=== PATIENT | male | born 1955 | race Caucasian/White ===

== ENCOUNTER 2020-12-27 10:05 | Outpatient (REF) | payer BC, SELFPAY ==
[2020-12-27 10:16] LABS: MANUAL DIFF FLAG NO
[2020-12-27 10:49] LABS: Basophils Absolute Auto 0.1 X10*3/uL (0.0-0.2); Basophils Percent Auto 0.9 % (0-2); Eosinophils Absolute Auto 0.3 X10*3/uL (0.0-0.4); Eosinophils Percent Auto 3.8 % (0-4); Hematocrit 35.1 % (42-52); Hemoglobin 11.9 g/dl (14.0-18.0); Imm Gran Abs Auto 0.01 X10*3/uL (0.00-0.03); Imm Gran Pct Auto 0.1 % (0.0-0.4); Lymphocytes Percent Auto 26.4 % (20-40); Mean Corpuscular HGB Conc 33.9 g/dl (31.0-36.0); Mean Corpuscular Hemoglobin 29.5 pg (27.0-33.0); Mean Corpuscular Volume 86.9 fL (80-98); Mean Platelet Volume 9.9 fL (9.4-12.4); Monocytes Absolute Auto 1.1 X10*3/uL (0.1-1.2); Monocytes Percent Auto 14.4 % (2-11); Neutrophils Absolute Auto 4.1 X10*3/uL (2.0-8.3); Neutrophils Percent Auto 54.4 % (45-73); Platelet Count 411 X10*3/uL (160-400); Red Blood Count 4.04 X10*6/uL (4.60-5.80); Red Cell Distribution Width 17.2 % (11.0-16.0); White Blood Count 7.6 X10*3/uL (4.8-10.8)
[2020-12-27 10:59] LABS: Glucose Urine UA NEG (NEG); Leukocyte Esterase Urine NEG (NEG); Nitrite Urine NEG (NEG); Urine Blood NEG (NEG); Urine Ketones NEG (NEG); Urine Protein NEG (NEG-TRACE)
[2020-12-27 11:10] LABS: Appearance Urine CLEAR; Color Urine YELLOW
[2020-12-27 11:28] LABS: Alanine Aminotransferase 32 U/L (0-40); Albumin Level 4.3 g/dL (3.5-5.0); Alkaline Phosphatase 62 U/L (39-117); Anion Gap 13 (12-20); Aspartate Amino Transferase 71 U/L (5-37); Bilirubin Total 0.5 mg/dL (0.0-1.0); Blood Urea Nitrogen 4 mg/dL (9-16); Calcium 9.8 mg/dL (8.4-10.2); Carbon Dioxide 28 mmol/L (22-29); Chloride 102 mmol/L (96-108); Cholesterol 210 mg/dL; Estimated Glomerular Filt Rate > 60; Glucose Fasting 93 mg/dL (60-99); HDL Cholesterol 94 mg/dL; LDL Cholesterol Calculated 102 mg/dl; Potassium 4.3 mmol/L (3.3-5.1); Sodium 139 mmol/L (135-145); Total Protein 7.3 g/dL (6.5-8.0); Triglycerides 73 mg/dL
[2020-12-27 11:48] LABS: PSA,Total (Free>4and<10) 1.64 ng/mL (0.00-4.00)
== END 2020-12-27 10:06 | disposition home or self-care (01) ==
LOC: HO.LNP 10:05
PROVIDERS: Visit Provider Internal Medicine
DX: Z00.00 Encounter for general adult medical examination without abnormal findings (principal); Z12.5 Encounter for screening for malignant neoplasm of prostate; R97.20 Elevated prostate specific antigen [PSA]
CPT/HCPCS: 80053; 80061; 81003; 84153; 85025

== ENCOUNTER 2020-12-31 15:29 | Outpatient (REF) | payer BC, SELFPAY ==
[2020-12-31 15:36] LABS: MANUAL DIFF FLAG NO
[2020-12-31 15:59] LABS: Basophils Absolute Auto 0.1 X10*3/uL (0.0-0.2); Basophils Percent Auto 0.9 % (0-2); Eosinophils Absolute Auto 0.2 X10*3/uL (0.0-0.4); Eosinophils Percent Auto 3.3 % (0-4); Hematocrit 33.9 % (42-52); Hemoglobin 11.3 g/dl (14.0-18.0); Imm Gran Abs Auto 0.02 X10*3/uL (0.00-0.03); Imm Gran Pct Auto 0.3 % (0.0-0.4); Iron 30 mcg/dL (45-160); Lymphocytes Absolute Auto 1.4 X10*3/uL (1.2-4.9); Lymphocytes Percent Auto 20.4 % (20-40); Mean Corpuscular HGB Conc 33.3 g/dl (31.0-36.0); Mean Corpuscular Hemoglobin 29.1 pg (27.0-33.0); Mean Corpuscular Volume 87.4 fL (80-98); Mean Platelet Volume 9.8 fL (9.4-12.4); Monocytes Percent Auto 14.9 % (2-11); Neutrophils Absolute Auto 4.2 X10*3/uL (2.0-8.3); Neutrophils Percent Auto 60.2 % (45-73); Percent Iron Saturation 7 % (15-50); Platelet Count 377 X10*3/uL (160-400); Red Blood Count 3.88 X10*6/uL (4.60-5.80); Red Cell Distribution Width 17.3 % (11.0-16.0); Total Iron Binding Capacity 402 mcg/dL (228-428); Unsaturated Iron Binding 372 ug/dL; White Blood Count 6.9 X10*3/uL (4.8-10.8)
[2020-12-31 16:35] LABS: Folate 7.7 ng/mL (> or = 4.0); Vitamin B12 279 pg/mL (200-900)
== END 2020-12-31 15:30 | disposition home or self-care (01) ==
LOC: HO.LNP 15:29
PROVIDERS: Visit Provider Internal Medicine
DX: D64.9 Anemia, unspecified (principal)
CPT/HCPCS: 82607; 82746; 83540; 85025

== ENCOUNTER 2021-02-04 10:55 | Outpatient (REF) | payer BC, SELFPAY ==
[2021-02-04 11:14] LABS: MANUAL DIFF FLAG NO
[2021-02-04 12:06] LABS: Basophils Absolute Auto 0.1 X10*3/uL (0.0-0.2); Basophils Percent Auto 1.1 % (0-2); Eosinophils Absolute Auto 0.4 X10*3/uL (0.0-0.4); Eosinophils Percent Auto 6.6 % (0-4); Hematocrit 35.4 % (42-52); Hemoglobin 11.8 g/dl (14.0-18.0); Imm Gran Abs Auto 0.01 X10*3/uL (0.00-0.03); Imm Gran Pct Auto 0.2 % (0.0-0.4); Lymphocytes Absolute Auto 1.9 X10*3/uL (1.2-4.9); Mean Corpuscular HGB Conc 33.3 g/dl (31.0-36.0); Mean Corpuscular Hemoglobin 29.6 pg (27.0-33.0); Mean Corpuscular Volume 88.7 fL (80-98); Mean Platelet Volume 10.1 fL (9.4-12.4); Monocytes Absolute Auto 1.1 X10*3/uL (0.1-1.2); Monocytes Percent Auto 18.5 % (2-11); Neutrophils Absolute Auto 2.7 X10*3/uL (2.0-8.3); Neutrophils Percent Auto 43.6 % (45-73); Platelet Count 353 X10*3/uL (160-400); Red Blood Count 3.99 X10*6/uL (4.60-5.80); Red Cell Distribution Width 21.2 % (11.0-16.0); White Blood Count 6.2 X10*3/uL (4.8-10.8)
== END 2021-02-04 10:56 | disposition home or self-care (01) ==
LOC: HO.LNP 10:55
PROVIDERS: Visit Provider Internal Medicine
DX: D64.9 Anemia, unspecified (principal)
CPT/HCPCS: 85025

== ENCOUNTER 2021-03-05 10:41 | Outpatient (REF) | payer BC, SELFPAY ==
[2021-03-05 10:44] LABS: MANUAL DIFF FLAG NO
[2021-03-05 11:15] LABS: Basophils Absolute Auto 0.1 X10*3/uL (0.0-0.2); Basophils Percent Auto 1.4 % (0-2); Eosinophils Absolute Auto 0.4 X10*3/uL (0.0-0.4); Eosinophils Percent Auto 6.3 % (0-4); Hematocrit 37.5 % (42-52); Hemoglobin 12.9 g/dl (14.0-18.0); Imm Gran Abs Auto 0.01 X10*3/uL (0.00-0.03); Imm Gran Pct Auto 0.2 % (0.0-0.4); Lymphocytes Absolute Auto 1.7 X10*3/uL (1.2-4.9); Lymphocytes Percent Auto 29.3 % (20-40); Mean Corpuscular HGB Conc 34.4 g/dl (31.0-36.0); Mean Corpuscular Hemoglobin 30.9 pg (27.0-33.0); Mean Corpuscular Volume 89.7 fL (80-98); Mean Platelet Volume 9.9 fL (9.4-12.4); Monocytes Absolute Auto 1.1 X10*3/uL (0.1-1.2); Monocytes Percent Auto 18.5 % (2-11); Neutrophils Absolute Auto 2.6 X10*3/uL (2.0-8.3); Neutrophils Percent Auto 44.3 % (45-73); Platelet Count 431 X10*3/uL (160-400); Red Blood Count 4.18 X10*6/uL (4.60-5.80); Red Cell Distribution Width 21.8 % (11.0-16.0); White Blood Count 5.7 X10*3/uL (4.8-10.8)
== END 2021-03-05 10:42 | disposition home or self-care (01) ==
LOC: HO.LNP 10:41
PROVIDERS: Visit Provider Internal Medicine
DX: D72.821 Monocytosis (symptomatic) (principal)
CPT/HCPCS: 85025

== ENCOUNTER 2021-12-30 10:29 | Outpatient (REF) | payer BC, SELFPAY ==
[2021-12-30 10:32] LABS: MANUAL DIFF FLAG NO
[2021-12-30 10:57] LABS: Basophils Absolute Auto 0.1 X10*3/uL (0.0-0.2); Basophils Percent Auto 0.8 % (0-2); Eosinophils Absolute Auto 0.3 X10*3/uL (0.0-0.4); Eosinophils Percent Auto 4.5 % (0-4); Hemoglobin 12.7 g/dl (14.0-18.0); Imm Gran Abs Auto 0.02 X10*3/uL (0.00-0.03); Imm Gran Pct Auto 0.3 % (0.0-0.4); Lymphocytes Absolute Auto 1.9 X10*3/uL (1.2-4.9); Lymphocytes Percent Auto 30.7 % (20-40); Mean Corpuscular HGB Conc 34.3 g/dl (31.0-36.0); Mean Corpuscular Hemoglobin 30.9 pg (27.0-33.0); Mean Platelet Volume 10.1 fL (9.4-12.4); Monocytes Absolute Auto 0.9 X10*3/uL (0.1-1.2); Neutrophils Percent Auto 48.7 % (45-73); Platelet Count 382 X10*3/uL (160-400); Red Blood Count 4.11 X10*6/uL (4.60-5.80); Red Cell Distribution Width 19.7 % (11.0-16.0); White Blood Count 6.2 X10*3/uL (4.8-10.8)
[2021-12-30 10:59] LABS: Appearance Urine CLEAR; Color Urine YELLOW; Glucose Urine UA NEG (NEG); Leukocyte Esterase Urine NEG (NEG); Nitrite Urine NEG (NEG); PH 5.5 (5.0-8.0); Specific Gravity - Urine <= 1.005 (1.005-1.025); Urine Blood NEG (NEG); Urine Ketones NEG (NEG); Urine Protein NEG (NEG-TRACE)
[2021-12-30 11:24] LABS: Alanine Aminotransferase 16 U/L (0-40); Albumin Level 4.1 g/dL (3.5-5.0); Alkaline Phosphatase 58 U/L (39-117); Anion Gap 12 (12-20); Aspartate Amino Transferase 37 U/L (5-37); Bilirubin Total 0.7 mg/dL (0.0-1.0); Blood Urea Nitrogen 5 mg/dL (9-16); Carbon Dioxide 29 mmol/L (22-29); Chloride 102 mmol/L (96-108); Cholesterol 198 mg/dL; Estimated Glomerular Filt Rate > 60; Glucose Fasting 96 mg/dL (60-99); HDL Cholesterol 89 mg/dL; Iron 200 mcg/dL (45-160); LDL Cholesterol Calculated 96 mg/dl; Percent Iron Saturation 55 % (15-50); Potassium 4.5 mmol/L (3.3-5.1); Sodium 138 mmol/L (135-145); Total Iron Binding Capacity 365 mcg/dL (228-428); Total Protein 7.1 g/dL (6.5-8.0); Triglycerides 66 mg/dL; Unsaturated Iron Binding 165 ug/dL
[2021-12-30 11:51] LABS: PSA,Total (Free>4and<10) 1.39 ng/mL (0.00-4.00)
== END 2021-12-30 10:30 | disposition home or self-care (01) ==
LOC: HO.LNP 10:29
PROVIDERS: Visit Provider Internal Medicine
DX: Z00.00 Encounter for general adult medical examination without abnormal findings (principal); Z12.5 Encounter for screening for malignant neoplasm of prostate; D50.9 Iron deficiency anemia, unspecified; D72.821 Monocytosis (symptomatic)
CPT/HCPCS: 80053; 80061; 81003; 83540; 84153; 85025

== ENCOUNTER 2023-02-20 11:18 | Outpatient (REF) | payer MEDICARE, BC, SELFPAY ==
[2023-02-20 11:21] LABS: MANUAL DIFF FLAG NO
[2023-02-20 11:46] LABS: Basophils Absolute Auto 0.1 X10*3/uL (0.0-0.2); Basophils Percent Auto 0.7 % (0-2); Eosinophils Absolute Auto 0.3 X10*3/uL (0.0-0.4); Eosinophils Percent Auto 4.9 % (0-4); Hematocrit 32.2 % (42.0-52.0); Hemoglobin 10.8 g/dl (14.0-18.0); Imm Gran Abs Auto 0.01 X10*3/uL (0.00-0.03); Imm Gran Pct Auto 0.1 % (0.0-0.4); Lymphocytes Absolute Auto 1.9 X10*3/uL (1.2-4.9); Mean Corpuscular HGB Conc 33.5 g/dl (31.0-36.0); Mean Corpuscular Hemoglobin 27.9 pg (27.0-33.0); Mean Corpuscular Volume 83.2 fL (80.0-98.0); Mean Platelet Volume 9.8 fL (9.4-12.4); Monocytes Percent Auto 14.8 % (2-11); Neutrophils Absolute Auto 3.4 x10*3/uL (2.0-8.3); Neutrophils Percent Auto 51.5 % (45-73); Platelet Count 385 X10*3/uL (160-400); Red Blood Count 3.87 X10*6/uL (4.60-5.80); Red Cell Distribution Width 19.1 % (11.0-16.0); White Blood Count 6.7 X10*3/uL (4.8-10.8)
[2023-02-20 11:49] LABS: Appearance Urine Clear; Color Urine Yellow; Glucose Urine UA Negative (Negative); Leukocyte Esterase Urine Negative (Negative); Nitrite Urine Negative (Negative); PH 5.5 (5.0-9.0); Specific Gravity - Urine <= 1.005 (1.005-1.025); Urine Blood Negative (Negative); Urine Ketones Negative (Negative); Urine Protein Negative (Neg-Trace)
[2023-02-20 11:54] LABS: Bacteria Urine None Seen (None Seen); Hyaline Casts Urine 0-2 /LPF (0-2); RBC Urine 0-2 /HPF (0-2); Squamous Epithelial Cell Urine 0-2 /HPF (0-2); WBC Urine 0-5 /HPF (0-5)
[2023-02-20 12:12] LABS: Alanine Aminotransferase 30 U/L (0-40); Alkaline Phosphatase 60 U/L (39-117); Anion Gap 12 (12-20); Aspartate Amino Transferase 75 U/L (5-37); Bilirubin Total 0.7 mg/dL (0.0-1.0); Blood Urea Nitrogen 4 mg/dL (9-16); Calcium 9.6 mg/dL (8.4-10.2); Carbon Dioxide 29 mmol/L (22-29); Chloride 105 mmol/L (96-108); Cholesterol 192 mg/dL; Estimated Glomerular Filt Rate > 60; Glucose Fasting 99 mg/dL (60-99); HDL Cholesterol 84 mg/dL; Iron 62 mcg/dL (45-160); LDL Cholesterol Calculated 97 mg/dl; Percent Iron Saturation 18 % (15-50); Potassium 4.6 mmol/L (3.3-5.1); Sodium 141 mmol/L (135-145); Total Iron Binding Capacity 350 mcg/dL (228-428); Triglycerides 55 mg/dL; Unsaturated Iron Binding 288 ug/dL
[2023-02-20 12:27] LABS: PSA,Total (Free>4and<10) 1.89 ng/mL (0.00-4.00)
== END 2023-02-20 11:19 | disposition home or self-care (01) ==
LOC: HO.LNP 11:18
PROVIDERS: Visit Provider Internal Medicine
DX: Z00.00 Encounter for general adult medical examination without abnormal findings (principal); Z12.5 Encounter for screening for malignant neoplasm of prostate; D50.9 Iron deficiency anemia, unspecified; D72.821 Monocytosis (symptomatic)
CPT/HCPCS: 80053; 80061; 81001; 83540; 84153; 85025

== ENCOUNTER 2023-05-29 11:30 | Outpatient (REF) | payer MEDICARE, BC, SELFPAY ==
[2023-05-29 11:32] LABS: MANUAL DIFF FLAG NO
[2023-05-29 11:46] LABS: Basophils Percent Auto 0.6 % (0-2); Eosinophils Absolute Auto 0.4 X10*3/uL (0.0-0.4); Eosinophils Percent Auto 5.1 % (0-4); Hematocrit 31.8 % (42.0-52.0); Hemoglobin 10.4 g/dl (14.0-18.0); Imm Gran Abs Auto 0.02 X10*3/uL (0.00-0.03); Imm Gran Pct Auto 0.3 % (0.0-0.4); Lymphocytes Percent Auto 27.8 % (20-40); Mean Corpuscular HGB Conc 32.7 g/dl (31.0-36.0); Mean Corpuscular Hemoglobin 25.3 pg (27.0-33.0); Mean Corpuscular Volume 77.4 fL (80.0-98.0); Mean Platelet Volume 9.6 fL (9.4-12.4); Monocytes Absolute Auto 0.9 X10*3/uL (0.1-1.2); Monocytes Percent Auto 12.8 % (2-11); Neutrophils Absolute Auto 3.8 x10*3/uL (2.0-8.3); Neutrophils Percent Auto 53.4 % (45-73); Platelet Count 418 X10*3/uL (160-400); Red Blood Count 4.11 X10*6/uL (4.60-5.80); Red Cell Distribution Width 19.4 % (11.0-16.0)
[2023-05-29 12:02] LABS: Iron 25 mcg/dL (45-160); Percent Iron Saturation 7 % (15-50); Total Iron Binding Capacity 349 mcg/dL (228-428); Unsaturated Iron Binding 324 ug/dL
== END 2023-05-29 11:31 | disposition home or self-care (01) ==
LOC: HO.LNP 11:30
PROVIDERS: Visit Provider Internal Medicine
DX: D64.9 Anemia, unspecified (principal)
CPT/HCPCS: 83540; 85025

== ENCOUNTER 2023-07-16 11:00 | Outpatient (REF) | payer MEDICARE, BC, SELFPAY ==
[2023-07-16 11:06] LABS: MANUAL DIFF FLAG NO
[2023-07-16 11:16] LABS: Basophils Absolute Auto 0.1 X10*3/uL (0.0-0.2); Basophils Percent Auto 0.7 % (0-2); Eosinophils Absolute Auto 0.4 X10*3/uL (0.0-0.4); Eosinophils Percent Auto 5.5 % (0-4); Hematocrit 29.9 % (42.0-52.0); Hemoglobin 9.8 g/dl (14.0-18.0); Imm Gran Abs Auto 0.02 X10*3/uL (0.00-0.03); Imm Gran Pct Auto 0.3 % (0.0-0.4); Lymphocytes Absolute Auto 1.7 X10*3/uL (1.2-4.9); Lymphocytes Percent Auto 24.6 % (20-40); Mean Corpuscular HGB Conc 32.8 g/dl (31.0-36.0); Mean Corpuscular Hemoglobin 25.7 pg (27.0-33.0); Mean Corpuscular Volume 78.3 fL (80.0-98.0); Mean Platelet Volume 9.8 fL (9.4-12.4); Monocytes Absolute Auto 1.1 X10*3/uL (0.1-1.2); Monocytes Percent Auto 16.1 % (2-11); Neutrophils Absolute Auto 3.6 x10*3/uL (2.0-8.3); Neutrophils Percent Auto 52.8 % (45-73); Platelet Count 458 X10*3/uL (160-400); Red Blood Count 3.82 X10*6/uL (4.60-5.80); Red Cell Distribution Width 21.6 % (11.0-16.0); White Blood Count 6.8 X10*3/uL (4.8-10.8)
[2023-07-16 11:42] LABS: Iron 19 mcg/dL (45-160); Percent Iron Saturation 6 % (15-50); Total Iron Binding Capacity 344 mcg/dL (228-428); Unsaturated Iron Binding 325 ug/dL
== END 2023-07-16 11:01 | disposition home or self-care (01) ==
LOC: HO.LNP 11:00
PROVIDERS: Visit Provider Internal Medicine
DX: D50.9 Iron deficiency anemia, unspecified (principal)
CPT/HCPCS: 83540; 85025

== ENCOUNTER 2023-08-24 12:12 | Day surgery (SDC) | payer MEDICARE, BC, SELFPAY ==
--- NOTE | 2023-08-21 10:14 | P.CONAN_ITS ---
Documented by User: Paris Triplett NP 08/21/23 10:15 HPI - Anesthesia Eval Consult details Narrative: 68yo M for Upper Endoscopy and Colonoscopy [facility] Active Problems Active Problems: All Active Problems (Updated 08/18/23 @ 12:32 by Mee Rey PA-C) Screening for AAA (aortic abdominal aneurysm) (Acute) Anemia (Acute) Nicotine dependence, cigarettes, uncomplicated (Acute) Past Medical History Medical History Anemia Nicotine dependence, cigarettes, uncomplicated History of colon polyps Family History Family History Father Pancreatic cancer Surgical History Surgical History Hx of tonsillectomy History of colonoscopy Social History Social History Patient Tobacco Use Status: Current everyday Tobacco user Cigarette Packs Per Day: 1 Cigarettes Per Day: 20.0 Years Smoked: 50 Use of substances other than those prescribed or required for medical reasons: No Are you DNR?: No Advance Directives: No Advance Directives Information Provided: Yes Meds Allergies Allergy/AdvReac Type Severity Reaction Status Date / Time No Known Allergies Allergy Verified 08/21/23 09:10 Home Medications Medication Instructions Recorded Confirmed Last Taken Type ibuprofen 200 mg tablet 200 mg PO Q6H PRN Pain 08/21/23 08/21/23 Unknown History multivitamin 1 tab PO DAILY 08/21/23 08/21/23 Unknown History Exam Exam Date and Time: August 21, 2023 1014 Assessment and Plan Assessment Anesthesia Assessment: Chart Reviewed Documented by User: Cory Moody MD 08/24/23 13:37 [facility] Past Medical History Medical History Anemia Nicotine dependence, cigarettes, uncomplicated History of colon polyps Family History Family History Father Pancreatic cancer Family history of problems with anesthesia: No Surgical History Surgical History Hx of tonsillectomy History of colonoscopy History of Problems with Anesthesia: No Social History Social History Patient Tobacco Use Status: Current everyday Tobacco user Cigarette Packs Per Day: 1 Cigarettes Per Day: 20.0 Years Smoked: 50 Use of substances other than those prescribed or required for medical reasons: No Are you DNR?: No Advance Directives: No Advance Directives Information Provided: Yes Meds Allergies Allergy/AdvReac Type Severity Reaction Status Date / Time No Known Allergies Allergy Verified 08/21/23 09:10 Home Medications Medication Instructions Recorded Confirmed Last Taken Type ibuprofen 200 mg tablet 200 mg PO Q6H PRN Pain 08/21/23 08/21/23 Unknown History multivitamin 1 tab PO DAILY 08/21/23 08/21/23 Unknown History Exam Airway Mallampati Class: II TM Dist: >3cm Loose/Missing/Broken Teeth: No Heart: rrr Lungs: clear Assessment and Plan Final Anesthetic Review Family History of Problems with Anesthesia: No History of Problems with Anesthesia: No NPO: Yes ASA Class: II Final Preanesthetic Review: No Changes in Pt Med Stat, Meds/Allgs Chart Reviewed, Consent Obtained/Reviewed and Anes Risks/Benef Reviewed Patient Risk: Intermediate Procedure Risk: Low Anesthetic Plan Anesthetic Plan: MAC: Disposition: Standard PACU
[2023-08-24 12:43] VITALS: BMI 21.4
[2023-08-24] MEDS: Lactated Ringers 1,000 ML 100 ML IVCONT (13:01)
[2023-08-24 13:08] VITALS: BP 152/84; PULSE 95; RESP 18; TEMP 37.1; O2SAT 96
[2023-08-24 14:54] VITALS: BP 118/44; PULSE 82; RESP 14; TEMP 36.1; O2SAT 98
--- NOTE | 2023-08-24 15:06 | PM.OP ---
Brief Operative Note Date of Service: 08/24/23 Pre-op diagnosis: GERD, Anemia Post-op diagnosis: other (GERD, R/O Villarreal's, Hiatal hernia, Gastritis, R/O celiac disease, Colon polyp) Procedure: EGD with biopsies, Colonoscopy to the cecum and TI with hot snare polypectomy of cecal polyp x 1 with placement of 3 Resolution clips Surgeon: Jhonathan Schwartz MD Anesthesia: MAC Was an Gardening Instructor used for this Procedure?: No Estimated blood loss (mL): 2.0 Pathology: other (A. Descending duodenum B. Gastric antrum C. EG Junction at 39cm D. Cecal polyp) Condition: stable Disposition: PACU
[2023-08-24 15:09] VITALS: BP 124/69; PULSE 78; RESP 16; O2SAT 99
[2023-08-24 15:24] VITALS: BP 137/73; PULSE 76; RESP 16; TEMP 36.2; O2SAT 99
--- NOTE | 2023-08-25 01:20 | OP_ITS ---
DATE OF SERVICE: 08/24/2023 SURGEON: Jhnoathan Schwartz MD INDICATIONS: The patient presents for evaluation of iron-deficiency anemia and gastroesophageal reflux. Full consent has been obtained from him for this, including risks of bleeding and perforation. PREOPERATIVE DIAGNOSIS: Iron deficiency anemia and gastroesophageal reflux. POSTOPERATIVE DIAGNOSIS: Iron deficiency anemia and gastroesophageal reflux, hiatal hernia, rule out Villarreal's esophagus, gastritis, rule out celiac disease, colon polyp, diverticulosis, internal and external hemorrhoids. PROCEDURE PERFORMED: Esophagogastroduodenoscopy with biopsies, and colonoscopy to the cecum and terminal ileum with hot snare polypectomy of cecal polyp with placement of 3 Resolution clips. ESTIMATED BLOOD LOSS: COMPLICATIONS: ANESTHESIA: Medication Used: Monitored anesthesia care. ASSISTANTS: SPECIMENS: DESCRIPTION OF PROCEDURE: The patient was placed in the left lateral decubitus position. The Olympus video gastroscope was passed in the posterior oropharynx and upper esophagus under direct vision. The scope was passed slowly to the distal esophagus. The gastroesophageal junction appeared at 39 cm. This area appeared somewhat irregular with small, less than 1 cm, areas of probable Villarreal's mucosa. There was no esophagitis nor any lesions. There was a small hiatal hernia. The scope was advanced to the pylorus and the duodenum was cannulated to the descending portion. The duodenum including the bulb appeared normal without mass or ulceration. Biopsies were obtained from the second and third portions of duodenum. The scope was withdrawn back to the stomach. The gastric antrum had areas of some erosive gastritis with surrounding edema, but no ulceration nor mass. There was good peristalsis. Biopsies were obtained from the antrum. The scope was retroflexed, visualizing the proximal stomach carefully, which appeared normal, without any sign of mass or ulceration. The scope was straightened out and withdrawn back to the esophagus. Multiple biopsies were obtained at the EG junction at 39 cm. Proximal to this, the esophageal mucosa appeared normal. The scope was withdrawn from the patient. He was turned around for the colonoscopy. The digital rectal exam revealed some small external hemorrhoids. The Olympus video pediatric colonoscope was entered into the rectum and advanced easily to the cecum. Once in the cecum, I did identify normal-appearing cecal pouch other than an area approximately 12 mm in diameter, which appeared edematous and polypoid in nature. It was somewhat friable. The tissue was removed with hot snare polypectomy with the edges cauterized by the tip of the snare. Post polypectomy, there did not appear to be any residual polyp nor bleeding. The main piece that was removed was recovered by suction. Three Resolution clips were applied to the polypectomy site with good deployment and good hemostasis. The remainder of the cecum including the appendiceal orifice appeared normal. The ileocecal valve appeared normal. The scope was then slowly withdrawn, assessing all mucosal surfaces carefully. Preparation was excellent. I did not visualize any sign of other polyps, colitis, nor angiodysplasia. There was a mild amount of sigmoid diverticulosis. In the rectum, scope was retroflexed, visualizing internal hemorrhoids, but no other pathology. The rectal mucosa appeared normal. The scope was straightened and withdrawn from the patient. He tolerated the procedures well and was returned to the recovery area in stable condition. IMPRESSION: 1. Hiatal hernia, gastroesophageal reflux, rule out Villarreal's esophagus. 2. Erosive gastritis. 3. Rule out celiac disease. 4. Colon polyp. 5. Diverticulosis. 6. Internal and external hemorrhoids. PLAN: The results of the pathology will be checked. If the colon polyp is a tubular adenoma or serrated polyp, I would recommend a repeat colonoscopy within 5 years. If there is Villarreal's esophagus without dysplasia, I would recommend a repeat upper endoscopy in 3 years. He was advised not to use any aspirin or NSAIDs for at least 1 week. Given the upper endoscopy findings, I shall send a prescription for omeprazole 40 mg daily. He does have some risk factors for the upper GI inflammation including smoking, some alcohol use, and ibuprofen use. He was advised to try to avoid alcohol completely as well as the ibuprofen. He was advised to start an iron supplement daily. His most recent labs on July 16 showed an iron of 19 with an iron saturation of only 6%. His CBC, at that time, showed a hemoglobin of 9.8, MCV 78, platelets 458,000. He may need further evaluation with a small bowel video capsule study depending upon his clinical course. I do suspect the blood loss seems to be related to the upper GI findings. MD NEWTON [place]/SGAE / [id number] VERONICA
== END 2023-08-24 15:46 | disposition home or self-care (01) ==
PROVIDERS: PCP Internal Medicine; Visit Provider Internal Medicine
PROC: (CPT 45385; principal; 2023-08-24 14:40)
DX: D50.9 Iron deficiency anemia, unspecified (principal); D12.0 Benign neoplasm of cecum; K57.30 Diverticulosis of large intestine without perforation or abscess without bleeding; K64.8 Other hemorrhoids; K64.4 Residual hemorrhoidal skin tags; K21.9 Gastro-esophageal reflux disease without esophagitis; K29.50 Unspecified chronic gastritis without bleeding; K44.9 Diaphragmatic hernia without obstruction or gangrene
CPT/HCPCS: 45385; 43239; 88305; 88342

== ENCOUNTER 2023-09-07 11:05 | Outpatient (REF) | payer MEDICARE, BC, SELFPAY ==
[2023-09-07 11:09] LABS: MANUAL DIFF FLAG NO
[2023-09-07 12:17] LABS: Basophils Absolute Auto 0.1 X10*3/uL (0.0-0.2); Eosinophils Absolute Auto 0.3 X10*3/uL (0.0-0.4); Eosinophils Percent Auto 5.5 % (0-4); Hemoglobin 10.6 g/dl (14.0-18.0); Imm Gran Abs Auto 0.01 X10*3/uL (0.00-0.03); Imm Gran Pct Auto 0.2 % (0.0-0.4); Lymphocytes Absolute Auto 1.5 X10*3/uL (1.2-4.9); Lymphocytes Percent Auto 25.1 % (20-40); Mean Corpuscular HGB Conc 33.1 g/dl (31.0-36.0); Mean Corpuscular Hemoglobin 25.4 pg (27.0-33.0); Mean Corpuscular Volume 76.6 fL (80.0-98.0); Mean Platelet Volume 10.1 fL (9.4-12.4); Monocytes Absolute Auto 1.1 X10*3/uL (0.1-1.2); Monocytes Percent Auto 18.4 % (2-11); Neutrophils Absolute Auto 2.9 x10*3/uL (2.0-8.3); Neutrophils Percent Auto 49.8 % (45-73); Platelet Count 393 X10*3/uL (160-400); Red Blood Count 4.18 X10*6/uL (4.60-5.80); Red Cell Distribution Width 20.2 % (11.0-16.0); White Blood Count 5.8 X10*3/uL (4.8-10.8)
[2023-09-07 12:53] LABS: Iron 81 mcg/dL (45-160); Percent Iron Saturation 23 % (15-50); Total Iron Binding Capacity 348 mcg/dL (228-428); Unsaturated Iron Binding 267 ug/dL
== END 2023-09-07 11:06 | disposition home or self-care (01) ==
LOC: HO.LNP 11:05
PROVIDERS: Visit Provider Internal Medicine
DX: D50.9 Iron deficiency anemia, unspecified (principal)
CPT/HCPCS: 83540; 85025

== ENCOUNTER 2023-10-30 10:28 | Outpatient (AMB) | payer MEDICARE, BC, SELFPAY ==
--- NOTE | 2023-10-29 20:17 | A.OFFVIS_ITS ---
Intake Intake Visit Reasons: LDCT SD Allergies No Known Allergies Allergy (Verified 08/21/23 09:10) HPI HPI Comments History of Present Illness Details Suhail is a pleasant 68 year old male, current smoker with a 51 PYH. Patient has been smoking since age 17 for 51 years at 1 ppd. Denies marijuana use. 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 Admits second hand smoke exposure. Denies known family history of lung cancer. Denies personal history of cancers. Denies chest CT in last year. Admits recent travel outside the to [place], [place], [place] and [place] Admits to testing positive for COVID. Admits receiving COVID Vaccine x 2 Denies fever, chills, chest pain, new cough, hemoptysis or unintentional weight loss. Lung Cancer Screening Questionnaire reviewed with patient by provider. Shared Decision Making Completed. Discussed in detail with patient, the risk versus benefit of LDCT screening. Patient in agreement of proceeding with scan. REPLACED BY [facility] Medical History (Updated 10/29/23 @ 20:18 by Marilin Li NP) Anemia Nicotine dependence, cigarettes, uncomplicated History of colon polyps Surgical History (Updated 09/17/23 @ 13:33 by Mee Rey PA-C) History of tonsillectomy History of colonoscopy Family History Father Pancreatic cancer Social History (Updated 10/30/23 @ 10:47 by Marilin Li NP) Patient Tobacco Use Status: Current everyday Tobacco user Cigarette Packs Per Day: 1 Cigarettes Per Day: 20.0 Years Smoked: 51 Assessment & Plan Assessment & Plan (1) Nicotine dependence, cigarettes, uncomplicated: Code(s): F17.210 - Nicotine dependence, cigarettes, uncomplicated Plan Shared decision-making visit completed today in office. This patient meets criteria for LDCT for lung cancer screening purposes and is asymptomatic. Offered smoking cessation. Patient has been scheduled for a low dose chest CT for screening purposes at [facility]. We discussed how the results w ill be obtained depending on CT findings. RADS 1 and RADS 2 will receive a letter with results and will follow up for annual LDCT. Patient informed they will be contacted at later date to schedule upcoming LDCT scan. RADS 3 and RADS 4 will receive a telephone call, or an office visit after reviewing case at our Lung Cancer Conference to determine when the next LDCT will be scheduled or further interventions that may be needed. Discussed importance of screening program and compliance with yearly LDCT scan as scheduled. Risks, benefits, and alternatives were discussed in detail and patient agrees to proceed. Risks discussed include but are not limited to: radiation exposure and possibility of additional intervention for benign disease. Benefits include detection of lung cancer at an early stage. A copy of today's visit and LDCT results will be sent to patient's PCP. Incidental findings on LDCT are PCP's responsibility. If there are incidental findings, our office will ensure that PCP office is aware of these findings. All questions were answered and patient is in agreement of plan. Coding Level of Care Code Lung Cancer Screening G0296 Diagnoses Nicotine dependence, cigarettes, uncomplicated F17.210
== END 2023-10-30 10:41 | disposition home or self-care (01) ==
PROVIDERS: PCP Internal Medicine; Visit Provider Nurse Practitioner Family
DX: F17.210 Nicotine dependence, cigarettes, uncomplicated (principal)
CPT/HCPCS: G0296

== ENCOUNTER 2023-10-30 10:42 | Outpatient (REF) | payer MEDICARE, BC, SELFPAY ==
--- NOTE | ~2023-10-30 | CT_ITS ---
EXAMINATION: CT CHEST LOW-DOSE SCREENING WITHOUT CONTRAST HISTORY: Asymptomatic patient meeting criteria for lung screening. PATIENT PACK-YEAR HISTORY: 52 Current Smoker: Yes If former smoker, years since quitting: N/A COMPARISON: None available. TECHNIQUE: Multidetector volumetric noncontrast CT imaging of the chest was obtained on a Siemens Ascend 64-slice scanner using low-dose screening CT technique. Axial thin section 0.625 mm reformations in soft tissue and lung windows were obtained. Sagittal and coronal reformations were obtained. Axial MIP images were also created and reviewed. RECONSTRUCTED WIDTH: 1.25 mm x 1.[address] examination was performed using dose optimization techniques as appropriate, variously including the following: *Automated exposure control *Adjustment of mA and/or kV according to patient size (this includes techniques or standardized protocols for targeted exams where dose is matched to indication/reason for exam; i.e. extremities or head) *Use of iterative reconstruction technique TOTAL EXAM DLP: 46 mGy-cm CTDIvol: 0.95 mGy FINDINGS: LUNGS: Lungs bilaterally symmetrically expanded. Mild emphysematous changes are present. No worrisome focal lung nodule or mass. There is a 2 mm nodule present in the right upper lobe (5:140) along with a 3 mm nodule present in the right upper lobe (5:254). No effusion or pneumothorax. Central airways patent. LYMPHATIC STRUCTURES: No mediastinal, hilar or axillary adenopathy or free fluid collection. THYROID GLAND: Unremarkable to the extent seen. CARDIOVASCULAR STRUCTURES: The ascending aorta is dilated at 4.3 cm when measurements are made perpendicular to a center line. Heart size normal. Mild coronary artery calcifications. No pericardial effusion. UPPER ABDOMEN: Included portions of the solid organs in the upper abdomen unremarkable on noncontrast imaging. OSSEOUS STRUCTURES: No suspicious focal findings. SPINAL COMPRESSION: Absent. CT/CT lung screening IMPRESSION: No findings suspicious for malignancy. Small pulmonary micronodules as described above. LUNG-RADS CATEGORY ASSESSMENT: Benign. INCIDENTAL FINDINGS (S CATEGORY): Finding: Thoracic aortic aneurysm. The ascending aorta measures 4.3 cm. For a patient of 68 years of age, maximal dimension should be 4.2 cm*. Significance category: Clinically significant. RECOMMENDATION: Low-dose lung CT overall in 1 year. Visual estimate of coronary calcified plaque burden: None. However, this exam cannot replace a dedicated cardiac CT calcium score for accurate assessment. *Normal aortic diameters (in millimeters) Ascending aorta: 31+0.16 x age. Descending aorta: 21+0.16 x age. Reference: [employer] Cardiovascular J 2006 [place]; 40 (3): 175-178
== END 2023-10-30 10:43 | disposition home or self-care (01) ==
LOC: HO.CT 10:42
PROVIDERS: PCP Internal Medicine; Visit Provider Physician Assistant Medical
DX: Z12.2 Encounter for screening for malignant neoplasm of respiratory organs (principal); F17.210 Nicotine dependence, cigarettes, uncomplicated
CPT/HCPCS: 71271; G0296

== ENCOUNTER 2024-02-22 12:24 | Outpatient (REF) | payer MEDICARE, BC, SELFPAY ==
[2024-02-22 12:28] LABS: MANUAL DIFF FLAG NO
[2024-02-22 12:32] LABS: Basophils Absolute Auto 0.1 X10*3/uL (0.0-0.2); Basophils Percent Auto 1.1 % (0-2); Eosinophils Absolute Auto 0.4 X10*3/uL (0.0-0.4); Eosinophils Percent Auto 5.6 % (0-4); Hematocrit 31.7 % (42.0-52.0); Hemoglobin 10.5 g/dl (14.0-18.0); Imm Gran Abs Auto 0.02 X10*3/uL (0.00-0.03); Imm Gran Pct Auto 0.3 % (0.0-0.4); Lymphocytes Absolute Auto 1.7 X10*3/uL (1.2-4.9); Lymphocytes Percent Auto 26.5 % (20-40); Mean Corpuscular HGB Conc 33.1 g/dl (31.0-36.0); Mean Corpuscular Hemoglobin 26.5 pg (27.0-33.0); Mean Corpuscular Volume 80.1 fL (80.0-98.0); Mean Platelet Volume 9.5 fL (9.4-12.4); Monocytes Percent Auto 15.4 % (2-11); Neutrophils Absolute Auto 3.2 x10*3/uL (2.0-8.3); Neutrophils Percent Auto 51.1 % (45-73); Platelet Count 389 X10*3/uL (160-400); Red Blood Count 3.96 X10*6/uL (4.60-5.80); Red Cell Distribution Width 21.4 % (11.0-16.0); White Blood Count 6.2 X10*3/uL (4.8-10.8)
[2024-02-22 12:41] LABS: Alanine Aminotransferase 32 U/L (0-40); Albumin Level 3.5 g/dL (3.5-5.0); Alkaline Phosphatase 66 U/L (39-117); Anion Gap 10 (12-20); Aspartate Amino Transferase 86 U/L (5-37); Bilirubin Total 0.3 mg/dL (0.0-1.0); Blood Urea Nitrogen 4 mg/dL (9-16); Carbon Dioxide 28 mmol/L (22-29); Chloride 105 mmol/L (96-108); Cholesterol 142 mg/dL (<200); Estimated Glomerular Filt Rate > 60; Glucose Fasting 82 mg/dL (60-99); HDL Cholesterol 46 mg/dL (>40); Iron 25 mcg/dL (45-160); LDL Cholesterol Calculated 80 mg/dL (<100); Percent Iron Saturation 8 % (15-50); Sodium 139 mmol/L (135-145); Total Iron Binding Capacity 318 mcg/dL (228-428); Total Protein 6.7 g/dL (6.5-8.0); Triglycerides 81 mg/dL (<150); Unsaturated Iron Binding 293 ug/dL
[2024-02-22 12:42] LABS: Appearance Urine Clear; Color Urine Yellow; Glucose Urine UA Negative (Negative); Leukocyte Esterase Urine Negative (Negative); Nitrite Urine Negative (Negative); PH 5.5 (5.0-9.0); Specific Gravity - Urine <= 1.005 (1.005-1.025); Urine Blood Negative (Negative); Urine Ketones Negative (Negative); Urine Protein Negative (Neg-Trace)
[2024-02-22 12:48] LABS: Bacteria Urine None Seen (None Seen); Hyaline Casts Urine 0-2 /LPF (0-2); RBC Urine 0-2 /HPF (0-2); Squamous Epithelial Cell Urine 0-2 /HPF (0-2); WBC Urine 0-5 /HPF (0-5)
[2024-02-22 13:02] LABS: PSA,Total (Free>4and<10) 1.05 ng/mL (0.00-4.00)
== END 2024-02-22 12:25 | disposition home or self-care (01) ==
LOC: HO.LNP 12:24
PROVIDERS: Visit Provider Internal Medicine
DX: D50.9 Iron deficiency anemia, unspecified (principal); D72.821 Monocytosis (symptomatic); I25.84 Coronary atherosclerosis due to calcified coronary lesion; Z12.5 Encounter for screening for malignant neoplasm of prostate
CPT/HCPCS: 80053; 80061; 81001; 83540; 84153; 85025

== ENCOUNTER 2024-04-11 14:57 | Outpatient (AMB) | payer MEDICARE, SELFPAY ==
[2024-04-11 15:05] VITALS: BP 150/78; PULSE 88; BMI 21.5
--- NOTE | 2024-04-11 15:05 | A.OFFVIS_ITS ---
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 It seems that he had a chest CT scan because of history of smoking and that showed severe emphysema. There was also concern for coronary artery as well as vascular calcifications. That led to a calcium scoring CT scan which was obviously positive. Hence he has been referred here. Patient is a long-term smoker. Otherwise, no history of anginal-type symptoms or in fact any other concerns from cardiac. [facility] Medical History (Updated 04/11/24 @ 15:35 by Saran Rodriguez MD) Emphysema lung Atherosclerotic cardiovascular disease Anemia Nicotine dependence, cigarettes, uncomplicated History of colon polyps Surgical History History of tonsillectomy History of colonoscopy Family History Father Pancreatic cancer Social History Alcohol intake: current Alcohol intake frequency: 0-2 drinks per day Patient Tobacco Use Status: Current everyday Tobacco user Cigarette Packs Per Day: 1 Cigarettes Per Day: 20.0 Years Smoked: 51 Review of Systems Const Denies weakness ENT Denies dizziness Card Denies chest pain, Denies chest pain with activity, Denies syncope, Denies rapid heart rate, Denies pedal edema, Denies edema, Denies leg edema, Denies lightheadedness, Denies palpitations, Denies dyspnea, Denies dyspnea on exertion and Denies orthopnea Resp Denies cough, Denies dyspnea and Denies dyspnea on exertion GI Denies hematochezia and Denies change in stool character Musc Denies abnormal gait, Denies muscle cramps, Denies muscle weakness, Denies numbness, Denies radiating pain into limb and Denies tingling Neuro Denies abnormal gait, Denies dizziness, Denies syncope, Denies numbness, Denies tingling and Denies weakness Endo Denies palpitations Physical Exam Vital Signs: Last Vital Signs Pulse 88 04/11/24 15:05 BP 150/78 H 04/11/24 15:05 BMI result Body Mass Index 21.5 Const General: comfortable and no acute distress Orientation/consciousness: patient oriented x3 HEENT Other: Unremarkable Head: Yes normal to inspection Neck Neck: Yes normal visual inspection Chest Chest palpation & inspection: normal inspection of the chest Resp Auscultation: clear to auscultation bilaterally Cardio Palpation: normal PMI Heart sounds: S1 normal heart sound present, S2 normal heart sound present, no gallops, no murmurs and no rubs GI Palpation (GI): Soft to palpation Back/Spine/Pelvis Other: unremarkable Skin General skin exam: no rashes or lesions noted Neuro General: patient oriented x3 Extrem General: Yes normal to inspection Psych Mental Status: mental status grossly normal Office Procedures EKG Details: EKG with sinus rhythm at 88/Min; no significant ST-T changes and otherwise [place]remarkable[place] [address]-[id number], Complete Assessment & Plan Assessment & Plan (1) Atherosclerotic cardiovascular disease: Code(s): I25.10 - Atherosclerotic heart disease of [place] coronary artery without angina pectoris Category: Medical Plan: Noncontrast chest CT shows coronary as well as vascular calcifications. In the calcium scoring CT, LAD score was 221. Circumflex 42. Left main and right coronary artery 0. Total score 263. In the echocardiogram, LVEF is 55-60% with no wall motion abnormalities. No sig nificant valvular findings. LDL cholesterol 80 mg/dL. Triglycerides 81 mg/dL. HDL 46 mg/dL. Discussed with patient. Start statins. He is willing to try. (2) Ascending aortic aneurysm: Code(s): I71.21 - Aneurysm of the ascending aorta, without rupture Category: Medical Plan: In the calcium scoring CT scan, ascending aortic size 4.3 cm. In the echocardiogram, reported normal, probably underestimate. We can recheck in about 6 months or so. (3) Elevated blood pressure reading without diagnosis of hypertension: Code(s): R03.0 - Elevated blood-pressure reading, without diagnosis of hypertension Category: Medical Plan: Blood pressure is 150/78 mm Hg. Denies any prior history of hypertension. Advised him to do some home readings. Discussed importance in the setting of aortic dilatation. If consistently high, may need medications. Orders: Orders CA echo transthoracic complete 6 Months I25.10 - Atherosclerotic heart disease of [place] coronary artery without angina pectoris, I71.21 - Aneurysm of the ascending aorta, without rupture Medications: New atorvastatin 20 mg PO QPM 90 tabs 3RF Coding Level of Care Code New Pt Level 4 (94589) Diagnoses Atherosclerotic cardiovascular disease I25.10 Ascending aortic aneurysm I71.21 Elevated blood pressure reading without diagnosis of hypertension R03.0 CPT Codes EKG - CPT: 48421-[id number], Complete ([id number])
== END 2024-04-11 15:30 | disposition home or self-care (01) ==
PROVIDERS: PCP Internal Medicine; Visit Provider Internal Medicine
DX: I25.10 Atherosclerotic heart disease of native coronary artery without angina pectoris (principal); I71.21 Aneurysm of the ascending aorta, without rupture; R03.0 Elevated blood-pressure reading, without diagnosis of hypertension
CPT/HCPCS: 93010; 99204

== ENCOUNTER → 2024-04-11 14:57 | Outpatient (BNVA) | payer MEDICARE, SELFPAY | PROVIDERS: PCP Internal Medicine; Visit Provider Internal Medicine | DX: I25.10 Atherosclerotic heart disease of native coronary artery without angina pectoris (principal); I10 Essential (primary) hypertension; I71.21 Aneurysm of the ascending aorta, without rupture; F17.210 Nicotine dependence, cigarettes, uncomplicated | CPT/HCPCS: 93005; 99202 ==

== ENCOUNTER 2024-08-30 11:12 | Outpatient (REF) | payer MEDICARE, OTHER, SELFPAY ==
[2024-08-30 11:17] LABS: MANUAL DIFF FLAG NO
[2024-08-30 11:22] LABS: Basophils Absolute Auto 0.1 X10*3/uL (0.0-0.2); Basophils Percent Auto 0.8 % (0-2); Eosinophils Absolute Auto 0.4 X10*3/uL (0.0-0.4); Eosinophils Percent Auto 4.7 % (0-4); Hematocrit 33.2 % (42.0-52.0); Hemoglobin 11.1 g/dl (14.0-18.0); Imm Gran Abs Auto 0.03 X10*3/uL (0.00-0.03); Imm Gran Pct Auto 0.4 % (0.0-0.4); Lymphocytes Absolute Auto 1.8 X10*3/uL (1.2-4.9); Mean Corpuscular HGB Conc 33.4 g/dl (31.0-36.0); Mean Corpuscular Hemoglobin 27.9 pg (27.0-33.0); Mean Corpuscular Volume 83.4 fL (80.0-98.0); Mean Platelet Volume 10.1 fL (9.4-12.4); Monocytes Absolute Auto 1.1 X10*3/uL (0.1-1.2); Monocytes Percent Auto 14.8 % (2-11); Neutrophils Absolute Auto 4.1 x10*3/uL (2.0-8.3); Neutrophils Percent Auto 55.3 % (45-73); Platelet Count 387 X10*3/uL (160-400); Red Blood Count 3.98 X10*6/uL (4.60-5.80); Red Cell Distribution Width 22.2 % (11.0-16.0); White Blood Count 7.4 X10*3/uL (4.8-10.8)
[2024-08-30 11:54] LABS: Iron 380 mcg/dL (45-160); Percent Iron Saturation 94 % (15-50); Total Iron Binding Capacity 405 mcg/dL (228-428); Unsaturated Iron Binding < 25 ug/dL
== END 2024-08-30 11:13 | disposition home or self-care (01) ==
LOC: HO.LNP 11:12
PROVIDERS: Visit Provider Internal Medicine
DX: D50.9 Iron deficiency anemia, unspecified (principal)
CPT/HCPCS: 83540; 85025

== ENCOUNTER → 2024-10-11 14:01 | Outpatient (REF) | payer MEDICARE, OTHER, SELFPAY ==
--- NOTE | 2024-10-11 14:05 | CA_ITS ---
Transthoracic Echocardiogram Patient (Last, First, Middle): Suhail Hassan J Gender: Male Date of : 1955 Age: 69 Procedure Date: 10/11/2024 Procedure Type: Transthoracic Echocardiogram Location: OP Height: 175.26 cm Weight: 67.13 kg BSA: 1.82 m2 Heart Rate: bpm BP: 154 / 84 mmHg Furnace Mechanic Helper: GABINO Referring MD: Saran Rodriguez MD Machine Egg Washer: Kennedy Green MD Symptoms: I25.10 - Atherosclerotic heart disease of [place] coronary artery without... Study Quality: Fair ECG Rhythm: Sinus Conclusions: - 1. Normal LV ejection fraction with LVEF of 55-60% with grade diastolic dysfunction. 2. Normal cardiac valvular dopplers 3. Mildly dilated ascending aorta 4. No pericardial effusion Findings Left Ventricle Normal left ventricular size, thickness, and systolic function. The visually estimated ejection fraction is between 55-60%. Spectral Doppler is indicative of an impaired relaxation filling pattern. E/E prime ratio is <8, consistent with normal filling pressures. Evidence suggests grade I (mild) diastolic dysfunction. Right Ventricle Normal right ventricular cavity size and systolic function. Atria Both atria are normal in size. There is no evidence of interatrial shunt. Aortic Valve Normal aortic valve structure and function. There is no aortic valve stenosis. There is no aortic valve regurgitation. Mitral Valve Normal mitral valve structure and function. There is no mitral valve regurgitation. There is no mitral valve stenosis. Pulmonic Valve The pulmonic valve is likely normal. There is trace pulmonic valve regurgitation. Tricuspid Valve Likely normal tricuspid valve structure and function. Tricuspid regurgitation envelope is inadequate for calculation of right ventricular systolic pressure. Normal right atrial pressure. There is no evidence of pulmonary hypertension. Great Vessels The pulmonary artery was not well visualized. There is mild dilatation of the ascending aorta measuring 4.10 cm. Small plaque is seen in the sino tubular ridge. Venous The inferior vena cava is normal in size and collapses greater than 50% with inspiration. Pericardium/Pleural There is no evidence of pericardial effusion. Prior Study Comparison No studies in last 5 years. Measurements 2D Linear Measurements IVSd: 1.02 0.6-0.9/0.6-1.0 cm LVIDd: 4.34 3.9-5.3/4.2-5.9 cm LVIDd Index: 2.38 2.4-3.2/2.2-3.1 cm/m2 LVIDs: 2.70 2.0-3.6 cm LVPWd: 1.02 0.7-1.1 cm LA Diam: 2.50 2.7-3.8/3.0-4.0 cm LAIDs Index: 1.37 1.5-2.3 cm/m2 LV Mass: 185.07 67-162/88-224 g LV Mass Index: 101.68 43-95/49-115 g/m2 LVOT Diam: 2.00 3.0+(-)1.3 cm 2D Systolic Function EF 4C: 63.70 >55% EF 2C: 53.30 >55% EF BiP: 59.80 >55% Mitral Valve MV Pk E: 0.58 MV PK A: 0.59 MV Decel Time: 251.00 E/A: 1.00 E'Lateral: 7.94 E'Medial: 7.40 E/E' Med: 7.90 E/E' Lat: 7.30 PHT: 73.00 MVA PHT: 3.01 Decel [place]: 2.32 Aortic Valve AoV Pk Chinmay: 1.20 AoV Mn Chinmay: 0.85 AoV VTI: 0.25 AoV Pk Grad: 6.00 Aov Mn Grad: 3.00 JOSE Cont.VTI: 1.71 LVOT LVOT Pk Chinmay: 0.73 LVOT Mn Chinmay: 0.54 LVOT VTI: 0.14 LVOT Pk Grad: 2.00 LVOT Mn Grad: 1.00 LVOT Diam: 2.00 LVOT Area: 3.14 Diastolic Function MV Pk E: 0.58 MV Pk A: 0.59 E/A: 1.00 E'Medial: 7.40 E/E' Med: 7.90 E' Laterial: 7.94 E/E' Lat: 7.30 Right Ventricle TAPSE (mm): 22.80 TVS' Chinmay: 12.80 Tricuspid Valve RA Press: 3.00 Great Vessels Aorta Sinus of Valsalva: 3.74 2.0-3.[address] [place]: 2.74 1.7-3.4 cm Ao Asc: 4.10 2.1-3.4 cm Updated in Other Vendor System with Status of Final Kennedy Green MD electronically signed on 10/12/2024 4:44:28 PM with status of Final
--- OUTSIDE RECORDS SUMMARY | 2024-10-12 21:55 | XMS_ITS | Patient Health Record ---
Author Organization [facility] Address [address] [place] [address] Care Team Providers Care Jewel Blocker And Sawyer Name Role Phone Major Nazario MD Primary Care Provider Jhonathan Heredia Unavailable [phone] ALLERGIES No Known Allergies REASON FOR REFERRAL No Information MEDICATIONS Medication SIG (Take, Route, Frequency, Duration) Notes Start Date End Date Status Omeprazole 20 MG 1 capsule Orally once every morning for 90 days Active Omeprazole 40 MG 1 Orally Every morning for 30 day(s) 08/24/2023 Not-Taking Multivitamin Adult - Orally Active Ibuprofen 200 MG 1 tablet with food or milk as needed Orally PRN 3-4 times per week Active IMMUNIZATIONS Vaccine Route Administration Date Status Comme nts Influenza Unknown 07/21/2023 Administered SOCIAL HISTORY Tobacco Use: Social History Observation Description Date Details (start date - stop date) Current Smoker NA - NA Sex Assigned At : Social History Observation Description Sex Assigned At Unknown Tobacco Use/Smoking Question Answer Notes Patient is a current smoker How often do you smoke cigarettes? every day How many cigarettes a day do you smoke? 11-20 Alcohol Screen Question Answer Notes Did you have a drink contain ing alcohol in the past year? Yes How often did you have a dri nk containing alcohol in the past year? 2 to 3 times a week (3 points) How many drinks did you have on a typical day when you were drinking in the past year? 1 or 2 drinks (0 point) How often did you have 6 or more drinks on one occasion in the past year? Never (0 point) Points 3 Interpretation Negative PROBLEMS Problem Type ICD Code Onset Dates Problem Status W/U Status Risk SNOMED Code Notes Problem Heme + stool (R19.5) Active confirmed 74486361 Problem Iron deficiency anemia, unspecified iron deficiency anemia type (D50.9) Active confirmed 80473275 Problem Gastroesophageal reflux disease, unspecified whether esophagitis present (K21.9) Active confirmed 940391710 Problem Diverticulosis of large intestine without perforation or abscess without bleeding (K57.30) Active confirmed Diverticul ar disease of colon (403603089) Problem Iron deficiency anemia (D50.9) Active confirmed Iron deficien cy anemia (66191008) Problem Erosive gastritis (K29.60) Active confirmed Erosive gastrit is (5490126491679652) Problem Gastroesophageal reflux disease (K21.9) Active confirmed Gastroesophagea l reflux disease (670767666) Problem History of colon polyps (Z86.010) Active confirmed History of polyp of colon (176352131) VITAL SIGNS Temperature 97.3 degrees Fahrenheit 07/27/2024 Blood pressure diastolic 00 mm Hg 07/27/2024 Height 67.5 in 07/27/2024 Blood pressure systolic 000 mm Hg 07/27/2024 Weight 141 lb 6 oz lbs 07/27/2024 BMI 21.81 kg/m2 07/27/2024 Encounters Encounter Location Date Provider Diagnosis [facility] [address] [place] [address] 12/30/2023 Jhonathan Schwartz Erosive gastritis K2 9.60 ; Iron deficiency anemia D50.9 and History of colon polyps Z86.010 [facility] [address] [place] [address] 07/27/2024 Jhonathan Schwartz Iron deficiency anem ia, unspecified iron deficiency anemia type D50.9 ; Gastroesophageal reflux disease, unspecified whether esophagitis present K21.9 ; Erosive gastritis K29.60 and History of colon polyps Z86.010 ASSESSMENTS Encounter Date Diagnosis Assessment Notes Treatment Notes Treatment Clinical Notes 12/30/2023 Iron deficiency anem ia (ICD-10 - D50.9) We will switch to 20mg omeprazole Continue the Iron every other day Try to avoid Ibuprofen and minimize alcohol 12/30/2023 Erosive gastritis (ICD-10 - K29.60) 07/27/2024 Iron deficiency anemia, unspecified iron deficiency anemia type (ICD-10 - D50.9) Use 1 Iron pill and 1 20mg omeprazole every day. Have Dr. Nazario send me a copy of the lab results 07/27/2024 Gastroesophageal reflux disease, unspecified whether esophagitis present (ICD-10 - K21.9) 12/30/2023 History of colon polyps (ICD-10 - Z86.010) Repeat colonoscopy in 08/202807/27/2024 Erosive gastritis (ICD-10 - K29.60) 07/27/2024 History of colon polyps (ICD-10 - Z86.010) PLAN OF TREATMENT Pending Test Test Name Order Date IRON + IBC (FE) 08/24/2023 IRON + IBC (FE) 07/27/2024 IRON + IBC (FE) 12/30/2023 CBC w DIFF 08/24/2023 CBC w DIFF 07/27/2024 CBC w DIFF 12/30/2023 CELIAC PANEL #10 07/09/2023 Ferritin 12/30/2023 Ferritin 08/24/2023 Ferritin 07/27/2024 Vitamin B12 and Folate 07/09/2023 Future Test Test Name Order Date COLONOSCOPY 04/06/2018 UPPER GI ENDOSCOPY 07/09/2023 COLONOSCOPY 07/09/2023 Next Appt Details Provider Name:Jhonathan Schwartz , 02/01/2025 03:40:00 PM, [address] [place] [address], [address], [place], [address], Insurance Providers Payer Name Payer Address Payer Phone Subscriber Number Group Number Insured Name Patient Relationship to Insured Coverage Start Date Coverage End Date MEDICARE OF [place] [address] [place] [id number] [phone] [id number] BENJAMIN MORGAN Self - patient is the insured [facility] [address] [address] [place] [address] [phone] [id number] BENJAMIN MORGAN Self - patient is the insured MEDICAL (GENERAL) HISTORY Medical History History ICD Code Denies NC,DM,CVA,Lung disease,renal dise ase Neg. screeening colonoscopy in 07/2010 except for a hyperplastic polyp, mild diverticulosis, small internal hemorrhoids Colonoscopy in April of 2018 was negative other than a hyperplastic polyp Upper endoscopy in August revealed a small hiatal hernia and changes of reflux, but without Villarreal's esophagus or esophagitis; there was erosive gastritis with biopsies negative for H. pylori; duodenal biopsies were normal and without evidence of celiac disease Colonoscopy in August 2023 revealed a serrated polyp in the cecum which was removed. Iron deficiency anemia in e fall with GI workup as above. He had been using ibuprofen, several beers daily, and smoking and I felt that was the cause of his anemia Surgical History Surgery Date(Month/Year) tonsillectomy
--- OUTSIDE RECORDS SUMMARY | 2024-10-12 21:55 | XMS_ITS ---
Author Organization [facility] Address [address] [place] [address] Care Team Providers Care Ediphone Operator Name Role Phone Major Nazario MD Primary Care Provider Jhonathan Heredia [phone] MEDICATIONS Medication SIG (Take, Route, Fr equency, Duration) Notes Start Date End Date Status Omeprazole 40 MG 1 Orally Every morni ng for 30 day(s) 08/24/2023 Active Encounters Encounter Location Date Provider Diagnosis [facility] [address] [place] [address] 08/24/2023 Jhonathan Schwartz Iron deficiency anemia, unspecified iron deficiency anemia type D50.9 ASSESSMENTS Encounter Date Diagnosis Assessment Notes Treatment Notes Treatment Clinical Notes 08/24/2023 Iron deficiency anemia, unspecified iron deficiency anemia type (ICD-10 - D50.9) PLAN OF TREATMENT Medication Medication Name Sig Start Date Stop Date Notes Omeprazole 40 MG 1 Orally Every morning for 30 day(s) 08/03 Pending Test Test Name Order Date IRON + IBC (FE) 08/24/2023 CBC w DIFF 08/24/2023 Ferritin 08/24/2023 Next Appt Details Provider Name:Jhonathan Schwartz , 02/01/2025 03:40:00 PM, [address], [address], [place], [address],
--- OUTSIDE RECORDS SUMMARY | 2024-10-12 21:55 | XMS_ITS ---
Author Organization [facility] Address [address] [place] [address] Care Team Providers Care Fireworks Maker Name Role Phone Major Nazario MD Primary Care Provider Jhonathan Heredia Unavailable [phone] ALLERGIES No Known Allergies REASON FOR VISIT Patient presents today for anemia MEDICATIONS Medication SIG (Take, Route, Frequency, Duration) Notes Start Date End Date Status Omeprazole 40 MG 1 Orally Every morning for 30 day(s) 08/24/2023 Active Multivitamin Adult - Orally Active Ibuprofen 200 MG 1 tablet with food o r milk as needed Orally PRN 3-4 times per week Active Omeprazole 20 MG 1 capsule Orally onc e every morning for 30 day(s) 12/30/2023 Active SOCIAL HISTORY Tobacco Use: Social History Observation [...] W/U Status Risk SNOMED Code Notes Problem History of colon polyps (Z86.010) Active confirmed History of polyp of colon (303337360) VITAL SIGNS BMI 22.28 kg/m2 12/30/2023 Blood pressure systolic 000 mm Hg 12/30/19 24 Blood pressure diastolic 00 mm Hg 024 Height 67.5 in 12/30/2023 Temperature 97.8 degrees Fahrenheit 12/30/19 24 Weight 144 lb 6 oz lbs 12/30/2023 Encounters Encounter Location Date Provider Diagnosis [facility] [address] [place] [address] 12/30/2023 Jhonathan Schwartz Erosive gastritis K29.60 ; Iron deficiency anemia D50.9 and History of colon polyps Z86.010 ASSESSMENTS Encounter Date Diagnosis Assessment Notes Treatment Notes Treatment Clinical Notes 12/30/2023 Erosive gastritis (ICD-10 - K29.60) 12/30/2023 Iron deficiency anemia (ICD-10 - D50.9) We will switch to 20mg omeprazole Continue the Iron every other day Try to avoid Ibuprofen and minimize alcohol 12/30/2023 History of colon polyps (ICD-10 - Z86.010) Repeat colonoscopy in 08/2028 PLAN OF TREATMENT Medication Medication Name Sig Start Date Stop Date Notes Omeprazole 20 MG 1 capsule Orally onc e every morning for 30 day(s) 12/30/2023 Treatment Notes Assessment Notes Iron deficiency anemia We will switch to 20mg omeprazole Continue the Iron every other day Try to avoid Ibuprofen and minimize alcohol History of colon polyps Repeat colonosco py in 08/2028 Pending Test Test Name Order Date IRON + IBC (FE) 12/30/2023 CBC w DIFF 12/30/2023 Ferritin 12/30/2023 Next Appt Details Follow Up: 2023, Reaso n: Provider Name:Jhonathan Schwartz , 02/01/2025 03:40:00 PM, [address], [address], [place], [address], Progress Notes * Examination Category Sub-Category Detail Notes General Examination GENERAL APPEARANCE: pleasant , well nourished, well developed, in no acute distress HEAD: EYES: sclera non-icteric EARS: NOSE: THROAT: NECK/THYROID: no cervical lymphade nopathy, neck supple HEART: S1, S2 normal CHEST: LUNGS: clear to auscultatio n bilaterally ABDOMEN: normal bowel sounds, no guarding or rigidity, no guarding or rigidity, no masses palpable, soft, nontender, nondistended NEUROLOGIC: alert and oriented SKIN: nonjaundiced, no spi kristopher angiomata EXTREMITIES: no edema PERIPHERAL PULSES: BACK: BREASTS: MUSCULOSKELETAL: MALE GENITOURINARY: LYMPH NODES: RECTAL EXAM: FEMALE GENITOURINARY: ORAL CAVITY: mucosa moist
--- OUTSIDE RECORDS SUMMARY | 2024-10-12 21:55 | XMS_ITS ---
Author Organization [facility] Address [address] [place] [address] Care Team Providers Care Knocker Out Name Role Phone Major Nazario MD Primary Care Provider Jhonathan Heredia Unavailable [phone] ALLERGIES No Known Allergies REASON FOR VISIT [...] Orally PRN 3-4 times per week Active SOCIAL HISTORY Tobacco Use: Social History Observation Description Date Details (start date - stop date) Current Smoker NA - NA Sex Assigned At : Social History Observation Description Sex Assigned At Unknown Tobacco Use/Smoking Question Answer Notes Patient is a current smoker How often do you smoke cigarettes? every day How many cigarettes a day do you smoke? 09-21 Alcohol Screen Question Answer Notes Did you [...] Never (0 point) Points 3 Interpretation Negative VITAL SIGNS BMI 21.81 kg/m2 07/27/2024 Blood pressure systolic 000 mm Hg 09/25/20 24 Blood pressure diastolic 00 mm Hg 024 Height 67.5 in 07/27/2024 Temperature 97.3 degrees Fahrenheit 07/27/20 Weight 141 lb 6 oz lbs 07/27/2024 Encounters Encounter Location Date Provider Diagnosis [facility] [address] [place] [address] 07/27/2024 Jhonathan Schwartz Iron deficiency anem ia, unspecified iron deficiency anemia type D50.9 ; Gastroesophageal reflux disease, unspecified whether esophagitis present K21.9 ; Erosive gastritis K29.60 and History of colon polyps Z86.010 ASSESSMENTS Encounter Date Diagnosis Assessment Notes Treatment Notes Treatment Clinical Notes 07/27/2024 Iron deficiency anem ia, unspecified iron deficiency anemia type (ICD-10 - D50.9) Use 1 Iron pill and 1 20mg omeprazole every day. Have Dr. Nazario send me a copy of the lab results 07/27/2024 Gastroesophageal ref lux disease, unspecified whether esophagitis present (ICD-10 - K21.9) 07/27/2024 Erosive gastritis (ICD-10 - K29.60) 07/27/2024 History of colon andi yps (ICD-10 - Z86.010) PLAN OF TREATMENT Treatment Notes Assessment Notes Iron deficiency anemia, unsp ecified iron deficiency anemia type Use 1 Iron pill and 1 20mg omeprazole every day. Have Dr. Nazario send me a copy of the lab results Pending Test Test Name Order Date IRON + IBC (FE) 07/27/2024 CBC w DIFF 07/27/2024 Ferritin 07/27/2024 Next Appt Details Follow Up: Spring 2024, Reas on: Provider Name:Jhonathan Schwartz , 02/01/2025 03:40:00 PM, [address], [address], [place], [address], Progress Notes * Examination Category Sub-Category Detail [...]
--- OUTSIDE RECORDS SUMMARY | 2024-10-12 21:56 | XMS_ITS | Patient Health Record ---
Author Organization Major Nazario MD Address [address] [place] [phone] Care Team Providers Care [employer] Supervisor Name Role Phone Major Nazario Primary Care Provider [phone] ALLERGIES No Known Allergies RESULTS Component Value Reference Range Notes CT lung screening Reviewed date:12/14/2023 01:52:24 PM Interpretation:see back 12-14-2023 Performing Lab: Notes/Report: [address] [address] [address] Scan Report Signed Patient: Suhail Hassan MR#: [id number] : 1955 Acct:[id number] Age/Sex: 68 / M ADM Date: 10/30/23 Loc: HO.CT Attending Dr: Mee Rey PA-C Ordering Physician: Mee Rey PA-C Date of Service: 10/30/23 Procedure(s): CT lung screening Accession Number(s): [id number] cc: Major Nazario MD; Mee Rey PA-C EXAMINATION: CT CHEST LOW-DOSE SCREENING WITHOUT CONTRAST HISTORY: Asymptomatic patient meeting criteria for lung screening. PATIENT PACK-YEAR HISTORY: 52 Current Smoker: Yes If former smoker, years since quitting: N/A COMPARISON: None available. TECHNIQUE: Multidetector volumetric noncontrast CT imaging of the chest was obtained on a Siemens Ascend 64-slice scanner using low-dose screening CT technique. Axial thin section 0.625 mm reformations in soft tissue and lung windows were obtained. Sagittal and coronal reformations were obtained. Axial MIP images were also created and reviewed. RECONSTRUCTED WIDTH: 1.25 mm x 1.[address] examination was performed using dose optimization techniques as appropriate, variously including the following: *Automated exposure control *Adjustment of mA and/or kV according to patient size (this includes techniques or standardized protocols for targeted exams where dose is matched to indication/reason for exam; i.e. extremities or head) *Use of iterative reconstruction technique TOTAL EXAM DLP: 46 mGy-cm CTDIvol: 0.95 mGy FINDINGS: LUNGS: Lungs bilaterally symmetrically expanded. Mild emphysematous changes are present. No worrisome focal lung nodule or mass. There is a 2 mm nodule present in the right upper lobe (5:140) along with a 3 mm nodule present in the right upper lobe (5:254). No effusion or pneumothorax. Central airways patent. LYMPHATIC STRUCTURES: No mediastinal, hilar or axillary adenopathy or free fluid collection. THYROID GLAND: Unremarkable to the extent seen. CARDIOVASCULAR STRUCTURES: The ascending aorta is dilated at 4.3 cm when measurements are made perpendicular to a center line. Heart size normal. Mild coronary artery calcifications. No pericardial effusion. UPPER ABDOMEN: Included portions of the solid organs in the upper abdomen unremarkable on noncontrast imaging. OSSEOUS STRUCTURES: No suspicious focal findings. SPINAL COMPRESSION: Absent. CT/CT lung screening IMPRESSION: No findings suspicious for malignancy. Small pulmonary micronodules as described above. LUNG-RADS CATEGORY ASSESSMENT: Benign. INCIDENTAL FINDINGS (S CATEGORY): Finding: Thoracic aortic aneurysm. The ascending aorta measures 4.3 cm. For a patient of 68 years of age, maximal dimension should be 4.2 cm*. Significance category: Clinically significant. RECOMMENDATION: Low-dose lung CT overall in 1 year. Visual estimate of coronary calcified plaque burden: None. However, this exam cannot replace a dedicated cardiac CT calcium score for accurate assessment. *Normal aortic diameters (in millimeters) Ascending aorta: 31+0.16 x age. Descending aorta: 21+0.16 x age. Reference: [employer] J 2005; 40 (3): 175-178 Dictated By: Steve Gomez MD Signed By: <Electronically signed by Steve Gomez MD in OV> 11/12/23 1131 DD/ 1116 TD/TT: Atmospheric Scientist: SS Complete Blood Count Auto Di ff Reviewed date:02/22/2024 01:24:14 PM Interpretation: Performing Lab:[facility], [address] [place] [phone] Notes/Report: White Blood Count 6.2 4.8-10.8 X10*3/uL Red Blood Count 3.96 4.60-5.80 X10*6/uL Hemoglobin 10.5 14.0-18.0 g/dl Hematocrit 31.7 42.0-52.0 % Mean Corpuscular Volume 80.1 80.0-98.0 fL Mean Corpuscular Hemoglobin 26.5 27.0-33.0 pg Mean Corpuscular HGB Conc 33.1 31.0-36.0 g/dl Red Cell Distribution Width 21.4 11.0-16.0 % Platelet Count 389 160-400 X10*3/uL Mean Platelet Volume 9.5 9.4-12.4 fL Neutrophils Percent Auto 51.1 45-73 % Imm Gran Pct Auto 0.3 0.0-0.4 % Lymphocytes Percent Auto 26.5 20-40 % Monocytes Percent Auto 15.4 2-11 % Eosinophils Percent Auto 5.6 0-4 % Basophils Percent Auto 1.1 0-2 % NRBC Pct Auto 0.0 0.0-0.2 /100WBC Neutrophils Absolute Auto 3.2 2.0-8.3 x10*3/u L Imm Gran Abs Auto 0.02 0.00-0.03 X10*3/uL Lymphocytes Absolute Auto 1.7 1.2-4.9 X10*3/u L Monocytes Absolute Auto 1.0 0.1-1.2 X10*3/uL Eosinophils Absolute Auto 0.4 0.0-0.4 X10*3/u L Basophils Absolute Auto 0.1 0.0-0.2 X10*3/uL NRBC Abs Auto 0.000 0.0-0.012 X10*3/uL Comprehensive [place]. Panel Fa Reviewed date:02/22/2024 12:52:29 PM Interpretation: Performing Lab:[facility], [address] [place] [phone] Notes/Report: Sodium 139 135-145 mmol/L Potassium 4.0 3.3-5.1 mmol/L Chloride 105 96-108 mmol/L Carbon Dioxide 28 22-29 mmol/L Anion Gap 10 12-20 Blood Urea Nitrogen 4 9-16 mg/dL Creatinine 0.62 0.5-1.4 mg/dL Estimated Glomerular Filt Rate > 60 NOTE: For -[place]wegian individuals, multiply the result by 1.210. Chronic Kidney Disease: Estimated GFR < 60 mL/min/1.73m2 Severe Kidney Disease: Estimated GFR < 15 mL/min/1.73m2 Glucose Fasting 82 60-99 mg/dL Calcium 9.0 8.4-10.2 mg/dL Bilirubin Total 0.3 0.0-1.0 mg/dL Aspartate Amino Transferase 86 5-37 U/L Alanine Aminotransferase 32 0-40 U/L Total Protein 6.7 6.5-8.0 g/dL Albumin Level 3.5 3.5-5.0 g/dL Alkaline Phosphatase 66 39-117 U/L IRON PROFILE Reviewed date:02/22/2024 12:46:17 PM Interpretation: Performing Lab:[facility], [address] [place] [phone] Notes/Report: Iron 25 45-160 mcg/dL Total Iron Binding Capacity 318 228-428 mcg/d L Percent Iron Saturation 8 15-50 % Unsaturated Iron Binding 293 Lipid Panel Reviewed date:02/22/2024 12:44:14 PM Interpretation: Performing Lab:[facility], [address] [place] [phone] Notes/Report: Triglycerides 81 <150 mg/dL Desirable Triglyceride: less than 150 mg/dL Borderline High Triglyceride 150-199 mg/dL High Triglyceride: 200-499 mg/dL Very High Triglyceride: greater than or equal to 5OO mg/dL Cholesterol 142 <200 mg/dL Desirable Cholesterol: less than 200 mg/dL Borderline High Cholesterol: 200-239 mg/dL High Cholesterol: greater than 239 mg/dL LDL Cholesterol Calculated 80 <100 mg/dL Desirable LDL: less than 100 mg/dL Near Optimal/Above Optimal LDL: 110-129 mg/dL Borderline High LDL: 130-159 mg/dL High LDL: 160-189 mg/dL Very High LDL: greater than or equal to 190 mg/dL HDL Cholesterol 46 >40 mg/dL Desirable HDL: greater than 40 mg/dL Note: This HDL assay may give artificially low results in patients with liver disease. PSA,Total (Free>4and<10) Reviewed date:02/22/2024 01:23:46 PM Interpretation: Performing Lab:[facility], [address] [place] [phone] Notes/Report: PSA,Total (Free>4and<10) 1.05 0.00-4.00 ng/mL A Free PSA was not performed: The percentage of Free PSA can be used to enhance the differentiation of prostate cancer from benign prostatic disease in subjects whose PSA levels are between 4.0 and 10.0 ng/mL. For subjects whose PSA levels are below 4.0 or above 10.0 ng/mL, the risk of prostate cancer is determined on the basis of the PSA alone. Therefore the % Free PSA is recommended only for those subjects whose PSA levels are between 4.0 and 10.0 ng/mL. PSA methodology: Bennett Alinity i Chemiluminescent Microparticle Immunoassay (CMIA) UA ClnCatch+Micro w/rflx Cul t Reviewed date:02/22/2024 12:51:46 PM Interpretation: Performing Lab:[facility], [address] [place] [phone] Notes/Report: Urine, Clean Catch Color Urine Yellow Appearance Urine Clear PH 5.5 5.0-9.0 Glucose Urine UA Negative Negative mg/dL Urine Blood Negative Negative Specific [place] - Urine <= 1.005 1.005-1.025 Urine Protein Negative Neg-Trace mg/dL Urine Ketones Negative Negative mg/dL Nitrite Urine Negative Negative Leukocyte Esterase Urine Negative Negative RBC Urine 0-2 0-2 /HPF WBC Urine 0-5 0-5 /HPF Squamous Epithelial Cell Urine 0-2 0-2 /HPF Bacteria Urine None Seen None Seen Hyaline Casts Urine 0-2 0-2 /LPF Complete Blood Count Auto Di ff Reviewed date:08/30/2024 12:40:36 PM Interpretation: Performing Lab:[facility], [address] [place] [phone] Notes/Report: White Blood Count 7.4 4.8-10.8 X10*3/uL Red Blood Count 3.98 4.60-5.80 X10*6/uL Hemoglobin 11.1 14.0-18.0 g/dl Hematocrit 33.2 42.0-52.0 % Mean Corpuscular Volume 83.4 80.0-98.0 fL Mean Corpuscular Hemoglobin 27.9 27.0-33.0 pg Mean Corpuscular HGB Conc 33.4 31.0-36.0 g/dl Red Cell Distribution Width 22.2 11.0-16.0 % Platelet Count 387 160-400 X10*3/uL Mean Platelet Volume 10.1 9.4-12.4 fL Neutrophils Percent Auto 55.3 45-73 % Imm Gran Pct Auto 0.4 0.0-0.4 % Lymphocytes Percent Auto 24.0 20-40 % Monocytes Percent Auto 14.8 2-11 % Eosinophils Percent Auto 4.7 0-4 % Basophils Percent Auto 0.8 0-2 % NRBC Pct Auto 0.0 0.0-0.2 /100WBC Neutrophils Absolute Auto 4.1 2.0-8.3 x10*3/u L Imm Gran Abs Auto 0.03 0.00-0.03 X10*3/uL Lymphocytes Absolute Auto 1.8 1.2-4.9 X10*3/u L Monocytes Absolute Auto 1.1 0.1-1.2 X10*3/uL Eosinophils Absolute Auto 0.4 0.0-0.4 X10*3/u L Basophils Absolute Auto 0.1 0.0-0.2 X10*3/uL NRBC Abs Auto 0.000 0.0-0.012 X10*3/uL IRON PROFILE Reviewed date:08/30/2024 01:50:03 PM Interpretation: Performing Lab:[facility], [address] [place] [phone] Notes/Report: Iron 380 45-160 mcg/dL Total Iron Binding Capacity 405 228-428 mcg/d L Percent Iron Saturation 94 15-50 % Unsaturated Iron Binding < 25 REASON FOR REFERRAL Reason cotonary atheroscler osis Diagnosis 1 Coronary atheroscler osis due to calcified coronary lesion (I25.84) Referral Organization Major Nazario MD Referring Provider First Name Major Referring Provider Last Name Mansi Referring Provider Speciality Internal M edicine Referred Provider DYLAN LIZ Referred Provider Specialty Cardiology General Notes Saranya Rolle 02:36:02 PM EST > info faxed with report , Saranya Rolle 01/11/2024 02:45:46 PM EDT > spoke with office appt being worked on, Saranya Rolle 02/02/2024 08:11:15 AM EDT > info mailed to patient Referral Priority Routine Referral Appointment Date 04/11/2024 Reason pain right shoulder Diagnosis 1 Pain in right should er (M25.511) Referral Organization Major Nazario MD Referring Provider First Name Major Referring Provider Last Name Mansi Referring Provider Speciality Internal edicine Referred Provider Ady De Jesus Referred Provider Specialty Orthopedic S urgery General Notes Saranya Rolle 01:44:19 PM EST > info faxed , Saranya Rolle 09/19/2024 02:29:07 PM EST > was told to refaxed Aquilino Annette 09/20/2024 01:18:45 PM EST > was told by office patient is aware of appt Referral Priority Routine Referral Appointment Date 11/01/2024 MEDICATIONS Medication SIG (Take, Route, Frequency, Duration) Notes Start Date End Date Status Atorvastatin Calcium 20 MG 1 tablet Orally Once a day for 30 day(s) Active Cialis 20 MG 1 tablet Orally Once a day for 30 days 09/23/2016 Not-Taking Omeprazole 20 MG 1 capsule 30 minutes before morning meal Orally Once a day Active Tadalafil 20 MG 1 tablet Orally Once a day for 30 day(s) 12/31/2020 Not-Taking Ibuprofen 800 MG 1 tablet Orally Thre e times a day for 90 days Not-Taki ng IMMUNIZATIONS Vaccine Route Administration Date Status Comme nts DECLINED, FLU Unknown 08/12/2013 Administered Flu Vaccine IM Intramuscular 08/28/2014 Administered zFluzone Quadrivalent IM Intramuscular 10/23/2015 Administ ered Fluarix Quadrivalent IM Intramuscular 11/25/2016 Administe red PPSV23 (Pnemovax) IM Intramuscular 12/04/2017 Administered Fluarix Quadrivalent IM Intramuscular 08/16/2018 Administlauren red Prevnar 13 IM Intramuscular 12/12/2019 Administered Fluarix Quadrivalent IM Intramuscular 12/26/2019 Administe red Fluarix Quadrivalent IM Intramuscular 12/27/2020 Administe red Fluarix Quadrivalent IM Intramuscular 12/30/2021 Administe red SARS-COV-2 Pfizer Unknown 02/12/2021 Administered SARS-COV-2 Pfizer Unknown 03/05/2021 Administered SARS-COV-2 Pfizer Unknown 10/29/2021 Administered Fluarix Quadrivalent IM Intramuscular 07/27/2023 Administe red Fluarix Quadrivalent - 150 IM Intramuscular 08/30/2024 Adm inistered SOCIAL HISTORY Tobacco Use: Social History Observation Description Date Details (start date - stop date) Current Smoker NA - NA Sex Assigned At : Social History Observation Description Sex Assigned At Unknown Tobacco Use/Smoking Question Answer Notes Patient is a current smoker How often do you smoke cigarettes? every day How many cigarettes a day do you smoke? 11-20 How soon after you wake up d o you smoke your first cigarette? within 5 minutes Are you interested in quitting? Thinking about q uitting Additional Findings: Tobacco User Curren t cigarette smoker, not currently using another form of tobacco Alcohol Screen Question Answer Notes Did you have a drink contain ing alcohol in the past year? Yes How often did you have a dri nk containing alcohol in the past year? 4 or more times a week (4 points) How many drinks did you have on a typical day when you were drinking in the past year? 3 or 4 drinks (1 point) How often did you have 6 or more drinks on one occasion in the past year? Never (0 point) Points 5 Interpretation Positive PROBLEMS Problem Type ICD Code Onset Dates Problem Status W/U Status Risk SNOMED Code Notes Problem Atherosclerotic heart disease of [place] coronary artery without angina pectoris (I25.10) Active confirmed 328269724 Problem Erectile dysfunction (N52.9) Active confirmed 404732345 Problem Coronary atherosclerosis due to calcified coronary lesion (I25.84) Active confirmed 10353498 Problem 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) Active confirmed 0951430 Problem Lumbar disc disease (M51.9) Active confirmed 289533236 Problem Smoker (F17.200) Active confirmed 03940 002 Problem Environmental allergies (Z91.09) Active confirmed 640094650 Problem Iron deficiency anemia (D50.9) Active confirmed Iron deficiency anemia (89540670) Problem Current smoker (F17.200) Active confirmed 41696171 Problem Monocytosis (D72.821) Active confirmed Monocytosis (86557660) Problem Iron deficiency anemia, unspecified iron deficiency anemia type (D50.9) Active confirmed 63555283 Problem Intertrigo (L30.4) Active confirmed 587 82903 Problem Hyperplastic colonic polyp, unspecified part of colon (K63.5) Active confirmed 487610134 Problem Condyloma acuminata (A63.0) Active confirmed Anogenital warts (297830049) VITAL SIGNS Blood pressure diastolic 70 mm Hg 09/06/2024 marti ght is down 3 pounds since 02-29-24 Height 69.50 in 09/06/2024 weight is down 3 pounds since 02-29-24 Blood pressure systolic 132 mm Hg 09/06/2024 weig ht is down 3 pounds since 02-29-24 Weight 143 lbs 09/06/2024 weight is down 3 pounds since 02-29-24 BMI 20.81 kg/m2 09/06/2024 weight is down 3 pounds since 02-29-24 Encounters Encounter Location Date Provider Diagnosis Major Nazario MD [address] [place] [id number] 12/14/2023 Major Nazario Aneurysm of ascendin g aorta without rupture I71.21 ; Atherosclerotic heart disease of [place] coronary artery without angina pectoris I25.10 and Coronary atherosclerosis due to calcified coronary lesion I25.84 Major Nazario MD [address] [place] [id number] 02/29/2024 Major Nazario Current smoker F17.2 00 ; Aneurysm of ascending aorta without rupture I71.21 ; Iron deficiency anemia, unspecified iron deficiency anemia type D50.9 ; Eye lesion H57.9 ; Colon cancer screening Z12.11 and Depression screening Z13.31 Major Nazario MD [address] [place] [address] Drive [address] [place] [id number] 02/22/2024 Major Nazario Iron deficiency anem ia, unspecified iron deficiency anemia type D50.9 ; Monocytosis D72.821 and Coronary atherosclerosis due to calcified coronary lesion I25.84 Major Nazario MD [address] [place] [id number] 08/30/2024 Major Nazario Iron deficiency anem ia D50.9 ; Monocytosis D72.821 ; Iron deficiency anemia, unspecified iron deficiency anemia type D50.9 and Encounter for immunization Z23 Major Nazario MD [address] [place] [id number] 09/06/2024 Major Nazario Iron deficiency anem ia, unspecified iron deficiency anemia type D50.9 ; Toe pain, left M79.675 and Pain in right shoulder M25.511 Major Nazario MD [address] [place] [id number] 04/07/2024 Major Nazario ASSESSMENTS Encounter Date Diagnosis Assessment Notes Treatment Notes Treatment Clinical Notes 12/14/2023 Atherosclerotic hear t disease of [place] coronary artery without angina pectoris (ICD-10 - I25.10) will get a coronary ct and calcium score and decide what to do based on that/ appt booked at [facility] 12-24-23 at 9:15am 12/14/2023 Aneurysm of ascendin g aorta without rupture (ICD-10 - I71.21) order printed and put in furture folder 02/29/2024 Current smoker (ICD- 10 - F17.200) going to see cardiology in 02/29/2024 Aneurysm of ascendin g aorta without rupture (ICD-10 - I71.21) going to see cardiology in 02/22/2024 Monocytosis (ICD-10 - D72.821) 02/22/2024 Iron deficiency anemia, unspecified iron deficiency anemia type (ICD-10 - D50.9) 08/30/2024 Iron deficiency anem ia (ICD-10 - D50.9) 08/30/2024 Monocytosis (ICD-10 - D72.821) 09/06/2024 Iron deficiency anemia, unspecified iron deficiency anemia type (ICD-10 - D50.9) took the iron for only 3 or 4 days and it got too high. will change to once a week. stop taking it for a month.will cntinue to monitor 09/06/2024 Toe pain, left (ICD- 10 - M79.675) is going to wait and see if it goes away 12/14/2023 Coronary atherosclerosis due to calcified coronary lesion (ICD-10 - I25.84) 02/29/2024 Iron deficiency anemia, unspecified iron deficiency anemia type (ICD-10 - D50.9) to take iron every other day 02/22/2024 Coronary atherosclerosis due to calcified coronary lesion (ICD-10 - I25.84) 08/30/2024 Iron deficiency anemia, unspecified iron deficiency anemia type (ICD-10 - D50.9) 09/06/2024 Pain in right should er (ICD-10 - M25.511) referral to [facility] 02/29/2024 Eye lesion (ICD-10 - H57.9) has been there 40 years but thinks it has gotten larger. is going to see ey doctor in couple weeks 08/30/2024 Encounter for immunization (ICD-10 - Z23) 02/29/2024 Colon cancer screeni ng (ICD-10 - Z12.11) guaiac negative 02/29/2024 Depression screening (ICD-10 - Z13.31) negative screen PLAN OF TREATMENT Pending Test Test Name Order Date Electrocardiogram (EKG) 05/31/2013 Electrocardiogram (EKG) 12/04/2017 Electrocardiogram (EKG) 12/06/2018 Electrocardiogram (EKG) 12/16/2018 Future Test Test Name Order Date CT chest wo con 12/14/2024 Next Appt Details Provider Name:Major frazier, 11/28/2024 08:00:00 AM, [address] [place] [address], [address], [phone], Provider Name:Major frazier, 02/24/2025 07:45:00 AM, [address] [place] [address], [address], [phone], Provider Name:Major frazier, 03/02/2025 02:30:00 PM, [address] [place] [address], [address], [phone], Insurance Providers Payer Name Payer Address Payer Phone Subscriber Number Group Number Insured Name Patient Relationship to Insured Coverage Start Date Coverage End Date [employer] [address] [place] [address] [id number] Suhail Hassan Self - patient is the insured [facility] [address] [address] [place] [address] [id number] Suhail Hassan Self - patient is the insured MEDICAL (GENERAL) HISTORY Medical History History ICD Code Abscess colonoscopy 2009 neg. repeat 10; Colonoscopy 04/23/[address] Schwartz hyperplastic polyp flu vac refused 08/12/13 colonoscopy 2022 repeat in 5 years
--- OUTSIDE RECORDS SUMMARY | 2024-10-12 21:56 | XMS_ITS ---
Author Organization Major Nazario MD Address [address] [place] [phone] Care Team Providers Care Clinical Reimbursement Specialist Name Role Phone Major Nazario Primary Care Provider [phone] ALLERGIES No Known Allergies REASON FOR REFERRAL Reason pain right shoulder Diagnosis 1 Pain in right should er (M25.511) Referral Organization Major Nazario MD Referring Provider First Name Major Referring Provider Last Name Mansi Referring Provider Speciality Internal M edicine Referred Provider Ady De Jesus Referred Provider Specialty Orthopedic S urgery General Notes Saranya Rolle 01:44:19 PM EST > info faxed Aquilino Annette 09/19/2024 02:29:07 PM EST > was told to refaxed Aquilino Annette 09/20/2024 01:18:45 PM EST > was told by office patient is aware of appt Referral Priority Routine Referral Appointment Date 11/01/2024 REASON FOR VISIT 6 month, c/o right shoulder pain x 3-4months no injury MEDICATIONS Medication SIG (Take, Route, Frequency, Duration) [...] a day for 90 days Not-Taki ng VITAL SIGNS BMI 20.81 kg/m2 09/06/2024 Blood pressure systolic 132 mm Hg 09/06/20 24 Blood pressure diastolic 70 mm Hg 024 Height 69.50 in 09/06/2024 Weight 143 lbs 09/06/2024 weight is down 3 pounds [facility] e 02-29-24 Encounters Encounter Location Date Provider Diagnosis Major Nazario MD [address] [facility] [address] [place], [place] [id number] 09/06/2024 Major Nazario Iron deficiency anemia, unspecified iron deficiency anemia type D50.9 ; Toe pain, left M79.675 and Pain in right shoulder M25.511 ASSESSMENTS Encounter Date Diagnosis Assessment Notes Treatment Notes Treatment Clinical Notes 09/06/2024 Iron deficiency anemia, unspecified iron deficiency anemia type (ICD-10 - D50.9) took the iron for only 3 or 4 days and it got too high. will change to once a week. stop taking it for a month.will cntinue to monitor 09/06/2024 Toe pain, left (ICD-10 - M79.675) is going to wait and see if it goes away 09/06/2024 Pain in right shoulder (ICD-10 - M25.511) referral to [facility] ortho PLAN OF TREATMENT Treatment Notes Assessment Notes Iron deficiency anemia, unsp ecified iron deficiency anemia type took the iron for only 3 or 4 days and i t got too high. will change to once a week. stop taking it for a month.will cntinue to monitor Toe pain, left is going to wait and see if it goes away Pain in right shoulder referral to [facility] o rtho Referrals Referral Date Details 11/01/2024 11/01/2024, pain rig ht shoulder , Ady De Jesus Next Appt Details Follow Up: 6 Months, Reason: complete Provider Name:Major frazier, 11/28/2024 08:00:00 AM, [address] [place] [address], [address], [place], [place], [phone], Provider Name:Major frazier, 02/24/2025 07:45:00 AM, [address] [place] [address], [address], [place], [place], [phone], Provider Name:Major frazier, 03/02/2025 02:30:00 PM, [address] [place] [address], [address], [place], [phone], Progress Notes * Examination Category Sub-Category Detail Notes General Examination GENERAL APPEARANCE: alert, w ell hydrated, in no distress , male HEAD: normocephalic HEART: no murmurs, rubs, ga llops , regular rate and rhythm LUNGS: no wheezes, rales, r honchi , good air movement , clear to auscultation bilaterally SKIN: good turgor EXTREMITIES: abnormal with a smal l tender spot on lateral small toe Consultation Request Notes Referral Date Referring Provider Referred Provider Not daniella 09/06/2024 Major Nazario Noah pain right shoulder
--- OUTSIDE RECORDS SUMMARY | 2024-10-12 21:56 | XMS_ITS ---
Author Organization Major Nazario MD Address [address] [place] [phone] Care Team Providers Care Hoop Expander Name Role Phone Major Nazario Primary Care Provider REASON FOR VISIT FYI Encounters Encounter Location Date Provider Diagnosis Major Nazario MD 10 [facility] [address] [place] [phone] 04/07/2024 Major Nazario PLAN OF TREATMENT Next Appt Details Provider Name:Major frazier, 11/28/2024 08:00:00 AM, [address] [place] [address], [address], [phone], Provider Name:Major Oh iemario alberto, 02/24/2025 07:45:00 AM, [address] [place] [address], [address], [phone], Provider Name:Major frazier, 03/02/2025 02:30:00 PM, [address] [place] [address], [phone],
--- OUTSIDE RECORDS SUMMARY | 2024-10-12 21:56 | XMS_ITS ---
Author Organization Major Nazario MD Address [address] [place] [phone] Care Team Providers Care Aids Counselor Name Role Phone Major Nazario Primary Care Provider RESULTS Component Value Reference Range Notes Complete Blood Count Auto Di ff Reviewed date:08/30/2024 12:40:36 PM Interpretation: Performing Lab:[facility], [address] [place] [phone] Notes/Report: White Blood Count 7.4 4.8-10.8 X10*3/uL [...] PROFILE Reviewed date:08/30/2024 01:50:03 PM Interpretation: Performing Lab:[facility], [address] [place] [phone] Notes/Report: Iron 380 45-160 mcg/dL Total Iron Binding Capacity 405 228-428 mcg/d L Percent Iron Saturation 94 15-50 % Unsaturated Iron Binding < 25 REASON FOR VISIT CBC Iron IMMUNIZATIONS Vaccine Route Administration Date Status Comme nts Fluarix Quadrivalent - 150 IM Intramuscular 08/30/2024 Adm inistered Encounters Encounter Location Date Provider Diagnosis Major Nazario MD [address] [place] [address] [address] [place], [place] [phone] 08/30/2024 Major Nazario Iron deficiency anemia D50.9 ; Monocytosis D72.821 ; Iron deficiency anemia, unspecified iron deficiency anemia type D50.9 and Encounter for immunization Z23 ASSESSMENTS Encounter Date Diagnosis Assessment Notes Treatment Notes Treatment Clinical Notes 08/30/2024 Iron deficiency anemia (ICD-10 - D50.9) 08/30/2024 Monocytosis (ICD-10 - D72.821) 08/30/2024 Iron deficiency anemia, unspecified iron deficiency anemia type (ICD-10 - D50.9) 08/30/2024 Encounter for immunization (ICD-10 - Z23) PLAN OF TREATMENT Next Appt Details Provider Name:Major frazier, 11/28/2024 08:00:00 AM, [address] [place] [address], [address], [place], [phone], Provider Name:Major frazier, 02/24/2025 07:45:00 AM, [address] [place] [address], [address], [place], [phone], Provider Name:Major frazier, 03/02/2025 02:30:00 PM, [address] [place] [address], [address], [place], [phone],
== END ==
LOC: HO.CARD 14:01
PROVIDERS: PCP Internal Medicine; Visit Provider Internal Medicine
DX: I25.10 Atherosclerotic heart disease of native coronary artery without angina pectoris (principal); I71.21 Aneurysm of the ascending aorta, without rupture
CPT/HCPCS: 93306

== ENCOUNTER → 2024-10-11 14:05 | Outpatient (BNV) | payer MEDICARE, OTHER, SELFPAY | PROVIDERS: PCP Internal Medicine; Visit Provider Internal Medicine Cardiovascular Disease | DX: I25.10 Atherosclerotic heart disease of native coronary artery without angina pectoris (principal); R93.1 Abnormal findings on diagnostic imaging of heart and coronary circulation | CPT/HCPCS: 93306 ==

== ENCOUNTER 2024-11-01 12:55 | Outpatient (REF) | payer MEDICARE, OTHER, SELFPAY ==
--- NOTE | ~2024-11-01 | XR_ITS ---
EXAMINATION: XR RIGHT SHOULDER CLINICAL INFORMATION: Pain in right shoulder M25.511. COMPARISON: None available. TECHNIQUE: AP external rotation, Grashey, scapular Y, and axillary views of the right shoulder. FINDINGS: Submitted for interpretation on November 09, 2024. No acute cortical disruption or malalignment. There is a 3 mm linear calcification at the supraspinatus tendon insertion. No lytic or blastic lesions. Subtle subcutaneous emphysema. XR/XR shoulder RT min 2V IMPRESSION: No acute fracture or dislocation. Consider tendinosis versus tendinopathy, supraspinatus. Electronically signed by: Yadiel Birmingham MD 11/09/2024 07:52 AM EST
--- OUTSIDE RECORDS SUMMARY | 2024-11-03 13:57 | XMS_ITS ---
Author Organization [facility] Address [address] [place] [address] Care Team Providers Care Counter Help Name Role Phone Major Nazario MD Primary Care Provider Jhonathan Heredia Unavailable [phone] ALLERGIES No Known Allergies REASON FOR VISIT [...] Active confirmed History of polyp of colon (908145567) VITAL SIGNS BMI 22.28 kg/m2 12/30/2023 Blood pressure systolic 000 mm Hg 12/30/19 24 Blood pressure diastolic 00 mm Hg 024 Height 67.5 in 12/30/2023 Temperature 97.8 degrees Fahrenheit 12/30/19 24 Weight 144 lb 6 oz lbs 12/30/2023 Encounters Encounter Location Date Provider Diagnosis [facility] [address] [place] [address] 12/30/2023 Jhonathan Schwartz Erosive gastritis K29.60 ; [...] 03:40:00 PM, [address], [address], [place], [address], Progress Notes * Examination Category Sub-Category Detail [...]
--- OUTSIDE RECORDS SUMMARY | 2024-11-03 13:57 | XMS_ITS ---
Author Organization Major Nazario MD Address [address] [place] [phone] Care Team Providers Care Client Solutions Manager Name Role Phone Major Nazario Primary Care Provider RESULTS Component Value Reference Range Notes Complete Blood Count Auto Di ff Reviewed date:08/30/2024 12:40:36 PM Interpretation: Performing Lab:[facility], [address] [place] [phone] Notes/Report: White Blood Count 7.4 4.8-10.8 X10*3/uL [...] PROFILE Reviewed date:08/30/2024 01:50:03 PM Interpretation: Performing Lab:[facility], [address] [place] [phone] Notes/Report: Iron 380 45-160 mcg/dL Total Iron Binding Capacity 405 228-428 mcg/d L Percent Iron Saturation 94 15-50 % Unsaturated Iron Binding < 25 REASON FOR VISIT CBC Iron IMMUNIZATIONS Vaccine Route Administration Date Status Comme nts Fluarix Quadrivalent - 150 IM Intramuscular 08/30/2024 Adm inistered Encounters Encounter Location Date Provider Diagnosis Major Nazario MD [address] [place] [address] [address] [place], [place] [phone] 08/30/2024 Major Nazario Iron deficiency anemia D50.9 [...] Details Provider Name:Major frazier, 11/28/2024 08:00:00 AM, [address] [place] [address], [address], [place], [phone], Provider Name:Major frazier, 02/24/2025 07:45:00 AM, [address] [place] [address], [address], [place], [phone], Provider Name:Major frazier, 03/02/2025 02:30:00 PM, [address] [place] [address], [address], [place], [phone],
--- OUTSIDE RECORDS SUMMARY | 2024-11-03 13:57 | XMS_ITS ---
Author Organization Major Nazario MD Address [address] [place] [phone] Care Team Providers Care Knowledge Analyst Name Role Phone Major Nazario Primary Care Provider [phone] ALLERGIES No Known Allergies REASON FOR REFERRAL [...] lbs 09/06/2024 weight is down 3 pounds [facility] e 02-29-24 Encounters Encounter Location Date Provider Diagnosis Major Nazario MD 10 [facility] [address] [place], [place] [phone] 09/06/2024 Major Nazario Iron deficiency anemia, unspecified [...] right shoulder (ICD-10 - M25.511) referral to [facility]o PLAN OF TREATMENT Treatment Notes Assessment [...] away Pain in right shoulder referral to [facility] rtho Referrals Referral Date Details 11/01/2024 11/01/2024, pain rig ht shoulder , Ady De Jesus Next Appt Details Follow Up: 6 Months, Reason: complete Provider Name:Major frazier, 11/28/2024 08:00:00 AM, [address] [place] [address], [address], [place], [place], [phone], Provider Name:Major frazier, 02/24/2025 07:45:00 AM, [address] [place] [address], [address], [place], [place], [phone], Provider Name:Major frazier, 03/02/2025 02:30:00 PM, [address] [place] [address], [address], [place], [phone], Progress Notes * Examination Category Sub-Category Detail [...]
--- OUTSIDE RECORDS SUMMARY | 2024-11-03 13:57 | XMS_ITS ---
Author Organization [facility] Address [address] [place] [address] Care Team Providers Care Women'S Swim Coach Name Role Phone Major Nazario MD Primary Care Provider Jhonathan Heredia Unavailable [phone] ALLERGIES No Known Allergies REASON FOR VISIT [...] many cigarettes a day do you smoke? - Alcohol Screen Question Answer Notes Did you [...] [facility] [address] [place] [address] 07/27/2024 Jhonathan Schwartz Iron deficiency anem ia, [...] 03:40:00 PM, [address], [address], [place], [address], Progress Notes * Examination Category Sub-Category Detail [...]
--- OUTSIDE RECORDS SUMMARY | 2024-11-03 13:57 | XMS_ITS ---
Author Organization [facility] Address [address] [place] [address] Care Team Providers Care Dining Room Busser Name Role Phone Major Nazario MD Primary Care Provider Jhonathan Heredia [phone] MEDICATIONS Medication SIG (Take, Route, Fr equency, Duration) Notes Start Date End Date Status Omeprazole 40 MG 1 Orally Every morni ng for 30 day(s) 08/24/2023 Active Encounters Encounter Location Date Provider Diagnosis [facility] [address] [facility] [address] [place] [address] 08/24/2023 Jhonathan Schwartz Iron deficiency anemia, unspecified [...] Name:Jhonathan Schwartz , 02/01/2025 03:40:00 PM, [address] [facility], [address], [place], [address],
--- OUTSIDE RECORDS SUMMARY | 2024-11-03 13:57 | XMS_ITS | Patient Health Record ---
Author Organization [facility] Address [address] [place] [address] Care Team Providers Care Registered Associate Name Role Phone Major Nazario MD Primary Care Provider Jhonathan Heredia Unavailable [phone] ALLERGIES No Known Allergies REASON FOR REFERRAL [...] Problem Heme + stool (R19.5) Active confirmed 61225175 Problem Iron deficiency anemia, unspecified iron deficiency anemia type (D50.9) Active confirmed 61386398 Problem Gastroesophageal reflux disease, unspecified whether esophagitis present (K21.9) Active confirmed 292737115 Problem Diverticulosis of large intestine without perforation or abscess without bleeding (K57.30) Active confirmed Diverticul ar disease of colon (993472267) Problem Iron deficiency anemia (D50.9) Active confirmed Iron deficien cy anemia (09024416) Problem Erosive gastritis (K29.60) Active confirmed Erosive gastrit is (7604977348011168) Problem Gastroesophageal reflux disease (K21.9) Active confirmed Gastroesophagea l reflux disease (080565944) Problem History of colon polyps (Z86.010) Active confirmed History of polyp of colon (788576236) VITAL SIGNS Temperature 97.3 degrees Fahrenheit 07/27/2024 Blood pressure diastolic 00 mm Hg 07/27/2024 Height 67.5 in 07/27/2024 Blood pressure systolic 000 mm Hg 07/27/2024 Weight 141 lb 6 oz lbs 07/27/2024 BMI 21.81 kg/m2 07/27/2024 Encounters Encounter Location Date Provider Diagnosis [facility] [address] [place] [address] 12/30/2023 Jhonathan Schwartz Erosive gastritis K2 9.60 ; Iron deficiency anemia D50.9 and History of colon polyps Z86.010 [facility] [address] [place] [phone] 07/27/2024 Jhonathan Schwartz Iron deficiency anem ia, [...] Provider Name:Jhonathan Schwartz , 02/01/2025 03:40:00 PM, [address] [place] [address], [address], [place], [address], Insurance Providers Payer Name Payer Address Payer Phone Subscriber Number Group Number Insured Name Patient Relationship to Insured Coverage Start Date Coverage End Date MEDICARE OF [place] [address] [place] [id number] BENJAMIN MORGAN Self - patient is the insured [facility] [address] [address] [place] [address] [phone] [id number] BENJAMIN MORGAN Self - patient is the insured MEDICAL (GENERAL) HISTORY Medical History History ICD Code Denies [place],DM,CVA,Lung disease,renal dise ase Neg. screeening colonoscopy in [...]
--- OUTSIDE RECORDS SUMMARY | 2024-11-03 13:57 | XMS_ITS ---
Author Organization Major Nazario MD Address [address] [place] [phone] Care Team Providers Care Dolly Operator Name Role Phone Major Nazario Primary Care Provider REASON FOR VISIT FYI Encounters Encounter Location Date Provider Diagnosis Major Nazario MD 10 [facility] [address] [place] [phone] 04/07/2024 Major Nazario PLAN OF TREATMENT Next Appt Details Provider Name:Major frazier, 11/28/2024 08:00:00 AM, [address] [place] [address], [address], [phone], Provider Name:Major Oh iemario alberto, 02/24/2025 07:45:00 AM, [address] [place] [address], [address], [phone], Provider Name:Major frazier, 03/02/2025 02:30:00 PM, [address] [place] [address], [phone],
--- OUTSIDE RECORDS SUMMARY | 2024-11-03 13:58 | XMS_ITS | Patient Health Record ---
Author Organization Major Nazario MD Address [address] [place] [phone] Care Team Providers Care College Advisor Name Role Phone Major Nazario Primary Care Provider ALLERGIES No Known Allergies RESULTS Component Value Reference Range Notes Complete Blood Count Auto Di ff Reviewed date:02/22/2024 01:24:14 PM Interpretation: Performing Lab:[facility], [address] [place] [phone] Notes/Report: White Blood Count 6.2 4.8-10.8 X10*3/uL [...] NRBC Abs Auto 0.000 0.0-0.012 X10*3/uL Comprehensive [place]. Panel Fa st Reviewed date:02/22/2024 12:52:29 PM Interpretation: Performing Lab:[facility], [address] [place] [phone] Notes/Report: Sodium 139 135-145 mmol/L Potassium 4.0 3.3-5.1 mmol/L Chloride 105 96-108 mmol/L Carbon Dioxide 28 22-29 mmol/L Anion Gap 10 12-20 Blood Urea Nitrogen 4 9-16 mg/dL Creatinine 0.62 0.5-1.4 mg/dL Estimated Glomerular Filt Rate > 60 NOTE: For -Ethiopian individuals, multiply the result by 1.210. Chronic [...] PROFILE Reviewed date:02/22/2024 12:46:17 PM Interpretation: Performing Lab:[facility], [address] [place] [phone] Notes/Report: Iron 25 45-160 mcg/dL Total Iron Binding Capacity 318 228-428 mcg/d L Percent Iron Saturation 8 15-50 % Unsaturated Iron Binding 293 Lipid Panel Reviewed date:02/22/2024 12:44:14 PM Interpretation: Performing Lab:[facility], [address] [place] [phone] Notes/Report: Triglycerides 81 <150 mg/dL Desirable Triglyceride: [...] (Free>4and<10) Reviewed date:02/22/2024 01:23:46 PM Interpretation: Performing Lab:[facility], [address] [place] [phone] Notes/Report: PSA,Total (Free>4and<10) 1.05 0.00-4.00 ng/mL A [...] t Reviewed date:02/22/2024 12:51:46 PM Interpretation: Performing Lab:[facility], [address] [place] [phone] Notes/Report: Urine, Clean Catch Color Urine Yellow Appearance Urine Clear PH 5.5 5.0-9.0 Glucose Urine UA Negative Negative mg/dL Urine Blood Negative Negative Specific Edwards - Urine <= 1.005 1.005-1.025 Urine Protein [...] ff Reviewed date:08/30/2024 12:40:36 PM Interpretation: Performing Lab:[facility], [address] [place] [phone] Notes/Report: White Blood Count 7.4 4.8-10.8 X10*3/uL [...] PROFILE Reviewed date:08/30/2024 01:50:03 PM Interpretation: Performing Lab:[facility], [address] [place] [phone] Notes/Report: Iron 380 45-160 mcg/dL Total Iron [...] PM EST > was told to refaxed , Saranya Rolle 09/20/2024 01:18:45 PM EST > was told [...] 12/04/2017 Administered Fluarix Quadrivalent IM Intramuscular 08/16/2018 Administe red Prevnar 13 IM Intramuscular 12/12/2019 Administered [...] Code Notes Problem Atherosclerotic heart disease of [place] coronary artery without angina pectoris (I25.10) Active confirmed 382507986 Problem Erectile dysfunction (N52.9) Active confirmed 443212032 Problem Coronary atherosclerosis due to calcified coronary lesion (I25.84) Active confirmed 40951578 Problem 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) Active confirmed 7378909 Problem Lumbar disc disease (M51.9) Active confirmed 901732053 Problem Smoker (F17.200) Active confirmed 38204 002 Problem Environmental allergies (Z91.09) Active confirmed 527946500 Problem Iron deficiency anemia (D50.9) Active confirmed Iron deficiency anemia (15756683) Problem Current smoker (F17.200) Active confirmed 01414166 Problem Monocytosis (D72.821) Active confirmed Monocytosis (61739313) Problem Iron deficiency anemia, unspecified iron deficiency anemia type (D50.9) Active confirmed 44480394 Problem Intertrigo (L30.4) Active confirmed 587 [address] Problem Hyperplastic colonic polyp, unspecified part of colon (K63.5) Active confirmed 117453136 Problem Condyloma acuminata (A63.0) Active confirmed Anogenital warts (180994155) VITAL SIGNS Blood pressure diastolic 70 mm [...] Encounters Encounter Location Date Provider Diagnosis Major P Bombardier MD [address] [place] [phone] 12/14/2023 Major Nazario Aneurysm of ascendin g aorta without rupture I71.21 ; Atherosclerotic heart disease of [place] coronary artery without angina pectoris I25.10 and Coronary atherosclerosis due to calcified coronary lesion I25.84 Major Nazario MD [address] [facility] [address] [phone] 02/29/2024 Major Nazario Current smoker F17.2 00 ; Aneurysm of ascending aorta without rupture I71.21 ; Iron deficiency anemia, unspecified iron deficiency anemia type D50.9 ; Eye lesion H57.9 ; Colon cancer screening Z12.11 and Depression screening Z13.31 Major Nazario MD [address] [facility] [address] [place] [phone] 02/22/2024 Major Nazario Iron deficiency anem ia, unspecified iron deficiency anemia type D50.9 ; Monocytosis D72.821 and Coronary atherosclerosis due to calcified coronary lesion I25.84 Major Nazario MD [address] [facility] [address] [place] [phone] 08/30/2024 Major Nazario Iron deficiency anem ia D50.9 ; Monocytosis D72.821 ; Iron deficiency anemia, unspecified iron deficiency anemia type D50.9 and Encounter for immunization Z23 Major Nazario MD [address] [facility] [address] [place] [id number] 09/06/2024 Major Nazario Iron deficiency anem ia, unspecified iron deficiency anemia type D50.9 ; Toe pain, left M79.675 and Pain in right shoulder M25.511 Major Nazario MD [address] [facility] [address] [place] [phone] 04/07/2024 Major Nazario ASSESSMENTS Encounter Date Diagnosis Assessment Notes Treatment Notes Treatment Clinical Notes 12/14/2023 Atherosclerotic hear t disease of [place] coronary artery without angina pectoris (ICD-10 - I25.10) will get a coronary ct and calcium score and decide what to do based on that/ appt booked at [facility] 12-24-23 at 9:15am 12/14/2023 Aneurysm of ascendin [...] should er (ICD-10 - M25.511) referral to [facility] ortho 02/29/2024 Eye lesion (ICD-10 - H57.9) [...] con 12/14/2024 Next Appt Details Provider Name:Major Oh ier, 11/28/2024 08:00:00 AM, [address] [place] [address], [address], [place], [place], [phone], Provider Name:Major Oh ier, 02/24/2025 07:45:00 AM, [address] [place] [address], [address], [place], [place], [phone], Provider Name:Major Muñoztyshawn ier, 03/02/2025 02:30:00 PM, [address] [place] [address], Suite [facility], [place], [place], [phone], Insurance Providers Payer Name Payer Address Payer Phone Subscriber Number Group Number Insured Name Patient Relationship to Insured Coverage Start Date Coverage End Date [employer] [address] [place] [address] [id number] Suhail Hassan Self - patient is the insured [facility] [address] [address] [place] [address] [phone] [id number] Suhail Hassan Self - patient is the insured MEDICAL (GENERAL) HISTORY Medical History History ICD Code Abscess colonoscopy 2009 neg. repeat 10; Colonoscopy 04/23/[address] Schwartz hyperplastic polyp flu vac refused 08/12/13 colonoscopy 2022 repeat in 5 years
== END 2024-11-01 12:56 | disposition home or self-care (01) ==
LOC: HO.HOSX 12:55
PROVIDERS: Visit Provider Orthopaedic Surgery
DX: M25.511 Pain in right shoulder (principal); M25.311 Other instability, right shoulder
CPT/HCPCS: 73030; 99202

== ENCOUNTER 2024-11-01 13:45 | Outpatient (AMB) | payer MEDICARE, OTHER, SELFPAY ==
--- NOTE | 2024-11-01 13:56 | MHC.OFFVIS ---
Intake Visit Reasons: Right shoulder pain and weakness Intake Note: Suhail is a 69 year old male who presents with complaints of progressively worsening right shoulder pain and weakness. He describes his pain as sharp in nature. His pain has gotten worse over the last 6 months in spite of continued non operative treatments. He has failed the last 6 weeks of conservative treatment which has included physical therapy exercises, Tylenol and ibuprofen. He denies any numbness or tingling in either upper extremity. He reports difficulty lifting his right hand above shoulder height. Allergies No Known Allergies Allergy (Verified 08/21/23 09:10) Medication List - Last Reconciled 11/01/24 by Branodn Waite MD atorvastatin 20 mg PO QPM ibuprofen 800 mg PO Q6H PRN multivitamin 1 tab PO DAILY PFSH Medical History (Updated 11/01/24 @ 14:17 by Brandon Waite MD) Ascending aortic aneurysm Emphysema lung Atherosclerotic cardiovascular disease Anemia Nicotine dependence, cigarettes, uncomplicated History of colon polyps Surgical History History of tonsillectomy History of colonoscopy Family History Father Pancreatic cancer Social History Alcohol intake: current Alcohol intake frequency: 0-2 drinks per day Patient Tobacco Use Status: Current everyday Tobacco user Cigarette Packs Per Day: 1 Cigarettes Per Day: 20.0 Years Smoked: 51 Physical Exam Const Other: Well-nourished well-developed very friendly male awake alert and oriented x3 in no acute distress Extrem Other: Bilateral upper extremity examination shows good capillary refill, no skin lesions noted, normal sensation light touch Right shoulder examination shows decreased range motion when compared to his left shoulder, 4+ out of 5 strength with supraspinatus testing, positive impingement signs, tenderness over his acromioclavicular joint, no instability Results Reviewed Results Reviewed: X-rays of the patient's right shoulder show severe acromioclavicular joint narrowing, a type 2 acromion, no acute bony abnormalities Assessment & Plan Assessment & Plan (1) Rotator cuff insufficiency of right shoulder: Code(s): M25.311 - Other instability, right shoulder Category: Medical Plan Ms. Hassan presents with progressively worsening right shoulder pain and weakness due to impingement syndrome and possible full-thickness rotator cuff tearing. Thus, I will send the patient for an MRI of his right shoulder for further evaluation. I will see him back once the MRI is completed to discuss the findings and treatment options. Feel free to call me at any time should questions regarding his orthopedic management arise. Thank you very much for asking me to see this very friendly gentleman. I spent 21 minutes in reviewing the patient's records and imaging studies, seeing the patient and documenting in the medical record. Orders: Orders XR shoulder RT min 2V Today M25.511 - Pain in right shoulder MR shoulder RT wo con Today M25.311 - Other instability, right shoulder Coding Level of Care Code New Pt Level 3 (83257) Complex EM visit Add On G2211 Diagnoses Rotator cuff insufficiency of right shoulder M25.311
== END 2024-11-01 14:11 | disposition home or self-care (01) ==
PROVIDERS: PCP Internal Medicine; Visit Provider Orthopaedic Surgery
DX: M25.311 Other instability, right shoulder (principal)
CPT/HCPCS: 99203; G2211

== ENCOUNTER 2024-11-08 16:18 | Outpatient (REF) | payer MEDICARE, OTHER, SELFPAY ==
--- NOTE | ~2024-11-08 | CT_ITS ---
CLINICAL HISTORY: F17.210 - Nicotine dependence, cigarettes, uncomplicated CT lung cancer screening (LDCT) Comparison: None Technique: Axial CT images of the chest using low-dose technique. Referring provider counseled the patient on shared decision-making for LDCT screening. Additional counseling was provided on smoking cessation. Effective radiation dose total: DLP 37.2 mGycm, CTDIvol 1 mGy. Findings: Lung: Mild emphysema. 4.8 x 5.5 mm nodule of the right upper lobe series 4, image 9 is stable. Stable 2 mm nodule of the right upper lobe series 6, image 122. Coronary artery calcifications: Mild Limited upper abdomen: Unremarkable Other: 4.3 cm ectasia of the ascending aorta. Impression: LungRADS 2 - Benign Appearance: Continue annual screening with low dose Chest CT in 12 months. ##L2# Category 1: Normal; continue annual screening Category 2: Benign appearance or behavior, continue annual screening Category 3: Probably benign, [address] recommended Category 4A: Suspicious, [address] recommended; may consider PET/CT Category 4B: Suspicious, Additional diagnostics and/or tissue sampling recommended Category 4X: Suspicious, Additional diagnostics and/or tissue sampling recommended Category 0: Recalls (incomplete screen due to Incomplete coverage, Noise, Respiratory motion, Expiration, Obscured by acute abnormality) This document has been electronically signed by: Westno Bangura MD on 11/10/2024 07:53:50
--- OUTSIDE RECORDS SUMMARY | 2024-11-08 19:34 | XMS_ITS ---
Author Organization [facility] Address [address] [place] [address] Care Team Providers Care Personal Security Specialist Name Role Phone Major Nazario MD Primary Care Provider Jhonathan Heredia [phone] MEDICATIONS Medication SIG (Take, Route, Fr equency, Duration) Notes Start Date End Date Status Omeprazole 40 MG 1 Orally Every morni ng for 30 day(s) 08/24/2023 Active Encounters Encounter Location Date Provider Diagnosis [facility] [address] [place] [address] 08/24/2023 Jhonathan Schwartz Iron deficiency anemia, unspecified [...] Name:Jhonathan Schwartz , 02/01/2025 03:40:00 PM, [address], [address], [place], [address],
--- OUTSIDE RECORDS SUMMARY | 2024-11-08 19:34 | XMS_ITS ---
Author Organization [facility] Address [address] [place] [address] Care Team Providers Care Battery Repairer Name Role Phone Major Nazario MD Primary Care Provider Jhonathan Heredia Unavailable [phone] ALLERGIES No Known Allergies REASON FOR VISIT [...] Active confirmed History of polyp of colon (460273382) VITAL SIGNS BMI 22.28 kg/m2 12/30/2023 Blood pressure systolic 000 mm Hg 12/30/19 24 Blood pressure diastolic 00 mm Hg 024 Height 67.5 in 12/30/2023 Temperature 97.8 degrees Fahrenheit 12/30/19 24 Weight 144 lb 6 oz lbs 12/30/2023 Encounters Encounter Location Date Provider Diagnosis [facility] [address] [place] [address] 12/30/2023 Jhonathan Schwartz Erosive gastritis K29.60 ; [...] 03:40:00 PM, [address], [address], [place], [address], Progress Notes * Examination Category Sub-Category Detail [...]
--- OUTSIDE RECORDS SUMMARY | 2024-11-08 19:34 | XMS_ITS | Patient Health Record ---
Author Organization [facility] Address [address] [place] [address] Care Team Providers Care Ballistic Technician Name Role Phone Major Nazario MD Primary Care Provider Jhonathan Heredia Unavailable [phone] ALLERGIES No Known Allergies REASON FOR REFERRAL [...] Problem Heme + stool (R19.5) Active confirmed 71306210 Problem Iron deficiency anemia, unspecified iron deficiency anemia type (D50.9) Active confirmed 78068367 Problem Gastroesophageal reflux disease, unspecified whether esophagitis present (K21.9) Active confirmed 636456899 Problem Diverticulosis of large intestine without perforation or abscess without bleeding (K57.30) Active confirmed Diverticul ar disease of colon (266105036) Problem Iron deficiency anemia (D50.9) Active confirmed Iron deficien cy anemia (71426538) Problem Erosive gastritis (K29.60) Active confirmed Erosive gastrit is (0681345204106046) Problem Gastroesophageal reflux disease (K21.9) Active confirmed Gastroesophagea l reflux disease (931700897) Problem History of colon polyps (Z86.010) Active confirmed History of polyp of colon (217144227) VITAL SIGNS Temperature 97.3 degrees Fahrenheit 07/27/2024 Blood pressure diastolic 00 mm Hg 07/27/2024 Height 67.5 in 07/27/2024 Blood pressure systolic 000 mm Hg 07/27/2024 Weight 141 lb 6 oz lbs 07/27/2024 BMI 21.81 kg/m2 07/27/2024 Encounters Encounter Location Date Provider Diagnosis [facility] [address] [place] [address] 12/30/2023 Jhonathan Schwartz Erosive gastritis K2 9.60 ; Iron deficiency anemia D50.9 and History of colon polyps Z86.010 [facility] [address] [place] [address] 07/27/2024 Jhonathan Schwartz Iron deficiency anem ia, [...] Provider Name:Jhonathan Schwartz , 02/01/2025 03:40:00 PM, [address] [place] [address], [address], [place], [address], Insurance Providers Payer Name Payer Address Payer Phone Subscriber Number Group Number Insured Name Patient Relationship to Insured Coverage Start Date Coverage End Date MEDICARE OF [place] [address] [place] [id number] BENJAMIN MORGAN Self - patient is the insured [facility] [address] [address] [place] [address] [id number] BENJAMIN MORGAN Self - patient is the insured MEDICAL (GENERAL) HISTORY Medical History History ICD Code Denies [place],DM,CVA,Lung disease,renal dise ase Neg. screeening colonoscopy in [...]
--- OUTSIDE RECORDS SUMMARY | 2024-11-08 19:34 | XMS_ITS ---
Author Organization Major Nazario MD Address [address] [place] [phone] Care Team Providers Care Paper Pattern Folder Name Role Phone Major Nazario Primary Care Provider ALLERGIES No Known Allergies REASON FOR REFERRAL Reason pain right shoulder Diagnosis 1 Pain in right should er (M25.511) Referral Organization Major Nazario MD Referring Provider First Name Major Referring Provider Last Name Masni Referring Provider Speciality Internal M edicine Referred [...] lbs 09/06/2024 weight is down 3 pounds [facility] e 02-29-24 Encounters Encounter Location Date Provider Diagnosis Major Nazario MD [address] [facility] [address] [place], [place] [phone] 09/06/2024 Major Nazario Iron deficiency anemia, unspecified [...] right shoulder (ICD-10 - M25.511) referral to [facility] ortho PLAN OF TREATMENT Treatment Notes Assessment [...] away Pain in right shoulder referral to [facility] o rtho Referrals Referral Date Details 11/01/2024 11/01/2024, pain rig ht shoulder , Ady De Jesus Next Appt Details Follow Up: 6 Months, Reason: complete Provider Name:Major frazier, 11/28/2024 08:00:00 AM, [address] [place] [address], [address], [place], [place], [phone], Provider Name:Major frazier, 02/24/2025 07:45:00 AM, [address] [place] [address], [address], [place], [place], [phone], Provider Name:Major frazier, 03/02/2025 02:30:00 PM, [address] [place] [address], [address], [place], [phone], Progress Notes * Examination Category Sub-Category Detail [...]
--- OUTSIDE RECORDS SUMMARY | 2024-11-08 19:34 | XMS_ITS ---
Author Organization [facility] Address [address] [place] [address] Care Team Providers Care Tube Station Attendant Name Role Phone Major Nazario MD Primary Care Provider Jhonathan Heredia Unavailable [phone] ALLERGIES No Known Allergies REASON FOR VISIT [...] [facility] [address] [place] [address] 07/27/2024 Jhonathan Schwartz Iron deficiency anem ia, [...] 03:40:00 PM, [address], [address], [place], [address], Progress Notes * Examination Category Sub-Category Detail [...]
--- OUTSIDE RECORDS SUMMARY | 2024-11-08 19:34 | XMS_ITS ---
Author Organization Major Nazario MD Address [address] [place] [phone] Care Team Providers Care Assistant Product Manager Name Role Phone Major Nazario Primary Care Provider RESULTS Component Value Reference Range Notes Complete Blood Count Auto Di ff Reviewed date:08/30/2024 12:40:36 PM Interpretation: Performing Lab:[facility], [address] [place] [phone] Notes/Report: White Blood Count 7.4 4.8-10.8 X10*3/uL [...] PROFILE Reviewed date:08/30/2024 01:50:03 PM Interpretation: Performing Lab:[facility], [address] [place] [phone] Notes/Report: Iron 380 45-160 mcg/dL Total Iron Binding Capacity 405 228-428 mcg/d L Percent Iron Saturation 94 15-50 % Unsaturated Iron Binding < 25 REASON FOR VISIT CBC Iron IMMUNIZATIONS Vaccine Route Administration Date Status Comme nts Fluarix Quadrivalent - 150 IM Intramuscular 08/30/2024 Adm inistered Encounters Encounter Location Date Provider Diagnosis Major Nazario MD [address] [place] [address] [address] [place], [place] [phone] 08/30/2024 Major Nazario Iron deficiency anemia D50.9 [...] Details Provider Name:Major frazier, 11/28/2024 08:00:00 AM, [address] [place] [address], [address], [place], [phone], Provider Name:Major frazier, 02/24/2025 07:45:00 AM, [address] [place] [address], [address], [place], [phone], Provider Name:Major frazier, 03/02/2025 02:30:00 PM, [address] [place] [address], [address], [place], [phone],
--- OUTSIDE RECORDS SUMMARY | 2024-11-08 19:34 | XMS_ITS ---
Author Organization Major Nazario MD Address [address] [place] [phone] Care Team Providers Care Mobile Equipment Servicer Name Role Phone Major Nazario Primary Care Provider REASON FOR VISIT FYI Encounters Encounter Location Date Provider Diagnosis Major Nazario MD [address] [facility] [address] [place] [phone] 04/07/2024 Major Nazario PLAN OF TREATMENT Next Appt Details Provider Name:Major frazier, 11/28/2024 08:00:00 AM, [address] [place] [address], [address], [phone], Provider Name:Major Oh iemario alberto, 02/24/2025 07:45:00 AM, [address] [place] [address], [address], [phone], Provider Name:Major frazier, 03/02/2025 02:30:00 PM, [address] [place] [address], [phone],
--- OUTSIDE RECORDS SUMMARY | 2024-11-08 19:35 | XMS_ITS | Patient Health Record ---
Author Organization Major Nazario MD Address [address] [place] [phone] Care Team Providers Care Commercial Real Estate Broker Name Role Phone Major Nazario Primary Care Provider [phone] ALLERGIES No Known Allergies RESULTS Component Value Reference Range Notes Complete Blood Count Auto Di ff Reviewed date:02/22/2024 01:24:14 PM Interpretation: Performing Lab:[facility], [address] [place] [phone] Notes/Report: White Blood Count 6.2 4.8-10.8 X10*3/uL [...] NRBC Abs Auto 0.000 0.0-0.012 X10*3/uL Comprehensive [place]. Panel Fa st Reviewed date:02/22/2024 12:52:29 PM Interpretation: Performing Lab:[facility], [address] [place] [phone] Notes/Report: Sodium 139 135-145 mmol/L Potassium 4.0 3.3-5.1 mmol/L Chloride 105 96-108 mmol/L Carbon Dioxide 28 22-29 mmol/L Anion Gap 10 12-20 Blood Urea Nitrogen 4 9-16 mg/dL Creatinine 0.62 0.5-1.4 mg/dL Estimated Glomerular Filt Rate > 60 NOTE: For -[place]agu[place] individuals, multiply the result by 1.210. Chronic [...] PROFILE Reviewed date:02/22/2024 12:46:17 PM Interpretation: Performing Lab:[facility], [address] [place] [phone] Notes/Report: Iron 25 45-160 mcg/dL Total Iron Binding Capacity 318 228-428 mcg/d L Percent Iron Saturation 8 15-50 % Unsaturated Iron Binding 293 Lipid Panel Reviewed date:02/22/2024 12:44:14 PM Interpretation: Performing Lab:[facility], [address] [place] [phone] Notes/Report: Triglycerides 81 <150 mg/dL Desirable Triglyceride: [...] (Free>4and<10) Reviewed date:02/22/2024 01:23:46 PM Interpretation: Performing Lab:[facility], [address] [place] [phone] Notes/Report: PSA,Total (Free>4and<10) 1.05 0.00-4.00 ng/mL A [...] t Reviewed date:02/22/2024 12:51:46 PM Interpretation: Performing Lab:[facility], [address] [place] [phone] Notes/Report: Urine, Clean Catch Color Urine Yellow Appearance Urine Clear PH 5.5 5.0-9.0 Glucose Urine UA Negative Negative mg/dL Urine Blood Negative Negative Specific [place] - Urine <= 1.005 1.005-1.025 Urine Protein [...] ff Reviewed date:08/30/2024 12:40:36 PM Interpretation: Performing Lab:[facility], [address] [place] [phone] Notes/Report: White Blood Count 7.4 4.8-10.8 X10*3/uL [...] PROFILE Reviewed date:08/30/2024 01:50:03 PM Interpretation: Performing Lab:[facility], [address] [place] [phone] Notes/Report: Iron 380 45-160 mcg/dL Total Iron [...] Code Notes Problem 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) Active confirmed 000684885 Problem Erectile dysfunction (N52.9) Active confirmed 446232830 Problem Coronary atherosclerosis due to calcified coronary lesion (I25.84) Active confirmed 55792207 Problem 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) Active confirmed 5226690 Problem Lumbar disc disease (M51.9) Active confirmed 014529535 Problem Smoker (F17.200) Active confirmed 39309 002 Problem Environmental allergies (Z91.09) Active confirmed 476807174 Problem Iron deficiency anemia (D50.9) Active confirmed Iron deficiency anemia (97911103) Problem Current smoker (F17.200) Active confirmed 95014683 Problem Monocytosis (D72.821) Active confirmed Monocytosis (04295455) Problem Iron deficiency anemia, unspecified iron deficiency anemia type (D50.9) Active confirmed 78259636 Problem Intertrigo (L30.4) Active confirmed 587 [address] Problem Hyperplastic colonic polyp, unspecified part of colon (K63.5) Active confirmed 402205993 Problem Condyloma acuminata (A63.0) Active confirmed Anogenital warts (575242876) VITAL SIGNS Blood pressure diastolic 70 mm [...] P Bombardier MD [address] [place] [phone] 12/14/2023 Major Nazario Aneurysm of ascendin g aorta without rupture I71.21 ; Atherosclerotic heart disease of blackfeet coronary artery without angina pectoris I25.10 and Coronary atherosclerosis due to calcified coronary lesion I25.84 Major Nazario MD [address] [phone] 02/29/2024 Major Nazario Current smoker F17.2 00 ; Aneurysm of ascending aorta without rupture I71.21 ; Iron deficiency anemia, unspecified iron deficiency anemia type D50.9 ; Eye lesion H57.9 ; Colon cancer screening Z12.11 and Depression screening Z13.31 Major Nazario MD [address] [place] [id number] 02/22/2024 Major Nazario Iron deficiency anem ia, unspecified iron deficiency anemia type D50.9 ; Monocytosis D72.821 and Coronary atherosclerosis due to calcified coronary lesion I25.84 Major Nazario MD [address] [place] [phone] 08/30/2024 Major Nazario Iron deficiency anem ia D50.9 ; Monocytosis D72.821 ; Iron deficiency anemia, unspecified iron deficiency anemia type D50.9 and Encounter for immunization Z23 Major Nazario MD [address] [place] [phone] 09/06/2024 Major Nazario Iron deficiency anem ia, unspecified iron deficiency anemia type D50.9 ; Toe pain, left M79.675 and Pain in right shoulder M25.511 Major Nazario MD [address] [place] [id number] 04/07/2024 Major Nazario ASSESSMENTS Encounter Date Diagnosis Assessment Notes Treatment Notes Treatment Clinical Notes 12/14/2023 Atherosclerotic hear t disease of blackfeet coronary artery without angina pectoris (ICD-10 - I25.10) will get a coronary ct and calcium score and decide what to do based on that/ appt booked at [facility] 12-24-23 at 9:15am 12/14/2023 Aneurysm of [...] should er (ICD-10 - M25.511) referral to [facility] [place] 02/29/2024 Eye lesion (ICD-10 - H57.9) has been there 40 years but thinks it has gotten larger. is going to see ey doctor in couple weeks 08/30/2024 Encounter for immunization (ICD-10 - Z23) 02/29/2024 Colon cancer screeni ng (ICD-10 - Z12.11) guaiac negative 02/29/2024 Depression screening (ICD-10 - Z13.31) negative screen PLAN OF TREATMENT Pending Test Test Name Order Date Electrocardiogram (EKG) 12/16/2018 Electrocardiogram (EKG) 05/31/2013 Electrocardiogram (EKG) 12/04/2017 Electrocardiogram (EKG) 12/06/2018 Future Test Test Name Order Date CT chest wo con 12/14/2024 Next Appt Details Provider Name:Major Oh ier, 11/28/2024 08:00:00 AM, [address] [place] [address], [address], [place], [place], [phone], Provider Name:Major Oh ier, 02/24/2025 07:45:00 AM, [address] [place] [address], [address], [place], [place], [phone], Provider Name:Major Oh ier, 03/02/2025 02:30:00 PM, [address] [place] [address], [address], [place], [place], [phone], Insurance Providers Payer Name Payer Address Payer Phone Subscriber Number Group Number Insured Name Patient Relationship to Insured Coverage Start Date Coverage End Date [employer] [address] [place] [address] [id number] Suhail Hassan Self - patient is the insured [facility] [address] [address] [place] [address] [id number] Suhail Hassan Self - patient is the insured MEDICAL (GENERAL) HISTORY Medical History History ICD Code Abscess colonoscopy 2009 neg. repeat 10; Colonoscopy 04/23/[address] Schwartz hyperplastic polyp flu vac refused 08/12/13 colonoscopy 2022 repeat in 5 years
== END 2024-11-08 16:19 | disposition home or self-care (01) ==
LOC: HO.CT 16:18
PROVIDERS: PCP Internal Medicine; Visit Provider Physician Assistant Medical
DX: Z12.2 Encounter for screening for malignant neoplasm of respiratory organs (principal); F17.210 Nicotine dependence, cigarettes, uncomplicated
CPT/HCPCS: 71271

== ENCOUNTER → 2024-11-08 16:20 | Outpatient (BNV) | payer MEDICARE, OTHER, SELFPAY | PROVIDERS: PCP Internal Medicine; Visit Provider Nuclear Medicine | DX: R91.1 Solitary pulmonary nodule (principal); F17.210 Nicotine dependence, cigarettes, uncomplicated | CPT/HCPCS: 71271 ==

== ENCOUNTER → 2024-11-09 11:23 | Outpatient (BNV) | payer MEDICARE, OTHER, SELFPAY | PROVIDERS: PCP Internal Medicine; Visit Provider Radiology Diagnostic Radiology | DX: M25.311 Other instability, right shoulder (principal) | CPT/HCPCS: 73221 ==

== ENCOUNTER 2024-11-09 11:32 | Outpatient (REF) | payer MEDICARE, OTHER, SELFPAY ==
--- NOTE | ~2024-11-09 | MR_ITS ---
CLINICAL HISTORY: M25.311 - Other instability, right shoulder MR of the right shoulder without contrast. No comparison. Findings: There is a small partial-thickness articular surface tear of the distal supraspinatus tendon with mild thinning of the tendon. There is also mild peritendinous edema. The infraspinatus and teres minor tendons are intact. There is a small intrasubstance tear of the distal subscapularis tendon. No muscle atrophy is seen. The biceps tendon is intact. There is mild superior subluxation of the humeral head. There is no significant glenohumeral joint effusion. No significant glenohumeral degenerative change or definite labral tear is identified. Acromioclavicular alignment is normal without significant degenerative change. Impression: Small partial-thickness articular surface tear distal supraspinatus tendon. Small intrasubstance tear of the subscapularis tendon. This document has been electronically signed by: Feliberto Eid MD on 11/10/2024 21:04:05
--- OUTSIDE RECORDS SUMMARY | 2024-11-09 11:48 | XMS_ITS ---
Author Organization [facility] Address [address] [place] [address] Care Team Providers Care Hospital Educator Name Role Phone Major Nazario MD Primary Care Provider Jhonathan Heredia [phone] MEDICATIONS Medication SIG (Take, Route, Fr equency, Duration) Notes Start Date End Date Status Omeprazole 40 MG 1 Orally Every morni ng for 30 day(s) 08/24/2023 Active Encounters Encounter Location Date Provider Diagnosis [facility] [address] [facility] [address] [facility] [address] [place] [address] 08/24/2023 Jhonathan Schwartz Iron deficiency anemia, unspecified [...] [address] [facility] [address], [address], [place], [address],
--- OUTSIDE RECORDS SUMMARY | 2024-11-09 11:48 | XMS_ITS | Patient Health Record ---
Author Organization [facility] Address [address] [place] [address] Care Team Providers Care Fuel Efficient Automobile Designer Name Role Phone Major Nazario MD Primary Care Provider Jhonathan Heredia Unavailable [phone] ALLERGIES No Known Allergies REASON FOR REFERRAL [...] Problem Heme + stool (R19.5) Active confirmed 92090261 Problem Iron deficiency anemia, unspecified iron deficiency anemia type (D50.9) Active confirmed 74541118 Problem Gastroesophageal reflux disease, unspecified whether esophagitis present (K21.9) Active confirmed 519551981 Problem Diverticulosis of large intestine without perforation or abscess without bleeding (K57.30) Active confirmed Diverticul ar disease of colon (719361667) Problem Iron deficiency anemia (D50.9) Active confirmed Iron deficien cy anemia (27525188) Problem Erosive gastritis (K29.60) Active confirmed Erosive gastrit is (1257549271916803) Problem Gastroesophageal reflux disease (K21.9) Active confirmed Gastroesophagea l reflux disease (477097221) Problem History of colon polyps (Z86.010) Active confirmed History of polyp of colon (770135066) VITAL SIGNS Temperature 97.3 degrees Fahrenheit 07/27/2024 Blood pressure diastolic 00 mm Hg 07/27/2024 Height 67.5 in 07/27/2024 Blood pressure systolic 000 mm Hg 07/27/2024 Weight 141 lb 6 oz lbs 07/27/2024 BMI 21.81 kg/m2 07/27/2024 Encounters Encounter Location Date Provider Diagnosis [facility] [address] [place] [address] 12/30/2023 Jhonathan Schwartz Erosive gastritis K2 9.60 ; Iron deficiency anemia D50.9 and History of colon polyps Z86.010 [facility] [address] [place] [address] 07/27/2024 Jhonathan Schwartz Iron deficiency anem ia, [...] Provider Name:Jhonathan Schwartz , 02/01/2025 03:40:00 PM, [address] [place] [address], [address], [place], [address], Insurance Providers Payer Name Payer Address Payer Phone Subscriber Number Group Number Insured Name Patient Relationship to Insured Coverage Start Date Coverage End Date MEDICARE OF [place] [address] [place] [id number] [phone] [id number] BENJAMIN MORGAN Self - patient is the insured [facility] [address] [address] [place] [id number] BENJAMIN MORGAN Self - patient is the insured MEDICAL (GENERAL) HISTORY Medical History History ICD Code Denies [place],DM,CVA,Lung disease,renal dise ase Neg. screeening colonoscopy in [...]
--- OUTSIDE RECORDS SUMMARY | 2024-11-09 11:48 | XMS_ITS ---
Author Organization [facility] Address [address] [place] [address] Care Team Providers Care Patient Care Secretary Name Role Phone Major Nazario MD Primary Care Provider Jhonathan Heredia Unavailable [phone] ALLERGIES No Known Allergies REASON FOR VISIT [...] Active confirmed History of polyp of colon (808346031) VITAL SIGNS BMI 22.28 kg/m2 12/30/2023 Blood pressure systolic 000 mm Hg 12/30/19 24 Blood pressure diastolic 00 mm Hg 024 Height 67.5 in 12/30/2023 Temperature 97.8 degrees Fahrenheit 12/30/19 24 Weight 144 lb 6 oz lbs 12/30/2023 Encounters Encounter Location Date Provider Diagnosis [facility] [address] [place] [address] 12/30/2023 Jhonathan Schwartz Erosive gastritis K29.60 ; [...] 03:40:00 PM, [address], [address], [place], [address], Progress Notes * Examination Category Sub-Category Detail [...]
--- OUTSIDE RECORDS SUMMARY | 2024-11-09 11:48 | XMS_ITS ---
Author Organization [facility] Address [address] [place] [address] Care Team Providers Care Unit Secy Name Role Phone Major Nazario MD Primary Care Provider Jhonathan Heredia Unavailable [phone] ALLERGIES No Known Allergies REASON FOR VISIT [...] Assoc [facility] [address] [place] [address] 07/27/2024 Jhonathan Schwartz Iron deficiency anem ia, [...] 03:40:00 PM, [address], [address], [place], [address], Progress Notes * Examination Category Sub-Category Detail [...]
--- OUTSIDE RECORDS SUMMARY | 2024-11-09 11:49 | XMS_ITS ---
Author Organization Major Nazario MD Address [address] [place] [phone] Care Team Providers Care Director Of Clinical Services Name Role Phone Major Nazario Primary Care [...] lbs 09/06/2024 weight is down 3 pounds [facility] e 02-29-24 Encounters Encounter Location Date Provider Diagnosis Major Nazario MD [address] [facility] [address] [place], [place] [phone] 09/06/2024 Major Nazario Iron deficiency anemia, unspecified [...] right shoulder (ICD-10 - M25.511) referral to [facility] ortho PLAN OF TREATMENT Treatment Notes Assessment [...] away Pain in right shoulder referral to [facility] o rtho Referrals Referral Date Details 11/01/2024 11/01/2024, pain rig ht shoulder , Ady De Jesus Next Appt Details Follow Up: 6 Months, Reason: complete Provider Name:Major frazier, 11/28/2024 08:00:00 AM, [address] [place] [address], [address], [place], [place], [phone], Provider Name:Major frazier, 02/24/2025 07:45:00 AM, [address] [place] [address], [address], [place], [place], [phone], Provider Name:Major frazier, 03/02/2025 02:30:00 PM, [address] [place] [address], [address], [place], [phone], Progress Notes * Examination Category Sub-Category Detail [...]
--- OUTSIDE RECORDS SUMMARY | 2024-11-09 11:49 | XMS_ITS ---
Author Organization Major Nazario MD Address [address] [place] [phone] Care Team Providers Care Fisher Hoop Net Name Role Phone Major Nazario Primary Care Provider RESULTS Component Value Reference Range Notes Complete Blood Count Auto Di ff Reviewed date:08/30/2024 12:40:36 PM Interpretation: Performing Lab:[facility], [address] [place] [phone] Notes/Report: White Blood Count 7.4 4.8-10.8 X10*3/uL [...] PROFILE Reviewed date:08/30/2024 01:50:03 PM Interpretation: Performing Lab:[facility], [address] [place] [phone] Notes/Report: Iron 380 45-160 mcg/dL Total Iron Binding Capacity 405 228-428 mcg/d L Percent Iron Saturation 94 15-50 % Unsaturated Iron Binding < 25 REASON FOR VISIT CBC Iron IMMUNIZATIONS Vaccine Route Administration Date Status Comme nts Fluarix Quadrivalent - 150 IM Intramuscular 08/30/2024 Adm inistered Encounters Encounter Location Date Provider Diagnosis Major Nazario MD [address] [place] [address] [address] [place], [place] [phone] 08/30/2024 Major Nazario Iron deficiency anemia D50.9 [...] Details Provider Name:Major frazier, 11/28/2024 08:00:00 AM, [address] [place] [address], [address], [place], [phone], Provider Name:Major frazier, 02/24/2025 07:45:00 AM, [address] [place] [address], [address], [place], [phone], Provider Name:Major frazier, 03/02/2025 02:30:00 PM, [address] [place] [address], [address], [place], [phone],
--- OUTSIDE RECORDS SUMMARY | 2024-11-09 11:49 | XMS_ITS ---
Author Organization Major Nazario MD Address [address] [place] [phone] Care Team Providers Care Station Manager Name Role Phone Major Nazario Primary Care Provider [phone] REASON FOR VISIT FYI Encounters Encounter Location Date Provider Diagnosis Major Nazario MD [address] [facility] [address] [place] [phone] 04/07/2024 Major Nazario PLAN OF TREATMENT Next Appt Details Provider Name:Major frazier, 11/28/2024 08:00:00 AM, [address] [place] [address], [address], [phone], Provider Name:Major Oh iemario alberto, 02/24/2025 07:45:00 AM, [address] [place] [address], [phone], Provider Name:Major frazier, 03/02/2025 02:30:00 PM, [address] [place] [address], [phone],
--- OUTSIDE RECORDS SUMMARY | 2024-11-09 11:50 | XMS_ITS | Patient Health Record ---
Author Organization Major Nazario MD Address [address] [place] [phone] Care Team Providers Care Mandrel Maker Name Role Phone Major Nazario Primary Care Provider ALLERGIES No Known Allergies RESULTS Component Value Reference Range Notes Complete Blood Count Auto Di ff Reviewed date:02/22/2024 01:24:14 PM Interpretation: Performing Lab:[facility], [address] [place] [phone] Notes/Report: White Blood Count 6.2 4.8-10.8 X10*3/uL [...] NRBC Abs Auto 0.000 0.0-0.012 X10*3/uL Comprehensive [place]. Panel Fa st Reviewed date:02/22/2024 12:52:29 PM Interpretation: Performing Lab:[facility], [address] [place] [phone] Notes/Report: Sodium 139 135-145 mmol/L Potassium 4.0 3.3-5.1 mmol/L Chloride 105 96-108 mmol/L Carbon Dioxide 28 22-29 mmol/L Anion Gap 10 12-20 Blood Urea Nitrogen 4 9-16 mg/dL Creatinine 0.62 0.5-1.4 mg/dL Estimated Glomerular Filt Rate > 60 NOTE: For -Ukrainian individuals, multiply the result by 1.210. Chronic [...] PROFILE Reviewed date:02/22/2024 12:46:17 PM Interpretation: Performing Lab:[facility], [address] [place] [phone] Notes/Report: Iron 25 45-160 mcg/dL Total Iron Binding Capacity 318 228-428 mcg/d L Percent Iron Saturation 8 15-50 % Unsaturated Iron Binding 293 Lipid Panel Reviewed date:02/22/2024 12:44:14 PM Interpretation: Performing Lab:[facility], [address] [place] [phone] Notes/Report: Triglycerides 81 <150 mg/dL Desirable Triglyceride: [...] (Free>4and<10) Reviewed date:02/22/2024 01:23:46 PM Interpretation: Performing Lab:[facility], [address] [place] [phone] Notes/Report: PSA,Total (Free>4and<10) 1.05 0.00-4.00 ng/mL A [...] t Reviewed date:02/22/2024 12:51:46 PM Interpretation: Performing Lab:[facility], [address] [place] [phone] Notes/Report: Urine, Clean Catch Color Urine Yellow Appearance Urine Clear PH 5.5 5.0-9.0 Glucose Urine UA Negative Negative mg/dL Urine Blood Negative Negative Specific [place] - Urine <= 1.005 1.005-1.025 Urine Protein [...] ff Reviewed date:08/30/2024 12:40:36 PM Interpretation: Performing Lab:[facility], [address] [place] [phone] Notes/Report: White Blood Count 7.4 4.8-10.8 X10*3/uL [...] PROFILE Reviewed date:08/30/2024 01:50:03 PM Interpretation: Performing Lab:[facility], [address] [place] [phone] Notes/Report: Iron 380 45-160 mcg/dL Total Iron [...] Code Notes Problem Atherosclerotic heart disease of [place] coronary artery without angina pectoris (I25.10) Active confirmed 483096973 Problem Erectile dysfunction (N52.9) Active confirmed 773773343 Problem Coronary atherosclerosis due to calcified coronary lesion (I25.84) Active confirmed 68485464 Problem 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) Active confirmed 8543599 Problem Lumbar disc disease (M51.9) Active confirmed 175666060 Problem Smoker (F17.200) Active confirmed 03188 002 Problem Environmental allergies (Z91.09) Active confirmed 116434287 Problem Iron deficiency anemia (D50.9) Active confirmed Iron deficiency anemia (33373328) Problem Current smoker (F17.200) Active confirmed 18896509 Problem Monocytosis (D72.821) Active confirmed Monocytosis (32686475) Problem Iron deficiency anemia, unspecified iron deficiency anemia type (D50.9) Active confirmed 80823068 Problem Intertrigo (L30.4) Active confirmed 587 [address] Problem Hyperplastic colonic polyp, unspecified part of colon (K63.5) Active confirmed 937082006 Problem Condyloma acuminata (A63.0) Active confirmed Anogenital warts (888802249) VITAL SIGNS Blood pressure diastolic 70 mm [...] P Bombardier MD [address] [place] [phone] 12/14/2023 Major Nazario Aneurysm of ascendin g aorta without rupture I71.21 ; Atherosclerotic heart disease of [place] coronary artery without angina pectoris I25.10 and Coronary atherosclerosis due to calcified coronary lesion I25.84 Major Nazario MD [address] [facility] [address] [phone] 02/29/2024 Major Nazario Current smoker F17.2 00 ; Aneurysm of ascending aorta without rupture I71.21 ; Iron deficiency anemia, unspecified iron deficiency anemia type D50.9 ; Eye lesion H57.9 ; Colon cancer screening Z12.11 and Depression screening Z13.31 Major Nazario MD [address] [facility] [address] [place] [phone] 02/22/2024 Major Nazario Iron deficiency anem ia, unspecified iron deficiency anemia type D50.9 ; Monocytosis D72.821 and Coronary atherosclerosis due to calcified coronary lesion I25.84 Major Nazario MD [address] [facility] [address] [place] [phone] 08/30/2024 Major Nazario Iron deficiency anem ia D50.9 ; Monocytosis D72.821 ; Iron deficiency anemia, unspecified iron deficiency anemia type D50.9 and Encounter for immunization Z23 Major Nazario MD [address] [facility] [place] [id number] 09/06/2024 Major Nazario Iron deficiency anem ia, unspecified iron deficiency anemia type D50.9 ; Toe pain, left M79.675 and Pain in right shoulder M25.511 Major Nazario MD [address] [facility] [address] [place] [phone] 04/07/2024 Major Nazario ASSESSMENTS Encounter Date Diagnosis Assessment Notes Treatment Notes Treatment Clinical Notes 12/14/2023 Atherosclerotic hear t disease of [place] coronary artery without angina pectoris (ICD-10 - I25.10) will get a coronary ct and calcium score and decide what to do based on that/ appt booked at [facility] 12-24-23 at 9:15am 12/14/2023 Aneurysm of [...] should er (ICD-10 - M25.511) referral to [facility] ortho 02/29/2024 Eye lesion (ICD-10 [...] Provider Name:Major Oh ier, 11/28/2024 08:00:00 AM, [address] [place] [address], [address], [place], [place], [phone], Provider Name:Major Oh ier, 02/24/2025 07:45:00 AM, [address] [place] [address], [address], [place], [place], [phone], Provider Name:Major Muñoztyshawn ier, 03/02/2025 02:30:00 PM, [address] [place] [address], Suite [facility], [place], [place], [phone], Insurance Providers Payer Name Payer Address Payer Phone Subscriber Number Group Number Insured Name Patient Relationship to Insured Coverage Start Date Coverage End Date [employer] [address] [place] [address] [id number] Suhail Hassan Self - patient is the insured [facility] [address] [address] [place] [address] [phone] [id number] Suhail Hassan Self - patient is the insured MEDICAL (GENERAL) HISTORY Medical History History ICD Code Abscess colonoscopy 2009 neg. repeat 10; Colonoscopy 04/23/[address] Schwartz hyperplastic polyp flu vac refused 08/12/13 colonoscopy 2022 repeat in 5 years
== END 2024-11-09 11:33 | disposition home or self-care (01) ==
LOC: HO.MRI 11:32
PROVIDERS: PCP Internal Medicine; Visit Provider Orthopaedic Surgery
DX: M25.311 Other instability, right shoulder (principal)
CPT/HCPCS: 73221

== ENCOUNTER 2024-11-28 08:00 | Outpatient (REF) | payer MEDICARE, OTHER, SELFPAY ==
[2024-11-28 10:57] LABS: Iron 31 mcg/dL (45-160); Percent Iron Saturation 9 % (15-50); Total Iron Binding Capacity 333 mcg/dL (228-428); Unsaturated Iron Binding 302 ug/dL
--- OUTSIDE RECORDS SUMMARY | 2024-11-28 14:55 | XMS_ITS ---
Author Organization [facility] Address [address] [place] [address] Care Team Providers Care Microsoft Net Developer Name Role Phone Major Nazario MD Primary Care Provider Jhonathan Heredia [phone] MEDICATIONS Medication SIG (Take, Route, Fr equency, Duration) Notes Start Date End Date Status Omeprazole 40 MG 1 Orally Every morni ng for 30 day(s) 08/24/2023 Active Encounters Encounter Location Date Provider Diagnosis [facility] [address] [facility] [address] [place] [address] 08/24/2023 Jhonathan Schwartz Iron deficiency anemia, unspecified [...] PM, [address] [facility], [address], [place], [address],
--- OUTSIDE RECORDS SUMMARY | 2024-11-28 14:55 | XMS_ITS ---
Author Organization [facility] Address [address] [place] [address] Care Team Providers Care Biodiesel Plant Manager Name Role Phone Major Nazario MD Primary Care Provider Jhonathan Heredia Unavailable [phone] ALLERGIES No Known Allergies REASON FOR VISIT [...] [facility] [address] [place] [address] 07/27/2024 Jhonathan Schwartz Iron deficiency anem ia, [...] 03:40:00 PM, [address], [address], [place], [address], Progress Notes * Examination Category Sub-Category Detail [...]
--- OUTSIDE RECORDS SUMMARY | 2024-11-28 14:55 | XMS_ITS ---
Author Organization [facility] Address [address] [place] [address] Care Team Providers Care Acting Manager Name Role Phone Major Nazario MD Primary Care Provider Jhonathan Heredia Unavailable [phone] ALLERGIES No Known Allergies REASON FOR VISIT [...] Active confirmed History of polyp of colon (970313805) VITAL SIGNS BMI 22.28 kg/m2 12/30/2023 Blood pressure systolic 000 mm Hg 12/30/19 24 Blood pressure diastolic 00 mm Hg 024 Height 67.5 in 12/30/2023 Temperature 97.8 degrees Fahrenheit 12/30/19 24 Weight 144 lb 6 oz lbs 12/30/2023 Encounters Encounter Location Date Provider Diagnosis [facility] [address] [place] [address] 12/30/2023 Jhonathan Schwartz Erosive gastritis K29.60 ; [...] 03:40:00 PM, [address], [address], [place], [address], Progress Notes * Examination Category Sub-Category Detail [...]
--- OUTSIDE RECORDS SUMMARY | 2024-11-28 14:55 | XMS_ITS | Patient Health Record ---
Author Organization [facility] Address [address] [place] [address] Care Team Providers Care Account Services Representative Name Role Phone Major Nazario MD Primary Care Provider Jhonathan Heredia Unavailable [phone] ALLERGIES No Known Allergies REASON FOR REFERRAL [...] Problem Heme + stool (R19.5) Active confirmed 18027964 Problem Iron deficiency anemia, unspecified iron deficiency anemia type (D50.9) Active confirmed 28670594 Problem Gastroesophageal reflux disease, unspecified whether esophagitis present (K21.9) Active confirmed 770377874 Problem Diverticulosis of large intestine without perforation or abscess without bleeding (K57.30) Active confirmed Diverticul ar disease of colon (429843101) Problem Iron deficiency anemia (D50.9) Active confirmed Iron deficien cy anemia (82327144) Problem Erosive gastritis (K29.60) Active confirmed Erosive gastrit is (7437558816155268) Problem Gastroesophageal reflux disease (K21.9) Active confirmed Gastroesophagea l reflux disease (212862510) Problem History of colon polyps (Z86.010) Active confirmed History of polyp of colon (317009723) VITAL SIGNS Temperature 97.3 degrees Fahrenheit 07/27/2024 Blood pressure diastolic 00 mm Hg 07/27/2024 Height 67.5 in 07/27/2024 Blood pressure systolic 000 mm Hg 07/27/2024 Weight 141 lb 6 oz lbs 07/27/2024 BMI 21.81 kg/m2 07/27/2024 Encounters Encounter Location Date Provider Diagnosis [facility] [address] [place] [phone] 12/30/2023 Jhonathan Schwartz Erosive gastritis K2 9.60 ; Iron deficiency anemia D50.9 and History of colon polyps Z86.010 [facility] [address] [place] [address] 07/27/2024 Jhonatahn Schwartz Iron deficiency anem ia, unspecified iron [...] Provider Name:Jhonathan Schwartz , 02/01/2025 03:40:00 PM, [address] [place] [address], [address], [place], [address], Insurance Providers Payer Name Payer Address Payer Phone Subscriber Number Group Number Insured Name Patient Relationship to Insured Coverage Start Date Coverage End Date MEDICARE OF [place] [address] [place] [address] [id number] BENJAMIN MORGAN Self - patient is the insured [facility] [address] [address] [place] [id number] BENJAMIN MORGAN Self - patient is the insured MEDICAL (GENERAL) HISTORY Medical History History ICD Code Denies MD,DM,CVA,Lung disease,renal dise ase Neg. screeening colonoscopy in [...]
--- OUTSIDE RECORDS SUMMARY | 2024-11-28 14:55 | XMS_ITS ---
Author Organization Major Nazario MD Address [address] [place] [phone] Care Team Providers Care Southeast Regional Sales Manager Name Role Phone Major Nazario Primary Care Provider Results Component Value Reference Range Notes Complete Blood Count Auto Di ff Reviewed date:08/30/2024 12:40:36 PM Interpretation: Performing Lab:[facility], [address] [place] [phone] Notes/Report: White Blood Count 7.4 4.8-10.8 X10*3/uL [...] PROFILE Reviewed date:08/30/2024 01:50:03 PM Interpretation: Performing Lab:[facility], [address] [place] [phone] Notes/Report: Iron 380 45-160 mcg/dL Total Iron Binding Capacity 405 228-428 mcg/d L Percent Iron Saturation 94 15-50 % Unsaturated Iron Binding < 25 REASON FOR VISIT CBC Iron Immunizations Vaccine Route Administration Date Status Comme nts Fluarix Quadrivalent - 150 IM Intramuscular 08/30/2024 Adm inistered Encounters Encounter Location Date Provider Diagnosis Major Nazario MD [address] [place] [address] [address] [place], [place] [phone] 08/30/2024 Major Nazario Iron deficiency anemia D50.9 ; Monocytosis D72.821 ; Iron deficiency anemia, unspecified iron deficiency anemia type D50.9 and Encounter for immunization Z23 Assessments Encounter Date Diagnosis (ICD Code) Assessment Notes Treatment Notes Treatment Clinical Notes Section Notes 08/30/2024 Iron deficiency anemia (ICD-10 - D50.9) 08/30/2024 Monocytosis (ICD-10 - D72.821) 08/30/2024 Iron deficiency anemia, unspecified iron deficiency anemia type (ICD-10 - D50.9) 08/30/2024 Encounter for immunization (ICD-10 - Z23) Plan Of Treatment Next Appt Details Provider Name:Major Oh ier, 02/24/2025 07:45:00 AM, [address] [place] [address], [place] [address], [place], [place], [phone], Provider Name:Major Oh ier, 03/02/2025 02:30:00 PM, [address] [place] [address], [place] [address], [place], [place], [phone], Progress Notes * Suhail HASSAN JDOB:03/1955 (69 yo M)Acc No.[id number]:08/30/2024 Progress Note Patient:?CATHY Suhail Camilla Provider:?Major Nazario MD :1955???Age:69 Y???Sex:Male Julián e:08/30/2024 Address:[address] [place], [place] [phone] Subjective: * Chief Complaints: * ???1. CBC Iron. * Medical History:? Objective: * Vitals:? Assessment: * Assessment: 1.?Iron deficiency anemia - D50.9 (Primary)???2.?Monocytosis - D72.821???3.?Iron deficiency anemia, unspecified iron deficiency anemia type - D50.9???4.?Encounter for immunization - Z23??? Plan: * Treatment: * Immunizations:? Fluarix Quadrivalent - 150 : 0.5 mL (Dose No:1) (Route: Intramuscular) given by Marcelina Edwards , Office Staff on Left Deltoid * Procedure Codes:?12873 VENIP UNCT, ROUTINE*, 83607 FLU VACCINE NO PRESERV 3 & >, G0008 ADMN FLU VAC NO FEE SCHED SAME DAY * * The named appointment provid er may or may not be the originator of this progress note, and it is not deemed complete until electronically signed by the appointment provider. Sign off status: Pending * Provider:?Major Nazario MD Date:?1 Generated for Nadine cleaning/Mely/eTransmitting on:?11/28/2024 02:55 PM EST
--- OUTSIDE RECORDS SUMMARY | 2024-11-28 14:56 | XMS_ITS ---
Author Organization Major Nazario MD Address [address] [place] [phone] Care Team Providers Care Paper Novelty Maker Name Role Phone Major Nazario Primary Care Provider Results Component Value Reference Range Notes IRON PROFILE (Not yet review ed by provider) Interpretation: Performing Lab:[facility], [address] [place] [phone] Notes/Report: Iron 31 45-160 mcg/dL Total Iron Binding Capacity 333 228-428 mcg/d L Percent Iron Saturation 9 15-50 % Unsaturated Iron Binding 302 REASON FOR VISIT TIBC Encounters Encounter Location Date Provider Diagnosis Major Nazario MD [address] [place] [phone] 11/28/2024 Major Nazario Iron deficiency anemia D50.9 Assessments Encounter Date Diagnosis (ICD Code) Assessment Notes Treatment Notes Treatment Clinical Notes Section Notes 11/28/2024 Iron deficiency anemia (ICD-10 - D50.9) Plan Of Treatment Pending Test Test Name Order Date IRON PROFILE 11/28/2024 Next Appt Details Provider Name:Major frazier, 02/24/2025 07:45:00 AM, [address], [address], [place], [place], [phone], Provider Name:Major nuñezr, 03/02/2025 02:30:00 PM, [address] [facility], [address], [place], [phone], Progress Notes * Suhail HASSAN JDOB:03/1955 (69 yo M)Acc No.[id number]:11/28/2024 Progress Note Patient:?Suhail HASSAN Provider:?Major Nazario MD :1955???Age:69 Y???Sex:Male Julián e:11/28/2024 Address:[address] [place], [place] [phone] Subjective: * Chief Complaints: * ???1. TIBC. * Medical History:? Objective: * Vitals:? Assessment: * Assessment: 1.?Iron deficiency anemia - D50.9??? Plan: * Treatment: * Procedure Codes:?07596 VENIP UNCT, ROUTINE* * * The named appointment provid er may or may not be the originator of this progress note, and it is not deemed complete until electronically signed by the appointment provider. Sign off status: Pending * Provider:?Major Nazario MD Date:?0 11/28/2024 Generated for Nadine cleaning/Mely/eTisaelsmitting on:?11/28/2024 02:55 PM EST
--- OUTSIDE RECORDS SUMMARY | 2024-11-28 14:56 | XMS_ITS ---
Author Organization Major Naazrio MD Address [address] [place] [phone] Care Team Providers Care Forest Fire Warden Name Role Phone Major Nazario Primary Care Provider Allergies No Known Allergies Reason For Referral Reason pain right shoulder Diagnosis 1 Pain [...] right shoulder pain x 3-4months no injury Medications Medication SIG (Take, Route, Frequency, Duration) Notes [...] a day for 90 days Not-Taki ng Vital Signs Blood pressure systolic 132 mm Hg 09/06/20 24 Blood pressure diastolic 70 mm Hg 024 Height 69.50 in 09/06/2024 Weight 143 lbs 09/06/2024 BMI 20.81 kg/m2 09/06/2024 weight is down 3 pounds [facility] e 02-29-24 Encounters Encounter Location Date Provider Diagnosis Major Nazario MD [address] [place] [address] [address] [place], [place] [phone] 09/06/2024 Major Nazario Iron deficiency anemia, unspecified iron deficiency anemia type D50.9 ; Toe pain, left M79.675 and Pain in right shoulder M25.511 Assessments Encounter Date Diagnosis (ICD Code) Assessment Notes Treatment Notes Treatment Clinical Notes Section Notes 09/06/2024 Iron deficiency anemia, unspecified iron [...] right shoulder (ICD-10 - M25.511) referral to [facility] ortho Plan Of Treatment Treatment Notes Assessment Notes Iron deficiency anemia, unsp ecified iron deficiency anemia type took the iron for only 3 or 4 days and i t got too high. will change to once a week. stop taking it for a month.will cntinue to monitor Toe pain, left is going to wait and see if it goes away Pain in right shoulder referral to [facility] o rtho Referrals Referral Date Details 09/06/2024 09/06/2024, pain rig ht shoulder , Ady De Jesus Next Appt Details Follow Up: 6 Months, Reason: complete Provider Name:Major frazier, 02/24/2025 07:45:00 AM, [address] [facility], [address], [place], [place], [phone], Provider Name:Major Arevalo Wandatyshawn freddie, 03/02/2025 02:30:00 PM, [address] [facility], [address], [place], [place], [phone], Progress Notes * CATHYSuhail RIVAS JDOB:03/1955 (69 yo M)Acc No.[id number]:09/06/2024 Progress Notes Patient:?Suhail Hassan Provider:?Major Nazario MD :1955???Age:69 Y???Sex:Male Julián e:09/06/2024 Address:[address] [place], [place] [phone] Subjective: * Chief Complaints: * ???6 monthC/o right shoulder pain x 3-4months no injury * HPI: ???Symptom(s):? patient is a 69 yo male here for 6 month follow up visit. took iron for 5 days. and iron went too high. has pain in shoulder when reaching back . severe. foot is botheriing like a shot in small toe. pulles a toenail out of the side and it got better. * ROS:?General/Constitutional:?Denies?Chills.?Denies?Fatigue.?Denies?Fever.?Denies?Headache.?ENT:?Patient denies?decreased sense of smell , any loss of taste , sore throat.?Denies?Sore throat.?Respiratory:?Denies?Cough.?Denies?Shortness of breath at rest.?Denies?Shortness of breath with exertion.?Cardiovascular:?Denies?Chest pain at rest.?Denies?Chest pain with exertion.?Denies?Dizziness.?Denies?Palpitations.?Denies?Shortness of breath.?Gastrointestinal:?Denies?Diarrhea.?Denies?Nausea.?Musculoskeletal:?Patient denies?muscle aches.?Peripheral Vascular:?Patient denies?red and blue toes.? * Medical History:? * Surgical History:? * Hospitalization/Major Diagno stic Procedure:? * Medications:?TakingAtorvasta tin Calcium 20 MG Tablet 1 tablet Orally Once a dayOmeprazole 20 MG Capsule Delayed Release 1 capsule 30 minutes before morning meal Orally Once a dayTaking Atorvastatin Calcium 20 MG Tablet 1 tablet Orally Once a dayTaking Omeprazole 20 MG Capsule Delayed Release 1 capsule 30 minutes before morning meal Orally Once a dayNot-Taking/PRNTadalafil 20 MG Tablet 1 tablet Orally Once a dayIbuprofen 800 MG Tablet 1 tablet Orally Three times a dayCialis 20 MG Tablet 1 tablet Orally Once a dayMedication List reviewed and reconciled with the patientNot-Taking/PRN Tadalafil 20 MG Tablet 1 tablet Orally Once a dayNot- Taking/PRN Ibuprofen 800 MG Tablet 1 tablet Orally Three times a dayNot-Taking/PRN Cialis 20 MG Tablet 1 tablet Orally Once a dayMedication List reviewed and reconciled with the patient * Allergies:?N.K.D.A.yes[Aller gies Verified] Objective: * Vitals:?Ht: 69.50, Wt:143, B MO:20.81, BP:132/70 weight is down 3 pounds since 02-29-24. * Examination: ???General Examination: ?GENERAL APPEARANCE:?alert, well hydrated, in no distress , male.?HEAD:?normocephalic.?SKIN:?good turgor.?HEART:?no murmurs, rubs, gallops , regular rate and rhythm.?LUNGS:?no wheezes, rales, rhonchi , good air movement , clear to auscultation bilaterally.?EXTREMITIES:?abnormal with a small tender spot on lateral small toe.? Assessment: * Assessment: 1.?Iron deficiency anemia, u nspecified iron deficiency anemia type - D50.9?2.?Toe pain, left - M79.675?3.?Pain in right shoulder - M25.511? Plan: * Treatment: 2.?Toe pain, left? Notes: is going to wait and see if it goes away?? 3.?Pain in right shoulder? Notes: referral to [facility] ortho? Referral To:Ady De Jesus??Orthopedic Surgery ?Reason:pain right shoulder * Procedure Codes:? * Follow Up:?6 Months (Reason: complete) * * Sign off status: Completed true * Provider:?Major Nazario MD Date:?1 11/06/2023 Generated for Nadine cleaning/Mely/eTransmitting on:?11/28/2024 02:55 PM EST History and Physical Notes * HPI (History of Present Illness) Category Sub-Category Detail Notes Category Not es Symptom(s) patient is a 69 yo male here for 6 month follow up visit. took iron for 5 days. and iron went too high. has pain in shoulder when reaching back . severe. foot is botheriing like a shot in small toe. pulles a toenail out of the side and it got better Examination Category Sub-Category Detail Notes Category Not es General Examination GENERAL APPEARANCE: alert, w ell [...] Referral Date Referring Provider Referred Provider Not es 09/06/2024 Major Nazario Noah pain right shoulder
== END 2024-11-28 08:01 | disposition home or self-care (01) ==
LOC: HO.LNP 08:00
PROVIDERS: Visit Provider Internal Medicine
DX: D50.9 Iron deficiency anemia, unspecified (principal)
CPT/HCPCS: 83540

== ENCOUNTER 2024-11-29 14:05 | Outpatient (AMB) | payer MEDICARE, OTHER, SELFPAY ==
--- NOTE | 2024-11-29 14:15 | A.OFFVIS_ITS ---
Vital Signs 11/29/24 14:16 Height 5 ft 8 in Weight 141 lb 1.533 oz BMI 21.5 BP 132/80 Blood Pressure Location Lt brachial Position Sitting Pulse 87 Pulse Source Pulse Oximeter Intake Visit Reasons: 6 mth f/up w/ echo Allergies No Known Allergies Allergy (Verified 08/21/23 09:10) Medication List - Last Reconciled 11/29/24 by Saran Rodriguez MD atorvastatin 20 mg PO QPM ibuprofen 800 mg PO Q6H PRN multivitamin 1 tab PO DAILY omeprazole 20 mg PO QAM HPI Comments Details: Suhail returns for follow-up regarding coronary disease and ascending aortic dilatation. In the past, he had a chest CT scan because of history of smoking and that showed severe emphysema. There was also concern for coronary/vascular calcification. Then he had calcium scoring CT scan which was also obviously positive. Then referred here. Long-term smoker. However, he does not have any cardiac symptoms. No angina. No new concerns. [facility] Medical History (Updated 11/01/24 @ 14:17 by Brandon Waite MD) Ascending aortic aneurysm Emphysema lung Atherosclerotic cardiovascular disease Anemia Nicotine dependence, cigarettes, uncomplicated History of colon polyps Surgical History History of tonsillectomy History of colonoscopy Family History Father Pancreatic cancer Social History Alcohol intake: current Alcohol intake frequency: 0-2 drinks per day Patient Tobacco Use Status: Current everyday Tobacco user Cigarette Packs Per Day: 1 Cigarettes Per Day: 20.0 Years Smoked: 51 Review of Systems Const Denies weakness ENT Denies dizziness Card Denies chest pain, Denies chest pain with activity, Denies syncope, Denies rapid heart rate, Denies pedal edema, Denies edema, Denies leg edema, Denies lightheadedness, Denies palpitations, Denies dyspnea, Denies dyspnea on exertion and Denies orthopnea Resp Denies cough, Denies dyspnea and Denies dyspnea on exertion GI Denies hematochezia and Denies change in stool character Musc Denies abnormal gait, Denies muscle cramps, Denies muscle weakness, Denies numbness, Denies radiating pain into limb and Denies tingling Neuro Denies abnormal gait, Denies dizziness, Denies syncope, Denies numbness, Denies tingling and Denies weakness Endo Denies palpitations Physical Exam Vital Signs: Last Vital Signs Pulse 87 11/29/24 14:16 BP 132/80 11/29/24 14:16 BMI result Body Mass Index 21.5 Const General: comfortable and no acute distress Orientation/consciousness: patient oriented x3 HEENT Other: Unremarkable Head: Yes normal to inspection Neck Neck: Yes normal visual inspection Chest Chest palpation & inspection: normal inspection of the chest Resp Auscultation: clear to auscultation bilaterally Cardio Palpation: normal PMI Heart sounds: S1 normal heart sound present, S2 normal heart sound present, no gallops, no murmurs and no rubs GI Palpation (GI): Soft to palpation Back/Spine/Pelvis Other: unremarkable Skin General skin exam: no rashes or lesions noted Neuro General: patient oriented x3 Extrem General: Yes normal to inspection Psych Mental Status: mental status grossly normal Assessment & Plan Assessment & Plan (1) Atherosclerotic cardiovascular disease: Code(s): I25.10 - Atherosclerotic heart disease of [place] coronary artery without angina pectoris Category: Medical Plan: Noncontrast chest CT shows coronary as well as vascular calcifications. In the calcium scoring CT, LAD score was 221. Circumflex 42. Left main and right coronary artery 0. Total score 263. In the echocardiogram, LVEF is 55-60% with no wall motion abnormalities. No significant valvular findings. LDL cholesterol 80 mg/dL. Triglycerides 81 mg/dL. HDL 46 mg/dL. On statins. Recheck. (2) Ascending aortic aneurysm: Comment: (Thoracic ascending aorta measures 4.[address]) Code(s): I71.21 - Aneurysm of the ascending aorta, without rupture Category: Medical Plan: In the calcium scoring CT scan, ascending aortic size 4.3 cm. In the recent echocardiogram, ascending aortic size 4.1 cm. Recheck in 1 year. (3) Nicotine dependence, cigarettes, uncomplicated: Comment: (current smoker - onset 17, 1ppd x 52yrs - 50pyh) Code(s): F17.210 - Nicotine dependence, cigarettes, uncomplicated Category: Medical Plan: Discussed about smoking cessation but not clear if he will comply or not. Orders: Orders Lipid Panel Today E78.5 - Hyperlipidemia, unspecified Liver Panel Today I25.10 - Atherosclerotic heart disease of [place] coronary artery without angina pectoris CA Echo Limited Today I71.21 - Aneurysm of the ascending aorta, without rupture Coding Level of Care Code Est Pt Level 4 (39314) Diagnoses Atherosclerotic cardiovascular disease I25.10 Ascending aortic aneurysm I71.21 Nicotine dependence, cigarettes, uncomplicated F17.210
[2024-11-29 14:16] VITALS: BP 132/80; PULSE 87; BMI 21.5
--- OUTSIDE RECORDS SUMMARY | 2024-11-29 15:03 | XMS_ITS | Patient Health Record ---
Author Organization [facility] Address [address] [place] [address] Care Team Providers Care Heating And Blending Supervisor Name Role Phone Major Nazario MD Primary Care Provider Jhonathan Heredia Unavailable [phone] ALLERGIES No Known Allergies REASON FOR REFERRAL [...] Problem Heme + stool (R19.5) Active confirmed 08314908 Problem Iron deficiency anemia, unspecified iron deficiency anemia type (D50.9) Active confirmed 56007946 Problem Gastroesophageal reflux disease, unspecified whether esophagitis present (K21.9) Active confirmed 502382390 Problem Diverticulosis of large intestine without perforation or abscess without bleeding (K57.30) Active confirmed Diverticul ar disease of colon (294337362) Problem Iron deficiency anemia (D50.9) Active confirmed Iron deficien cy anemia (13760629) Problem Erosive gastritis (K29.60) Active confirmed Erosive gastrit is (2142700334929880) Problem Gastroesophageal reflux disease (K21.9) Active confirmed Gastroesophagea l reflux disease (908474850) Problem History of colon polyps (Z86.010) Active confirmed History of polyp of colon (118871679) VITAL SIGNS Temperature 97.3 degrees Fahrenheit 07/27/2024 Blood pressure diastolic 00 mm Hg 07/27/2024 Height 67.5 in 07/27/2024 Blood pressure systolic 000 mm Hg 07/27/2024 Weight 141 lb 6 oz lbs 07/27/2024 BMI 21.81 kg/m2 07/27/2024 Encounters Encounter Location Date Provider Diagnosis [facility] [address] [place] [phone] 12/30/2023 Jhonathan Schwartz Erosive gastritis K2 9.60 ; Iron deficiency anemia D50.9 and History of colon polyps Z86.010 [facility] [address] [place] [phone] 07/27/2024 Jhonathan Schwartz Iron deficiency anem ia, [...] Provider Name:Jhonathan Schwartz , 02/01/2025 03:40:00 PM, [address] [place] [address], [address], [place], [address], Insurance Providers Payer Name Payer Address Payer Phone Subscriber Number Group Number Insured Name Patient Relationship to Insured Coverage Start Date Coverage End Date MEDICARE OF [place] [address] [place] [address] [id number] BENJAMIN MORGAN Self - patient is the insured [facility] [address] [address] [place] [id number] BENJAMIN MORGAN Self - patient is the insured MEDICAL (GENERAL) HISTORY Medical History History ICD Code Denies [place],DM,CVA,Lung disease,renal dise ase Neg. screeening colonoscopy in [...]
--- OUTSIDE RECORDS SUMMARY | 2024-11-29 15:04 | XMS_ITS ---
Author Organization [facility] Address [address] [place] [address] Care Team Providers Care Scientific Artist Name Role Phone Major Nazario MD Primary Care Provider Jhonathan Heredia Unavailable [phone] ALLERGIES No Known Allergies REASON FOR VISIT [...] Active confirmed History of polyp of colon (316853714) VITAL SIGNS BMI 22.28 kg/m2 12/30/2023 Blood pressure systolic 000 mm Hg 12/30/19 24 Blood pressure diastolic 00 mm Hg 024 Height 67.5 in 12/30/2023 Temperature 97.8 degrees Fahrenheit 12/30/19 24 Weight 144 lb 6 oz lbs 12/30/2023 Encounters Encounter Location Date Provider Diagnosis [facility] [address] [place] [address] 12/30/2023 Jhonathan Schwartz Erosive gastritis K29.60 ; [...] 03:40:00 PM, [address], [address], [place], [address], Progress Notes * Examination Category Sub-Category Detail [...]
--- OUTSIDE RECORDS SUMMARY | 2024-11-29 15:04 | XMS_ITS ---
Author Organization Major Nazario MD Address [address] [place] [phone] Care Team Providers Care Siderographist Name Role Phone Major Nazario Primary Care Provider [phone] Results Component Value Reference Range Notes Complete Blood Count Auto Di ff Reviewed date:08/30/2024 12:40:36 PM Interpretation: Performing Lab:[facility], [address] [place] [phone] Notes/Report: White Blood Count 7.4 4.8-10.8 X10*3/uL [...] PROFILE Reviewed date:08/30/2024 01:50:03 PM Interpretation: Performing Lab:[facility], [address] [place] [phone] Notes/Report: Iron 380 45-160 mcg/dL Total Iron Binding Capacity 405 228-428 mcg/d L Percent Iron Saturation 94 15-50 % Unsaturated Iron Binding < 25 REASON FOR VISIT CBC Iron Immunizations Vaccine Route Administration Date Status Comme nts Fluarix Quadrivalent - 150 IM Intramuscular 08/30/2024 Adm inistered Encounters Encounter Location Date Provider Diagnosis Major Nazario MD [address] [place] [address] [address] [place], [place] [phone] 08/30/2024 Major Nazario Iron deficiency anemia D50.9 [...] Provider Name:Major Oh ier, 02/24/2025 07:45:00 AM, [address] [place] [address], [place] [address], [place], [place], [phone], Provider Name:Major Oh ier, 03/02/2025 02:30:00 PM, [address] [place] [address], [place] [address], [place], [place], [phone], Progress Notes * Suhail HASSAN JDOB:03/1955 (69 yo M)Acc No.[id number]:08/30/2024 Progress Note Patient:?CATHY Suhail Camilla Provider:?Major Nazario MD :1955???Age:69 Y???Sex:Male Julián e:08/30/2024 Address:[address] [place], [place] [phone] Subjective: * Chief Complaints: * ???1. CBC [...] Office Staff on Left Deltoid * Procedure Codes:?00032 VENIP UNCT, ROUTINE*, 45969 FLU VACCINE NO PRESERV 3 & >, G0008 ADMN FLU VAC NO FEE SCHED SAME DAY * * The named appointment provid er may or may not be the originator of this progress note, and it is not deemed complete until electronically signed by the appointment provider. Sign off status: Pending * Provider:?Major Nazario MD Date:?1 Generated for Nadine cleaning/Mely/eTransmitting on:?11/29/2024 03:03 PM EST
--- OUTSIDE RECORDS SUMMARY | 2024-11-29 15:04 | XMS_ITS ---
Author Organization Major Nazario MD Address [address] [place] [phone] Care Team Providers Care Public Aid Eligibility Assistant Name Role Phone Major Nazario Primary Care Provider Results Component Value Reference Range Notes IRON PROFILE Reviewed date:11/28/2024 05:00:26 PM Interpretation: Performing Lab:[facility], [address] [place] [phone] Notes/Report: Iron 31 45-160 mcg/dL Total Iron Binding Capacity 333 228-428 mcg/d L Percent Iron Saturation 9 15-50 % Unsaturated Iron Binding 302 REASON FOR VISIT TIBC Encounters Encounter Location Date Provider Diagnosis Major Nazario MD [address] [facility] [address] [place] [phone] 11/28/2024 Major Nazario Iron deficiency anemia D50.9 Assessments Encounter Date Diagnosis (ICD Code) Assessment Notes Treatment Notes Treatment Clinical Notes Section Notes 11/28/2024 Iron deficiency anemia (ICD-10 - D50.9) Plan Of Treatment Next Appt Details Provider Name:Major frazier, 02/24/2025 07:45:00 AM, [address] [place] [address], [address], [place], [place], [phone], Provider Name:Major Muñoztyshawn ier, 03/02/2025 02:30:00 PM, [address], [address], [place], [phone], Progress Notes * Suhail HASSAN JDOB:03/1955 (69 yo M)Acc No.[id number]:11/28/2024 Progress Note Patient:?Suhail HASSAN Provider:?Major Nazario MD :1955???Age:69 Y???Sex:Male Julián e:11/28/2024 Address:[address] [place] [address] [facility] Subjective: * Chief Complaints: * ???1. TIBC. * Medical History:? Objective: * Vitals:? Assessment: * Assessment: 1.?Iron deficiency anemia - D50.9 (Primary)??? Plan: * Treatment: * Procedure Codes:?44629 VENIP UNCT, ROUTINE* * * The named appointment provid er may or may not be the originator of this progress note, and it is not deemed complete until electronically signed by the appointment provider. Sign off status: Pending * Provider:?Major Nazario MD Date:?0 11/28/2024 Generated for Nadine cleaning/Mely/eTisaelsmitting on:?11/29/2024 03:04 PM EST
--- OUTSIDE RECORDS SUMMARY | 2024-11-29 15:04 | XMS_ITS ---
Author Organization Major Nazario MD Address [address] [place] [phone] Care Team Providers Care Chain Pegger Name Role Phone Major Nazario Primary Care Provider [phone] Allergies No Known Allergies Reason For Referral [...] kg/m2 09/06/2024 weight is down 3 pounds [facility] e 02-29-24 Encounters Encounter Location Date Provider Diagnosis Major Nazario MD [address] [place] [address] [address] [place], [place] [phone] 09/06/2024 Major Nazario Iron deficiency anemia, unspecified [...] right shoulder (ICD-10 - M25.511) referral to [facility] [place] Plan Of Treatment Treatment Notes Assessment [...] away Pain in right shoulder referral to [facility] [place]tho Referrals Referral Date Details 09/06/2024 09/06/2024, pain rig ht shoulder , Ady De Jesus Next Appt Details Follow Up: 6 Months, Reason: complete Provider Name:Major frazier, 02/24/2025 07:45:00 AM, [address] [facility], [address], [place], [place], [phone], Provider Name:Major Arevalo Wandatyshawn freddie, 03/02/2025 02:30:00 PM, [address] [facility], [address], [place], [place], [phone], Progress Notes * CATHYSuhail RIVAS JDOB:03/1955 (69 yo M)Acc No.[id number]:09/06/2024 Progress Notes Patient:?Suhail Hassan Provider:?Major Nazario MD :1955???Age:69 Y???Sex:Male Julián e:09/06/2024 Address:[address] [place], [place] [phone] Subjective: * Chief Complaints: * ???6 monthC/o [...] Verified] Objective: * Vitals:?Ht: 69.50, Wt:143, B NM:20.81, BP:132/70 weight is down 3 pounds since [...] 3.?Pain in right shoulder? Notes: referral to [facility] [place]? Referral To:Ady De Jesus??Orthopedic Surgery ?Reason:pain right shoulder * Procedure Codes:? * Follow Up:?6 Months (Reason: complete) * * Sign off status: Completed true * Provider:?Major Nazario MD Date:?1 11/06/2023 Generated for Nadine cleaning/Mely/eTransmitting on:?11/29/2024 03:04 PM EST History and Physical Notes * [...]
--- OUTSIDE RECORDS SUMMARY | 2024-11-29 15:04 | XMS_ITS ---
Author Organization [facility] Address [address] [place] [address] Care Team Providers Care Booking Supervisor Name Role Phone Major Nazario MD Primary Care Provider Jhonathan Heredia [phone] MEDICATIONS Medication SIG (Take, Route, Fr equency, Duration) Notes Start Date End Date Status Omeprazole 40 MG 1 Orally Every morni ng for 30 day(s) 08/24/2023 Active Encounters Encounter Location Date Provider Diagnosis [facility] [address] [facility] [address] [place] [address] 08/24/2023 Jhonathan Schwartz Iron deficiency anemia, unspecified [...] Name:Jhonathan Schwartz , 02/01/2025 03:40:00 PM, [address] [facility], [address], [place], [address],
--- OUTSIDE RECORDS SUMMARY | 2024-11-29 15:04 | XMS_ITS ---
Author Organization [facility] Address [address] [place] [address] Care Team Providers Care Professor Of Poultry Science Name Role Phone Major Nazario MD Primary Care Provider Jhonathan Heredia Unavailable [phone] ALLERGIES No Known Allergies REASON FOR VISIT [...] [facility] [address] [place] [address] 07/27/2024 Jhonathan Schwartz Iron deficiency anem ia, [...] 03:40:00 PM, [address], [address], [place], [address], Progress Notes * Examination Category Sub-Category Detail [...]
== END 2024-11-29 14:30 | disposition home or self-care (01) ==
PROVIDERS: PCP Internal Medicine; Visit Provider Internal Medicine
DX: I25.10 Atherosclerotic heart disease of native coronary artery without angina pectoris (principal); I71.21 Aneurysm of the ascending aorta, without rupture; F17.210 Nicotine dependence, cigarettes, uncomplicated
CPT/HCPCS: 99214

== ENCOUNTER → 2024-11-29 14:05 | Outpatient (BNVA) | payer MEDICARE, OTHER, SELFPAY | PROVIDERS: PCP Internal Medicine; Visit Provider Internal Medicine | DX: I25.10 Atherosclerotic heart disease of native coronary artery without angina pectoris (principal); I71.21 Aneurysm of the ascending aorta, without rupture; F17.210 Nicotine dependence, cigarettes, uncomplicated | CPT/HCPCS: 99212 ==

== ENCOUNTER 2024-12-07 13:01 | Outpatient (AMB) | payer MEDICARE, OTHER, SELFPAY ==
--- NOTE | 2024-12-07 13:02 | A.OFFVIS_ITS ---
Intake Visit Reasons: OV- RT Shoulder MRI review Intake Note: Suhail is a 69 year old male who presents with intermittent right shoulder pain. He describes his pain as achy in nature. He was taking ibuprofen which seemed to upset his stomach. He has also tried Tylenol which gives him minimal relief. The patient has done physical therapy exercises which aggravated his pain. He wishes to hold off on surgery if at all possible. Allergies No Known Allergies Allergy (Verified 12/07/24 13:04) Medication List - Last Reconciled 12/07/24 by Brandon Waite MD atorvastatin 20 mg PO QPM ibuprofen 800 mg PO Q6H PRN multivitamin 1 tab PO DAILY omeprazole 20 mg PO QAM PFSH Medical History (Updated 12/07/24 @ 15:20 by Brandon Waite MD) Ascending aortic aneurysm Emphysema lung Atherosclerotic cardiovascular disease Anemia Nicotine dependence, cigarettes, uncomplicated History of colon polyps Surgical History History of tonsillectomy History of colonoscopy Family History Father Pancreatic cancer Social History Alcohol intake: current Alcohol intake frequency: 0-2 drinks per day Patient Tobacco Use Status: Current everyday Tobacco user Cigarette Packs Per Day: 1 Cigarettes Per Day: 20.0 Years Smoked: 51 Physical Exam Const Other: Well-nourished well-developed very friendly male awake alert and oriented x3 in no acute distress Extrem Other: Bilateral upper extremity examination shows good capillary refill, no skin lesio ns noted, normal sensation light touch Right shoulder examination shows slightly decreased range of motion when compared to his left shoulder, 4+ out of 5 strength with supraspinatus testing, positive impingement signs, tenderness over his acromioclavicular joint, no instability Results Reviewed Results Reviewed: MRI of the patient's right shoulder show severe acromioclavicular joint narrowing, a type 2 acromion, signal change within the supraspinatus tendon most likely due to rotator cuff tendinosis versus partial-thickness tearing, no full- thickness tear noted Assessment & Plan Assessment & Plan (1) Impingement of right shoulder: Code(s): M25.811 - Other specified joint disorders, right shoulder Category: Medical Plan Mr. Hassan presents with right shoulder pain due to impingement syndrome, acromioclavicular joint arthritis and rotator cuff tendinosis versus partial- thickness tearing. I had a lengthy discussion with the patient regarding the treatment options. We will hold off on a cortisone injection for now. I did give him a prescription for Celebrex. The do's and don'ts of lifting were discussed at length with the patient. He will follow up with me on an as-needed basis should his symptoms worsen in any way. Feel free to call me at any time should questions regarding his orthopedic management arise. I spent 21 minutes in reviewing the patient's records and imaging studies, seeing the patient and documenting in the medical record. Medications: New celecoxib (Celebrex) 200 mg PO DAILY PRN 30 caps 3RF pain Coding Level of Care Code Est Pt Level 3 (89892) Complex EM visit Add On G2211 Diagnoses Impingement of right shoulder M25.811
== END 2024-12-07 13:20 | disposition home or self-care (01) ==
PROVIDERS: PCP Internal Medicine; Visit Provider Orthopaedic Surgery
DX: M25.811 Other specified joint disorders, right shoulder (principal)
CPT/HCPCS: 99213

== ENCOUNTER → 2024-12-07 13:01 | Outpatient (BNVA) | payer MEDICARE, OTHER, SELFPAY | PROVIDERS: PCP Internal Medicine; Visit Provider Orthopaedic Surgery | DX: M25.811 Other specified joint disorders, right shoulder (principal) | CPT/HCPCS: 99212 ==

== ENCOUNTER 2025-02-24 09:48 | Outpatient (REF) | payer MEDICARE, OTHER, SELFPAY ==
[2025-02-24 09:53] LABS: MANUAL DIFF FLAG NO
[2025-02-24 10:08] LABS: Appearance Urine Clear; Color Urine Yellow; Glucose Urine UA Negative (Negative); Leukocyte Esterase Urine Negative (Negative); Nitrite Urine Negative (Negative); PH 5.5 (5.0-9.0); Specific Gravity - Urine <= 1.005 (1.005-1.025); Urine Blood Negative (Negative); Urine Ketones Negative (Negative); Urine Protein Negative (Neg-Trace)
--- OUTSIDE RECORDS SUMMARY | 2025-02-24 10:08 | XMS_ITS | Patient Health Record ---
Author Organization [facility] rosa maria Stigler Address [address] [address] Care Team Providers Care Registered Nurse Step Down Name Role Phone Mansi COPE, Major Primary Care Provider Priyanka Colon Unavailable [phone] Allergies No Known Allergies Reason For Referral No Information Medications Medication SIG (Take, Route, Fr equency, Duration) Notes Start Date End Date Status Omeprazole 20 MG 1 capsule 1/2 to 1 h our before morning meal Orally Once a day A ctive Social History Tobacco Use: Social History Observation Description Date Details (start date - stop date) Current Smoker NA - NA Tobacco use other than smoking: Question Answer Notes Are you an other tobacco user? No Tobacco Control (Standard) Question Answer Notes Tobacco use: Current smoker How often do you smoke cigarettes? Every day How many cigarettes a day do you smoke? 11-20 How soon after you wake up do you smoke your fir st cigarette? Within 5 minutes AUDIT-C (Standard) Question Answer Notes Did you have a drink contain ing alcohol in the past year? Yes How often did you have six o r more drinks on one occasion in the past year? 4 or more times a week (4 points) How many drinks did you have on a typical day when you were drinking in the past year? 3 or 4 drinks (1 point) How often did you have a dri nk containing alcohol in the past year? Daily or almost daily (4 points) Points 9 Interpretation Positive Problems Problem Type SNOMED Code ICD Code Onset Dates Problem Status W/U Status Risk Notes Problem Acquired hammer toe of left foot (2269821343051 103) Other hammer toe(s) (acquired), left foot (M20.42) Active confirmed Vital Signs Blood pressure diastolic 80 mm Hg 01/24/2025 Height 5ft9in in 01/24/2025 Blood pressure systolic 120 mm Hg 01/24/2025 Weight 148 lbs 01/24/2025 BMI 21.85 kg/m2 01/24/2025 Encounters Encounter Location Date Provider Diagnosis [facility] [address] 01/24/2025 Priyanka Smallwood Pain in left toe(s) M79.675 ; Other hammer toe(s) (acquired), left foot M20.42 and [place] L84 [facility] [address] 01/24/2025 Priyanka Smallwood Assessments Encounter Date Diagnosis (ICD Code) Assessment Notes Treatment Notes Treatment Clinical Notes Section Notes 01/24/2025 Pain in left toe(s) (ICD-10 - M79.675) 01/24/2025 Other hammer toe(s) (acquired), left foot (ICD-10 - M20.42) 01/24/2025 [place] (ICD-10 - L84) Plan Of Treatment Pending Test Test Name Order Date X ray : Foot, left 3V 01/24/2025 Insurance Providers Payer Name Payer Address Payer Phone Subscriber Number Group Number Insured Name Patient Relationship to Insured Coverage Start Date Coverage End Date Medicare National [employer] [address] [facility] [place] [address] [id number] Suhail Hassan Self - patient is the insured 2 [facility] [address] [address] [place] [address] [id number] Suhail Hassan Self - patient is the insured 2 Medical (General) History Medical History History ICD Code Back,Hip,and Knee pain
--- OUTSIDE RECORDS SUMMARY | 2025-02-24 10:08 | XMS_ITS ---
Author Organization [facility] Address [address] [place] [address] Care Team Providers Care Display Fabricator Name Role Phone Major Nazario MD Primary Care Provider Priyanka Colon [phone] REASON FOR VISIT BUY 2 Gel Tubes Wide Encounters Encounter Location Date Provider Diagnosis [facility] [address] [place] [address] 01/24/2025 Priyanka Smallwood Plan Of Treatment No Information Progress Notes * Suhail HASSANDOB:03/1955 (69 yo M)Acc No.[id number]:01/24/2025 Patient:?Suhail HASSAN :1955???Age:69 Y???Sex:Male Address:[address] [place] [address], [address] * true * Date:? Generated for Printi ng/Fatimg/eTransmitting on:?02/24/2025 10:07 AM EDT
--- OUTSIDE RECORDS SUMMARY | 2025-02-24 10:08 | XMS_ITS ---
Author Organization [facility] [place] rosa maria Helm Address [address] [address] Care Team Providers Care Store Product Demonstrator Name Role Phone Major Nazario MD Primary Care Provider Priyanka Colon Unavailable [phone] Allergies No Known Allergies REASON FOR VISIT Painful Toe(s) Medications Medication SIG (Take, Route, Fr equency, [...] Problem Acquired hammer toe of left foot (4988911025081 103) Other hammer toe(s) (acquired), left foot (M20.42) Active confirmed Vital Signs Height 5ft9in in 01/24/2025 Weight 148 lbs 01/24/2025 BMI 21.85 kg/m2 01/24/2025 Blood pressure systolic 120 mm Hg 01/25/20 Blood pressure diastolic 80 mm Hg 025 Encounters Encounter Location Date Provider Diagnosis [facility] [place] [address] [place] [address] 01/24/2025 Priyanka Smallwood Pain in left toe(s) M79.675 ; Other hammer toe(s) (acquired), left foot M20.42 and [place] L84 Assessments Encounter Date Diagnosis (ICD Code) Assessment Notes Treatment Notes Treatment Clinical Notes Section Notes 01/24/2025 Pain in left toe(s) (ICD-10 - M79.675) 01/24/2025 Other hammer toe(s) (acquired), left foot (ICD-10 - M20.42) 01/24/2025 [place] (ICD-10 - L84) Plan Of Treatment Pending Test Test Name Order Date X ray : Foot, left 3V 01/24/2025 Next Appt Details Follow Up: prn, Reason: Progress Notes * Suhail HASSANDOB:03/1955 (69 yo M)Acc No.[id number]:01/24/2025 Progress Notes Patient:?Suhail HASSAN Provider:?Priyanka Smallwood DPM :1955???Age:69 Y???Sex:Male Julián e:01/24/2025 Address:[address] [place], [place] [id number] Pcp:Major Nazario MD Subjective: * Chief Complaints: * ???Painful Toe(s) * HPI: ???Toe pain:?Nature:?tenderness.?Location:?Left foot, 5th toe.?Duration:?a year or more.?Onset/Cause:?gradual, denies trauma.?Course:?worse.?Aggravated by:?any pressure, shoes, standing/walking.?Treatments:?rest/alter normal daily activity, change in shoes.? * ROS:?General/Constitutional:?Nausea?denies.?Vomiting?denies.?Hunger Thirst?denies.?Loss appetite?denies.?Chills?denies.?Fatigue?denies.?Fever?denies.?Night Sweats?denies.?Unexplained weight loss?denies.?Unexplained weight gain?denies.?HEENTM:?Dentures?denies.?Dizziness?denies.?Glasses/contacts?admits.?Retinopathy?de nies.?Blurred/double vision?denies.?TMJ?denies.?Discharge/drainage?denies.?Implants?denies.?Sore throat?denies.?Dental implants?denies.?Hard of hearing ?denies.?Difficulty chewing/swallowing/speaking?denies.?Nose bleeds?denies.?Sore mouth?denies.?Respiratory:?On Oxygen?denies.?Pneumonia/pleurisy?denies.?Bronchitis?denies.?Emphysema?denies.?C oughing?denies.?Cough blood?denies.?Shortness of breath?denies.?Wheezing?denies.?Cardiovascular:?Pacemaker?denies.?MVP?denies.?WPW?denies.?CHF?denies.?Heart attack?denies.?Septal defect?denies.?Rapid beat?denies.?Chest pain ?denies.?Atrial Fib.?denies.?Murmur/Palpitations?denies.?Gastrointestinal:?Hemorrhoids?denies.?Stomach/Abdominal pain?denies.?Dark blood stool?denies.?Irritable bowel ?denies.?Constipation?denies.?Diarrhea?denies.?Hematology:?Swelling?denies.?Clots?denies.?Varicose Veins?denies.?Bruising?denies.?Bleeding problem?denies.?Genitourinary:?Blood urine?denies.?Frequent/Painfu/urination/bladder control?denies.?Kidney stones?denies.?Infection (UTI)?denies.?Nephropathy?denies.?sex trans dis (STD)?denies.?Prostate?denies.?Musculoskeletal:?Hammertoes?denies.?Bunions?denies.?Back Pain?admits.?Muscle Cramps/ Resting?denies.?Muscle cramps / walking?admits.?Generalized aches and pains?denies.?Weakness?denies.?Integ.:?Tanner?denies.?Scars?denies.?Corns/calluses?denies.?Ingrown nails?denies.?Painful nails?denies.?Open Sores?denies.?Rashes?denies.?Neurologic:?Difficulty sleeping?denies.?Brain disorder?denies.?Numbness?denies.?Balance trouble?denies.?Confusion?denies.?Fainting/blackouts?denies.?Tingling?denies.?Tr emors?denies.? * Medical History:? * Surgical History:?Denies Pas t Surgical History * Hospitalization/Major Diagno stic Procedure:?Denies Past Hospitalization * Family History:?Mother: james aguilar.?Father: , diagnosed with Other malignant neoplasm of unspecified site.? * Social History:?Tobacco Use:?Tobacco use other than smoking?Are you an other tobacco user??No ?Tobacco Control (Standard)?Tobacco use:?Current smoker ?How often do you smoke cigarettes??Every day ?How many cigarettes a day do you smoke??11-20 ?How soon after you wake up do you smoke your first cigarette??Within 5 minutes ???Drugs/Alcohol:?Drugs?Have you used drugs other than those for medical reasons in the past 12 months??No ???Miscellaneous:?Caffeine: yes, frequency:, 2-3 cups per day. ?Children: no. ?Exercise: no. ?Marital status: , . ?Occupation: Works Part-time,. ???Drug/Alcohol:?AUDIT-C (Standard)?Did you have a drink containing alcohol in the past year??Yes ?How often did you have six or more drinks on one occasion in the past year??4 or more times a week (4 points) ?How many drinks did you have on a typical day when you were drinking in the past year??3 or 4 drinks (1 point) ?How often did you have a drink containing alcohol in the past year??Daily or almost daily (4 points) ?Points?9 ?Interpretation?Positive * Medications:?TakingOmeprazol e 20 MG Capsule Delayed Release 1 capsule 1/2 to 1 hour before morning meal Orally Once a day Medication List reviewed and reconciled with the patientTaking Omeprazole 20 MG Capsule Delayed Release 1 capsule 1/2 to 1 hour before morning meal Orally Once a day Medication List reviewed and reconciled with the patient * Allergies:?N.K.D.A.yes[Aller gies Verified] Objective: * Vitals:?Ht: 5ft9in, Wt:148, BMI:21.85, Shoe size: 10-10.5, BP:120/80mm Hg, Ht- cm: 175.26 cm, Wt-k.13 kg. * Examination: ???General Examination: ?GENERAL APPEARANCE:?Reveals a pleasant, alert, well-nourished, well- developed, well hydrated individual, who demonstrates proper attention to hygiene/body habitus, and is in no acute distress, Pt serves as own?historian for office visit today.?ORIENTED:?person, place, and time.?Neurological: ?SENSORY:?Neurological exam reveals intact sensorium, pain sensation normal, vibration sensation intact, pinprick sensation is normal in the lower extremities, Pt denies, anesthesia, burning, paresthesia, tingling, B/L.?DEEP TENDON REFLEXES:?Achilles, 2/4, B/L.?Vascular: ?DP PULSES (B):?3/4, B/L.?PT PULSES (B):?3/4, B/L.?CAPILLARY FILL TIME:?immediate, all digits, B/L.?TROPHIC CONDITION-TEXTURE/ELASTICITY/TURGOR/HAIR GROWTH (B):?normal, B/L.?TEMPERTURE GRADIENT (C):?warm to cool, proximal to distal, B/L.?PIGMENTATION:?normal, B/L.?EDEMA (C):?absent, B/L.?Dermatologic: ?SKIN FINDINGS:?Skin exam reveals Keratotic lesion(s) located at, Lateral, DIPJ, T4.?Orthopedic: ?MUSCLE STRENGTH:?5/5 all groups in a symmetrical fashion , B/L.?DIGITAL DEFORMITIES:?Digital contracture, PIPJ, 2-5 B/L, reducible with WB, or to push-up test, no over, nor underlapping, Adducto-varus deformity noted, Adducted fifth toe(s), T4.?FOOTWEAR:? shoe gear properties exacerbate patients foot/toe deformity.?X-Rays - IMAGING REPORT: ?Clinical Indication(s):? Evaluate Biomechanical Deformity.?Views:?3 views of Foot, AP, LO, LO, LEFT??Taken by trained?Podiatric Manager Business (?SF ).?Findings:? normal bone and soft tissue density consistent for patients age and sex.?Digits:? show asymmetrical joint space narrowing at the PIPJ consistent with clinical finding of hammertoe deformity,show exostosis of bone at distal phalanx in area of pain,5th digit.?Fracture:? Negative fractures identified.? Assessment: * Assessment: 1.?Pain in left toe(s) - M79 .675???2.?Other hammer toe(s) (acquired), left foot - M20.42 (Primary)???Specify :Chronic problem, Worse (4)???3.?[place] - L84??? Plan: * Treatment: * Procedure Codes:?11207 X-RAY EXAM OF LEFT FOOT 3V, Modifiers: 26 , LT * Preventive Medicine:? ??Counseling:?Discussion:?-04: Office or other outpatient visit for the evaluation and management of a new patient, which required a medically appropriate history and/or examination and MODERATE level of DECISION MAKING for: 1 OR MORE CHRONIC PROBLEM(S) THATS WORSENING, 2 STABLE CHRONIC PROBLEMS, A NEWLY DIAGNOSED PROBLEM WITH UNCERTAIN PROGNOSIS, AN ACUTE COMPLICATED INJURY WITH MULTIPLE TREATMENT OPTIONS, OR AN ACUTE PROBLEM WITH ACCOMPANYING SYSTEMIC SYMPTOMS, THAT POSE(S) A MODERATE RISK OF MORBIDITY. THIS CONDITION MAY ALSO INCLUDE RX DRUG MANAGEMENT, OR A DECISON FOR MINOR SURGERY. The visit on the day of the encounter encompassed interpreting the data and educating the patient as to the nature of their condition, treatment options available according to their individual PMH, meds, allergies, and overall health/living conditions, as well as any potential risks or complications that may occur from a failure to adhere to, and participate in, the recommended course of therapy. The discussion included a complete verbal, and/or written explanation of the examination results, any x-rays taken, the proposed diagnosis, and outline of the treatment plan. A schedule for future care needs was also explained. The patient verbalized an understanding of the instructions at this time and agreed to be an active participant in their treatment. If the patient should think of any questions or concerns after the visit, I have encouraged the patient to call the office.?Digital Surgery:?Digital surgery was discussed with the patient, including the risks of surgery(below), vs not having surgery (persistent pain, deformity, risk for skin ulceration/infection, loss of toe), the potential surg complications, the anesthesia, and the usual post-op course. No guarentees were given. We discussed the potential procedure complications including, but not limited to: pain, swelling, bleeding, scarring, numbness, infection, delayed/non healing, floppy/unstable/shorthened toe, recurrence, failure of the procedure, overcorrection leading to plantarflexed/downward positioned toe, recurrence, need for further surgery, as well as the possibility for loss of the toe itself. We discussed the use of local anesthesia, and the usual post-op course for healing. No guarentees were given. The patient verbally indicated a full understanding of the above conversation, and any other of their questions were answered to their satisfaction. Alternatives to the procedure were also discussed, including conservative care. I also discussed the usual post-operative course and gave no guarantees regarding outcome, I discussed surgery for a hammertoe by digital arthroplasty, I discussed surgery for an exostosis by excision, We elected to try conservative treatment at the present time.?Digital Treatment:?HT- I explained to the patient the possible etiologies of Hammertoes, including genetics/foot type/shoegear/activity level/exercise routine and the risks/benefits of all the different treatment options for their pain including: No treatment at all, Rest, Ice, New/supportive/wider/deeper Shoe gear, Digital Padding/Strapping/Taping/Bracing/Gel protective sleeves, Foot/Ankle AFO Bracing, Stretching exercises, Deep Tissue Massage, Arch support/shoe inserts with splay metatarsal padding, and Custom orthoses. I insisted that any digital devices be removed daily and not worn overnight for safety. The patient is to carefully examine the toes daily for any skin irritation while using any splinting or padding device. The advantages and disadvantages of each option were discussed and the patients questions re: shoe gear, padding, custom vs prefabricated inserts, activity level, and consistency in home treatment regimens for optimal success were answered to their verbally confirmed satisfaction.?Shoe Gear Counseling:?The patient and I reviewed the types of shoes they should be wearing. My recommendation included obtaining a well-fitted shoe with a good supportive, non-foldable nor twistable sole, plenty of toe/room for the forefoot, and proper arch support. Based on todays examination, I recommended the patient look for new shoes, by having their feet professionally measured. We discussed that generally the best time of the day for a shoe fitting is the afternoon. Different shoes types and brands to best match the patients occupation and vocation were discussed. Specific brand selection will be up to the patient, their individual foot condition/deformities, and fit. The patient and I reviewed the standard new shoe break in period by wearing them for a few hours a day while checking for redness or sores as wear time is increased. The patient verbally confirmed to understanding the information discussed.?X-rays:?Discussed and reviewed the X-rays with the patient. We discussed how the findings relate to the patients symptoms/complaints. Answered any and all questions..? ??Screening/Special Tests:?Fall Risk?Screening:?No falls in the past year ?FALLS: Screening for Future Fall Risk?Have you had any falls with injury in the past year??No * Follow Up:?prn * Images: * Sign off status: Completed true * Provider:?Priyanka Smallwood DPM Date:? Generated for Nadine cleaning/Mely/Tigre on:?02/24/2025 10:07 AM EDT History and Physical Notes * HPI (History of Present Illness) Category Sub-Category Detail Notes Category Not es Toe pain Nature: tenderness Location: Left foot, 5th toe Duration: a year or more Onset/Cause: gradual, denies trau ma Course: worse Aggravated by: any pressure, shoes, standing/walking Treatments: rest/alter normal da jorge activity, change in shoes Examination Category Sub-Category Detail Notes Category Not es Neurological SENSORY: Neurological exa m reveals intact sensorium, pain sensation normal, vibration sensation intact, pinprick sensation is normal in the lower extremities, Pt denies, anesthesia, burning, paresthesia, tingling, B/L DEEP TENDON REFLEXES: Achilles, 2/4, B/L Dermatologic SKIN FINDINGS: Skin exam reveal s Keratotic lesion(s) located at, Lateral, DIPJ, T4 Orthopedic FOOTWEAR EVALUATION: shoe gear p roperties exacerbate patients foot/toe deformity DIGITAL DEFORMITIES: Digital contracture , PIPJ, 2-5 B/L, reducible with WB, or to push-up test, no over, nor underlapping, Adducto-varus deformity noted, Adducted fifth toe(s), T4 MUSCLE STRENGTH: 5/5 all groups in a symmetrical fashion , B/L General Examination GENERAL APPEARANCE: Reveals a pleasant, alert, well- nourished, well-developed, well hydrated individual, who demonstrates proper attention to hygiene/body habitus, and is in no acute distress, Pt serves as own historian for office visit today ORIENTED: person, place, and t venessa Vascular DP PULSES (B): 3/4, B/L PT PULSES (B): 3/4, B/L CAPILLARY FILL TIME: immediate, all digi ts, B/L TEMPERTURE GRADIENT (C): warm to cool, p roximal to distal, B/L TROPHIC CONDITION-TEXTURE/ELASTICITY/TURGOR/HAIR GROWTH (B): normal, B/L EDEMA (C): absent, B/L PIGMENTATION: normal, B/L X-Rays - IMAGING REPORT Findings: normal b one and soft tissue density consistent for patients age and sex Fracture: Negative fractures i dentified Digits: show asymmetrical dwight int space narrowing at the PIPJ consistent with clinical finding of hammertoe deformity,show exostosis of bone at distal phalanx in area of pain,5th digit Views: 3 views of Foot, AP, LO, LO, LEFT Taken by trained Podiatric Manager Business ( SF ) Clinical Indication(s): Evaluate Biomech anical Deformity
[2025-02-24 10:10] LABS: Bacteria Urine None Seen (None Seen); Hyaline Casts Urine 0-2 /LPF (0-2); RBC Urine 0-2 /HPF (0-2); Squamous Epithelial Cell Urine 0-2 /HPF (0-2); WBC Urine 0-5 /HPF (0-5)
[2025-02-24 10:14] LABS: Basophils Absolute Auto 0.1 X10*3/uL (0.0-0.2); Basophils Percent Auto 1.2 % (0-2); Eosinophils Absolute Auto 0.4 X10*3/uL (0.0-0.4); Eosinophils Percent Auto 7.2 % (0-4); Hematocrit 29.7 % (42.0-52.0); Imm Gran Abs Auto 0.01 X10*3/uL (0.00-0.03); Imm Gran Pct Auto 0.2 % (0.0-0.4); Lymphocytes Absolute Auto 1.6 X10*3/uL (1.2-4.9); Lymphocytes Percent Auto 30.7 % (20-40); Mean Corpuscular HGB Conc 33.7 g/dl (31.0-36.0); Mean Corpuscular Hemoglobin 26.9 pg (27.0-33.0); Mean Corpuscular Volume 79.8 fL (80.0-98.0); Mean Platelet Volume 9.5 fL (9.4-12.4); Monocytes Absolute Auto 0.7 X10*3/uL (0.1-1.2); Monocytes Percent Auto 13.5 % (2-11); Neutrophils Absolute Auto 2.4 x10*3/uL (2.0-8.3); Neutrophils Percent Auto 47.2 % (45-73); Platelet Count 371 X10*3/uL (160-400); Red Blood Count 3.72 X10*6/uL (4.60-5.80); Red Cell Distribution Width 17.6 % (11.0-16.0); White Blood Count 5.1 X10*3/uL (4.8-10.8)
[2025-02-24 10:24] LABS: Chloride 105 mmol/L (96-108); Potassium 4.2 mmol/L (3.3-5.1); Sodium 137 mmol/L (135-145)
[2025-02-24 10:25] LABS: Alanine Aminotransferase 18 U/L (0-40); Albumin Level 3.7 g/dL (3.5-5.0); Alkaline Phosphatase 48 U/L (39-117); Anion Gap 12 (12-20); Aspartate Amino Transferase 45 U/L (5-37); Bilirubin Total 0.5 mg/dL (0.0-1.0); Blood Urea Nitrogen 5 mg/dL (9-16); Calcium 9.2 mg/dL (8.4-10.2); Carbon Dioxide 24 mmol/L (22-29); Estimated Glomerular Filt Rate > 60; Glucose Fasting 78 mg/dL (60-99); Iron 33 mcg/dL (45-160); Percent Iron Saturation 10 % (15-50); Total Iron Binding Capacity 328 mcg/dL (228-428); Total Protein 6.9 g/dL (6.5-8.0); Unsaturated Iron Binding 295 ug/dL
[2025-02-24 10:44] LABS: PSA,Total (Free>4and<10) 1.83 ng/mL (0.00-4.00)
== END 2025-02-24 09:49 | disposition home or self-care (01) ==
LOC: HO.LNP 09:48
PROVIDERS: Visit Provider Internal Medicine
DX: Z12.5 Encounter for screening for malignant neoplasm of prostate (principal); D50.9 Iron deficiency anemia, unspecified; I25.10 Atherosclerotic heart disease of native coronary artery without angina pectoris
CPT/HCPCS: 80053; 81001; 83540; 84153; 85025

== ENCOUNTER 2025-03-09 16:43 | Outpatient (REF) | payer MEDICARE, OTHER, SELFPAY ==
--- NOTE | ~2025-03-09 | MR_ITS ---
EXAMINATION: MR LUMBAR SPINE WITHOUT CONTRAST CLINICAL INFORMATION: Sciatica COMPARISON: None available. TECHNIQUE: MRI of the lumbar spine was obtained using routine sequences without contrast. FINDINGS: Last rib-bearing vertebra labeled T12. Bone marrow inhomogeneity throughout the axial skeleton and bony pelvis with permanently fatty signal. Multilevel marginal osteophyte formation and disc desiccation with decreased intervertebral disc height more pronounced at L4-5. Grade 1 retrolisthesis at L1-2, L3-4 and L5-S1 on a degenerative basis. Conus medullaris ends at the superior endplate of L1 with normal signal. T12-L1: No disc herniation. No neuroforamina stenosis. L1-2: Broad-based bulging. Bilateral neuroforamina narrowing. Facet joint hypertrophy. No central spinal canal stenosis. L2-3: Left subarticular foraminal and extraforaminal broad-based disc herniation. Facet joint and ligamentum flavum hypertrophy. Reduced AP diameter of the thecal sac and neuroforamina with the left neuroforamina and stenosis compressing the left L2 and abutting the left L3 exiting nerve roots. L3-4: Broad-based disc bulging, facet joint and ligamentum flavum hypertrophy. Reduced AP diameter of the thecal sac and neuroforamina encroaching likely compressing the exiting nerve roots. L4-5: Broad-based disc bulging. Facet joint and ligamentum flavum hypertrophy. Reduced AP diameter of the thecal sac and bilateral neuroforamina stenosis compressing the exiting nerve roots. L5-S1: Broad-based disc bulging. Facet joint hypertrophy. Reduced AP diameter of the thecal sac and bilateral neuroforamina stenosis encroaching likely compressing the exiting nerve roots. No prevertebral compartment hematoma, mass or fluid collection. Slight asymmetric volume loss right psoas muscle. MR/MR lumbar spine wo con IMPRESSION: Bone marrow inhomogeneity. Consider calcium metabolic disorders versus lymphoproliferative disorder and other malignancy. Multilevel spondylosis from L2-3 to L5-S1 resulting in bilateral neuroforamina stenosis. Central spinal canal stenosis at L3-4 and L4-5 levels encroaching posterior compressing the exiting nerve roots. Electronically signed by: Yadiel Birmingham MD 03/10/2025 07:08 AM EDT
--- OUTSIDE RECORDS SUMMARY | 2025-03-09 16:50 | XMS_ITS ---
Author Organization [facility] Louie rosa maria [place] Address [address] [place] [address] Care Team Providers Care Area Captain Name Role Phone Major Nazario MD Primary Care Provider Priyanka Colon Unavailable [phone] Allergies No Known Allergies REASON FOR VISIT [...] Problem Status W/U Status Risk Notes Problem Other hammer toe(s) (acquired), left foot (M20.42) Active confirmed Vital Signs Height 5ft9in in 01/24/2025 Weight 148 lbs 01/24/2025 BMI 21.85 kg/m2 01/24/2025 Blood pressure systolic 120 mm Hg 01/25/20 Blood pressure diastolic 80 mm Hg 025 Encounters Encounter Location Date Provider Diagnosis [facility] [address] [place] [address] 01/24/2025 Priyanka Selin Pain in left toe(s) M79.675 ; Other hammer toe(s) (acquired), left foot M20.42 and Dazey L84 Assessments Encounter Date Diagnosis (ICD Code) Assessment Notes Treatment Notes Treatment Clinical Notes Section Notes 01/24/2025 Pain in left toe(s) (ICD-10 - M79.675) 01/24/2025 Other hammer toe(s) (acquired), left foot (ICD-10 - M20.42) 01/24/2025 Dazey (ICD-10 - L84) Plan Of Treatment Pending Test Test Name Order Date X ray : Foot, left 3V 01/24/2025 Next Appt Details Follow Up: prn, Reason: Progress Notes * Suhail HASSANDOB:03/1955 (69 yo M)Acc No.[id number]:01/24/2025 Progress Notes Patient:?Suhail HASSAN Provider:?Priyanka Smallwood DPM :1955???Age:69 Y???Sex:Male Julián e:01/24/2025 Address:[address] [place], [place] [phone] Pcp:Major Nazario MD Subjective: * Chief Complaints: [...] Foot, AP, LO, LO, LEFT??Taken by trained?Podiatric Pipe Buffer (?[facility] ).?Findings:? normal bone and soft tissue [...] foot - M20.42 (Primary)???Specify :Chronic problem, Worse (4)???3.?Dazey - L84??? Plan: * Treatment: * Procedure Codes:?08071 X-RAY EXAM OF LEFT FOOT 3V, Modifiers: [...] Provider:?Priyanka Smallwood DPM Date:? Generated for Nadine cleaning/Mely/Reedsmitting on:?03/09/2025 04:49 PM EDT History and Physical Notes * HPI [...] LO, LO, LEFT Taken by trained Podiatric Pipe Buffer ( [facility] ) Clinical Indication(s): Evaluate Biomech anical Deformity
--- OUTSIDE RECORDS SUMMARY | 2025-03-09 16:50 | XMS_ITS | Patient Health Record ---
Author Organization [facility] Address [address] [place] [address] Care Team Providers Care [employer] Manager Name Role Phone Major Nazario MD Primary Care Provider Jhonathan Heredia Unavailable [phone] Allergies No Known Allergies Reason For Referral No Information Medications Medication SIG (Take, Route, Frequency, Duration) Notes Start Date End Date Status Atorvastatin Calcium 20 MG TAKE 1 TABLET BY MOUTH EVERYDAY AT BEDTIME Oral for 90 Days Active Multivitamin Adult - Orally occasionally Active Omeprazole 40 MG 1 Orally Every morning for 30 day(s) 08/24/2023 Not-Taking Omeprazole 20 MG 1 capsule Orally once every morning for 90 days Active Immunizations Vaccine Route Administration Date Status Comme nts Influenza Unknown 07/21/2023 Administered Influenza Unknown 08/17/2024 Administered Social History Tobacco Use: Social History Observation [...] to 1 ppd; 4-6 beers per day Smoker 1/2 pdd; occasional a lcohol Smoker approx 1/2 to 1 ppd; 4-6 beers per day Smoker approx 1/2 to 1 ppd; 4-6 beers per day Smoker approx 1/2 to 1 ppd; 4-6 beers per day Problems Problem Type SNOMED Code ICD Code Onset Dates Problem Status W/U Status Risk Notes Problem Diverticular disease of colon (749671503) Diverticulosis of large intestine without perforation or abscess without bleeding (K57.30) Active confirmed Problem Gastroesophageal reflux disease (522212168) Gastroesophageal reflux disease (K21.9) Active confirmed Problem Iron deficiency anemia (98567354) Iron deficiency anemia (D50.9) Active confirmed Problem History of polyp of colon (109859205) History of colon polyps (Z86.010) Active confirmed Problem 15446235 Heme + stool (R19.5) Active confirmed Problem 26086875 Iron deficiency anemia, unspecified iron deficiency anemia type (D50.9) Active confirmed Problem Erosive gastritis (1078807999808686) Erosive gastritis (K29.60) Active confirmed Problem 620605849 Gastroesophageal reflux disease, unspecified whether esophagitis present (K21.9) Active confirmed Vital Signs Temperature 97.3 degrees Fahrenheit 02/01/2025 Blood pressure diastolic 01 mm Hg 02/01/2025 Height 67.5 in 02/01/2025 Blood pressure systolic 001 mm Hg 02/01/2025 Weight 144 lbs 02/01/2025 BMI 22.22 kg/m2 02/01/2025 Encounters Encounter Location Date Provider Diagnosis [facility] [address] [place] [phone] 02/01/2025 Jhonathan Schwartz Iron deficiency anem ia, unspecified iron deficiency anemia type D50.9 and Erosive gastritis K29.60 [facility] [address] [place] [phone] 07/27/2024 Jhonathan Schwartz Iron deficiency anem ia, unspecified iron deficiency anemia type D50.9 ; Gastroesophageal reflux disease, unspecified whether esophagitis present K21.9 ; Erosive gastritis K29.60 and History of colon polyps Z86.010 Assessments Encounter Date Diagnosis (ICD Code) Assessment Notes Treatment Notes Treatment Clinical Notes Section Notes 02/01/2025 Iron deficiency anemia, unspecified iron deficiency anemia type (ICD-10 - D50.9) 07/27/2024 Iron deficiency anemia, unspecified iron deficiency anemia type (ICD-10 - D50.9) Use 1 Iron pill and 1 20mg omeprazole every day. Have Dr. Nazario send me a copy of the lab results Overall, Piero appears well and is not having any particular nor worrisome GI complaints. We did review his history of the anemia which I feel was in relation to the previous erosive gastritis in relation to his smoking and alcohol use. At this point I have advised him that he should use the iron supplement at least once a day on a regular basis and also remain on his daily omeprazole. I would recommend a followup blood count and iron studies and he advised me that he has an appointment in your office toward the end of August for labs. I have given him a lab slip to bring with him to your office such that I can hopefully get a copy of those results as well. I had given him an appointment see me again in the spring. Depending upon his clinical course we may want to set up a small bowel capsule study but hopefully being on the iron and omeprazole on a daily basis regularly will help to improve his anemia. I think the yield on a small bowel capsule study would be relatively low. I did advise him to contact me prior to the office visit if he has Any problems or questions I can be of assistance with. Piero was comfortable with this plan. Thank you again for allowing me to participate in Piero's care. I shall continue to keep you advised of his progress. 07/27/2024 Gastroesophageal reflux disease, unspecified whether esophagitis present (ICD-10 - K21.9) Overall, Piero appears well and is not having any particular nor worrisome GI complaints. We did review his history of the anemia which I feel was in relation to the previous erosive gastritis in relation to his smoking and alcohol use. At this point I have advised him that he should use the iron supplement at least once a day on a regular basis and also remain on his daily omeprazole. I would recommend a followup blood count and iron studies and he advised me that he has an appointment in your office toward the end of August for labs. I have given him a lab slip to bring with him to your office such that I can hopefully get a copy of those results as well. I had given him an appointment see me again in the spring. Depending upon his clinical course we may want to set up a small bowel capsule study but hopefully being on the iron and omeprazole on a daily basis regularly will help to improve his anemia. I think the yield on a small bowel capsule study would be relatively low. I did advise him to contact me prior to the office visit if he has Any problems or questions I can be of assistance with. Piero was comfortable with this plan. Thank you again for allowing me to participate in Piero's care. I shall continue to keep you advised of his progress. 02/01/2025 Erosive gastritis (ICD-10 - K29.60) Continue to stay off the Ibuprofen 07/27/2024 Erosive gastritis (ICD-10 - K29.60) Overall, Piero appears well and is not having any particular nor worrisome GI complaints. We did review his history of the anemia which I feel was in relation to the previous erosive gastritis in relation to his smoking and alcohol use. At this point I have advised him that he should use the iron supplement at least once a day on a regular basis and also remain on his daily omeprazole. I would recommend a followup blood count and iron studies and he advised me that he has an appointment in your office toward the end of August for labs. I have given him a lab slip to bring with him to your office such that I can hopefully get a copy of those results as well. I had given him an appointment see me again in the spring. Depending upon his clinical course we may want to set up a small bowel capsule study but hopefully being on the iron and omeprazole on a daily basis regularly will help to improve his anemia. I think the yield on a small bowel capsule study would be relatively low. I did advise him to contact me prior to the office visit if he has Any problems or questions I can be of assistance with. Piero was comfortable with this plan. Thank you again for allowing me to participate in Piero's care. I shall continue to keep you advised of his progress. 07/27/2024 History of colon polyps (ICD-10 - Z86.010) Overall, Piero appears well and is not having any particular nor worrisome GI complaints. We did review his history of the anemia which I feel was in relation to the previous erosive gastritis in relation to his smoking and alcohol use. At this point I have advised him that he should use the iron supplement at least once a day on a regular basis and also remain on his daily omeprazole. I would recommend a followup blood count and iron studies and he advised me that he has an appointment in your office toward the end of August for labs. I have given him a lab slip to bring with him to your office such that I can hopefully get a copy of those results as well. I had given him an appointment see me again in the spring. Depending upon his clinical course we may want to set up a small bowel capsule study but hopefully being on the iron and omeprazole on a daily basis regularly will help to improve his anemia. I think the yield on a small bowel capsule study would be relatively low. I did advise him to contact me prior to the office visit if he has Any problems or questions I can be of assistance with. Piero was comfortable with this plan. Thank you again for allowing me to participate in Piero's care. I shall continue to keep you advised of his progress. Plan Of Treatment Pending Test Test Name Order Date IRON + IBC (FE) 02/01/2025 IRON + IBC (FE) 12/30/2023 IRON + IBC (FE) 08/24/2023 IRON + IBC (FE) 07/27/2024 CBC w DIFF 07/27/2024 CBC w DIFF 02/01/2025 CBC w DIFF 12/30/2023 CBC w DIFF 08/24/2023 CELIAC PANEL #10 07/09/2023 Ferritin 08/24/2023 Ferritin 07/27/2024 Ferritin 02/01/2025 Ferritin 12/30/2023 Vitamin B12 and Folate 07/09/2023 Future Test Test Name Order Date COLONOSCOPY 04/06/2018 UPPER GI ENDOSCOPY 07/09/2023 COLONOSCOPY 07/09/2023 Next Appt Details Provider Name:Jhonathan Schwartz , 08/02/2025 03:00:00 PM, [address] [place] [address], [address], [place], [address], Insurance Providers Payer Name Payer Address Payer Phone Subscriber Number Group Number Insured Name Patient Relationship to Insured Coverage Start Date Coverage End Date [place] [address] [place] [address] [id number] BENJAMIN MORGAN Self - patient is the insured [facility] [address] [address] [place] [address] [phone] [id number] BENJAMIN MORGAN Self - patient is the insured Medical (General) History Medical History History ICD Code Denies AL,DM,CVA,Lung disease,renal dise ase Neg. screeening colonoscopy in [...] which was removed. Iron deficiency anemia in fall with GI workup as above. He had been using ibuprofen, several beers daily, and smoking and I felt that was the cause of his anemia Surgical History Surgery Date(Month/Year) tonsillectomy
--- OUTSIDE RECORDS SUMMARY | 2025-03-09 16:50 | XMS_ITS | Patient Health Record ---
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 Assembler Name Role Phone Major Nazario Primary Care Provider [phone] Allergies No Known Allergies Results Component Value Reference Range Notes Complete Blood Count Auto Di ff Reviewed date:08/30/2024 12:40:36 PM Interpretation: Performing Lab:[facility], [address] [place] [phone] Notes/Report: White Blood Count 7.4 4.8-10.8 X10*3/uL [...] 0.0-0.2 /100WBC Neutrophils Absolute Auto 4.1 2.0-8.3 x10*3/uL Imm Gran Abs Auto 0.03 0.00-0.03 X10*3/uL Lymphocytes Absolute Auto 1.8 1.2-4.9 X10*3/uL Monocytes Absolute Auto 1.1 0.1-1.2 X10*3/uL Eosinophils Absolute Auto 0.4 0.0-0.4 X10*3/uL Basophils Absolute Auto 0.1 0.0-0.2 X10*3/uL NRBC Abs Auto 0.000 0.0-0.012 X10*3/uL IRON PROFILE Reviewed date:08/30/2024 01:50:03 PM Interpretation: Performing Lab:[facility], [address] [place] [phone] Notes/Report: Iron 380 45-160 mcg/dL Total Iron Binding Capacity 405 228-428 mcg/dL Percent Iron Saturation 94 15-50 % Unsaturated Iron Binding < 25 IRON PROFILE Reviewed date:11/28/2024 05:00:26 PM Interpretation: Performing Lab:[facility], [address] [place] [phone] Notes/Report: Iron 31 45-160 mcg/dL Total Iron Binding Capacity 333 228-428 mcg/dL Percent Iron Saturation 9 15-50 % Unsaturated Iron Binding 302 Complete Blood Count Auto Di ff Reviewed date:03/03/2025 08:02:02 AM Interpretation:03-02-2025 Performing Lab:[facility], [address] [place] [phone] Notes/Report: White Blood Count 5.1 4.8-10.8 X10*3/uL [...] 0.0-0.2 /100WBC Neutrophils Absolute Auto 2.4 2.0-8.3 x10*3/uL Imm Gran Abs Auto 0.01 0.00-0.03 X10*3/uL Lymphocytes Absolute Auto 1.6 1.2-4.9 X10*3/uL Monocytes Absolute Auto 0.7 0.1-1.2 X10*3/uL Eosinophils Absolute Auto 0.4 0.0-0.4 X10*3/uL Basophils Absolute Auto 0.1 0.0-0.2 X10*3/uL NRBC Abs Auto 0.000 0.0-0.012 X10*3/uL Comprehensive [place]. Panel Fa st Reviewed date:02/24/2025 03:40:54 PM Interpretation: Performing Lab:[facility], [address] [place] [phone] Notes/Report: Sodium 137 135-145 mmol/L Potassium 4.2 [...] PROFILE Reviewed date:02/24/2025 10:28:19 AM Interpretation: Performing Lab:[address] [address] Notes/Report: Iron 33 45-160 mcg/dL Total Iron Binding Capacity 328 228-428 mcg/dL Percent Iron Saturation 10 15-50 % Unsaturated Iron Binding 295 PSA,Total (Free>4and<10) Reviewed date:02/24/2025 03:36:44 PM Interpretation: Performing Lab:[address] [phone] Notes/Report: PSA,Total (Free>4and<10) 1.83 0.00-4.00 ng/mL A [...] t Reviewed date:02/24/2025 03:43:56 PM Interpretation: Performing Lab:[address] [phone] Notes/Report: Urine, Clean Catch Color Urine Yellow Appearance Urine Clear PH 5.5 5.0-9.0 Glucose Urine UA Negative Negative mg/dL Urine Blood Negative Negative Specific [place] - Urine <= 1.005 1.005-1.025 Urine Protein Negative Neg-Trace mg/dL Urine Ketones Negative Negative mg/dL Nitrite Urine Negative Negative Leukocyte Esterase Urine Negative Negative RBC Urine 0-2 0-2 /HPF WBC Urine 0-5 0-5 /HPF Squamous Epithelial Cell Urine 0-2 0-2 /HPF Bacteria Urine None Seen None Seen Hyaline Casts Urine 0-2 0-2 /LPF CT lung screening Reviewed date:11/10/2024 12:22:35 PM Interpretation: Performing Lab: Notes/Report: [address] [address] [address] Scan Report Signed Patient: Suhail Hassan MR#: [id number] : 1955 Acct:[id number] Age/Sex: 69 / M ADM Date: 11/08/24 Loc: HO.CT Attending Dr: Mee Rey PA-C Ordering Physician: Mee Rey PA-C Date of Service: 11/08/24 Procedure(s): CT lung screening Accession Number(s): [id number] cc: Major Nazario MD; Mee Rey PA-C Report Number: [id number]: Total DLP = 49.00 mGy-cm CLINICAL HISTORY: F17.210 - Nicotine dependence, cigarettes, uncomplicated CT lung cancer screening (LDCT) Comparison: None Technique: Axial CT images of the chest using low-dose technique. Referring provider counseled the patient on shared decision-making for LDCT screening. Additional counseling was provided on smoking cessation. Effective radiation dose total: DLP 37.2 mGycm, CTDIvol 1 mGy. Findings: Lung: Mild emphysema. 4.8 x 5.5 mm nodule of the right upper lobe series 4, image 9 is stable. Stable 2 mm nodule of the right upper lobe series 6, image 122. Coronary artery calcifications: Mild Limited upper abdomen: Unremarkable Other: 4.3 cm ectasia of the ascending aorta. Impression: LungRADS 2 - Benign Appearance: Continue annual screening with low dose Chest CT in 12 months. ##L2# Category 1: Normal; continue annual screening Category 2: Benign appearance or behavior, continue annual screening Category 3: Probably benign, [address] recommended Category 4A: Suspicious, [address] recommended; may consider PET/CT Category 4B: Suspicious, Additional diagnostics and/or tissue sampling recommended Category 4X: Suspicious, Additional diagnostics and/or tissue sampling recommended Category 0: Recalls (incomplete screen due to Incomplete coverage, Noise, Respiratory motion, Expiration, Obscured by acute abnormality) This document has been electronically signed by: Weston Bangura MD on 11/10/2024 07:53:50 Dictated By: Weston Bangura MD Signed By: <Electronically signed by Weston Bangura MD in OV> 11/10/24 0755 DD/ 2 TD/TT: 11/10/24752 Personal Property Assessor: [place] [address] CT Scan Report Signed Patient: Suhail Hassan MR#: [id number] : 1955 Acct:[id number] Age/Sex: 69 / M ADM Date: 11/08/24 Loc: HO.CT Attending Dr: Mee Rey PA-C Ordering Physician: Mee Rey PA-C Date of Service: 11/08/24 Procedure(s): CT jorge l g screening Accession Number(s): [id number] cc: Major Nazario MD; Mee Rey PA-C Report Number: [id number]: Total DLP = 49.00 mGy-cm CLINICAL HISTORY: F1 7.210 - Nicotine dependence, cigarettes, uncomplicated CT lung cancer scree [place] (LDCT) Comparison: None Technique: Axial CT images of t he chest using low-dose technique. Referring provider counseled the patien t on shared decision-making for LDCT screening. Additional counselin g was provided on smoking cessation. Effective radiation dose total: DLP 37.2 mGycm, CTDIvol 1 mGy. Findings: Lung: Mild emphysema . 4.8 x 5.5 mm nodule of the right upper lobe series 4, image 9 is stable . Stable 2 mm nodule of the right upper lobe series 6, image 122. Coronary artery calcifications: Mild Limited upper abdome n: Unremarkable Other: 4.3 cm ectasi a of the ascending aorta. Impression: LungRADS 2 - Benign Appearance: Continue annual screening with low dose Chest CT in 12 months. ##L2# Category 1: Normal; continue annual screening Category 2: Benign appearance or behavior, continue annual screening Category 3: Probably benign, [address] recommended Category 4A: Suspici ous, [address] recommended; may consider PET/CT Category 4B: Suspici ous, Additional diagnostics and/or tissue sampling recommended Category 4X: Suspici ous, Additional diagnostics and/or tissue sampling recommended Category 0: Recalls (incomplete screen due to Incomplete coverage, Noise, Respiratory motion, Expiration, Obscured by acute abnormality) This document has be en electronically signed by: Weston Bangura MD on 11/10/2024 07:53:50 Dictated By: Carmine Bangura MD Signed By: <Electronically signed by Weston Bangura MD in OV> 11/10/24 0755 DD/ 075 TD/TT: 11/10/24 075 Personal Property Assessor: MR shoulder RT wo con Reviewed date:11/11/2024 05:24:22 PM Interpretation: Performing Lab: Notes/Report: [place] [address] Magnetic Resonance Report Signed Patient: Suhail Hassan MR#: [id number] : 1955 Acct:[id number] Age/Sex: 69 / M ADM Date: 11/09/24 Loc: HO.MRI Attending Dr: Brandon Waite MD Ordering Physician: Brandon Waite MD Date of Service: 11/09/24 Procedure(s): MR shoulder RT wo con Accession Number(s): [id number] cc: Major Nazario MD; Brandon Waite MD CLINICAL HISTORY: M25.311 - Other instability, right shoulder MR of the right shoulder without contrast. No comparison. Findings: There is a small partial-thickness articular surface tear of the distal supraspinatus tendon with mild thinning of the tendon. There is also mild peritendinous edema. The infraspinatus and teres minor tendons are intact. There is a small intrasubstance tear of the distal subscapularis tendon. No muscle atrophy is seen. The biceps tendon is intact. There is mild superior subluxation of the humeral head. There is no significant glenohumeral joint effusion. No significant glenohumeral degenerative change or definite labral tear is identified. Acromioclavicular alignment is normal without significant degenerative change. Impression: Small partial-thickness articular surface tear distal supraspinatus tendon. Small intrasubstance tear of the subscapularis tendon. This document has been electronically signed by: Feliberto Eid MD on 11/10/2024 21:04:05 Dictated By: Navdeep Garcia MD Signed By: <Electronically signed by Navdeep Garcia MD in OV> 11/10/242103 DD/ 03 TD/TT: 11/10/242103 Personal Property Assessor: [place] [address] Magnetic Resonance Report Signed Patient: Suhail Hassan MR#: [id number] : 1955 Acct:[id number] Age/Sex: 69 / M ADM Date: 11/09/24 Loc: HO.MRI Attending Dr: Brandon Waite MD Ordering Physician: Brandon Waite MD Date of Service: 11/09/24 Procedure(s): MR guadalupe christine RT wo con Accession Number(s): [id number] cc: Major Nazario MD; Brandon Waite MD CLINICAL HISTORY: M2 5.311 - Other instability, right shoulder MR of the right [facility] without contrast. No comparison. Findings: There is a small partial-thickness articular surface tear of the distal supraspinatus tendon with mild thinning of the tendon. There is also mild peritendinous edema. The infraspinatus an d teres minor tendons are intact. There is a small intrasubstance tear of the distal subscapularis tendon. No muscle atrophy is seen. The biceps tendon is intact. There is mild superi or subluxation of the humeral head. There is no significant glenohum eral joint effusion. No significant glenohumeral degenerative change or definite labral tear is identified. Acromioclavicular alignment is normal without significant degenerative change. Impression: Small partial-thickn ess articular surface tear distal supraspinatus tendon. Small intrasubstance tear of the subscapularis tendon. This document has be en electronically signed by: Feliberto Eid MD on 11/10/2024 21:04:05 Dictated By: Navdeep Garcia MD Signed By: <Electronically signed by Navdeep Garcia MD in OV> 11/10/242103 DD/ 03 TD/TT: 11/10/242103 Personal Property Assessor: Reason For Referral Reason pain right shoulder Diagnosis 1 Pain in right should er (M25.511) Referral Organization Major Nazario MD Referring Provider First Name Major Referring Provider Last Name Mansi Referring Provider Speciality Internal M edicine Referred Provider Ady De Jesus Referred Provider Specialty Orthopedic S urgery General Notes Saranya Rolle 01:44:19 PM EST > info faxAquilino jones Annette 09/19/2024 02:29:07 PM EST > was told to refAquilino madsen Annette 09/20/2024 01:18:45 PM EST > was told by office patient is aware of appt Referral Priority Routine Referral Appointment Date 11/01/2024 Medications Medication SIG (Take, Route, Frequency, Duration) [...] 1 tablet Orally Once a day Active Immunizations Vaccine Route Administration Date Status [...] - 150 IM Intramuscular 08/30/2024 Adm inistered Social History Tobacco Use: Social History Observation [...] q uitting Additional Findings: Tobacco User Neva t cigarette smoker, not currently using another [...] Problem Status W/U Status Risk Notes Problem 558516156 Atherosclerotic heart disease of [place] coronary artery without angina pectoris (I25.10) Active confirmed Problem Sciatica (63291237) Sciatica (M54.30) Active confirmed Problem 328646541 Erectile dysfunction (N52.9) Active confirmed Problem 92475331 Coronary atherosclerosis due to calcified coronary lesion (I25.84) Active confirmed Problem 5214286 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) Active confirmed Problem 187332044 Lumbar disc dise ase (M51.9) Active confirmed Problem 78641210 Smoker (F17.200) Active confirmed Problem 126938967 Environmental allergies (Z91.09) Active confirmed Problem Iron deficiency anemia (02614718) Iron deficiency anemia (D50.9) Active confirmed Problem 34632010 Current smoker (F17.200) Active confirmed Problem Monocytosis (64750853) Monocytosis (D72.821) Active confirmed Problem 41969644 Iron deficiency anemia, unspecified iron deficiency anemia type (D50.9) Active confirmed Problem 56241397 Intertrigo (L30.4) Active confirmed Problem 669722213 Hyperplastic colonic polyp, unspecified part of colon (K63.5) Active confirmed Problem Anogenital warts (632115645) Condyloma acuminata (A63.0) Active confirmed Vital Signs Blood pressure diastolic 60 mm Hg 03/02/2025 Height 69.50 in 03/02/2025 Blood pressure systolic 132 mm Hg 03/02/2025 Weight 142 lbs 03/02/2025 BMI 20.67 kg/m2 03/02/2025 Encounters Encounter Location Date Provider Diagnosis Major Nazario MD [address] [place] [id number] 08/30/2024 Major Nazario Iron deficiency anem ia D50.9 ; Monocytosis D72.821 ; Iron deficiency anemia, unspecified iron deficiency anemia type D50.9 and Encounter for immunization Z23 Major Nazario MD [address] [place] [id number] 11/28/2024 Major Nazario Iron deficiency anem ia D50.9 Major Nazario MD [address] [place] [id number] 02/24/2025 Major Nazario Iron deficiency anem ia, unspecified iron deficiency anemia type D50.9 and Atherosclerotic heart disease of [place] coronary artery without angina pectoris I25.10 Major Nazario MD [address] [place] [id number] 09/06/2024 Major Nazario Iron deficiency anem ia, unspecified iron deficiency anemia type D50.9 ; Toe pain, left M79.675 and Pain in right shoulder M25.511 Major Nazario MD [address] [place] [id number] 03/02/2025 Major Nazario Sciatica M54.30 ; Coronary atherosclerosis due to calcified coronary lesion I25.84 and Iron deficiency anemia, unspecified iron deficiency anemia type D50.9 Major Nazario MD [address] [place] [id number] 04/07/2024 Major Nazario MD [address] [place] [id number] 12/01/2024 Major Nazario MD [address] [place] [id number] 12/15/2024 Major Nazario Assessments Encounter Date Diagnosis (ICD Code) Assessment Notes Treatment Notes Treatment Clinical Notes Section Notes 08/30/2024 Iron deficiency anemia (ICD-10 - D50.9) 08/30/2024 Monocytosis (ICD-10 - D72.821) 11/28/2024 Iron deficiency anemia (ICD-10 - D50.9) 02/24/2025 Iron deficiency anemia, unspecified iron deficiency anemia type (ICD-10 - D50.9) 09/06/2024 Iron deficiency anemia, unspecified iron deficiency anemia type (ICD-10 - D50.9) took the iron for only 3 or 4 days and it got too high. will change to once a week. stop taking it for a month.will cntinue to monitor 09/06/2024 Toe pain, left (ICD-10 - M79.675) is going to wait and see if it goes away 03/02/2025 Sciatica (ICD-10 - M54.30) 03/02/2025 Coronary atherosclerosis due to calcified coronary lesion (ICD-10 - I25.84) will continue current regiment, advised on diet and exercise 08/30/2024 Iron deficiency anemia, unspecified iron deficiency anemia type (ICD-10 - D50.9) 02/24/2025 Atherosclerotic heart disease of [place] coronary artery without angina pectoris (ICD-10 - I25.10) 09/06/2024 Pain in right shoulder (ICD-10 - M25.511) referral to [facility] [place] 03/02/2025 Iron deficiency anemia, unspecified iron deficiency anemia type (ICD-10 - D50.9) had upper and lower endoscopy last year restart iron/ send copy of blood work to dr pickens/ lab results faxed to Dr. Pickens office 08/30/2024 Encounter for immunization (ICD-10 - Z23) Plan Of Treatment Pending Test Test Name Order Date Electrocardiogram (EKG) 12/16/2018 Electrocardiogram (EKG) 12/04/2017 MRI LUMBAR SPINE NO CONTRAST 03/02/2025 Lipid Panel 02/24/2025 Future Test Test Name Order Date CT chest wo con 12/14/2024 Next Appt Details Provider Name:Major Oh ier, 06/02/2025 07:15:00 AM, [address] [place] [address], [address], [phone], Provider Name:Major Oh ier, 06/13/2025 02:00:00 PM, [address] [place] [address], [place] [address], [place], [place], [phone], Provider Name:Major Oh ier, 09/04/2025 07:30:00 AM, [address] [place] [address], [address], [phone], Provider Name:Major Oh ier, 09/11/2025 02:00:00 PM, [address] [place] [address], [address], [phone], Provider Name:Major nuñezr, 02/27/2026 07:15:00 AM, [address] [place] [address], [place] [address], [place], [place], [phone], Provider Name:Major nuñezr, 03/05/2026 02:30:00 PM, [address] [place] [address], [place] [address], [place], [place], [phone], Insurance Providers Payer Name Payer Address Payer Phone Subscriber Number Group Number Insured Name Patient Relationship to Insured Coverage Start Date Coverage End Date MEDICARE [place] [address] [place] [address] [id number] Suhail Hassan Self - patient is the insured [facility] [address] [address] [place] [address] [id number] Suhail Hassan Self - patient is the insured Medical (General) History Medical History History ICD Code Abscess colonoscopy 2009 neg. repeat 10; Colonoscopy 04/23/[address] Pickens hyperplastic polyp flu vac refused 08/12/13 colonoscopy 2022 repeat in 5 years
--- OUTSIDE RECORDS SUMMARY | 2025-03-09 16:50 | XMS_ITS ---
Author Organization [facility] Address [address] [place] [address] Care Team Providers Care Vice President Residential Solar Sales Name Role Phone Major Nazario MD Primary Care Provider Jhonathan Heredia Unavailable [phone] Allergies No Known Allergies REASON FOR VISIT [...] Orally PRN 3-4 times per week Active Social History Tobacco Use: Social History [...] day Vital Signs Temperature 97.3 degrees Fahrenheit 09/25/20 24 Blood pressure systolic 000 mm Hg 07/27/20 24 Blood pressure diastolic 00 mm Hg 024 Height 67.5 in 07/27/2024 Weight 141 lb 6 oz lbs 07/27/2024 BMI 21.81 kg/m2 07/27/2024 Encounters Encounter Location Date Provider Diagnosis [facility] [address] [place] [address] 07/27/2024 Jhonathan Schwartz Iron deficiency anem ia, unspecified iron deficiency anemia type D50.9 ; Gastroesophageal reflux disease, unspecified whether esophagitis present K21.9 ; Erosive gastritis K29.60 and History of colon polyps Z86.010 Assessments Encounter Date Diagnosis (ICD Code) Assessment Notes Treatment Notes Treatment Clinical Notes Section Notes 07/27/2024 Iron deficiency anemia, unspecified iron deficiency [...] appointment in your office toward the end august for labs. I have given him a [...] keep you advised of his progress. 07/27/2024 Erosive gastritis (ICD-10 - K29.60) Overall, [...] appointment in your office toward the end august for labs. I have given him a [...] advised of his progress. Plan Of Treatment Treatment Notes Assessment Notes [...] Up: Spring 2024, Reas on: Provider Name:Jhonathan Mile Schwartz , 08/02/2025 03:00:00 PM, [address] [place] [address], [address], [place], [address], Progress Notes * BENJAMIN MORGAN JrDOB: 1955 (69 yo M)Acc No.[id number]:07/27/2024 Progress Notes Patient:?BENJAMIN MORGAN Provider:?Jhonathan Schwartz MD :1955???Age:69 Y???Sex:Male Julián e:07/27/2024 Address:[address] [place] [address] Pcp:Major Nazario MD Subjective: * Chief Complaints: * ???Patient presents today fo r anemia * HPI: ???incontinence:? I saw Piero in followup today in regard to his iron deficiency anemia and history of erosive gastritis. ?I last saw Piero in December. Since that time he reports that he has been feeling well from a GI standpoint. He has been using omeprazole 20 mg almost daily. He was started on omeprazole due to the finding of erosive gastritis and the anemia. He never was really having significant GI symptoms. However, he has remained on the 20 mg of omeprazole almost daily as he does continue to smoke and have several beers daily. I thought it would be a good idea for him to stay on the acid suppression to heal the gastritis and prevent any worsening of the anemia. He denies any anorexia, significant heartburn, dysphagia, early satiety, nausea, nor vomiting. He denies any abdominal pain, jaundice, nor unintentional weight loss. He reports that his bowel movements have been regular and without any melena nor hematochezia. He has not been using iron supplements very regularly. Overall it sounds like he uses them 2 or 3 times per week. ?His most recent labs from January revealed a hemoglobin of 10.5 with MCV of 80, which is essentially unchanged from September 2023. His iron in February 2024 was 25 with an iron saturation of 8%. * ROS:?General/Constitutional:?Change in appetite?denies.?Chills?denies.?Fatigue?denies.?Ophthalmologic:?Comments?all negative.?ENT:?Comments?all negative.?Respiratory:?hemoptysis?denies.?Cough?denies.?Cardiovascular:?Chest pain?denies.?Orthopnea?denies.?Gastrointestinal:?Comments?See HPI for details.?Genitourinary:?Hematuria?denies.?Dysuria?denies.?Musculoskeletal:?Painful joints?lower back.?Weakness?denies.?Skin:?Itching?denies.?Rash?denies.?Neurologic:?Headache?denies.?Seizures?denies.?Psychiatric:?Comments?all negative.? * Medical History:? * Surgical History:?tonsillect maura * Hospitalization/Major Diagno stic Procedure:?No Hospitalization History. * Family History:?Father: dece ased, Pancreatic cancer at age 57.?Mother: alive.?Maternal Grand Mother: 99 yrs, pancreatic cancer.? No known hx of colon cancer. No family history of liver cancer. * Social History:?Tobacco Use:?Tobacco Use/Smoking?Patient is a?current smoker,?How often do you smoke cigarettes??every day,?How many cigarettes a day do you smoke??11-20.?Drugs/Alcohol:?Alcohol Screen?Did you have a drink containing alcohol in the past year??Yes,?How often did you have a drink containing alcohol in the past year??2 to 3 times a week (3 points),?How many drinks did you have on a typical day when you were drinking in the past year??1 or 2 drinks (0 point),?How often did you have 6 or more drinks on one occasion in the past year??Never (0 point),?Points?3,?Interpretation?Negative.?Miscellaneous:?Marital status: . 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 ???Smoker approx 1/2 to 1 ppd; 4-6 beers per day. * Medications:?TakingIbuprofen 200 MG Tablet 1 tablet with food or milk as needed Orally PRN, Notes: 3-4 times per weekMultivitamin Adult - Tablet Orally Omeprazole 20 MG Capsule Delayed Release 1 capsule Orally once every morningTaking Ibuprofen 200 MG Tablet 1 tablet with food or milk as needed Orally PRN, Notes: 3-4 times per weekTaking Multivitamin Adult - Tablet Orally Taking Omeprazole 20 MG Capsule Delayed Release 1 capsule Orally once every morningNot-Taking/PRNOmeprazole 40 MG Capsule Delayed Release 1 Orally Every morningMedication List reviewed and reconciled with the patientNot-Taking/PRN Omeprazole 40 MG Capsule Delayed Release 1 Orally Every morningMedication List reviewed and reconciled with the patient * Allergies:?N.K.D.A.yes[Aller gies Verified] Objective: * Vitals:?Wt: 141 lb 6 oz, Ht: 67.5 in, BMI:21.81 Index, BP: 000/00 mm Hg, Temp: 97.3. * Examination: ???General Examination: ?GENERAL APPEARANCE:?pleasant, well nourished, well developed, in no acute distress.?EYES:?sclera non-icteric.?ORAL CAVITY:?mucosa moist.?NECK/THYROID:?no cervical lymphadenopathy, neck supple.?SKIN:?nonjaundiced, no spider angiomata.?HEART:?S1, S2 normal.?LUNGS:?clear to auscultation bilaterally.?ABDOMEN:?normal bowel sounds, no guarding or rigidity, no guarding or rigidity, no masses palpable, soft, nontender, nondistended.?EXTREMITIES:?no edema.?NEUROLOGIC:?alert and oriented.? Assessment: * Assessment: 1.?Iron deficiency anemia, u nspecified iron deficiency anemia type - D50.9 (Primary)?2.?Gastroesophageal reflux disease, unspecified whether esophagitis present - K21.9?3.?Erosive gastritis - K29.60?4.?History of colon polyps - Z86.010? Overall, Piero appears well and is not [...] to keep you advised of his progress. Plan: * Treatment: * Procedure Codes:?3017F COLOR ECTAL CA SCREEN DOC [id number] Pt scrn tbco and id as [id number] BP SCR NOT PRFRM REC REASON NOS * Preventive Medicine:? ??Counseling:?Smoking?Patient counseled on the dangers of tobacco use and urged to quit.?07/27/2024,?Relapse prevention:?Discussed the possibility of negative mood or depression after quitting..? ??Screenings:?Fall Risk Screening?Fall Risk Assessment:?No falls in the past year.? * Follow Up:?Spring 2024 * * Sign off status: Completed true * Provider:?Jhonathan Schwartz MD Date:? 024 Generated for Nadine cleaning/Mely/Ulisesitting on:?03/09/2025 04:50 PM EDT History and Physical Notes * HPI (History of Present Illness) Category Sub-Category Detail Notes Category Not es incontinence I saw Piero in followup today in regard to his iron deficiency anemia and history of erosive gastritis. I last saw Piero in December. Since that time he reports that he has been feeling well from a GI standpoint. He has been using omeprazole 20 mg almost daily. He was started on omeprazole due to the finding of erosive gastritis and the anemia. He never was really having significant GI symptoms. However, he has remained on the 20 mg of omeprazole almost daily as he does continue to smoke and have several beers daily. I thought it would be a good idea for him to stay on the acid suppression to heal the gastritis and prevent any worsening of the anemia. He denies any anorexia, significant heartburn, dysphagia, early satiety, nausea, nor vomiting. He denies any abdominal pain, jaundice, nor unintentional weight loss. He reports that his bowel movements have been regular and without any melena nor hematochezia. He has not been using iron supplements very regularly. Overall it sounds like he uses them 2 or 3 times per week. His most recent labs from January revealed a hemoglobin of 10.5 with MCV of 80, which is essentially unchanged from September 2023. His iron in February 2024 was 25 with an iron saturation of 8%. Examination Category Sub-Category Detail Notes Category Not es General Examination GENERAL APPEARANCE: pleasant , well [...]
--- OUTSIDE RECORDS SUMMARY | 2025-03-09 16:50 | XMS_ITS ---
Author Organization Major Nazario MD Address [address] [facility] [address] [place] [phone] Care Team Providers Care Sash Assembler Name Role Phone Major Nazario Primary Care Provider [phone] chest orders Encounters Encounter Location Date Provider Diagnosis Major Nazario MD [address] [place] [address] [address] [place] [phone] 12/15/2024 Major Nazario Plan Of Treatment Next Appt Details Provider Name:Major frazier, 06/02/2025 07:15:00 AM, [address] [place] [address], [address], [phone], Provider Name:Major frazier, 06/13/2025 02:00:00 PM, [address] [place] [address], [phone], Provider Name:Major frazier, 09/04/2025 07:30:00 AM, [address] [place] [address], [phone], Provider Name:Major frazier, 09/11/2025 02:00:00 PM, [address] [facility], [address], [place], [place], [phone], Provider Name:Major Oh ier, 02/27/2026 07:15:00 AM, [address] [facility] [address], [address], [place], [phone], Provider Name:Major Oh ier, 03/05/2026 02:30:00 PM, [address] [facility] [address], [address], [place], [phone], Progress Notes * Suhail HASSANDOB:03/1955 (69 yo M)Acc No.[id number]:12/15/2024 Patient:?Suhail HASSAN J :1955???Age:69 Y???Sex:Male Address:[address] [place] [address] * true * Date:? Generated for Nadine cleaning/Mely/eTransmitting on:?03/09/2025 04:50 PM EDT
--- OUTSIDE RECORDS SUMMARY | 2025-03-09 16:50 | XMS_ITS ---
Author Organization Major Nazario MD Address [address] [place] [phone] Care Team Providers Care Field Administrative Assistant Name Role Phone Major Nazario Primary Care Provider Allergies No Known Allergies REASON FOR VISIT [...] Status W/U Status Risk Notes Problem Sciatica (31250215) Sciatica (M54.30) Active confirmed Vital Signs Blood pressure systolic 132 mm Hg 03/02/20 25 Blood pressure diastolic 60 mm Hg 025 Height 69.50 in 03/02/2025 Weight 142 lbs 03/02/2025 BMI 20.67 kg/m2 03/02/2025 Encounters Encounter Location Date Provider Diagnosis Major Nazario MD [address] [place] [address] [place] [phone] 03/02/2025 Major Nazario Sciatica M54.30 ; Coronary [...] Date MRI LUMBAR SPINE NO CONTRAST 03/02/2025 Future Test Test Name Order Date Complete Blood Count Auto Diff IRON PROFILE 06/02/2025 Next Appt Details Follow Up: 3 Months, Reason: Provider Name:Major frazier, 06/02/2025 07:15:00 AM, [address] [place] [address], [address] [facility], [place], [place], [phone], Provider Name:Major frazier, 06/13/2025 02:00:00 PM, [address] [place] [address], [address] [facility], [place], [place], [phone], Provider Name:Major nuñezr, 09/04/2025 07:30:00 AM, [address] [place] [address], [address] [facility], [place], [place], [phone], Provider Name:Major frazier, 09/11/2025 02:00:00 PM, [address] [place] [address], [place] [address], [place], [place], [phone], Provider Name:Major frazier, 02/27/2026 07:15:00 AM, [address] [place] [address], [place] [address], [place], [place], [phone], Provider Name:Major frazier, 03/05/2026 02:30:00 PM, [address] [place] [address], [address] [facility], [place], [place], [phone], Progress Notes * Suhail HASSANDOB:03/1955 (70 yo M)Acc No.[id number]:03/02/2025 Patient:?Suhail HASSAN Provider:?Major Nazario MD :1955???Age:70 Y???Sex:Male Julián e:03/02/2025 Address:[address] [place], [place] [phone] Subjective: * Chief Complaints: * ???Comp visit/ must see labs CBC * HPI: ???Depression Screening:?PHQ-9?Little interest or pleasure in doing things?Not at all,?Feeling down, depressed, or hopeless?Not at all,?Trouble falling or staying asleep, or sleeping too much?Not at all,?Feeling tired or having little energy?Not at all,?Poor appetite or overeating?Not at all,?Feeling bad about yourself or that you are a failure, or have let yourself or your family down?Not at all,?Trouble concentrating on things, such as reading the newspaper or watching television?Not at all,?Moving or speaking so slowly that other people could have noticed; or the opposite, being so fidgety or restless that you have been moving around a lot more than usual?Not at all.?Interpretation and Intervention?Depression Screening Findings?Negative,?Follow-Up for Depression?: review of PHQ-9 found negative result, no follow-up needed.?Communication Needs:?Communication Needs?Does the patient have a hearing impairment?No,?Does the patient have a vision impairment??Yes,?If yes, what is the vision impairment??Glasses,?Does the patient have a cognition impairment??No.?Fall Risk:?History?Have you had any falls with injury in the past year??No,?Have you had two or more falls in the past year??No.?SDOH Questions:?SDOH Questions?In the past year have you been worried about losing housing??No,?In the past year have you or any family members you live with been unable to get any of the following when it was really needed? Check all that apply:?None.?Symptom(s):? patient is a 70 yo male here for visit with review of recent labs and follow up of chronic issues. * ROS:?General/Constitutional:?Change in appetite?denies.?Chills?denies.?Fever?denies.?Ophthalmologic:?Blurred vision?denies.?Discharge?denies.?Pain?denies.?ENT:?Decreased hearing?denies.?Sore throat?denies.?Swollen glands?denies.?Endocrine:?Cold intolerance?denies.?Excessive thirst?denies.?Heat intolerance?denies.?Weight loss?denies.?Respiratory:?Cough?denies.?Shortness of breath at rest?denies.?Shortness of breath with exertion?denies.?Wheezing?denies.?Cardiovascular:?Chest pain at rest?denies.?Chest pain with exertion?denies.?Irregular heartbeat?denies.?Shortness of breath?denies.?Gastrointestinal:?Abdominal pain?denies.?Change in bowel habits?denies.?Diarrhea?denies.?Nausea?denies.?Rectal bleeding?denies.?Vomiting?denies .?Genitourinary:?Blood in urine?denies.?Difficulty urinating?denies.?Frequent urination?denies.?Musculoskeletal:?Painful joints?denies.?Weakness?denies.?Skin:?Dry skin?denies.?Itching?denies.?Denies?Mole(s),? changes in moles, new moles or any lesions of concern.?Denies?Photosensitivity.?Rash?denies.?Neurologic:?Dizziness?denies.?Fainting?denies.?Headache?denies.? * Medical History:? * Surgical History:? * Hospitalization/Major Diagno stic Procedure:? * Family History:?Father: dece ased 57 yrs.?Mother: alive 89 yrs, COPD, healthy.?2 brother(s) , 2 sister(s) - healthy. 1 son(s) - healthy. .? Mother Healthy Father- Pancreatic cancer, Denies mental health/substance abuse family history, No pertinent family medical history, No pertinent family medical history. * Social History:?Tobacco Use:?Tobacco Use/Smoking?Patient is a?current smoker,?How often do you smoke cigarettes??every day,?How many cigarettes a day do you smoke??11-20,?How soon after you wake up do you smoke your first cigarette??within 5 minutes,?Are you interested in quitting??Thinking about quitting,?Additional Findings: Tobacco User?Current cigarette smoker, not currently using another form of tobacco.?Drugs/Alcohol:?Alcohol Screen?Did you have a drink containing alcohol in the past year??Yes,?How often did you have a drink containing alcohol in the past year??4 or more times a week (4 points),?How many drinks did you have on a typical day when you were drinking in the past year??3 or 4 drinks (1 point),?How often did you have 6 or more drinks on one occasion in the past year??Never (0 point),?Points?5,?Interpretation?Positive.?Miscellaneous:?Caffeine: 2-3 cups per day. Children: yes. Community involvements: no. Exercise: yes, hunting. Home smoke detector use: yes. Housing: owning. Living with: alone. Marital status: . Occupation: retired. Pets: none. Travel outside of the [place]: no. * Medications:?TakingAtorvasta tin Calcium 20 MG Tablet [...] Allergies:?N.K.D.A.yes[Aller gies Verified] Objective: * Vitals:?Ht: 69.50, Wt: 142, BMI:20.67, BP:132/60, Wt-k.41. * ???Past Orders: ???Lab:PSA,Total (Free>4and< 10) (Order Date - 02/24/2025) (Collection Date & Time - 02/24/2025 07:45 AM) ? Value Reference Range ?PSA,Total (Free>4and<10) 1.83 0.00-4.00 - ng/mL ???Lab:UA ClnCatch+Micro w/r flx Cult (Order Date - 02/24/2025) (Collection Date & Time - 02/24/2025 07:45 AM) ? Value Reference Range ?Color Urine Yellow - ?Appearance Urine Clear - ?PH 5.5 5.0-9.0 - ?Glucose Urine UA Negative Neg ative - mg/dL ?Urine Blood Negative Negative - ?Specific [place] - Urine <= 1.005 1.005-1.025 - ?Urine Protein Negative Neg-Tr ginger - mg/dL ?Urine Ketones Negative Negati ve - mg/dL ?Nitrite Urine Negative Negati ve - ?Leukocyte Esterase Urine Negative Negative - ?RBC Urine 0-2 0-2 - /HPF ?WBC Urine 0-5 0-5 - /HPF ?Squamous Epithelial Cell Urine 0-2 0-2 - /HPF ?Bacteria Urine None Seen None Seen - ?Hyaline Casts Urine 0-2 0-2 - /LPF ???Lab:Comprehensive [place]. P jane Fast (Order Date - 02/24/2025) (Collection Date & Time - 02/24/2025 07:45 AM) ? Value Reference Range ?Sodium 137 135-145 - mmo l/L ?Bilirubin Total 0.5 0.0- 1.0 - mg/dL ?Aspartate Amino Transferase 45 H 5-37 - U/L ?Alanine Aminotransferase 18 0-40 - U/L ?Total Protein 6.9 6.5-8. 0 - g/dL ?Albumin Level 3.7 3.5-5. 0 - g/dL ?Alkaline Phosphatase 48 39-117 - U/L ?Potassium 4.2 3.3-5.1 - mmol/L ?Chloride 105 96-108 - mm ol/L ?Carbon Dioxide 24 22-29 - mmol/L ?Anion Gap 12 12-20 - ?Blood Urea Nitrogen 5 L 9-16 - mg/dL ?Creatinine 0.64 0.5-1.4 - mg/dL ?Estimated Glomerular Filt Rate > 60 - ?Glucose Fasting 78 60-9 9 - mg/dL ?Calcium 9.2 8.4-10.2 - m g/dL ???Lab:IRON PROFILE (Order D ate - 02/24/2025) (Collection Date & Time - 02/24/2025 07:45 AM) ? Value Reference Range ?Iron 33 L 45-160 - mcg/dL ?Total Iron Binding Capacity 328 228-428 - mcg/dL ?Percent Iron Saturation 10 L 15-50 - % ?Unsaturated Iron Binding 295 - ug/dL * Examination: ???General Examination: ?GENERAL APPEARANCE:?well developed, well nourished, in no acute distress.?HEAD:?normocephalic, atraumatic.?EYES:?pupils equal, round, reactive to light and accommodation, sclera non-icteric.?EARS:?normal.?ORAL CAVITY:?mucosa moist.?THROAT:?clear.?NECK/THYROID:?neck supple, full range of motion, no cervical lymphadenopathy, no bruits.?SKIN:?warm and dry, no suspicious lesions.?HEART:?regular rate and rhythm, S1, S2 normal, no murmurs.?LUNGS:?clear to auscultation bilaterally.?ABDOMEN:?soft, nontender, nondistended, bowel sounds present, normal, no organomegaly , no masses palpable.?RECTAL EXAM:?declined.?MALE GENITOURINARY:?declined.?EXTREMITIES:?no clubbing, cyanosis, or edema.?NEUROLOGIC:?nonfocal, motor strength normal upper and lower extremities, sensory exam intact.? Assessment: * Assessment: 1.?Coronary atherosclerosis due to calcified coronary lesion - I25.84 (Primary)???2.?Sciatica - M54.30???3.?Iron deficiency anemia, unspecified iron deficiency anemia type - D50.9??? Plan: * Treatment: 2.?Sciatica?Imaging: MRI LUMBAR SPINE NO CONTRAST 3.?Iron deficiency anemia, unspecified iron deficiency anemia type?LAB: Complete Blood Count Auto Diff (Ordered for 06/02/2025) ?LAB: IRON PROFILE (Ordered for 06/02/2025) Notes: had upper and lower endoscopy last year restart iron/ send copy of blood work to dr pickens/ lab results faxed to Dr. Pickens office?? * Procedure Codes:?G2211 Compl ex e/m visit add on * Follow Up:?3 Months * * Sign off status: Completed true * Provider:?Major Nazario MD Date:?0 03/02/2025 Generated for Nadine cleaning/Mely/eTransmitting on:?03/09/2025 04:50 PM EDT History and Physical [...] Not at all Interpretation and Intervention Depression Verna davis Findings: Negative Follow-Up for Depression: : review [...] patient have a vision impairmen t?: Yes ?If yes, what is the vision impairment?: Glasses Does the patient have a cognition impair ment?: No Examination Category Sub-Category Detail Notes Category Not es General Examination GENERAL APPEARANCE: well dev eloped, well nourished, in no acute distress HEAD: normocephalic, atrau matic EYES: pupils equal, round, reactive to light and accommodation, sclera non- icteric EARS: normal THROAT: clear NECK/THYROID: neck supple, [...]
--- OUTSIDE RECORDS SUMMARY | 2025-03-09 16:50 | XMS_ITS ---
Author Organization [facility] Address [address] [place] [address] Care Team Providers Care Seconds Handler Name Role Phone Major Nazario MD Primary Care Provider Jhonathan Heredia Unavailable [phone] Allergies No Known Allergies REASON FOR VISIT [...] 02/01/2025 Encounters Encounter Location Date Provider Diagnosis [facility] [address] [place] [address] 02/01/2025 Jhonathan Schwartz Iron deficiency anemia, unspecified [...] 03:00:00 PM, [address], [address], [place], [address], Progress Notes * BENJAMIN MORGAN JrDOB: 1955 (70 yo M)Acc No.[id number]:02/01/2025 Progress Notes Patient:?BENJAMIN MORGAN Provider:?Jhonathan Schwartz MD :1955???Age:69 Y???Sex:Male Julián e:02/01/2025 Address:[address] [place] [address], [id number] Pcp:Major Nazario MD Subjective: * Chief Complaints: * ???1. Patient presents today for anemia. * Medical History:?Denies MO,D M,CVA,Lung disease,renal disease, Neg. screeening colonoscopy in 07/2010 [...] the cause of his anemia. * Surgical History:?tonsillect maura . * Family History:?Father: dece ased, Pancreatic cancer [...] year??Never (0 point),?Points?3,?Interpretation?Negative.?Miscellaneous:?Marital status: . 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 ???Smoker approx 1/2 to 1 ppd; 4-6 beers per day. * Medications:?Taking Multivit jacobs Adult - Tablet Orally , Notes to [...] to Pharmacist: 3-4 times per week * Allergies:?N.K.D.A. Objective: * Vitals:?Wt:144lbs, Ht: 67.5 in, BMI:22.22Index, BP:001/01mm Hg, Temp:97.3, Wt- k.32. Assessment: * Assessment: 1.?Iron deficiency anemia, u nspecified iron deficiency anemia type - D50.9 (Primary)???2.?Erosive gastritis - K29.60??? Plan: * Treatment: ?LAB: Ferritin2.?Erosive gastritis? Notes: Continue to stay off the Ibuprofen ?? * Preventive Medicine:? ??Screenings:?Fall Risk Screening?Fall Risk Assessment:?No falls in the past year,?Screening:?No falls in the past year,?Assessment:?Not performed, no reason specified,?Plan of Care:?Not documented, no reason specified.? * Follow Up:?2024 * * The named appointment provid er may or may not be the originator of this progress note, and it is not deemed complete until electronically signed by the appointment provider. Sign off status: Pending * Provider:?Jhonathan Schwartz MD Date:? 025 Generated for Nadine cleaning/Mely/eTransmitting on:?03/09/2025 04:50 PM EDT
--- OUTSIDE RECORDS SUMMARY | 2025-03-09 16:50 | XMS_ITS ---
Author Organization [facility] Address [address] [place] [address] Care Team Providers Care Inspector Metal Fabricating Name Role Phone Major Nazario MD Primary Care Provider Jhonathan Heredia Unavailable [phone] Allergies No Known Allergies REASON FOR VISIT [...] every morning for 30 day(s) 12/30/2023 Active Social History Tobacco Use: Social History [...] Problem Status W/U Status Risk Notes Problem History of polyp of colon (894229524) History of colon polyps (Z86.010) Active confirmed Vital Signs Temperature 97.8 degrees Fahrenheit 12/30/19 24 Blood pressure systolic 000 mm Hg 12/30/19 24 Blood pressure diastolic 00 mm Hg 024 Height 67.5 in 12/30/2023 Weight 144 lb 6 oz lbs 12/30/2023 BMI 22.28 kg/m2 12/30/2023 Encounters Encounter Location Date Provider Diagnosis [facility] [address] [place] [address] 12/30/2023 Jhonathan Schwartz Erosive gastritis K29.60 ; Iron deficiency anemia D50.9 and History of colon polyps Z86.010 Assessments Encounter Date Diagnosis (ICD Code) Assessment Notes Treatment Notes Treatment Clinical Notes Section Notes 12/30/2023 Erosive gastritis (ICD-10 - K29.60) Overall, Piero ching appears well. We did review the findings on his procedures. I advised him that I do feel the finding of the erosive gastritis in the setting of chronic NSAID use, some alcohol use, and smoking, would account for his iron deficiency anemia. I don't have any labs more recently than from early September but at least at that time his iron studies looked like they were improving even though the hemoglobin had remained stable. I advised him of the need for a followup colonoscopy in 5 years for further screening in regard to the finding of the single sessile serrated colon polyp. I shall check some followup laboratories in regard to his blood count and iron studies to see if things have improved over the past few months with the addition of the iron and omeprazole, as well as by minimizing use of the ibuprofen. I advised him that if the laboratories do show significant improvement in his anemia then I would hold off on any further evaluation. However, if he does remain with iron deficiency I advised him that I would then want to schedule him for a small bowel video capsule study. In the meantime, I did advise him to continue his iron at least every other day and shall switch his omeprazole down to 20 mg rather than 40 mg. I did advise him to continue to try to avoid NSAIDs as much as possible and to minimize his alcohol intake. I have given him an appointment to see me again in the Fall for a followup visit as well. I did advise him to contact me prior to that if he has any problems or questions I can be of assistance with. Piero was comfortable with this plan. Thank you again for allowing me to participate in Piero's care. I shall continue to keep you advised of his progress. 12/30/2023 Iron deficiency anemia (ICD-10 - D50.9) We will switch to 20mg omeprazole Continue the Iron every other day Try to avoid Ibuprofen and minimize alcohol Overall, Piero he appears well. We did review the findings on his procedures. I advised him that I do feel the finding of the erosive gastritis in the setting of chronic NSAID use, some alcohol use, and smoking, would account for his iron deficiency anemia. I don't have any labs more recently than from early September but at least at that time his iron studies looked like they were improving even though the hemoglobin had remained stable. I advised him of the need for a followup colonoscopy in 5 years for further screening in regard to the finding of the single sessile serrated colon polyp. I shall check some followup laboratories in regard to his blood count and iron studies to see if things have improved over the past few months with the addition of the iron and omeprazole, as well as by minimizing use of the ibuprofen. I advised him that if the laboratories do show significant improvement in his anemia then I would hold off on any further evaluation. However, if he does remain with iron deficiency I advised him that I would then want to schedule him for a small bowel video capsule study. In the meantime, I did advise him to continue his iron at least every other day and shall switch his omeprazole down to 20 mg rather than 40 mg. I did advise him to continue to try to avoid NSAIDs as much as possible and to minimize his alcohol intake. I have given him an appointment to see me again in the Fall for a followup visit as well. I did advise him to contact me prior to that if he has any problems or questions I can be of assistance with. Piero was comfortable with this plan. Thank you again for allowing me to participate in Piero's care. I shall continue to keep you advised of his progress. 12/30/2023 History of colon polyps (ICD-10 - Z86.010) Repeat colonoscopy in 08/2028 Overall, Piero he appears well. We did review the findings on his procedures. I advised him that I do feel the finding of the erosive gastritis in the setting of chronic NSAID use, some alcohol use, and smoking, would account for his iron deficiency anemia. I don't have any labs more recently than from early September but at least at that time his iron studies looked like they were improving even though the hemoglobin had remained stable. I advised him of the need for a followup colonoscopy in 5 years for further screening in regard to the finding of the single sessile serrated colon polyp. I shall check some followup laboratories in regard to his blood count and iron studies to see if things have improved over the past few months with the addition of the iron and omeprazole, as well as by minimizing use of the ibuprofen. I advised him that if the laboratories do show significant improvement in his anemia then I would hold off on any further evaluation. However, if he does remain with iron deficiency I advised him that I would then want to schedule him for a small bowel video capsule study. In the meantime, I did advise him to continue his iron at least every other day and shall switch his omeprazole down to 20 mg rather than 40 mg. I did advise him to continue to try to avoid NSAIDs as much as possible and to minimize his alcohol intake. I have given him an appointment to see me again in the Fall for a followup visit as well. I did advise him to contact me prior to that if he has any problems or questions I can be of assistance with. Piero was comfortable with this plan. Thank you again for allowing me to participate in Piero's care. I shall continue to keep you advised of his progress. Plan Of Treatment Medication Medication Name Sig [...] 2023, Reaso n: Provider Name:Jhonathan Schwartz , 08/02/2025 03:00:00 PM, [address] [place] [address], [address], [place], [address], Progress Notes * BENJAMIN MORGAN JrDOB: 1955 (69 yo M)Acc No.[id number]:12/30/2023 Progress Notes Patient:?BENJAMIN MORGAN Provider:?Jhonathan Schwartz MD :1955???Age:68 Y???Sex:Male Julián e:12/30/2023 Address:[address] [place] [address], [id number] Pcp:Major Nazario MD Subjective: * Chief Complaints: * ???Patient presents today fo r anemia * HPI: ???incontinence:? I saw Piero in followup today in regard to his iron deficiency anemia, erosive gastritis, and history of a serrated colon polyp. ?I last saw Piero August of 2023, at which time he underwent an upper endoscopy and colonoscopy for evaluation of his anemia. Colonoscopy revealed a single sessile serrated polyp in the cecum which was removed. His upper endoscopy revealed what appeared to be the source of his anemia with erosive gastritis and a small hiatal hernia. There was no evidence of any gross esophagitis, Villarreal's esophagus, H. pylori, nor celiac disease. At that time he had been taking ibuprofen fairly regularly along with several beers daily, as well as his daily smoking habit. At the time of the endoscopy I advised him to try to avoid NSAIDs, minimize alcohol, and I started him on omeprazole 40 mg daily and iron. ?Since that time he has been using ibuprofen only rarely, but still having several beers per day and still smoking. He has been using the 40 mg omeprazole daily and using iron every other day. He has been feeling well. He enjoys a good appetite, without any significant heartburn or dysphagia. His bowel movements have been regular and without any signs of bleeding. He denies abdominal pain, jaundice, nor weight loss. He denies any fatigue nor lightheadedness. ?His most recent labs from early September of 2023 revealed a hemoglobin of 10.6, MCV of 77, iron of 81, and an iron saturation of 23%. * ROS:?General/Constitutional:?Change in appetite?denies.?Chills?denies.?Fatigue?denies.?Ophthalmologic:?Comments?all negative.?ENT:?Comments?all negative.?Respiratory:?hemoptysis?denies.?Cough?denies.?Cardiovascular:?Chest pain?denies.?Orthopnea?denies.?Gastrointestinal:?Comments?See [...] year??Never (0 point),?Points?3,?Interpretation?Negative.?Miscellaneous:?Marital status: . 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 ???Smoker approx 1/2 to 1 ppd; 4-6 beers per day. * Medications:?TakingIbuprofen 200 MG Tablet 1 tablet with food or milk as needed Orally PRN, Notes: 3-4 times per weekMultivitamin Adult - Tablet Orally Omeprazole 40 MG Capsule Delayed Release 1 Orally Every morningMedication List reviewed and reconciled with the patientTaking Ibuprofen 200 MG Tablet 1 tablet with food or milk as needed Orally PRN, Notes: 3-4 times per weekTaking Multivitamin Adult - Tablet Orally Taking Omeprazole 40 MG Capsule Delayed Release 1 Orally Every morningMedication List reviewed and reconciled with the patient * Allergies:?N.K.D.A.yes[Aller gies Verified] Objective: * Vitals:?Wt: 144 lb 6 oz, Ht: 67.5 in, BMI:22.28 Index, BP: 000/00 mm Hg, Temp: 97.8. * Examination: ???General Examination: ?GENERAL APPEARANCE:?pleasant, well nourished, well developed, in no acute distress.?EYES:?sclera non-icteric.?ORAL CAVITY:?mucosa moist.?NECK/THYROID:?no cervical lymphadenopathy, neck supple.?SKIN:?nonjaundiced, no spider angiomata.?HEART:?S1, S2 normal.?LUNGS:?clear to auscultation bilaterally.?ABDOMEN:?normal bowel sounds, no guarding or rigidity, no guarding or rigidity, no masses palpable, soft, nontender, nondistended.?EXTREMITIES:?no edema.?NEUROLOGIC:?alert and oriented.? Assessment: * Assessment: 1.?Iron deficiency anemia - D50.9 (Primary)?2.?Erosive gastritis - K29.60?3.?History of colon polyps - Z86.010? Overall, Piero he appears we ll. We did review the findings on his procedures. I advised him that I do feel the finding of the erosive gastritis in the setting of chronic NSAID use, some alcohol use, and smoking, would account for his iron deficiency anemia. I don't have any labs more recently than from early September but at least at that time his iron studies looked like they were improving even though the hemoglobin had remained stable. I advised him of the need for a followup colonoscopy in 5 years for further screening in regard to the finding of the single sessile serrated colon polyp. I shall check some followup laboratories in regard to his blood count and iron studies to see if things have improved over the past few months with the addition of the iron and omeprazole, as well as by minimizing use of the ibuprofen. I advised him that if the laboratories do show significant improvement in his anemia then I would hold off on any further evaluation. However, if he does remain with iron deficiency I advised him that I would then want to schedule him for a small bowel video capsule study. In the meantime, I did advise him to continue his iron at least every other day and shall switch his omeprazole down to 20 mg rather than 40 mg. I did advise him to continue to try to avoid NSAIDs as much as possible and to minimize his alcohol intake. I have given him an appointment to see me again in the Fall for a followup visit as well. I did advise him to contact me prior to that if he has any problems or questions I can be of assistance with. Piero was comfortable with this plan. Thank you again for allowing me to participate in Piero's care. I shall continue to keep you advised of his progress. Plan: * Treatment: 2.?Erosive gastritis? Start Omeprazole Capsule Delayed Release, 20 MG, 1 capsule, Orally, once every morning, 30 day(s), 30, Refills 6.?? 3.?History of colon polyps? Notes: Repeat colonoscopy in 08/2028?? * Procedure Codes:?3017F COLOR ECTAL CA SCREEN DOC [id number] Pt scrn tbco and id as [id number] BP SCR NOT PRFRM REC REASON NOS * Follow Up:?2023 * * Sign off status: Completed true * Provider:?Jhonathan Schwartz MD Date:? 024 Generated for Nadine cleaning/Mely/Tigre on:?03/09/2025 04:50 PM EDT History and Physical Notes * HPI (History of Present Illness) Category Sub-Category Detail Notes Category Not es incontinence I saw Piero in followup today in regard to his iron deficiency anemia, erosive gastritis, and history of a serrated colon polyp. I last saw Piero August of 2023, at which time he underwent an upper endoscopy and colonoscopy for evaluation of his anemia. Colonoscopy revealed a single sessile serrated polyp in the cecum which was removed. His upper endoscopy revealed what appeared to be the source of his anemia with erosive gastritis and a small hiatal hernia. There was no evidence of any gross esophagitis, Villarreal's esophagus, H. pylori, nor celiac disease. At that time he had been taking ibuprofen fairly regularly along with several beers daily, as well as his daily smoking habit. At the time of the endoscopy I advised him to try to avoid NSAIDs, minimize alcohol, and I started him on omeprazole 40 mg daily and iron. Since that time he has been using ibuprofen only rarely, but still having several beers per day and still smoking. He has been using the 40 mg omeprazole daily and using iron every other day. He has been feeling well. He enjoys a good appetite, without any significant heartburn or dysphagia. His bowel movements have been regular and without any signs of bleeding. He denies abdominal pain, jaundice, nor weight loss. He denies any fatigue nor lightheadedness. His most recent labs from early September of 2023 revealed a hemoglobin of 10.6, MCV of 77, iron of 81, and an iron saturation of 23%. Examination Category Sub-Category Detail Notes Category Not [...]
--- OUTSIDE RECORDS SUMMARY | 2025-03-09 16:51 | XMS_ITS ---
Author Organization [facility] Address [address] [place] [address] Care Team Providers Care Senior Online Marketing Manager Name Role Phone Major Nazario MD Primary Care Provider Priyanka Colon [phone] REASON FOR VISIT BUY 2 Gel Tubes Wide Encounters Encounter Location Date Provider Diagnosis [facility] [address] [place] [address] 01/24/2025 Priyanka Smallwood Plan Of Treatment No Information Progress Notes * Suhail HASSANDOB:03/1955 (69 yo M)Acc No.[id number]:01/24/2025 Patient:?Suhail HASSAN :1955???Age:69 Y???Sex:Male Address:[address] [place] [address], [address] * true * Date:? Generated for Printi ng/Fatimg/eTransmitting on:?03/09/2025 04:50 PM EDT
--- OUTSIDE RECORDS SUMMARY | 2025-03-09 16:51 | XMS_ITS ---
Author Organization Major Nazario MD Address [address] [place] [phone] Care Team Providers Care Retail Client Solutions Analyst Name Role Phone Major Nazario Primary Care Provider Results Component Value Reference Range Notes Complete Blood Count Auto Di ff Reviewed date:03/03/2025 08:02:02 AM Interpretation:03-02-2025 Performing Lab:[facility], [address] [place] [phone] Notes/Report: White Blood Count 5.1 4.8-10.8 X10*3/uL [...] NRBC Abs Auto 0.000 0.0-0.012 X10*3/uL Comprehensive Marcellus. Panel Fa st Reviewed date:02/24/2025 03:40:54 PM Interpretation: Performing Lab:[facility], [address] [place] [phone] Notes/Report: Sodium 137 135-145 mmol/L Potassium 4.2 [...] PROFILE Reviewed date:02/24/2025 10:28:19 AM Interpretation: Performing Lab:[facility], [address] [place] [phone] Notes/Report: Iron 33 45-160 mcg/dL Total Iron Binding Capacity 328 228-428 mcg/d L Percent Iron Saturation 10 15-50 % Unsaturated Iron Binding 295 PSA,Total (Free>4and<10) Reviewed date:02/24/2025 03:36:44 PM Interpretation: Performing Lab:[facility], [address] [place] [phone] Notes/Report: PSA,Total (Free>4and<10) 1.83 0.00-4.00 ng/mL A [...] t Reviewed date:02/24/2025 03:43:56 PM Interpretation: Performing Lab:[facility], [address] [place] [phone] Notes/Report: Urine, Clean Catch Color Urine Yellow Appearance Urine Clear PH 5.5 5.0-9.0 Glucose Urine UA Negative Negative mg/dL Urine Blood Negative Negative Specific [place] - Urine <= 1.005 1.005-1.025 Urine Protein [...] Date Provider Diagnosis Major Nazario MD [address] [place], [place] [phone] 02/24/2025 Major Nazario Iron deficiency anem ia, unspecified iron deficiency anemia type D50.9 and Atherosclerotic heart disease of [place] coronary artery without angina pectoris I25.10 Assessments Encounter Date Diagnosis (ICD Code) Assessment Notes Treatment Notes Treatment Clinical Notes Section Notes 02/24/2025 Iron deficiency anemia, unspecified iron deficiency anemia type (ICD-10 - D50.9) 02/24/2025 Atherosclerotic heart disease of [place] coronary artery without angina pectoris (ICD-10 - I25.10) Plan Of Treatment Pending Test Test Name Order Date Lipid Panel 02/24/2025 Next Appt Details Provider Name:Major Oh ier, 06/02/2025 07:15:00 AM, [address] [place] [address], [address] [place] [address], [phone], Provider Name:Major Oh ier, 06/13/2025 02:00:00 PM, [address] [place] [address], [address], [phone], Provider Name:Major Oh ier, 09/04/2025 07:30:00 AM, [address] [place] [address], [address] [place] [address], [id number], Provider Name:Major Oh ier, 09/11/2025 02:00:00 PM, [address] [place] [address], [address] [place] [address], [phone], Provider Name:Major Oh ier, 02/27/2026 07:15:00 AM, [address] [place] [address], [address], [phone], Provider Name:Major Oh ier, 03/05/2026 02:30:00 PM, [address] [place] [address], [address], [phone], Progress Notes * Suhail HASSANB:03/1955 (70 yo M)Acc No.[id number]:02/24/2025 Progress Note Patient:?Suhail HASSAN Provider:?Major Nazario MD :1955???Age:70 Y???Sex:Male Julián e:02/24/2025 Address:[facility] [phone] Subjective: * Chief Complaints: * ???1. Yearly fasting labs. * Medical History:? Objective: * Vitals:? 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 Plan: * Treatment: 2.?Atherosclerotic heart dis ease of [place] coronary artery without angina pectoris?LAB: Lipid Panel ?LAB: Complete Blood Count Auto Diff (Collection Date & Time - 02/24/2025 07:45 AM) ?LAB: Comprehensive Marcellus. Panel Fast (Collection Date & Time - 02/24/2025 07:45 AM) ?LAB: IRON PROFILE (Collection Date & Time - 02/24/2025 07:45 AM) ?LAB: PSA,Total (Free>4and<10) (Collection Date & Time - 02/24/2025 07:45 AM) ?LAB: UA ClnCatch+Micro w/rflx Cult (Collection Date & Time - 02/24/2025 07:45 AM) * Procedure Codes:?56012 VENIP UNCT, ROUTINE* * * The named appointment provid er may or may not be the originator of this progress note, and it is not deemed complete until electronically signed by the appointment provider. Sign off status: Pending * Provider:?Major Nazario MD Date:?0 02/24/2025 Generated for Nadine cleaning/Mely/eTransmitting on:?03/09/2025 04:51 PM EDT
--- OUTSIDE RECORDS SUMMARY | 2025-03-09 16:51 | XMS_ITS | Patient Health Record ---
Author Organization [facility] rosa maria [place] Address [address] [facility] [place] [address] Care Team Providers Care Rebar Fabricator Name Role Phone Mansi COPE, Major Primary Care Provider Priyanka Colon Unavailable [phone] Allergies No Known Allergies Reason For Referral [...] 01/24/2025 Encounters Encounter Location Date Provider Diagnosis [facility] [address] 01/24/2025 Priyanka Smallwood Pain in left toe(s) M79.675 ; Other hammer toe(s) (acquired), left foot M20.42 and [place] L[address] [facility] [address] 01/24/2025 Priyanka Smallwood Assessments Encounter Date Diagnosis (ICD Code) Assessment Notes Treatment Notes Treatment Clinical Notes Section Notes 01/24/2025 Pain in left toe(s) (ICD-10 - M79.675) 01/24/2025 Other hammer toe(s) (acquired), left foot (ICD-10 - M20.42) 01/24/2025 [place] (ICD-10 - L84) Plan Of Treatment Pending Test Test Name Order Date X ray : Foot, left 3V 01/24/2025 Insurance Providers Payer Name Payer Address Payer Phone Subscriber Number Group Number Insured Name Patient Relationship to Insured Coverage Start Date Coverage End Date Medicare National [employer] [address] [place] [address] [id number] Suhail Hassan Self - patient is the insured 2 [id number] [address] [address] [place] [address] [id number] Suhail Hassan Self - patient is the insured 2 Medical (General) History Medical History History ICD Code Back,Hip,and Knee pain
== END 2025-03-09 16:44 | disposition home or self-care (01) ==
LOC: HO.MRI 16:43
PROVIDERS: PCP Internal Medicine; Visit Provider Internal Medicine
DX: M54.30 Sciatica, unspecified side (principal)
CPT/HCPCS: 72148

== ENCOUNTER → 2025-03-09 17:12 | Outpatient (BNV) | payer MEDICARE, OTHER, SELFPAY | PROVIDERS: PCP Internal Medicine; Visit Provider Radiology Diagnostic Radiology | DX: M54.30 Sciatica, unspecified side (principal) | CPT/HCPCS: 72148 ==

== ENCOUNTER → 2025-03-30 14:13 | Outpatient (BNV) | payer MEDICARE, OTHER, SELFPAY | PROVIDERS: PCP Internal Medicine; Referring Provider Internal Medicine; Visit Provider Nurse Practitioner Family | DX: D50.9 Iron deficiency anemia, unspecified (principal) | CPT/HCPCS: 99204 ==

== ENCOUNTER 2025-04-13 14:00 | Outpatient (RCR) | payer MEDICARE, OTHER, SELFPAY ==
[2025-04-06 13:48] VITALS: BP 156/85; PULSE 97; RESP 16; TEMP 36.4; O2SAT 97
[2025-04-06] MEDS: Iron Sucrose Complex 200 MG in 0.9 % Sodium Chloride 100 ML 440 MG IV (13:53)
[2025-04-13 14:06] VITALS: BP 158/84; PULSE 96; RESP 18; TEMP 36.6
[2025-04-13] MEDS: Iron Sucrose Complex 200 MG in 0.9 % Sodium Chloride 100 ML 440 MG IV (14:12)
== END 2025-04-13 14:37 | disposition home or self-care (01) ==
LOC: HO.INF 14:00
PROVIDERS: Visit Provider Nurse Practitioner Family
DX: D50.9 Iron deficiency anemia, unspecified (principal)
CPT/HCPCS: 96365; J1756

== ENCOUNTER → 2025-04-20 10:00 | Outpatient (REF) | payer MEDICARE, OTHER, SELFPAY ==
--- NOTE | ~2025-04-20 | NM_ITS ---
EXAMINATION: NM BONE SCAN OF THE WHOLE BODY CLINICAL INFORMATION: Abnormal bone marrow on MRI 03/09/2025 COMPARISON: MRI lumbar spine 03/09/2025 TECHNIQUE: Multiple gamma scintillation camera images of the whole body were performed 3 hours following the intravenous administration of 25 mCi Tc-99m MDP. FINDINGS: In the head, no abnormality seen. In the thoracic cage and upper extremities, no abnormal activity seen in the thoracic cage and upper extremities. In the spine, no abnormal isotope activity seen in cervical thoracic or lumbosacral spine.. In the pelvis, unremarkable In the lower extremities, unremarkable No other definite bony abnormalities are noted. The urinary bladder and faint visualization of both kidneys are noted. NM/NM bone scan whole body IMPRESSION: Unremarkable whole body bone scan. Abnormality seen in the MR lumbar spine is likely regenerative bone marrow secondary to underlying anemia. Correlate with blood test. Electronically signed by: Vadim Shields MD 04/20/2025 03:20 PM EDT
--- OUTSIDE RECORDS SUMMARY | 2025-04-20 11:12 | XMS_ITS | Patient Health Record ---
Author Organization [facility] Address [address] [place] [address] Care Team Providers Care Medical Services Assistant Name Role Phone Major Nazario MD Primary Care Provider Jhonathan Heredia Unavailable [phone] Allergies No Known Allergies Reason For Referral [...] Risk Notes Problem Diverticular disease of colon (394372181) Diverticulosis of large intestine without perforation or abscess without bleeding (K57.30) Active confirmed Problem Gastroesophageal reflux disease (432109852) Gastroesophageal reflux disease (K21.9) Active confirmed Problem Iron deficiency anemia (89259843) Iron deficiency anemia (D50.9) Active confirmed Problem History of polyp of colon (352502471) History of colon polyps (Z86.010) Active confirmed Problem 94746038 Heme + stool (R19.5) Active confirmed Problem 54843546 Iron deficiency anemia, unspecified iron deficiency anemia type (D50.9) Active confirmed Problem Erosive gastritis (5645306470833579) Erosive gastritis (K29.60) Active confirmed Problem 353693794 Gastroesophageal reflux disease, unspecified whether esophagitis present (K21.9) Active confirmed Vital Signs Temperature 97.3 degrees Fahrenheit 02/01/2025 Blood pressure diastolic 01 mm Hg 02/01/2025 Height 67.5 in 02/01/2025 Blood pressure systolic 001 mm Hg 02/01/2025 Weight 144 lbs 02/01/2025 BMI 22.22 kg/m2 02/01/2025 Encounters Encounter Location Date Provider Diagnosis [facility] [address] [place] [phone] 02/01/2025 Jhonathan Schwartz Iron deficiency anem ia, unspecified iron deficiency anemia type D50.9 and Erosive gastritis K29.60 [facility] [address] [place] [phone] 07/27/2024 Jhonathan Schwartz Iron deficiency anem ia, [...] Provider Name:Jhonathan Schwartz , 08/02/2025 03:00:00 PM, [address] [place] [address], [address], [place], [phone], Insurance Providers Payer Name Payer Address Payer Phone Subscriber Number Group Number Insured Name Patient Relationship to Insured Coverage Start Date Coverage End Date [place] [address] [place] [address] [id number] BENJAMIN MORGAN Self - patient is the insured [employer] [address] [address] [place] [address] [phone] [id number] BENJAMIN MORGAN Self - patient is the insured Medical (General) History Medical History History ICD Code Denies [place],DM,CVA,Lung disease,renal dise ase Neg. screeening colonoscopy in [...]
== END ==
LOC: HO.NUCMED 10:00
PROVIDERS: PCP Internal Medicine; Visit Provider Internal Medicine
DX: R93.89 Abnormal findings on diagnostic imaging of other specified body structures (principal)
CPT/HCPCS: 78306; A9503

== ENCOUNTER → 2025-04-20 11:53 | Outpatient (BNV) | payer MEDICARE, OTHER, SELFPAY | PROVIDERS: PCP Internal Medicine; Visit Provider Radiology Diagnostic Radiology | DX: R93.7 Abnormal findings on diagnostic imaging of other parts of musculoskeletal system (principal) | CPT/HCPCS: 78306 ==

== ENCOUNTER 2025-06-02 10:09 | Outpatient (REF) | payer MEDICARE, OTHER, SELFPAY ==
--- OUTSIDE RECORDS SUMMARY | 2025-06-02 10:18 | XMS_ITS | Patient Health Record ---
Author Organization [facility] Address [address] [place] [address] Care Team Providers Care Human Capital Consultant Name Role Phone Major Nazario MD Primary Care Provider Jhonathan Heredia Unavailable [phone] Allergies No Known Allergies Reason For Referral [...] Risk Notes Problem Diverticular disease of colon (582955424) Diverticulosis of large intestine without perforation or abscess without bleeding (K57.30) Active confirmed Problem Gastroesophageal reflux disease (571013721) Gastroesophageal reflux disease (K21.9) Active confirmed Problem Iron deficiency anemia (02612743) Iron deficiency anemia (D50.9) Active confirmed Problem History of polyp of colon (160423684) History of colon polyps (Z86.010) Active confirmed Problem 64973998 Heme + stool (R19.5) Active confirmed Problem 69249200 Iron deficiency anemia, unspecified iron deficiency anemia type (D50.9) Active confirmed Problem Erosive gastritis (3312880898329827) Erosive gastritis (K29.60) Active confirmed Problem 251472255 Gastroesophageal reflux disease, unspecified whether esophagitis present (K21.9) Active confirmed Vital Signs Temperature 97.3 degrees Fahrenheit 02/01/2025 Blood pressure diastolic 01 mm Hg 02/01/2025 Height 67.5 in 02/01/2025 Blood pressure systolic 001 mm Hg 02/01/2025 Weight 144 lbs 02/01/2025 BMI 22.22 kg/m2 02/01/2025 Encounters Encounter Location Date Provider Diagnosis [facility] [address] [place] [phone] 02/01/2025 Jhonathan Schwartz Iron deficiency anem ia, unspecified iron deficiency anemia type D50.9 and Erosive gastritis K29.60 [facility] [address] [place] [phone] 07/27/2024 Jhonathan Schwartz Iron deficiency anem ia, [...] Provider Name:Jhonathan Schwartz , 08/02/2025 03:00:00 PM, [address] [place] [address], [address], [place], [phone], Insurance Providers Payer Name Payer Address Payer Phone Subscriber Number Group Number Insured Name Patient Relationship to Insured Coverage Start Date Coverage End Date [place] [address] [place] [address] [id number] BENJAMIN MORGAN Self - patient is the insured [facility] [address] [address] [place] [address] [phone] [id number] BENJAMIN MORGAN Self - patient is the insured Medical (General) History Medical History History ICD Code Denies [place],DM,CVA,Lung disease,renal dise ase Neg. screeening colonoscopy in [...]
--- OUTSIDE RECORDS SUMMARY | 2025-06-02 10:19 | XMS_ITS | Patient Health Record ---
Author Organization Major Nazario MD Address [address] [place] [id number] Care Team Providers Care Rack Pusher Name Role Phone Major Nazario Primary Care Provider [phone] Allergies No Known Allergies Results Component Value Reference Range Notes Complete Blood Count Auto Di ff Reviewed date:08/30/2024 12:40:36 PM Interpretation: Performing Lab:[facility], [address] [place] [phone] Notes/Report: White Blood Count 7.4 4.8-10.8 X10*3/uL [...] PROFILE Reviewed date:08/30/2024 01:50:03 PM Interpretation: Performing Lab:[facility], [address] [place] [phone] Notes/Report: Iron 380 45-160 mcg/dL Total Iron Binding Capacity 405 228-428 mcg/dL Percent Iron Saturation 94 15-50 % Unsaturated Iron Binding < 25 IRON PROFILE Reviewed date:11/28/2024 05:00:26 PM Interpretation: Performing Lab:[facility], [address] [place] [phone] Notes/Report: Iron 31 45-160 mcg/dL Total Iron Binding Capacity 333 228-428 mcg/dL Percent Iron Saturation 9 15-50 % Unsaturated Iron Binding 302 Complete Blood Count Auto Di ff Reviewed date:03/03/2025 08:02:02 AM Interpretation:03-02-2025 Performing Lab:[facility], [address] [place] [phone] Notes/Report: White Blood Count 5.1 4.8-10.8 X10*3/uL [...] NRBC Abs Auto 0.000 0.0-0.012 X10*3/uL Comprehensive [place]. Panel Fa st Reviewed date:02/24/2025 03:40:54 PM Interpretation: Performing Lab:[facility], [address] [place] [phone] Notes/Report: Sodium 137 135-145 mmol/L Potassium 4.2 [...] PROFILE Reviewed date:02/24/2025 10:28:19 AM Interpretation: Performing Lab:[address] [address] Notes/Report: Iron 33 45-160 mcg/dL Total Iron Binding Capacity 328 228-428 mcg/dL Percent Iron Saturation 10 15-50 % Unsaturated Iron Binding 295 PSA,Total (Free>4and<10) Reviewed date:02/24/2025 03:36:44 PM Interpretation: Performing Lab:[address] [address] Notes/Report: PSA,Total (Free>4and<10) 1.83 0.00-4.00 ng/mL A [...] t Reviewed date:02/24/2025 03:43:56 PM Interpretation: Performing Lab:[address] [address] Notes/Report: Urine, Clean Catch Color Urine Yellow Appearance Urine Clear PH 5.5 5.0-9.0 Glucose Urine UA Negative Negative mg/dL Urine Blood Negative Negative Specific [place] - Urine <= 1.005 1.005-1.025 Urine Protein [...] date:11/10/2024 12:22:35 PM Interpretation: Performing Lab: Notes/Report: [address] [address] [address] Scan Report Signed Patient: Suhail Hassan MR#: [id number] : 1955 Acct:[id number] Age/Sex: 69 / M ADM Date: 11/08/24 Loc: HO.CT Attending Dr: Mee Rey PA-C Ordering Physician: Mee Rey PA-C Date of Service: 11/08/24 Procedure(s): CT lung screening Accession Number(s): [id number] cc: Major Nazario MD; Mee Rey PA-C Report Number: [id number]: Total DLP = 49.00 mGy-cm CLINICAL HISTORY: [...] by Weston Bangura MD in OV> 11/10/24 075 DD/ 2 TD/TT: 11/10/24752 Manager Supplier: [place] [address] [address] Scan Report Signed Patient: Jw Hassan MR#: [id number] : 1955 Acct:[id number] Age/Sex: 69 / M ADM Date: 11/08/24 Loc: HO.CT Attending Dr: Mee Rey PA-C Ordering Physician: Mee Rey PA-C Date of Service: 11/08/24 Procedure(s): CT jorge l g screening Accession Number(s): [id number] cc: Major Nazario MD; Mee Rey PA-C [...] Bangura MD on 11/10/2024 07:53:50 Dictated By: Yong Bangura MD Signed By: <Electron icallyong signed by Weston Bangura MD in OV> 11/10/24 075 DD/ 075 TD/TT: 11/10/24 075 Manager Supplier: MR shoulder RT wo con Reviewed date:11/11/2024 05:24:22 PM Interpretation: Performing Lab: Notes/Report: [place] [address] Magnetic Resonance Report Signed Patient: Suhail Hassan MR#: [id number] : 1955 Acct:[id number] Age/Sex: 69 / M ADM Date: 11/09/24 Loc: HO.MRI Attending Dr: Brandon Waite MD Ordering Physician: Brandon Waite MD Date of Service: 11/09/24 Procedure(s): MR shoulder RT wo con Accession Number(s): [id number] cc: Major Nazario MD; Brandon Waite MD [...] in OV> 11/10/242103 DD/ 03 TD/TT: 11/10/242103 Manager Supplier: [place] [address] Magnetic Resonance Report Signed Patient: Jw Hassan MR#: [id number] : 1955 Acct:[id number] Age/Sex: 69 / M ADM Date: 11/09/24 Loc: HO.MRI Attending Dr: Brandon Waite MD Ordering Physician: Brandon Waite MD Date of Service: 11/09/24 Procedure(s): MR guadalupe christine RT wo con Accession Number(s): [id number] cc: Major Nazario MD; Brandon Waite MD CLINICAL HISTORY: M2 5.311 - Other instability, right shoulder MR of the right [facility] lder without contrast. No comparison. Findings: There is [...] or definite labral tear is identified. Acromioclavicular al ignment is normal without significant degenerative change. Impression: Small partial-thickn ess articular surface tear distal supraspinatus tendon. Small intrasubstance tear of the subscapularis tendon. This document has be en electronically signed by: Feliberto Eid MD on 11/10/2024 21:04:05 Dictated By: Navdeep Garcia MD Signed By: <David cabrera signed by Navdeep Garcia MD in OV> 11/10/242103 DD/ 03 TD/TT: 11/10/242103 Manager Supplier: MR lumbar spine wo con Reviewed date:03/16/2025 08:01:53 AM Interpretation:PUNEET 03/14 Performing Lab: Notes/Report: [place] [address] Magnetic Resonance Report Signed Patient: Suhail Hassan MR#: [id number] : 1955 Acct:[id number] Age/Sex: 70 / M ADM Date: 03/09/25 Loc: HO.MRI Attending Dr: Major Nazario MD Ordering Physician: Major Nazario MD Date of Service: 03/09/25 Procedure(s): MR lumbar spine wo con Accession Number(s): [id number] cc: Major Nazario MD EXAMINATION: MR LUMBAR SPINE WITHOUT CONTRAST CLINICAL INFORMATION: Sciatica COMPARISON: None available. TECHNIQUE: MRI of the lumbar spine was obtained using routine sequences without contrast. FINDINGS: Last rib-bearing vertebra labeled T12. Bone marrow inhomogeneity throughout the axial skeleton and bony pelvis with permanently fatty signal. Multilevel marginal osteophyte formation and disc desiccation with decreased intervertebral disc height more pronounced at L4-5. Grade 1 retrolisthesis at L1-2, L3-4 and L5-S1 on a degenerative basis. Conus medullaris ends at the superior endplate of L1 with normal signal. T12-L1: No disc herniation. No neuroforamina stenosis. L1-2: Broad-based bulging. Bilateral neuroforamina narrowing. Facet joint hypertrophy. No central spinal canal stenosis. L2-3: Left subarticular foraminal and extraforaminal broad-based disc herniation. Facet joint and ligamentum flavum hypertrophy. Reduced AP diameter of the thecal sac and neuroforamina with the left neuroforamina and stenosis compressing the left L2 and abutting the left L3 exiting nerve roots. L3-4: Broad-based disc bulging, facet joint and ligamentum flavum hypertrophy. Reduced AP diameter of the thecal sac and neuroforamina encroaching likely compressing the exiting nerve roots. L4-5: Broad-based disc bulging. Facet joint and ligamentum flavum hypertrophy. Reduced AP diameter of the thecal sac and bilateral neuroforamina stenosis compressing the exiting nerve roots. L5-S1: Broad-based disc bulging. Facet joint hypertrophy. Reduced AP diameter of the thecal sac and bilateral neuroforamina stenosis encroaching likely compressing the exiting nerve roots. No prevertebral compartment hematoma, mass or fluid collection. Slight asymmetric volume loss right psoas muscle. MR/MR lumbar spine wo con IMPRESSION: Bone marrow inhomogeneity. Consider calcium metabolic disorders versus lymphoproliferative disorder and other malignancy. Multilevel spondylosis from L2-3 to L5-S1 resulting in bilateral neuroforamina stenosis. Central spinal canal stenosis at L3-4 and L4-5 levels encroaching posterior compressing the exiting nerve roots. Electronically signed by: Yadiel Birmingham MD 03/10/2025 07:08 AM EDT Dictated By: Yadiel Brooks MD Signed By: <Electronically signed by Yadiel Esquivel MD in OV> 03/10/25 0708 DD/ 1712 TD/TT: 03/09/25 1727 Manager Supplier: [address] [address] Magnetic Resonance Report Signed Patient: Jw Hassan MR#: [id number] : 1955 Acct:[id number] Age/Sex: 70 / M ADM Date: 03/09/25 Loc: HO.MRI Attending Dr: Major Nazario MD Ordering Physician: Major Nazario MD Date of Service: 03/09/25 Procedure(s): MR lum bar spine wo con Accession Number(s): [id number] cc: Major Nazario MD EXAMINATION: MR LUMBAR SPINE WITH OUT CONTRAST CLINICAL INFORMATION: Sciatica COMPARISON: None available. TECHNIQUE: MRI of the lumbar sp ine was obtained using routine sequences without contrast. FINDINGS: Last rib-bearing [place]ch[place] tebra labeled T12. Bone marrow inhomoge neity throughout the axial skeleton and bony pelvis with permanently fat ty signal. Multilevel marginal osteophyte formation and disc desiccation with decreased interverte bral disc height more pronounced at L4-5. Grade 1 retrolisthes is at L1-2, L3-4 and L5-S1 on a degenerative basis. Conus medullaris end s at the superior endplate of L1 with normal signal. T12-L1: No disc herniation. No neuroforamina stenosis. L1-2: Broad-based bulging. Bilateral neuroforamina narrowing. Facet joint hypertrophy. No cent ral spinal canal stenosis. L2-3: Left subarticular fo raminal and extraforaminal broad-based disc herniation. Facet dwight int and ligamentum flavum hypertrophy. Reduced AP diameter of the thec al sac and neuroforamina with the left neuroforamina and st enosis compressing the left L2 and abutting the left L3 exiting nerv e roots. L3-4: Broad-based disc bul ging, facet joint and ligamentum flavum hypertrophy. Reduced AP diameter of the thecal sac and neuroforamina encroaching likely compressing the exiting nerve roots. L4-5: Broad-based disc bul ging. Facet joint and ligamentum flavum hypertrophy. Reduced AP diameter of the thecal sac and bilateral neuroforamina stenos is compressing the exiting nerve roots. L5-S1: Broad-based disc bul ging. Facet joint hypertrophy. Reduced AP diameter of the thecal sac an d bilateral neuroforamina stenosis encroaching likely compressing t he exiting nerve roots. No prevertebral comp artment hematoma, mass or fluid collection. Slight asymmetric vo lume loss right psoas muscle. M R/MR lumbar spine wo con IMPRESSION: Bone marrow inhomoge neity. Consider calcium metabolic disorders versus lymphoproliferative disorder and other malignancy. Multilevel spondylos is from L2-3 to L5-S1 resulting in bilateral neuroforamina stenos is. Central spinal canal stenosis at L3-4 and L4-5 levels encroaching posterior compressing the exiting nerve roots. Electronically geno d by: Yadiel Birmingham MD 03/10/2025 07:08 AM EDT Dictated By: Yadiel Gilmore MD Signed By: <Electron ically signed by Yadiel Esquivel MD in OV> 03/10/25 0708 DD/ 1712 TD/TT: 03/09/25 1727 Manager Supplier: NM bone scan whole body Reviewed date:04/21/2025 04:21:41 PM Interpretation: Performing Lab: Notes/Report: [address] [address] Nuclear Medicine Report Signed Patient: Suhail Hassan MR#: [id number] : 1955 Acct:[id number] Age/Sex: 70 / M ADM Date: 04/20/25 Loc: MICHELL Attending Dr: Major Nazario MD Ordering Physician: Major Nazario MD Date of Service: 04/20/25 Procedure(s): NM bone scan whole body Accession Number(s): [id number] cc: Major Nazario MD EXAMINATION: NM BONE SCAN OF THE WHOLE BODY CLINICAL INFORMATION: Abnormal bone marrow on MRI 03/09/2025 COMPARISON: MRI lumbar spine 03/09/2025 TECHNIQUE: Multiple gamma scintillation camera images of the whole body were performed 3 hours following the intravenous administration of 25 mCi Tc-99m MDP. FINDINGS: In the head, no abnormality seen. In the thoracic cage and upper extremities, no abnormal activity seen in the thoracic cage and upper extremities. In the spine, no abnormal isotope activity seen in cervical thoracic or lumbosacral spine.. In the pelvis, unremarkable In the lower extremities, unremarkable No other definite bony abnormalities are noted. The urinary bladder and faint visualization of both kidneys are noted. NM/NM bone scan whole body IMPRESSION: Unremarkable whole body bone scan. Abnormality seen in the MR lumbar spine is likely regenerative bone marrow secondary to underlying anemia. Correlate with blood test. Electronically signed by: Vadim Shields MD 04/20/2025 03:20 PM EDT RP Dictated By: Vadim Shields MD Signed By: <Electronically signed by Vadim Shields MD in OV> 04/20/25 1520 DD/ 1153 TD/TT: 04/20/25 1400 Manager Supplier: [place] [address] Nuclear Medicine Report Signed Patient: Jw aHssan MR#: [id number] : 1955 Acct:[id number] Age/Sex: 70 / M ADM Date: 04/20/25 Loc: MICHELL Attending Dr: Major Nazario MD Ordering Physician: Major Nazario MD Date of Service: 04/20/25 Procedure(s): NM bon e scan whole body Accession Number(s): [id number] cc: Major Nazario MD EXAMINATION: NM BONE SCAN OF THE WHOLE BODY CLINICAL INFORMATION: Abnormal bone marrow on MRI 03/09/2025 COMPARISON: MRI lumbar spine 03/09/2025 TECHNIQUE: Multiple gamma scintillation camera images of the whole body were performed 3 hours fo llowing the intravenous administration of 25 mCi Tc-99m MDP. FINDINGS: In the head, no abno rmality seen. In the thoracic cage and upper extremities, no abnormal activity seen in the thoracic cage and upper extremities. In the spine, no abn ormal isotope activity seen in cervical thoracic or lumbosacral spine.. In the pelvis, unremarkable In the lower extremi ties, unremarkable No other definite [place] abnormalities are noted. The urinary bladder and faint visualization of both kidneys are noted. N M/NM bone scan whole body IMPRESSION: Unremarkable whole b larry bone scan. Abnormality seen in the MR lumbar spine is likely regenerative bone marrow secondary to underlying anemia. Correlate with blood test. Electronically geno d by: Vadim Shields MD 04/20/2025 03:20 PM EDT RP Dictated By: Mr leslie Shields MD Signed By: <Electron ically signed by Vadim Shields MD in OV> 04/20/25 1520 DD/ 1153 TD/TT: 04/20/25 1400 Manager Supplier: [employer] Reason For Referral Reason pain right shoulder Diagnosis 1 Pain in right should er (M25.511) Referral Organization Major Nazario MD Referring Provider First Name Major Referring Provider Last Name Mansi Referring Provider Speciality Internal edicine Referred Provider Ayd De Jesus Referred Provider Specialty Orthopedic S urgery General Notes Saranya Rolle 01:44:19 PM EST > info faxed Aquilino Annette 09/19/2024 02:29:07 PM EST > was told to refaxed Aquilino Annette 09/20/2024 01:18:45 PM EST > was told by office patient is aware of appt Referral Priority Routine Referral Appointment Date 11/01/2024 Reason please eval and glen t abnormal bone marrow Diagnosis 1 Abnormal MRI (R93.89 ) Referral Organization Major Nazario MD Referring Provider First Name Major Referring Provider Last Name Mansi Referring Provider Speciality Internal edicine Referred Provider ELIESER JANE Referred Provider Specialty Hematology/O ncology General Notes Saranya Rolle 0 03/14/2025 02:16:49 PM >NM bone scan pendingAquilino Annette 03/20/2025 11:59:28 AM >referral faxedAquilino Annette 03/24/2025 03:14:26 PM >patient is aware of appt Referral Priority Routine Referral Appointment Date 03/30/2025 Medications Medication SIG (Take, Route, Frequency, Duration) [...] a day for 30 day(s) 12/31/2020 Not-Taking Immunizations Vaccine Route Administration Date Status Comme [...] Problem Status W/U Status Risk Notes Problem 134068094 Atherosclerotic heart disease of [place] coronary artery without angina pectoris (I25.10) Active confirmed Problem Sciatica (43494705) Sciatica (M54.30) Active confirmed Problem 822247639 Erectile dysfunction (N52.9) Active confirmed Problem 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 Problem 24222514 Coronary atherosclerosis due to calcified coronary lesion (I25.84) Active confirmed Problem 2710215 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) Active confirmed Problem 535073264 Lumbar disc dise ase (M51.9) Active confirmed Problem 60738026 Smoker (F17.200) Active confirmed Problem 931482299 Environmental allergies (Z91.09) Active confirmed Problem Iron deficiency anemia (18760901) Iron deficiency anemia (D50.9) Active confirmed Problem 79117292 Current smoker (F17.200) Active confirmed Problem Monocytosis (74826057) Monocytosis (D72.821) Active confirmed Problem 11769389 Iron deficiency anemia, unspecified iron deficiency anemia type (D50.9) Active confirmed Problem 06990298 Intertrigo (L30.4) Active confirmed Problem 319852418 Hyperplastic colonic polyp, unspecified part of colon (K63.5) Active confirmed Problem Anogenital warts (676953379) Condyloma acuminata (A63.0) Active confirmed Problem MRI Scan Abnormal (936733464) Abnormal MRI (R93.89) Active confirmed Vital Signs Blood pressure diastolic 60 mm Hg 03/14/2025 Height 69.50 in 03/14/2025 Blood pressure systolic 122 mm Hg 03/14/2025 Weight 141 lbs 03/14/2025 BMI 20.52 kg/m2 03/14/2025 Encounters Encounter Location Date Provider Diagnosis Major Nazario MD [address] [place] [id number] 08/30/2024 Major Nazario Iron deficiency anem ia D50.9 ; Monocytosis D72.821 ; Iron deficiency anemia, unspecified iron deficiency anemia type D50.9 and Encounter for immunization Z23 Major Nazario MD [address] [place] [id number] 11/28/2024 Major Nazario Iron deficiency anem ia D50.9 Major Nazario MD [address] [place] [id number] 02/24/2025 Major Nazario Iron deficiency anem ia, unspecified iron deficiency anemia type D50.9 and Atherosclerotic heart disease of [place] coronary artery without angina pectoris I25.10 Major Nazario MD [address] [place] [id number] 06/02/2025 Major Nazario Iron deficiency anem ia, unspecified iron deficiency anemia type D50.9 Major Nazario MD [address] [place] [id number] 09/06/2024 Major Nazario Iron deficiency anem ia, unspecified iron deficiency anemia type D50.9 ; Toe pain, left M79.675 and Pain in right shoulder M25.511 Major Nazario MD [address] [place] [id number] 03/02/2025 Major Nazario Sciatica M54.30 ; Coronary atherosclerosis due to calcified coronary lesion I25.84 and Iron deficiency anemia, unspecified iron deficiency anemia type D50.9 Major Nazario MD [address] [place] [address] [id number] 03/14/2025 Major Nazario Abnormal MRI R93.89 and Abnormal bone marrow examination R89.8 Major Nazario MD [address] [place] [address] [address] [id number] 12/01/2024 Major Nazario MD [address] [id number] 12/15/2024 Major Nazario Assessments Encounter Date Diagnosis (ICD Code) Assessment Notes Treatment Notes Treatment Clinical Notes Section Notes 08/30/2024 Iron deficiency anemia (ICD-10 - D50.9) 08/30/2024 Monocytosis (ICD-10 - D72.821) 11/28/2024 Iron deficiency anemia (ICD-10 - D50.9) 02/24/2025 Iron deficiency anemia, unspecified iron deficiency anemia type (ICD-10 - D50.9) 06/02/2025 Iron deficiency anemia, unspecified iron deficiency [...] current regiment, advised on diet and exercise 03/14/2025 Abnormal MRI (ICD-10 - R93.89) referral to dr jane for abnormal bone marrow/ order faxed to [facility] CS dept Total time spent on the date of the encounter is 35 minutes including both face to face time spent and time spent reviewing documentation, pertinent lab data, studies and counseling the patient. 03/14/2025 Abnormal bone marrow examination (ICD-10 - R89.8) 08/30/2024 Iron deficiency anemia, unspecified iron deficiency anemia type (ICD-10 - D50.9) 02/24/2025 Atherosclerotic heart disease of [place] coronary artery without angina pectoris (ICD-10 - I25.10) 09/06/2024 Pain in right shoulder (ICD-10 - M25.511) referral to [facility] ortho 03/02/2025 Iron deficiency anemia, unspecified iron deficiency anemia type (ICD-10 - D50.9) had upper and lower endoscopy last year restart iron/ send copy of blood work to dr pickens/ lab results faxed to Dr. Pickens office 08/30/2024 Encounter for immunization (ICD-10 - Z23) Plan Of Treatment Pending Test Test Name Order Date Electrocardiogram (EKG) 12/04/2017 Electrocardiogram (EKG) 12/16/2018 MRI LUMBAR SPINE NO CONTRAST 03/02/2025 Lipid Panel 02/24/2025 NM bone scan whole body 03/14/2025 Complete Blood Count Auto Diff IRON PROFILE 06/02/2025 Future Test Test Name Order Date CT chest wo con 12/14/2024 Next Appt Details Provider Name:Major frazier, 06/13/2025 02:00:00 PM, [address] [place] [address], [address], [place], [place], [phone], Provider Name:Major frazier, 09/04/2025 07:30:00 AM, [address] [place] [address], [address], [place], [place], [phone], Provider Name:Major frazier, 09/11/2025 02:00:00 PM, [address], [address], [facility] [place], [phone], Provider Name:Major Oh ier, 02/27/2026 07:15:00 AM, [address] [facility], [address], [place], [phone], Provider Name:Major Oh ier, 03/05/2026 02:30:00 PM, [address] [facility], [address], [place], [place], [phone], Insurance Providers Payer Name Payer Address Payer Phone Subscriber Number Group Number Insured Name Patient Relationship to Insured Coverage Start Date Coverage End Date [employer] [address] [place] [address] [id number] Suhail Hassan Self - patient is the insured [facility] [address] [address] [place] [address] [id number] Suhail Hassan Self - patient is the insured Medical (General) History Medical History History ICD Code Abscess colonoscopy 2009 neg. repeat 10; Colonoscopy 04/23/[address] Pickens hyperplastic polyp flu vac refused 08/12/13 colonoscopy 2022 repeat in 5 years
--- OUTSIDE RECORDS SUMMARY | 2025-06-02 10:19 | XMS_ITS | Patient Health Record ---
Author Organization [facility] rosa maria [place] Address [address] [place] [address] Care Team Providers Care Education Consultant Name Role Phone Mansi COPE, Major Primary Care Provider Priyanka Colon Unavailable [phone] Allergies No Known Allergies Reason For Referral [...] 01/24/2025 Encounters Encounter Location Date Provider Diagnosis [facility] [phone] 01/24/2025 Priyanka [place] Pain in left toe(s) M79.675 ; Other hammer toe(s) (acquired), left foot M20.42 and [place] L[address] [facility] [address] 01/24/2025 Priyanka [place] Assessments Encounter Date Diagnosis (ICD Code) Assessment Notes Treatment Notes Treatment Clinical Notes Section Notes 01/24/2025 Pain in left toe(s) (ICD-10 - M79.675) 01/24/2025 Other hammer toe(s) (acquired), left foot (ICD-10 - M20.42) 01/24/2025 [place] (ICD-10 - L84) Plan Of Treatment Pending Test Test Name Order Date X ray : Foot, left 3V 01/24/2025 Insurance Providers Payer Name Payer Address Payer Phone Subscriber Number Group Number Insured Name Patient Relationship to Insured Coverage Start Date Coverage End Date Medicare [employer] [address] [place] [address] [id number] Suhail Hassan Self - patient is the insured 2 [facility] [address] [address] [place] [address] [id number] Suhail Hassan Self - patient is the insured 2 Medical (General) History Medical History History ICD Code Back,Hip,and Knee pain
[2025-06-02 10:22] LABS: Hematocrit 35.1 % (42.0-52.0); Hemoglobin 12.6 g/dl (14.0-18.0); Imm Gran Abs Auto 0.02 X10*3/uL (0.00-0.03); Imm Gran Pct Auto 0.3 % (0.0-0.4); Lymphocytes Absolute Auto 0.7 X10*3/uL (1.2-4.9); MANUAL DIFF FLAG SCAN; Mean Corpuscular HGB Conc 35.9 g/dl (31.0-36.0); Mean Corpuscular Hemoglobin 32.0 pg (27.0-33.0); Mean Corpuscular Volume 89.1 fL (80.0-98.0); NRBC Abs Auto 0.000 X10*3/uL (0.0-0.012); NRBC Pct Auto 0.0 /100WBC (0.0-0.2); Platelet Count 231 X10*3/uL (160-400); Red Blood Count 3.94 X10*6/uL (4.60-5.80); SCAN SMEAR FLAG 1; White Blood Count 7.2 X10*3/uL (4.8-10.8)
[2025-06-02 10:33] LABS: Iron 98 mcg/dL (45-160); Percent Iron Saturation 38 % (15-50); Total Iron Binding Capacity 257 mcg/dL (228-428); Unsaturated Iron Binding 159 ug/dL
== END 2025-06-02 10:10 | disposition home or self-care (01) ==
LOC: HO.LNP 10:09
PROVIDERS: Visit Provider Internal Medicine
DX: D50.9 Iron deficiency anemia, unspecified (principal)
CPT/HCPCS: 83540; 85025

== ENCOUNTER 2025-07-11 10:36 | Outpatient (REF) | payer MEDICARE, OTHER, SELFPAY ==
--- OUTSIDE RECORDS SUMMARY | 2025-02-01 11:40 | XMS_ITS ---
Author Organization [facility] Address [address] [place] [address] Care Team Providers Care Baby Attendant Name Role Phone Major Nazario MD Primary Care Provider Jhonathan Heredia Unavailable [phone] Allergies No Known Allergies REASON FOR VISIT Patient presents today for anemia Medications Medication SIG (Take, Route, Frequency, Duration) Notes Start Date End Date Status Atorvastatin Calcium 20 MG TAKE 1 TABLET BY MOUTH EVERYDAY AT BEDTIME Oral for 90 Days Active Multivitamin Adult - Orally occasionally Active Omeprazole 40 MG 1 Orally Every morning for 30 day(s) 08/24/2023 Not-Taking Omeprazole 20 MG 1 capsule Orally once every morning for 90 days Active Social History Tobacco Use: Social History Observation Description Date Details (start date - stop date) Current Smoker NA - NA Tobacco Use/Smoking Question Answer Notes Patient is [...] Never (0 point) Points 3 Interpretation Negative Section Notes: Smoker approx 1/2 to 1 ppd; 4-6 beers per day Vital Signs Temperature 97.3 degrees Fahrenheit 02/02/20 25 Blood pressure systolic 001 mm Hg 02/02/20 25 Blood pressure diastolic 01 mm Hg 025 Height 67.5 in 02/01/2025 Weight 144 lbs 02/01/2025 BMI 22.22 kg/m2 02/01/2025 Encounters Encounter Location Date Provider Diagnosis [facility] [address] [place] [address] 02/01/2025 Jhonathan Schwartz Iron deficiency anemia, unspecified [...] 02/01/2025 Next Appt Details Follow Up: 2024, Reaso n: Provider Name:Jhonathan Schwartz , 08/02/2025 03:00:00 PM, [address], [address], [place], [address], Progress Notes * BENJAMIN MORGAN JrDOB: 1955 (70 yo M)Acc No.[id number]:02/01/2025 Progress Notes Patient: Omayra BENJAMIN VELEZ Jr Provider: Ronaldo Schwartz MD :1955 A ge:69 Y S ex:Male Date:02/01/2025 Address:[address] [place] [address], [id number] Pcp:Major Nazario MD Subjective: * Chief Complaints: * 1 . Patient presents today for anemia. * Medical History: D enies [place],DM,CVA,Lung disease,renal disease, Neg. screeening colonoscopy in 07/2010 except for a hyperplastic polyp, mild diverticulosis, small internal hemorrhoids, Colonoscopy in April of 2018 was negative other than a hyperplastic polyp, Upper endoscopy in August of 2023 revealed a small hiatal hernia and changes of reflux, but without Villarreal's esophagus or esophagitis; there was erosive gastritis with biopsies negative for H. pylori; duodenal biopsies were normal and without evidence of celiac disease, Colonoscopy in August 2023 revealed a serrated polyp in the cecum which was removed., Iron deficiency anemia in the fall with GI workup as above. He had been using ibuprofen, several beers daily, and smoking and I felt that was the cause of his anemia. * Surgical History: t onsillectomy . * Family History: F ather: , Pancreatic cancer at age 57. M other: alive. M star Grand Mother: 99 yrs, pancreatic cancer. No known hx of colon cancer. No [...] iscellaneous: M arital status: . 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 S moker approx 1/2 to 1 ppd; 4-6 beers per day. * Medications: T aking Multivitamin Adult - Tablet Orally , Notes to Pharmacist: occasionally, Taking Omeprazole 20 MG Capsule Delayed Release 1 capsule Orally once every morning , Taking Atorvastatin Calcium 20 MG Tablet TAKE 1 TABLET BY MOUTH EVERYDAY AT BEDTIME Oral , Not-Taking/PRN Omeprazole 40 MG Capsule Delayed Release 1 Orally Every morning , Discontinued Ibuprofen 200 MG Tablet 1 tablet with food or milk as needed Orally PRN , Notes to Pharmacist: 3-4 times per week * Allergies: N .K.D.A. Objective: * Vitals: W t:144lbs, Ht: 67.5 in, BMI:22.22Index, BP:001/01mm Hg, Temp:97.3, Wt-k.32. Assessment: * Assessment: 1. I libia deficiency [...] specified. * Follow Up: F all, 2024 * * The named appointment provid er may or may not be the originator of this progress note, and it is not deemed complete until electronically signed by the appointment provider. Sign off status: Pending * Provider: Ronaldo Schwartz MD Date: 0 02/01/2025 Generated for Nadine cleaning/Mely/Ulisesitting on: 0 07/11/2025 12:30 PM EDT
--- OUTSIDE RECORDS SUMMARY | 2025-03-14 09:45 | XMS_ITS ---
Author Organization Major Nazario MD Address [address] [place] [phone] Care Team Providers Care Filer Repairer Name Role Phone Major Nazario Primary Care Provider [phone] Allergies No Known Allergies Reason For Referral [...] 03/14/2025 02:16:49 PM >NM bone scan pending, aSranya Rolle 03/20/2025 11:59:28 AM >referral faxed, Saranya Rolle 03/24/2025 03:14:26 PM >patient is aware of christinet, Xiomara Salcido 06/30/2025 02:45:44 PM >OFFICE NOTE RECD FROM [facility] Referral Priority Routine Referral Appointment Date 03/30/2025 [...] Status Risk Notes Problem MRI Scan Abnormal (442921107) Abnormal MRI (R93.89) Active confirmed Vital Signs Blood pressure systolic 122 mm Hg 03/14/20 25 Blood pressure diastolic 60 mm Hg 025 Height 69.50 in 03/14/2025 Weight 141 lbs 03/14/2025 BMI 20.52 kg/m2 03/14/2025 Encounters Encounter Location Date Provider Diagnosis Major Nazario MD [address] [place] [address] [place] [phone] 03/14/2025 Major Nazario Abnormal MRI R93.89 and Abnormal bone marrow examination R89.8 Assessments Encounter Date Diagnosis (ICD Code) Assessment Notes Treatment Notes Treatment Clinical Notes Section Notes 03/14/2025 Abnormal MRI (ICD-10 - R93.89) referral to dr woodward for abnormal bone marrow/ order faxed to [facility] CS dept Total time spent on the date of the encounter is 35 minutes including both face to face time spent and time spent reviewing documentation, pertinent lab data, studies and counseling the patient. 03/14/2025 Abnormal bone marrow examination (ICD-10 - R89.8) Plan Of Treatment Treatment Notes Assessment Notes Abnormal MRI referral to dr rigo lyons for abnormal bone marrow/ order faxed to [facility] CS dept Total time spent on the [...] WOODWARD Next Appt Details Provider Name:Major frazier, 07/25/2025 02:00:00 PM, [address], [address], [place], [place], [phone], Provider Name:Major Oh ier, 09/04/2025 07:30:00 AM, [address] [facility], [address], [place], [phone], Provider Name:Major Oh ier, 09/11/2025 02:00:00 PM, [address] [facility], Suite [facility], [place], [place], [phone], Provider Name:Major Oh ier, 02/27/2026 07:15:00 AM, [address] [facility], Suite [facility], [place], [phone], Provider Name:Major Oh ier, 03/05/2026 02:30:00 PM, [address] [place] [address], Suite [facility], [place], [place], [phone], Progress Notes * Suhail HASSANDOB:03/1955 (70 yo M)Acc No.[id number]:03/14/2025 Patient: Omayra VELEZSuhail Provider: Debra Nazario MD :1955 A ge:70 Y S ex:Male Date:03/14/2025 Address:[address] [place], [place] [phone] Subjective: * Chief Complaints: * C BACK [...] MD Date: 0 03/14/2025 Generated for Nadine cleaning/Mely/Tigre on: 0 07/11/2025 12:31 PM EDT History and Physical Notes * [...]
--- OUTSIDE RECORDS SUMMARY | 2025-06-02 03:15 | XMS_ITS ---
Author Organization Major Nazario MD Address [address] [place] [phone] Care Team Providers Care Mortgage Operations Manager Name Role Phone Major Nazario Primary Care Provider Results Component Value Reference Range Notes Complete Blood Count Auto Di ff Reviewed date:06/15/2025 08:24:29 AM Interpretation:CBACK 06/13 Performing Lab:[facility], [address] [place] [phone] Notes/Report: White Blood Count 7.2 4.8-10.8 X10*3/uL [...] PROFILE Reviewed date:06/02/2025 10:43:12 AM Interpretation: Performing Lab:[facility], [address] [place] [phone] Notes/Report: Iron 98 45-160 mcg/dL Total Iron Binding Capacity 257 228-428 mcg/d L Percent Iron Saturation 38 15-50 % Unsaturated Iron Binding 159 REASON FOR VISIT CBC IRON Encounters Encounter Location Date Provider Diagnosis Major Nazario MD [address] [place] [address] [place] [phone] 06/02/2025 Major Nazario Iron deficiency anemia, unspecified iron deficiency anemia type D50.9 Assessments Encounter Date Diagnosis (ICD Code) Assessment Notes Treatment Notes Treatment Clinical Notes Section Notes 06/02/2025 Iron deficiency anemia, unspecified iron deficiency anemia type (ICD-10 - D50.9) Plan Of Treatment Next Appt Details Provider Name:Major frazier, 07/25/2025 02:00:00 PM, [address] [place] [address], [address], [phone], Provider Name:Major frazier, 09/04/2025 07:30:00 AM, [address] [place] [address], [address], [phone], Provider Name:Major frazier, 09/11/2025 02:00:00 PM, [facility], Suite [facility], [place], [place], [phone], Provider Name:Major Oh ier, 02/27/2026 07:15:00 AM, [address] [facility], [address], [place], [place], [phone], Provider Name:Major Oh ier, 03/05/2026 02:30:00 PM, [address] [facility], [address], [place], [place], [phone], Progress Notes * Suhail HASSAN JDOB:03/1955 (70 yo M)Acc No.[id number]:06/02/2025 Progress Note Patient: Suhail MCARTHUR Provider: Debra Nazario MD :1955 A ge:70 Y S ex:Male Date:06/02/2025 Address:[address] [place], [place] [phone] Subjective: * Chief Complaints: * 1 . [...] Pending * Provider: Debra Nazario MD Date: 06/02/2025 Generated for Nadine cleaning/Mely/Reedsmitting on: 07/11/2025 12:30 PM EDT
--- OUTSIDE RECORDS SUMMARY | 2025-06-13 10:00 | XMS_ITS ---
Author Organization Major Nazario MD Address [address] [place] [phone] Care Team Providers Care Pressed Or Blown Glass Worker Name Role Phone Major Nazario Primary Care Provider [phone] Allergies No Known Allergies REASON FOR VISIT 3 month/ CBACK [facility] Medications Medication SIG (Take, Route, Frequency, Duration) [...] weight is down 7 pounds [facility] 03-14-25 Encounters Encounter Location Date Provider Diagnosis Major Nazario MD [address] [place] [phone] 06/13/2025 Major Nazario Iron deficiency anemia, unspecified iron deficiency anemia type D50.9 and Monocytosis D72.821 Assessments Encounter Date Diagnosis (ICD Code) Assessment Notes Treatment Notes Treatment Clinical Notes Section Notes 06/13/2025 Iron deficiency anemia, unspecified iron deficiency anemia type (ICD-10 - D50.9) will continue to monitor, pending future labs, need notes [facility]/ will send request for notes 06/13/2025 Monocytosis (ICD-10 - D72.821) Plan Of Treatment Treatment Notes Assessment Notes Iron deficiency anemia, unsp ecified iron deficiency anemia type will continue to monitor, pending future labs, need notes from [facility]/ will send request for notes Pending Test Test Name Order Date Complete Blood Count Auto Diff IRON PROFILE 06/13/2025 Next Appt Details Follow Up: 6 Weeks, Reason: Provider Name:Major frazier, 07/25/2025 02:00:00 PM, [address] [place] [address], [address], [phone], Provider Name:Major frazier, 09/04/2025 07:30:00 AM, [address] [place] [address], [address], [phone], Provider Name:Major frazier, 09/11/2025 02:00:00 PM, [address] [place] [address], [address], [phone], Provider Name:Major frazier, 02/27/2026 07:15:00 AM, [address] [place] [address], [address], [phone], Provider Name:Major frazier, 03/05/2026 02:30:00 PM, [address] [place] [address], [address], [phone], Progress Notes * Suhail HASSANDOB:03/1955 (70 yo M)Acc No.[id number]:06/13/2025 Patient: Suhail MCARTHUR J Provider: Debra Nazario MD :1955 A ge:70 Y S ex:Male Date:06/13/2025 Address:[address] [place] [address], [place] alexander [id number] Subjective: * Chief Complaints: * 3 month/ [...] MD Date: 0 06/13/2025 Generated for Nadine cleaning/Mely/Pablitoransmitting on: 0 07/11/2025 12:31 PM EDT History [...]
--- OUTSIDE RECORDS SUMMARY | 2025-07-11 04:00 | XMS_ITS ---
Author Organization Major Nazario MD Address [address] [place] [phone] Care Team Providers Care Nps Name Role Phone Major Nazario Primary Care Provider Results Component Value Reference Range Notes Complete Blood Count Auto Di ff (Not yet reviewed by provider) Interpretation: Performing Lab:[facility], [address] [place] [phone] Notes/Report: White Blood Count 5.4 4.8-10.8 X10*3/uL [...] Abs Auto 0.000 0.0-0.012 X10*3/uL IRON PROFILE (Not yet review ed by provider) Interpretation: Performing Lab:[facility], [address] [place] [phone] Notes/Report: Iron 205 45-160 mcg/dL Total Iron Binding Capacity 243 228-428 mcg/d L Percent Iron Saturation 84 15-50 % Unsaturated Iron Binding 38 REASON FOR VISIT CBC with diff, iron panel Encounters Encounter Location Date Provider Diagnosis Major Nazario MD [address] [place] [address] [place] [phone] 07/11/2025 Major Nazario Iron deficiency anemia, unspecified iron deficiency anemia type D50.9 Assessments Encounter Date Diagnosis (ICD Code) Assessment Notes Treatment Notes Treatment Clinical Notes Section Notes 07/11/2025 Iron deficiency anemia, unspecified iron deficiency anemia type (ICD-10 - D50.9) Plan Of Treatment Pending Test Test Name Order Date Complete Blood Count Auto Diff IRON PROFILE 07/11/2025 Next Appt Details Provider Name:Major frazier, 07/25/2025 02:00:00 PM, [address] [place] [address], [address] [facility], [place], [place], [phone], Provider Name:Major frazier, 09/04/2025 07:30:00 AM, [address] [facility], [address], [place], [place], [phone], Provider Name:Major Oh ier, 09/11/2025 02:00:00 PM, [address] [facility], [address], [place], [phone], Provider Name:Major Oh ier, 02/27/2026 07:15:00 AM, [address] [facility], [address] [facility], [place], [phone], Provider Name:Major Oh ier, 03/05/2026 02:30:00 PM, [address] [facility], Suite [facility], [place], [phone], Progress Notes * Suhail HASSANDOB:03/1955 (70 yo M)Acc No.[id number]:07/11/2025 Progress Note Patient: Omayra VELEZSuhail Camilla Provider: Debra Nazario MD :1955 A ge:70 Y S ex:Male Date:07/11/2025 Address:[address] [place], [place] [phone] Subjective: * Chief Complaints: * 1 . [...] Pending * Provider: Debra Nazario MD Date: 07/11/2025 Generated for Nadine cleaning/Mely/Ulisesitting on: 07/11/2025 12:30 PM EDT
--- OUTSIDE RECORDS SUMMARY | 2025-07-11 04:15 | XMS_ITS ---
Author Organization Major Nazario MD Address [address] [place] [phone] Care Team Providers Care Vinyl Welder And Fabricator Name Role Phone Major Nazario Primary Care Provider [phone] REASON FOR VISIT PSA Encounters Encounter Location Date Provider Diagnosis Major Nazario MD [address] [facility] [address] [place] [phone] 07/11/2025 Major Nazario Plan Of Treatment Next Appt Details Provider Name:Major frazier, 07/25/2025 02:00:00 PM, [address] [place] [address], [address], [phone], Provider Name:Major frazier, 09/04/2025 07:30:00 AM, [address] [place] [address], [address], [phone], Provider Name:Major frazier, 09/11/2025 02:00:00 PM, [address] [place] [address], [phone], Provider Name:Major frazier, 02/27/2026 07:15:00 AM, [address] [facility], [address], [place], [place], [phone], Provider Name:Major Oh ier, 03/05/2026 02:30:00 PM, [address] [facility], [address], [place], [place], [phone], Progress Notes * CATHYSuhail JDOB:03/1955 (70 yo M)Acc No.[id number]:07/11/2025 Progress Note Patient: Suhail MCARTHUR Provider: Debra Nazario MD :1955 A ge:70 Y S ex:Male Date:07/11/2025 Address:[address] [place], [place] [phone] Subjective: * Chief Complaints: * 1 . [...] 07/11/2025 Generated for Nadine cleaning/Mely/Ulisesitting on: 07/11/2025 12:31 PM EDT
[2025-07-11 10:39] LABS: MANUAL DIFF FLAG NO
[2025-07-11 10:53] LABS: Hematocrit 39.7 % (42.0-52.0); Hemoglobin 14.1 g/dl (14.0-18.0); Imm Gran Abs Auto 0.03 X10*3/uL (0.00-0.03); Imm Gran Pct Auto 0.6 % (0.0-0.4); Lymphocytes Absolute Auto 1.4 X10*3/uL (1.2-4.9); Mean Corpuscular HGB Conc 35.5 g/dl (31.0-36.0); Mean Corpuscular Hemoglobin 34.4 pg (27.0-33.0); Mean Corpuscular Volume 96.8 fL (80.0-98.0); NRBC Abs Auto 0.000 X10*3/uL (0.0-0.012); NRBC Pct Auto 0.0 /100WBC (0.0-0.2); Platelet Count 278 X10*3/uL (160-400); Red Blood Count 4.10 X10*6/uL (4.60-5.80); White Blood Count 5.4 X10*3/uL (4.8-10.8)
[2025-07-11 11:05] LABS: Iron 205 mcg/dL (45-160); Percent Iron Saturation 84 % (15-50); Total Iron Binding Capacity 243 mcg/dL (228-428); Unsaturated Iron Binding 38 ug/dL
--- OUTSIDE RECORDS SUMMARY | 2025-07-11 12:30 | XMS_ITS | Patient Health Record ---
Author Organization Major Nazario MD Address [address] [place] [phone] Care Team Providers Care Adz Worker Name Role Phone Major Nazario Primary Care Provider [phone] Allergies No Known Allergies Results Component Value Reference Range Notes Complete Blood Count Auto Di ff Reviewed date:08/30/2024 12:40:36 PM Interpretation: Performing Lab:[facility], [address] [place] [address] Notes/Report: White Blood Count 7.4 4.8-10.8 X10*3/uL [...] PROFILE Reviewed date:08/30/2024 01:50:03 PM Interpretation: Performing Lab:[facility], [address] [place] [address] Notes/Report: Iron 380 45-160 mcg/dL Total Iron Binding Capacity 405 228-428 mcg/dL Percent Iron Saturation 94 15-50 % Unsaturated Iron Binding < 25 IRON PROFILE Reviewed date:11/28/2024 05:00:26 PM Interpretation: Performing Lab:[facility], [address] [place] [address] Notes/Report: Iron 31 45-160 mcg/dL Total Iron Binding Capacity 333 228-428 mcg/dL Percent Iron Saturation 9 15-50 % Unsaturated Iron Binding 302 Complete Blood Count Auto Di ff Reviewed date:03/03/2025 08:02:02 AM Interpretation:03-02-2025 Performing Lab:[facility], [address] [place] [phone] Notes/Report: White Blood Count 5.1 4.8-10.8 X10*3/uL [...] NRBC Abs Auto 0.000 0.0-0.012 X10*3/uL Comprehensive [place]. Panel Fa st Reviewed date:02/24/2025 03:40:54 PM Interpretation: Performing Lab:[facility], [address] [place] [phone] Notes/Report: Sodium 137 135-145 mmol/L Potassium 4.2 [...] PROFILE Reviewed date:02/24/2025 10:28:19 AM Interpretation: Performing Lab:[address] [address] Notes/Report: Iron 33 45-160 mcg/dL Total Iron Binding Capacity 328 228-428 mcg/dL Percent Iron Saturation 10 15-50 % Unsaturated Iron Binding 295 PSA,Total (Free>4and<10) Reviewed date:02/24/2025 03:36:44 PM Interpretation: Performing Lab:[address] [address] Notes/Report: PSA,Total (Free>4and<10) 1.83 0.00-4.00 ng/mL A [...] t Reviewed date:02/24/2025 03:43:56 PM Interpretation: Performing Lab:[address] [address] Notes/Report: Urine, Clean Catch Color Urine Yellow Appearance Urine Clear PH 5.5 5.0-9.0 Glucose Urine UA Negative Negative mg/dL Urine Blood Negative Negative Specific [place] - Urine <= 1.005 1.005-1.025 Urine Protein Negative Neg-Trace mg/dL Urine Ketones Negative Negative mg/dL Nitrite Urine Negative Negative Leukocyte Esterase Urine Negative Negative RBC Urine 0-2 0-2 /HPF WBC Urine 0-5 0-5 /HPF Squamous Epithelial Cell Urine 0-2 0-2 /HPF Bacteria Urine None Seen None Seen Hyaline Casts Urine 0-2 0-2 /LPF Complete Blood Count Auto Di ff Reviewed date:06/15/2025 08:24:29 AM Interpretation:PUNEET 06/13 Performing Lab:[facility], [address] [place] [phone] Notes/Report: White Blood Count 7.2 4.8-10.8 X10*3/uL [...] 0.0-0.2 /100WBC Neutrophils Absolute Auto 4.6 2.0-8.3 x10*3/uL Imm Gran Abs Auto 0.02 0.00-0.03 X10*3/uL Lymphocytes Absolute Auto 0.7 1.2-4.9 X10*3/uL Monocytes Absolute Auto 1.8 0.1-1.2 X10*3/uL Eosinophils Absolute Auto 0.0 0.0-0.4 X10*3/uL Basophils Absolute Auto 0.1 0.0-0.2 [...] 0.0-0.2 /100WBC Neutrophils Absolute Auto 4.6 2.0-8.3 x10*3/uL Imm Gran Abs Auto 0.02 0.00-0.03 X10*3/uL Lymphocytes Absolute Auto 0.7 1.2-4.9 X10*3/uL Monocytes Absolute Auto 1.8 0.1-1.2 X10*3/uL Eosinophils Absolute Auto 0.0 0.0-0.4 X10*3/uL Basophils Absolute Auto 0.1 0.0-0.2 X10*3/uL NRBC Abs Auto 0.000 0.0-0.012 X10*3/uL CORRE CTED REPORT CORRE CTED REPORT IRON PROFILE Reviewed date:06/02/2025 10:43:12 AM Interpretation: Performing Lab:[facility], [address] [place] [address] Notes/Report: Iron 98 45-160 mcg/dL Total Iron Binding Capacity 257 228-428 mcg/dL Percent Iron Saturation 38 15-50 % Unsaturated Iron Binding 159 Complete Blood Count Auto Di ff (Not yet reviewed by provider) Interpretation: Performing Lab:[facility], [address] [place] [address] Notes/Report: White Blood Count 5.4 4.8-10.8 X10*3/uL [...] 0.0-0.2 /100WBC Neutrophils Absolute Auto 2.7 2.0-8.3 x10*3/uL Imm Gran Abs Auto 0.03 0.00-0.03 X10*3/uL Lymphocytes Absolute Auto 1.4 1.2-4.9 X10*3/uL Monocytes Absolute Auto 0.8 0.1-1.2 X10*3/uL Eosinophils Absolute Auto 0.3 0.0-0.4 X10*3/uL Basophils Absolute Auto 0.1 0.0-0.2 X10*3/uL NRBC Abs Auto 0.000 0.0-0.012 X10*3/uL IRON PROFILE (Not yet review ed by provider) Interpretation: Performing Lab:[facility], [address] [place] [address] Notes/Report: Iron 205 45-160 mcg/dL Total Iron Binding Capacity 243 228-428 mcg/dL Percent Iron Saturation 84 15-50 % Unsaturated Iron Binding 38 CT lung screening Reviewed date:11/10/2024 12:22:35 PM Interpretation: Performing Lab: Notes/Report: [address] [address] [address] Scan Report Signed Patient: Suhail Hassan MR#: [id number] : 1955 Acct:[id number] Age/Sex: 69 / M ADM Date: 11/08/24 Loc: HO.CT Attending Dr: Mee Rey PA-C Ordering Physician: Mee Rey PA-C Date of Service: 11/08/24 Procedure(s): CT lung screening Accession Number(s): [id number] cc: Major Nazario MD; Mee Rey PA-C Report Number: [id number]: Total DLP = 49.00 mGy-cm CLINICAL HISTORY: [...] signed by Weston Bangura MD in OV> 11/10/24754 DD/ 2 TD/TT: 11/10/24752 Dry Box Operator: [address] [address] [address] Scan Report Signed Patient: Jw Hassan MR#: [id number] : 1955 Acct:[id number] Age/Sex: 69 / M ADM Date: 11/08/24 Loc: HO.CT Attending Dr: Mee Rey PA-C Ordering Physician: Mee Rey PA-C Date of Service: 11/08/24 Procedure(s): CT jorge l g screening Accession Number(s): [id number] cc: Major Nazario MD; Mee Rey PA-C [...] OV> 11/10/24 075 DD/ 2 TD/TT: 11/10/24752 Dry Box Operator: MR shoulder RT wo con Reviewed date:11/11/2024 05:24:22 PM Interpretation: Performing Lab: Notes/Report: [place] [address] Magnetic Resonance Report Signed Patient: Suhail Hassan MR#: [id number] : 1955 Acct:[id number] Age/Sex: 69 / M ADM Date: 11/09/24 Loc: HO.MRI Attending Dr: Brandon Waite MD Ordering Physician: Brandon Waite MD Date of Service: 11/09/24 Procedure(s): MR shoulder RT wo con Accession Number(s): [id number] cc: Major Nazario MD; Brandon Waite MD [...] in OV> 11/10/242103 DD/ 03 TD/TT: 11/10/242103 Dry Box Operator: [place] [address] Magnetic Resonance Report Signed Patient: Jw Hassan MR#: [id number] : 1955 Acct:[id number] Age/Sex: 69 / M ADM Date: 11/09/24 Loc: HO.MRI Attending Dr: Brandon Waite MD Ordering Physician: Brandon Waite MD Date of Service: 11/09/24 Procedure(s): MR guadalupe christine RT wo con Accession Number(s): [id number] cc: Major Nazario MD; Brandon Waite MD CLINICAL HISTORY: M2 5.311 - Other instability, right shoulder MR of the right sho lder without contrast. No comparison. Findings: There [...] By: Navdeep Garcia MD Signed By: <David icallyong signed by Navdeep Garcia MD in OV> 11/10/242103 DD/ 03 TD/TT: 11/10/242103 Dry Box Operator: MR lumbar spine wo con Reviewed date:03/16/2025 08:01:53 AM Interpretation:PUNEET 03/14 Performing Lab: Notes/Report: [address] [address] Magnetic Resonance Report Signed Patient: Suhail Hassan MR#: [id number] : 1955 Acct:[id number] Age/Sex: 70 / M ADM Date: 03/09/25 Loc: HO.MRI Attending Dr: Major Nazario MD Ordering Physician: Major Nazario MD Date of Service: 03/09/25 Procedure(s): MR lumbar spine wo con Accession Number(s): [id number] cc: Major Nazario MD EXAMINATION: MR LUMBAR [...] 03/10/25 0708 DD/ 1712 TD/TT: 03/09/25 1727 Dry Box Operator: [address] [address] Magnetic Resonance Report Signed Patient: Jw Hassan MR#: [id number] : 1955 Acct:[id number] Age/Sex: 70 / M ADM Date: 03/09/25 Loc: HO.MRI Attending Dr: Major Nazario MD Ordering Physician: Major Nazario MD Date of Service: 03/09/25 Procedure(s): MR lum bar spine wo con Accession Number(s): [id number] cc: Major Nazario MD EXAMINATION: MR LUMBAR [...] Yadiel Birmingham MD 03/10/2025 07:08 AM EDT RP Dictated By: Yadiel Gilmore MD Signed By: <Electron ically signed by Yadiel Esquivel MD in OV> 03/10/25 0708 DD/ 1712 TD/TT: 03/09/25 1727 Dry Box Operator: NM bone scan whole body Reviewed date:04/21/2025 04:21:41 PM Interpretation: Performing Lab: Notes/Report: [address] [address] Nuclear Medicine Report Signed Patient: Suhail Hassan MR#: [id number] : 1955 Acct:[id number] Age/Sex: 70 / M ADM Date: 04/20/25 Loc: MICHELL Attending Dr: Major Nazario MD Ordering Physician: Major Nazario MD Date of Service: 04/20/25 Procedure(s): NM bone scan whole body Accession Number(s): [id number] cc: Major Nazario MD EXAMINATION: NM BONE [...] 04/20/25 1520 DD/ 1153 TD/TT: 04/20/25 1400 Dry Box Operator: FREEDOM [place] [address] Nuclear Medicine Report Signed Patient: Jw Hassan MR#: [id number] : 1955 Acct:[id number] Age/Sex: 70 / M ADM Date: 04/20/25 Loc: MICHELL Attending Dr: Major Nazario MD Ordering Physician: Major Nazario MD Date of Service: 04/20/25 Procedure(s): NM bon e scan whole body Accession Number(s): [id number] cc: Major Nazario MD EXAMINATION: NM BONE [...] 04/20/25 1520 DD/ 1153 TD/TT: 04/20/25 1400 Dry Box Operator: FREEDOM SLIDE REVIEW Reviewed date:06/02/2025 11:51:57 AM Interpretation: Performing Lab:[facility], [address] [place] [address], [place] [address] Notes/Report: SLIDE REVIEW VERIFIED Reason For Referral Reason pain right shoulder [...] 03/24/2025 03:14:26 PM >patient is aware of appt, Xiomara Salcido 06/30/2025 02:45:44 PM >OFFICE NOTE RECD FROM [facility] Referral Priority Routine Referral Appointment Date 03/30/2025 [...] Problem Status W/U Status Risk Notes Problem 679464388 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) Active confirmed Problem Sciatica (05565745) Sciatica (M54.30) Active confirmed Problem 705157215 Erectile dysfunction (N52.9) Active confirmed Problem 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) Active confirmed Problem 79427614 Coronary atherosclerosis due to calcified coronary lesion (I25.84) Active confirmed Problem 4290786 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) Active confirmed Problem 595501992 Lumbar disc dise ase (M51.9) Active confirmed Problem 43882431 Smoker (F17.200) Active confirmed Problem 178844462 Environmental allergies (Z91.09) Active confirmed Problem Iron deficiency anemia (64950338) Iron deficiency anemia (D50.9) Active confirmed Problem 02729612 Current smoker (F17.200) Active confirmed Problem Monocytosis (49555668) Monocytosis (D72.821) Active confirmed Problem 72530827 Iron deficiency anemia, unspecified iron deficiency anemia type (D50.9) Active confirmed Problem 40824460 Intertrigo (L30.4) Active confirmed Problem 538981200 Hyperplastic colonic polyp, unspecified part of colon (K63.5) Active confirmed Problem Anogenital warts (243953865) Condyloma acuminata (A63.0) Active confirmed Problem MRI Scan Abnormal (156722808) Abnormal MRI (R93.89) Active confirmed Vital Signs Blood pressure diastolic 70 mm Hg 06/13/2025 marti ght is down 7 pounds since 03-14-25 Height 69.50 in 06/13/2025 weight is down 7 pounds since 03-14-25 Blood pressure systolic 122 mm Hg 06/13/2025 weig ht is down 7 pounds since 03-14-25 Weight 134 lbs 06/13/2025 weight is down 7 pounds since 03-14-25 BMI 19.5 kg/m2 06/13/2025 weight is down 7 pounds since 03-14-25 Encounters Encounter Location Date Provider Diagnosis Major Nazario MD [address] [place], [place] [id number] 08/30/2024 Major Nazario Iron deficiency anem ia D50.9 ; Monocytosis D72.821 ; Iron deficiency anemia, unspecified iron deficiency anemia type D50.9 and Encounter for immunization Z23 Major Nazario MD [address] [place] [id number] 11/28/2024 Major Nazario Iron deficiency anem ia D50.9 Major Nazario MD [address] [place] [id number] 02/24/2025 Major Nazario Iron deficiency anem ia, unspecified iron deficiency anemia type D50.9 and Atherosclerotic heart disease of grindstone coronary artery without angina pectoris I25.10 Major Nazario MD [address] [place] [id number] 06/02/2025 Major Nazario Iron deficiency anem ia, unspecified iron deficiency anemia type D50.9 Major Nazario MD [address] [place] [id number] 07/11/2025 Major Nazario Iron deficiency anem ia, unspecified iron deficiency anemia type D50.9 Major Nazario MD [address] [place] [id number] 09/06/2024 Major Nazario Iron deficiency anem ia, unspecified iron deficiency anemia type D50.9 ; Toe pain, left M79.675 and Pain in right shoulder M25.511 Major Nazario MD [address] [place] [id number] 03/02/2025 Major Nazario Sciatica M54.30 ; Coronary atherosclerosis due to calcified coronary lesion I25.84 and Iron deficiency anemia, unspecified iron deficiency anemia type D50.9 Major Nazario MD [address] [place] [id number] 03/14/2025 Major Nazario Abnormal MRI R93.89 and Abnormal bone marrow examination R89.8 Major Nazario MD [address] [place] [id number] 06/13/2025 Major Nazario Iron deficiency anem ia, unspecified iron deficiency anemia type D50.9 and Monocytosis D72.821 Major Nazario MD [address] [place] [id number] 12/01/2024 Major Nazario MD [address] [place] [id number] 12/15/2024 Major Nazario Assessments Encounter Date Diagnosis (ICD Code) Assessment Notes Treatment Notes Treatment Clinical Notes Section Notes 08/30/2024 Iron deficiency anemia (ICD-10 - D50.9) 08/30/2024 Monocytosis (ICD-10 - D72.821) 11/28/2024 Iron deficiency anemia (ICD-10 - D50.9) 02/24/2025 Iron deficiency anemia, unspecified iron deficiency anemia type (ICD-10 - D50.9) 06/02/2025 Iron deficiency anemia, unspecified iron deficiency anemia type (ICD-10 - D50.9) 07/11/2025 Iron deficiency anemia, unspecified iron deficiency [...] for abnormal bone marrow/ order faxed to [facility] dept Total time spent on the date of the encounter is 35 minutes including both face to face time spent and time spent reviewing documentation, pertinent lab data, studies and counseling the patient. 03/14/2025 Abnormal bone marrow examination (ICD-10 - R89.8) 06/13/2025 Iron deficiency anemia, unspecified iron deficiency anemia type (ICD-10 - D50.9) will continue to monitor, pending future labs, need notes from [facility]/ will send request for notes 08/30/2024 Iron deficiency anemia, unspecified iron deficiency anemia type (ICD-10 - D50.9) 02/24/2025 Atherosclerotic heart disease of grindstone coronary artery without angina pectoris (ICD-10 - I25.10) 09/06/2024 Pain in right shoulder (ICD-10 - M25.511) referral to [facility] ortho 03/02/2025 Iron deficiency anemia, unspecified iron deficiency anemia type (ICD-10 - D50.9) had upper and lower endoscopy last year restart iron/ send copy of blood work to dr pickens/ lab results faxed to Dr. Pickens office 06/13/2025 Monocytosis (ICD-10 - D72.821) 08/30/2024 Encounter for immunization (ICD-10 - Z23) Plan Of Treatment Pending Test Test Name Order Date Electrocardiogram (EKG) 12/04/2017 Electrocardiogram (EKG) 12/16/2018 MRI LUMBAR SPINE NO CONTRAST 03/02/2025 Lipid Panel 02/24/2025 NM bone scan whole body 03/14/2025 Complete Blood Count Auto Diff IRON PROFILE 07/11/2025 Future Test Test Name Order Date CT chest wo con 12/14/2024 Next Appt Details Provider Name:Major nuñezr, 07/25/2025 02:00:00 PM, [address] [place] [address], [address] [place], [place], [id number], Provider Name:Major Oh ier, 09/04/2025 07:30:00 AM, [address] [place] [address], [address] [place], [place], [phone], Provider Name:Major Oh ier, 09/11/2025 02:00:00 PM, [address] [place] [address], [address] [place], [phone], Provider Name:Major nuñezr, 02/27/2026 07:15:00 AM, [address] [place] [address], [address] [place], [phone], Provider Name:Major nuñezr, 03/05/2026 02:30:00 PM, [address] [place] [address], [place] [address], [id number], Insurance Providers Payer Name Payer Address Payer Phone Subscriber Number Group Number Insured Name Patient Relationship to Insured Coverage Start Date Coverage End Date MEDICARE [place] [address] [place] [address] [id number] Suhail Hassan Self - patient is the insured [facility] [address] [address] [place] [address] [id number] Suhail Hassan Self - patient is the insured Medical (General) History Medical History History ICD Code Abscess colonoscopy 2009 neg. repeat 10; Colonoscopy 04/23/[address] Pickens hyperplastic polyp flu vac refused 08/12/13 colonoscopy 2022 repeat in 5 years
--- OUTSIDE RECORDS SUMMARY | 2025-07-11 12:30 | XMS_ITS | Patient Health Record ---
Author Organization [facility] Address [address] [place] [address] Care Team Providers Care Crop Or Livestock Tenant Farmer Name Role Phone Major Nazario MD Primary Care Provider Jhonathan Heredia Unavailable [phone] Allergies No Known Allergies Reason For Referral [...] Risk Notes Problem Diverticular disease of colon (094359618) Diverticulosis of large intestine without perforation or abscess without bleeding (K57.30) Active confirmed Problem Gastroesophageal reflux disease (383206240) Gastroesophageal reflux disease (K21.9) Active confirmed Problem Iron deficiency anemia (35942220) Iron deficiency anemia (D50.9) Active confirmed Problem History of polyp of colon (939237291) History of colon polyps (Z86.010) Active confirmed Problem 40582626 Heme + stool (R19.5) Active confirmed Problem 30862950 Iron deficiency anemia, unspecified iron deficiency anemia type (D50.9) Active confirmed Problem Erosive gastritis (6263362075566918) Erosive gastritis (K29.60) Active confirmed Problem 716956011 Gastroesophageal reflux disease, unspecified whether esophagitis present (K21.9) Active confirmed Vital Signs Temperature 97.3 degrees Fahrenheit 02/01/2025 Blood pressure diastolic 01 mm Hg 02/01/2025 Height 67.5 in 02/01/2025 Blood pressure systolic 001 mm Hg 02/01/2025 Weight 144 lbs 02/01/2025 BMI 22.22 kg/m2 02/01/2025 Encounters Encounter Location Date Provider Diagnosis [facility] [address] [place] [address] 02/01/2025 Jhonathan Schwartz Iron deficiency anem ia, unspecified iron deficiency anemia type D50.9 and Erosive gastritis K29.60 [facility] [address] [place] [address] 07/27/2024 Jhonathan Schwartz Iron deficiency anem ia, [...] Order Date IRON + IBC (FE) 07/27/2024 IRON + IBC (FE) 02/01/2025 IRON + IBC (FE) 12/30/2023 IRON + IBC (FE) 08/24/2023 CBC w DIFF 07/27/2024 CBC w DIFF 02/01/2025 CBC w DIFF 12/30/2023 CBC w DIFF 08/24/2023 CELIAC PANEL #10 07/09/2023 Ferritin 08/24/2023 Ferritin 07/27/2024 Ferritin 02/01/2025 Ferritin 12/30/2023 Vitamin B12 and Folate 07/09/2023 Future Test Test Name Order Date COLONOSCOPY 04/06/2018 UPPER GI ENDOSCOPY 07/09/2023 COLONOSCOPY 07/09/2023 Next Appt Details Provider Name:Jhonathan Schwartz , 08/02/2025 03:00:00 PM, [address] [place] [address], [address], [place], [address], Insurance Providers Payer Name Payer Address Payer Phone Subscriber Number Group Number Insured Name Patient Relationship to Insured Coverage Start Date Coverage End Date [place] [address] [place] [address] [id number] BENJAMIN MORGAN Self - patient is the insured [facility] [address] [address] [place] [address] [phone] [id number] BENJAMIN MORGAN Self - patient is the insured Medical (General) History Medical History History ICD Code Denies AK,DM,CVA,Lung disease,renal dise ase Neg. screeening colonoscopy in [...]
--- OUTSIDE RECORDS SUMMARY | 2025-07-11 12:32 | XMS_ITS | Patient Health Record ---
Author Organization [facility] rosa maria Harvard Address [address] [place] [address] Care Team Providers Care Lumber Driver Name Role Phone Mansi COPE, Major Primary Care Provider Priyanka Colon Unavailable [phone] Allergies No Known Allergies Reason For Referral [...] Problem Acquired hammer toe of left foot (8988612477072 103) Other hammer toe(s) (acquired), left foot (M20.42) Active confirmed Vital Signs Blood pressure diastolic 80 mm Hg 01/24/2025 Height 5ft9in in 01/24/2025 Blood pressure systolic 120 mm Hg 01/24/2025 Weight 148 lbs 01/24/2025 BMI 21.85 kg/m2 01/24/2025 Encounters Encounter Location Date Provider Diagnosis [facility] [address] 01/24/2025 Priyanka Smallwood Pain in left toe(s) M79.675 ; Other hammer toe(s) (acquired), left foot M20.42 and [place] L[address] [facility] [address] 01/24/2025 Priyanka Smallwood Assessments Encounter Date Diagnosis (ICD Code) Assessment Notes Treatment Notes Treatment Clinical Notes Section Notes 01/24/2025 Pain in left toe(s) (ICD-10 - M79.675) 01/24/2025 Other hammer toe(s) (acquired), left foot (ICD-10 - M20.42) 01/24/2025 [place] (ICD-10 - L84) Plan Of Treatment Pending Test Test Name Order Date X ray : Foot, left 3V 01/24/2025 Insurance Providers Payer Name Payer Address Payer Phone Subscriber Number Group Number Insured Name Patient Relationship to Insured Coverage Start Date Coverage End Date Medicare [employer] [address] [facility] [place] [address] [id number] Suhail Hassan Self - patient is the insured 2 [facility] [address] [address] [place] [address] [id number] Suhail Hassan Self - patient is the insured 2 Medical (General) History Medical History History ICD Code Back,Hip,and Knee pain
== END 2025-07-11 10:37 | disposition home or self-care (01) ==
LOC: HO.LNP 10:36
PROVIDERS: Visit Provider Internal Medicine
DX: D50.9 Iron deficiency anemia, unspecified (principal)
CPT/HCPCS: 83540; 85025

== ENCOUNTER 2025-10-13 09:48 | Outpatient (REF) | payer MEDICARE, OTHER, SELFPAY ==
[2025-10-13 11:44] LABS: Alanine Aminotransferase 23 U/L (0-40); Albumin Level 3.8 g/dL (3.5-5.0); Alkaline Phosphatase 51 U/L (39-117); Aspartate Amino Transferase 52 U/L (5-37); Cholesterol 161 mg/dL (<200); HDL Cholesterol 68 mg/dL (>40); Iron 155 mcg/dL (45-160); Percent Iron Saturation 67 % (15-50); Total Iron Binding Capacity 232 mcg/dL (228-428); Total Protein 6.6 g/dL (6.5-8.0); Triglycerides 80 mg/dL (<150); Unsaturated Iron Binding 77 ug/dL
[2025-10-13 13:08] LABS: Reflex LDLD? No
== END 2025-10-13 09:49 | disposition home or self-care (01) ==
LOC: HO.LNP 09:48
PROVIDERS: Visit Provider Internal Medicine
DX: E61.1 Iron deficiency (principal); Z13.6 Encounter for screening for cardiovascular disorders
CPT/HCPCS: 80061; 80076; 83540

== ENCOUNTER → 2025-10-19 13:56 | Outpatient (REF) | payer MEDICARE, OTHER, SELFPAY ==
--- OUTSIDE RECORDS SUMMARY | 2024-12-15 05:52 | XMS_ITS ---
Author Organization Major Nazario MD Address [facility] [address] [place] [phone] Care Team Providers Care Servicing Manager Name Role Phone Major Nazario Primary Care Provider REASON FOR VISIT Ct chest orders Encounters Encounter Location Date Provider Diagnosis Major Nazario MD [address] [place] [address] [address] [place] [phone] 12/15/2024 Major Nazario Plan Of Treatment Next Appt Details Provider Name:Major Oh iemario alberto, 10/20/2025 02:00:00 PM, [address] [place] [address], [address], [phone], Provider Name:Major Oh iemario alberto, 02/27/2026 07:15:00 AM, [address] [place] [address], [phone], Provider Name:Major frazier, 03/05/2026 02:30:00 PM, [address] [place] [address], [address], [phone], Progress Notes * Suhail HASSANDOB:03/1955 (69 yo M)Acc No.[id number]:12/15/2024 Patient: Omayra Suhail VELEZ :1955 A ge:69 Y S ex:Male Address:[address] [place] [id number] * true * Date: Generated for Nadine cleaning/Mely/Ulisesitting on: 12/20/2024 06:11 PM EST
--- OUTSIDE RECORDS SUMMARY | 2025-02-01 10:40 | XMS_ITS ---
Author Organization [facility] Niya herrera [facility] Address [address] [place] [address] Care Team Providers Care Information Systems Coordinator Name Role Phone Major Nazario MD Primary Care Provider Jhonathan Heredia Unavailable [phone] Allergies No Known Allergies REASON FOR VISIT Patient presents today for anemia Medications Medication SIG (Take, Route, Frequency, Duration) Notes Start Date End Date Status Atorvastatin Calcium 20 MG Tablet TAKE 1 TABLET BY MOUTH EVERYDAY AT BEDTIME Oral; Duration: 90 Days Active Multivitamin Adult - Tablet Orally occasionally Active Omeprazole 40 MG Capsule Delayed Release 1 Orally Every morning; Duration: 30 day(s) 08/24/2023 Not-Taking/PRN Omeprazole 20 MG Capsule Delayed Release 1 capsule Orally once every morning; Duration: 90 days Active Social History Tobacco Use: Social History Observation Description Date Details (start date - stop date) Current Smoker NA - NA Social History Drugs/Alcohol: Social Info Question Answer Notes Alcohol Screen Did you have a drink containing alcohol in the past year? Yes How often did you have a drink containing alcohol in the past year? 2 to 3 times a week (3 points) How many drinks did you have on a typical day when you were drinking in the past year? 1 or 2 drinks (0 point) How often did you have 6 or more drinks on one occasion in the past year? Never (0 point) Points 3 Interpretation Negative Tobacco Use: Social Info Question Answer Notes Tobacco Use/Smoking Patient is a current smoker How often do you smoke cigarettes? every day How many cigarettes a day do you smoke? 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 Section Notes: Smoker approx 1/2 to 1 ppd; 4-6 beers per day Vital Signs Temperature 97.3 degrees Fahrenheit 02/02/20 25 Blood pressure systolic 001 mm Hg 02/02/20 25 Blood pressure diastolic 01 mm Hg 025 Height 67.5 in 02/01/2025 Weight 144 lbs 02/01/2025 BMI 22.22 kg/m2 02/01/2025 Encounters Encounter Location Date Provider Diagnosis [facility] [address] [place] [address] 02/01/2025 Jhonathan Schwartz Iron deficiency anemia, unspecified iron deficiency anemia type D50.9 and Erosive gastritis K29.60 Assessments Encounter Date Diagnosis (ICD Code) Assessment Notes Treatment Notes Treatment Clinical Notes Section Notes 02/01/2025 Iron deficiency anemia, unspecified iron deficiency anemia type (ICD-10 - D50.9) 02/01/2025 Erosive gastritis (ICD-10 - K29.60) Continue to stay off the Ibuprofen Plan Of Treatment Treatment Notes Assessment Notes Erosive gastritis Continue to stay off the Ibuprofen Pending Test Test Name Order Date IRON + IBC (FE) 02/01/2025 CBC w DIFF 02/01/2025 Ferritin 02/01/2025 Next Appt Details Follow Up: 2024, Diptio n: Progress Notes * BENJAMIN MORGAN JrDOB: 1955 (70 yo M)Acc No.[id number]:02/01/2025 Progress Notes Patient: Omayra BENJAMIN VELEZ Provider: Ronaldo Schwartz MD :1955 A ge:69 Y S ex:Male Date:02/01/2025 Address:[address] [place] [address], [id number] Pcp:Major Nazario MD Subjective: * Chief Complaints: * P atient presents today for anemia * Medical History: Denies [place],DM,CVA,Lung disease,renal disease Neg. screeening colonoscopy in 07/2010 except for a hyperplastic polyp, mild diverticulosis, small internal hemorrhoids Colonoscopy in April of 2018 was negative other than a hyperplastic polyp Upper endoscopy in August of 2023 revealed a small hiatal hernia and changes of reflux, but without Villarreal's esophagus or esophagitis; there was erosive gastritis with biopsies negative for H. pylori; duodenal biopsies were normal and without evidence of celiac disease Colonoscopy in August 2023 revealed a serrated polyp in the cecum which was removed. Iron deficiency anemia in the fall with GI workup as above. He had been using ibuprofen, several beers daily, and smoking and I felt that was the cause of his anemia Medical History Verified * Surgical History: tonsillectomy Surgical History verified. * Hospitalization/Major Diagno stic Procedure: No Hospitalization Documented. Hospitalization Verified. * Family History: F ather: , Pancreatic cancer at age 57. M other: alive. M aterojas Grand Mother: 99 yrs, pancreatic cancer. F amily History Verified.. No known hx of colon cancer. No family history of liver cancer. * Social History: T obacco Use: T obacco Use/Smoking P atient is a c urrent smoker, H ow often do you smoke cigarettes? e very day, H ow many cigarettes a day do you smoke? 1 1-20. D rugs/Alcohol: A lcohol Screen D id you have a drink containing alcohol in the past year? Y es, H ow often did you have a drink containing alcohol in the past year? 2 to 3 times a week (3 points), H ow many drinks did you have on a typical day when you were drinking in the past year??1 or 2 drinks (0 point), H ow often did you have 6 or more drinks on one occasion in the past year? N ever (0 point), P oints 3 , I nterpretation N egative. M iscellaneous: M arital status: . 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 Social History Verified. S moker approx 1/2 to 1 ppd; 4-6 beers per day. * Medications: T akingMultivitamin Adult - Tablet Orally , Notes to Pharmacist: occasionallyOmeprazole 20 MG Capsule Delayed Release 1 capsule Orally once every morning Atorvastatin Calcium 20 MG Tablet TAKE 1 TABLET BY MOUTH EVERYDAY AT BEDTIME Oral Taking Multivitamin Adult - Tablet Orally , Notes to Pharmacist: occasionallyTaking Omeprazole 20 MG Capsule Delayed Release 1 capsule Orally once every morning Taking Atorvastatin Calcium 20 MG Tablet TAKE 1 TABLET BY MOUTH EVERYDAY AT BEDTIME Oral Not-Taking/PRNOmeprazole 40 MG Capsule Delayed Release 1 Orally Every morning Not-Taking/PRN Omeprazole 40 MG Capsule Delayed Release 1 Orally Every morning DiscontinuedIbuprofen 200 MG Tablet 1 tablet with food or milk as needed Orally PRN , Notes to Pharmacist: 3-4 times per weekDiscontinued Ibuprofen 200 MG Tablet 1 tablet with food or milk as needed Orally PRN , Notes to Pharmacist: 3-4 times per week * Allergies: N .K.D.A.yesAllergies Verified. Objective: * Vitals: W t:144lbs, Ht: 67.5 in, BMI:22.22Index, BP:001/01mm Hg, Temp:97.3F, Wt-k.32 kg. Assessment: * Assessment: 1. I libia deficiency anemia, unspecified iron deficiency anemia type - D50.9 (Primary) ? 2 . E rosive gastritis - K29.60 Plan: * Treatment: ?LAB: Ferritin2.?Erosive gastritis? Notes: Continue to stay off the Ibuprofen ?? * Preventive Medicine: Screenings: F all Risk Screening F all Risk Assessment: N o falls in the past year, S creening: N o falls in the past year, A ssessment: N ot performed, no reason specified, P forest of Care: N ot documented, no reason specified. * Follow Up: F all, 2024 Billing Information: * Procedure Codes: * The named appointment provid er may or may not be the originator of this progress note, and it is not deemed complete until electronically signed by the appointment provider. Sign off status: Pending * Provider: Ronaldo Schwartz MD Date: 0 02/01/2025 Generated for Nadine cleaning/Mely/Ulisesitting on: 1 12/20/2024 06:11 PM EST
--- OUTSIDE RECORDS SUMMARY | 2025-02-24 02:45 | XMS_ITS ---
Author Organization Major Nazario MD Address [address] [place] [phone] Care Team Providers Care Driller Portable Name Role Phone Major Nazario Primary Care Provider Results Component Value Reference Range Notes Complete Blood Count Auto Di ff Reviewed date:03/03/2025 08:02:02 AM Interpretation:03-02-2025 Performing Lab:[facility], [address] [place] [phone] Notes/Report: White Blood Count 5.1 4.8-10.8 X10*3/uL Red Blood Count 3.72 4.60-5.80 X10*6/uL Hemoglobin 10.0 14.0-18.0 g/dl Hematocrit 29.7 42.0-52.0 % Mean Corpuscular Volume 79.8 80.0-98.0 fL Mean Corpuscular Hemoglobin 26.9 27.0-33.0 pg Mean Corpuscular HGB Conc 33.7 31.0-36.0 g/dl Red Cell Distribution Width 17.6 11.0-16.0 % Platelet Count 371 160-400 X10*3/uL Mean Platelet Volume 9.5 9.4-12.4 fL Neutrophils Percent Auto 47.2 45-73 % Imm Gran Pct Auto 0.2 0.0-0.4 % Lymphocytes Percent Auto 30.7 20-40 % Monocytes Percent Auto 13.5 2-11 % Eosinophils Percent Auto 7.2 0-4 % Basophils Percent Auto 1.2 0-2 % NRBC Pct Auto 0.0 0.0-0.2 /100WBC Neutrophils Absolute Auto 2.4 2.0-8.3 x10*3/u L Imm Gran Abs Auto 0.01 0.00-0.03 X10*3/uL Lymphocytes Absolute Auto 1.6 1.2-4.9 X10*3/u L Monocytes Absolute Auto 0.7 0.1-1.2 X10*3/uL Eosinophils Absolute Auto 0.4 0.0-0.4 X10*3/u L Basophils Absolute Auto 0.1 0.0-0.2 X10*3/uL NRBC Abs Auto 0.000 0.0-0.012 X10*3/uL Comprehensive [place]. Panel Fa st Reviewed date:02/24/2025 03:40:54 PM Interpretation: Performing Lab:[facility], [address] [place] [phone] Notes/Report: Sodium 137 135-145 mmol/L Potassium 4.2 3.3-5.1 mmol/L Chloride 105 96-108 mmol/L Carbon Dioxide 24 22-29 mmol/L Anion Gap 12 12-20 Blood Urea Nitrogen 5 9-16 mg/dL Creatinine 0.64 0.5-1.4 mg/dL Estimated Glomerular Filt Rate > 60 Chronic Kidney Disease: Estimated GFR < 60 mL/min/1.73m2 Severe Kidney Disease: Estimated GFR < 15 mL/min/1.73m2 Glucose Fasting 78 60-99 mg/dL Calcium 9.2 8.4-10.2 mg/dL Bilirubin Total 0.5 0.0-1.0 mg/dL Aspartate Amino Transferase 45 5-37 U/L Alanine Aminotransferase 18 0-40 U/L Total Protein 6.9 6.5-8.0 g/dL Albumin Level 3.7 3.5-5.0 g/dL Alkaline Phosphatase 48 39-117 U/L IRON PROFILE Reviewed date:02/24/2025 10:28:19 AM Interpretation: Performing Lab:[facility], [address] [place] [phone] Notes/Report: Iron 33 45-160 mcg/dL Total Iron Binding Capacity 328 228-428 mcg/d L Percent Iron Saturation 10 15-50 % Unsaturated Iron Binding 295 PSA,Total (Free>4and<10) Reviewed date:02/24/2025 03:36:44 PM Interpretation: Performing Lab:[facility], [address] [place] [phone] Notes/Report: PSA,Total (Free>4and<10) 1.83 0.00-4.00 ng/mL A Free PSA was not [...] (CMIA) UA ClnCatch+Micro w/rflx Cul t Reviewed date:02/24/2025 03:43:56 PM Interpretation: Performing Lab:[facility], [address] [place] [phone] Notes/Report: Urine, Clean Catch Color Urine Yellow Appearance Urine Clear PH 5.5 5.0-9.0 Glucose Urine UA Negative Negative mg/dL Urine Blood Negative Negative Specific [place] - Urine <= 1.005 1.005-1.025 Urine Protein Negative Neg-Trace mg/dL Urine Ketones Negative Negative mg/dL Nitrite Urine Negative Negative Leukocyte Esterase Urine Negative Negative RBC Urine 0-2 0-2 /HPF WBC Urine 0-5 0-5 /HPF Squamous Epithelial Cell Urine 0-2 0-2 /HPF Bacteria Urine None Seen None Seen Hyaline Casts Urine 0-2 0-2 /LPF REASON FOR VISIT yearly fasting labs Encounters Encounter Location Date Provider Diagnosis Major Nazario MD [address] [place], [place] [id number] 02/24/2025 Major Nazario Iron deficiency anem ia, unspecified iron deficiency anemia type D50.9 and Atherosclerotic heart disease of [place] coronary artery without angina pectoris I25.10 Assessments Encounter Date Diagnosis (ICD Code) Assessment Notes Treatment Notes Treatment Clinical Notes Section Notes 02/24/2025 Iron deficiency anemia, unspecified iron deficiency anemia type (ICD-10 - D50.9) 02/24/2025 Atherosclerotic heart disease of [place] coronary artery without angina pectoris (ICD-10 - I25.10) Plan Of Treatment Pending Test Test Name Order Date Lipid Panel 02/24/2025 Next Appt Details Provider Name:Major Oh ier, 10/20/2025 02:00:00 PM, [address] [place] [address], [address] [place] [address], [phone], Provider Name:Major Oh ier, 02/27/2026 07:15:00 AM, [address] [place] [address], [address], [phone], Provider Name:Major Oh ier, 03/05/2026 02:30:00 PM, [address] [place] [address], [address] [place] [address], [phone], Progress Notes * Suhail HASSANDOB:03/1955 (70 yo M)Acc No.[id number]:02/24/2025 Progress Note Patient: Omayra TORIBIOSuhail RIVAS Provider: Debra Nazario MD :1955 A ge:70 Y S ex:Male Date:02/24/2025 Address:[address] [place], [place] [id number] Subjective: * Chief Complaints: * 1 . Yearly fasting labs. * Medical History: Objective: * Vitals: Assessment: * Assessment: 1. I libia deficiency anemia, unspecified iron deficiency anemia type - D50.9 (Primary) ? 2 . 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 A therosclerotic heart disease of [place] coronary artery without angina pectoris L AB: Lipid Panel L AB: Complete Blood Count Auto Diff (Collection Date & Time - 02/24/2025 07:45 AM) L AB: Comprehensive [place]. Panel Fast (Collection Date & Time - 02/24/2025 07:45 AM) L AB: IRON PROFILE (Collection Date & Time - 02/24/2025 07:45 AM) L AB: PSA,Total (Free>4and<10) (Collection Date & Time - 02/24/2025 07:45 AM) L AB: UA ClnCatch+Micro w/rflx Cult (Collection Date & Time - 02/24/2025 07:45 AM) * Procedure Codes: 3 6415 VENIPUNCT, ROUTINE* * * The named appointment provid er may or may not be the originator of this progress note, and it is not deemed complete until electronically signed by the appointment provider. Sign off status: Pending * Provider: Debra Nazario MD Date: 0 02/24/2025 Generated for Nadine cleaning/Mely/Ulisesitting on: 1 12/20/2024 06:11 PM EST
--- OUTSIDE RECORDS SUMMARY | 2025-03-02 09:30 | XMS_ITS ---
Author Organization Major Nazario MD Address [address] [place] [phone] Care Team Providers Care District Recruiter Name Role Phone Major Nazario Primary Care Provider [phone] Allergies No Known Allergies REASON FOR VISIT Comp visit/ must see labs CBC Medications Medication SIG (Take, Route, Frequency, Duration) Notes Start Date End Date Status Omeprazole 20 MG 1 capsule 30 minutes before morning meal Orally Once a day Active Ibuprofen 800 MG 1 tablet Orally Thre e times a day for 90 days Not-Taki ng Tadalafil 20 MG 1 tablet Orally Once a day for 30 day(s) 12/31/2020 Not-Taking Cialis 20 MG 1 tablet Orally Once a day for 30 days 09/23/2016 Not-Taking Atorvastatin Calcium 20 MG 1 tablet Orally Once a day Active Social History Tobacco Use: Social History [...] about q uitting Additional Findings: Tobacco User Neva soni cigarette smoker, not currently using another form [...] Never (0 point) Points 5 Interpretation Positive Problems Problem Type SNOMED Code ICD Code Onset Dates Problem Status W/U Status Risk Notes Problem Sciatica (13434014) Sciatica (M54.30) Active confirmed Vital Signs Blood pressure systolic 132 mm Hg 03/02/20 25 Blood pressure diastolic 60 mm Hg 025 Height 69.50 in 03/02/2025 Weight 142 lbs 03/02/2025 BMI 20.67 kg/m2 03/02/2025 Encounters Encounter Location Date Provider Diagnosis Major Nazario MD [address] [place] [address] [place] [phone] 03/02/2025 Major Nazario Sciatica M54.30 ; Coronary atherosclerosis due to calcified coronary lesion I25.84 and Iron deficiency anemia, unspecified iron deficiency anemia type D50.9 Assessments Encounter Date Diagnosis (ICD Code) Assessment Notes Treatment Notes Treatment Clinical Notes Section Notes 03/02/2025 Sciatica (ICD-10 - M54.30) 03/02/2025 Coronary atherosclerosis due to calcified coronary lesion (ICD-10 - I25.84) will continue current regiment, advised on diet and exercise 03/02/2025 Iron deficiency anemia, unspecified iron deficiency anemia type (ICD-10 - D50.9) had upper and lower endoscopy last year restart iron/ send copy of blood work to dr pickens/ lab results faxed to Dr. Pickens office Plan Of Treatment Medication Medication Name Sig Start Date Stop Date Notes Atorvastatin Calcium 20 MG 1 tablet Orally Once a day Treatment Notes Assessment Notes Coronary atherosclerosis due to calcified coronary lesion will continue current regiment, advised on diet and exercise Iron deficiency anemia, unsp ecified iron deficiency anemia type had upper and lower endoscopy last year restart iron/ send copy of blood work to dr pickens/ lab results faxed to Dr. Pickens office Pending Test Test Name Order Date MRI LUMBAR SPINE NO CONTRAST 03/02/2025 Next Appt Details Follow Up: 3 Months, Reason: Provider Name:Major Oh ier, 10/20/2025 02:00:00 PM, [address] [place] [address], Suite [facility], [place], [phone], Provider Name:Major Oh ier, 02/27/2026 07:15:00 AM, [address] [place] [address], Suite [facility], [place], [place], [phone], Provider Name:Major Oh ier, 03/05/2026 02:30:00 PM, [address] [place] [address], Suite [facility], [place], [place], [phone], Progress Notes * Suhail HASSANDOB:03/1955 (70 yo M)Acc No.[id number]:03/02/2025 Patient: Suhail MCARTHUR Provider: Debra Nazario MD :1955 A ge:70 Y S ex:Male Date:03/02/2025 Address:[address] [place], [place] [phone] Subjective: * Chief Complaints: * C omp visit/ must see labs CBC * HPI: D epression Screening: PHQ-9 L ittle interest or pleasure in doing things N ot at all, F eeling down, depressed, or hopeless N ot at all, T rouble falling or staying asleep, or sleeping too much N ot at all, F eeling tired or having little energy N ot at all, P oor appetite or overeating N ot at all, F eeling bad about yourself or that you are a failure, or have let yourself or your family down N ot at all, T rouble concentrating on things, such as reading the newspaper or watching television N ot at all, M oving or speaking so slowly that other people could have noticed; or the opposite, being so fidgety or restless that you have been moving around a lot more than usual N ot at all. I nterpretation and Intervention D epression Screening Findings N egative, F ollow-Up for Depression : review of PHQ-9 found negative result, no follow-up needed. C ommunication Needs: Communication Needs D oes the patient have a hearing impairment N o, D oes the patient have a vision impairment? Y es, I f yes, what is the vision impairment? G lasses, D oes the patient have a cognition impairment? N o. F all Risk: History H ave you had any falls with injury in the past year? N o, H ave you had two or more falls in the past year? N o. S RICARDO Questions: SDOH Questions I n the past year have you been worried about losing housing? N o, I n the past year have you or any family members you live with been unable to get any of the following when it was really needed? Check all that apply: N one. S ymptom(s): patient is a 70 yo male here for visit with review of recent labs and follow up of chronic issues. * ROS: G eneral/Constitutional: Change in appetite d enies. C hills d enies. F ever d enies. O phthalmologic: Blurred vision d enies. D ischarge d enies. P ain d enies. E NT: Decreased hearing d enies. S ore throat d enies.?Swollen glands d enies. E ndocrine: Cold intolerance d enies. E xcessive thirst d enies. H eat intolerance d enies. W eight loss d enies. R espiratory: Cough d enies. S hortness of breath at rest d enies. S hortness of breath with exertion d enies. W heezing d enies. C ardiovascular: Chest pain at rest d enies. C hest pain with exertion?denies. I rregular heartbeat d enies. S hortness of breath d enies. ? G astrointestinal: Abdominal pain d enies. C hange in bowel habits d enies. D iarrhea d enies. N ausea d enies. R ectal bleeding d enies. V omiting d enies . G enitourinary: Blood in urine d enies. D ifficulty urinating d enies. F requent urination d enies. M usculoskeletal: Painful joints d enies. W eakness d enies. ? S kin: Dry skin d enies. I tching d enies. D enies?Mole(s), changes in moles, new moles or any lesions of concern. D enies P hotosensitivity. R rudolph d enies. N eurologic: Dizziness d enies. F ainting d enies. H eadache?denies. * Medical History: * Surgical History: * Hospitalization/Major Diagno stic Procedure: * Family History: F ather: 57 yrs. M other: alive 89 yrs, COPD, healthy. 2 brother(s) , 2 sister(s) - healthy. 1 son(s) - healthy. . Mother Healthy Father- Pancreatic cancer, Denies mental health/substance abuse family history, No pertinent family medical history, No pertinent family medical history. * Social History: T obacco Use: T obacco Use/Smoking P atient is a c urrent smoker, H ow often do you smoke cigarettes? e very day, H ow many cigarettes a day do you smoke? 1 1-20, H ow soon after you wake up do you smoke your first cigarette? w ithin 5 minutes, A re you interested in quitting? T hinking about quitting, A dditional Findings: Tobacco User C urrent cigarette smoker, not currently using another form of tobacco. D rugs/Alcohol: A lcohol Screen D id you have a drink containing alcohol in the past year? Y es, H ow often did you have a drink containing alcohol in the past year? 4 or more times a week (4 points), H ow many drinks did you have on a typical day when you were drinking in the past year? 3 or 4 drinks (1 point), H ow often did you have 6 or more drinks on one occasion in the past year? N ever (0 point), P oints 5 , I nterpretation P ositive. M iscellaneous: C affeine: 2-3 cups per day. Children: yes. Community involvements: no. Exercise: yes, hunting. Home smoke detector use: yes. Housing: owning. Living with: alone. Marital status: . Occupation: retired. Pets: none. Travel outside of the [place]: no. * Medications: T akingAtorvastatin Calcium 20 MG Tablet 1 tablet Orally Once a day Omeprazole 20 MG Capsule Delayed Release 1 capsule 30 minutes before morning meal Orally Once a day Taking Atorvastatin Calcium 20 MG Tablet 1 tablet Orally Once a day Taking Omeprazole 20 MG Capsule Delayed Release 1 capsule 30 minutes before morning meal Orally Once a day Not-Taking/PRNTadalafil 20 MG Tablet 1 tablet Orally Once a day Ibuprofen 800 MG Tablet 1 tablet Orally Three times a day Cialis 20 MG Tablet 1 tablet Orally Once a day Medication List reviewed and reconciled with the patientNot-Taking/PRN Tadalafil 20 MG Tablet 1 tablet Orally Once a day Not-Taking/PRN Ibuprofen 800 MG Tablet 1 tablet Orally Three times a day Not-Taking/PRN Cialis 20 MG Tablet 1 tablet Orally Once a day Medication List reviewed and reconciled with the patient * Allergies: N .K.D.A.yes[Allergies Verified] Objective: * Vitals: H t: 69.50, Wt: 142, BMI:20.67, BP:132/60, Wt-k.41. * P ast Orders: L ab:PSA,Total (Free>4and<10) (Order Date - 02/24/2025) (Collection Date & Time - 02/24/2025 07:45 AM) Value Reference Range PSA,Total (Free>4and<10) 1.83 0.00-4.00 - ng/ mL L ab:UA ClnCatch+Micro w/rflx Cult (Order Date - 02/24/2025) (Collection Date & Time - 02/24/2025 07:45 AM) Value Reference Range Color Urine Yellow - Appearance Urine Clear - PH 5.5 5.0-9.0 - Glucose Urine UA Negative Negative - mg/dL Urine Blood Negative Negative - Specific [place] - Urine <= 1.005 1.005-1.025 - Urine Protein Negative Neg-Trace - mg/dL Urine Ketones Negative Negative - mg/dL Nitrite Urine Negative Negative - Leukocyte Esterase Urine Negative Negative - RBC Urine 0-2 0-2 - /HPF WBC Urine 0-5 0-5 - /HPF Squamous Epithelial Cell Urine 0-2 0-2 - /HP F Bacteria Urine None Seen None Seen - Hyaline Casts Urine 0-2 0-2 - /LPF L ab:Comprehensive [place]. Panel Fast (Order Date - 02/24/2025) (Collection Date & Time - 02/24/2025 07:45 AM) Value Reference Range Sodium 137 135-145 - mmol/L Bilirubin Total 0.5 0.0-1.0 - mg/dL Aspartate Amino Transferase 45 H 5-37 - U/L Alanine Aminotransferase 18 0-40 - U/L Total Protein 6.9 6.5-8.0 - g/dL Albumin Level 3.7 3.5-5.0 - g/dL Alkaline Phosphatase 48 39-117 - U/L Potassium 4.2 3.3-5.1 - mmol/L Chloride 105 96-108 - mmol/L Carbon Dioxide 24 22-29 - mmol/L Anion Gap 12 12-20 - Blood Urea Nitrogen 5 L 9-16 - mg/dL Creatinine 0.64 0.5-1.4 - mg/dL Estimated Glomerular Filt Rate > 60 - Glucose Fasting 78 60-99 - mg/dL Calcium 9.2 8.4-10.2 - mg/dL L ab:IRON PROFILE (Order Date - 02/24/2025) (Collection Date & Time - 02/24/2025 07:45 AM) Value Reference Range Iron 33 L 45-160 - mcg/dL Total Iron Binding Capacity 328 228-428 - mc g/dL Percent Iron Saturation 10 L 15-50 - % Unsaturated Iron Binding 295 - ug/dL * Examination: G eneral Examination: GENERAL APPEARANCE: w ell developed, well nourished, in no acute distress. HEAD: n ormocephalic, atraumatic. EYES: p upils equal, round, reactive to light and accommodation, sclera non-icteric. EARS: n ormal. ORAL CAVITY: m [place] moist. THROAT: c lear. NECK/THYROID: n [place] supple, full range of motion, no cervical lymphadenopathy, no bruits. SKIN: w arm and dry, no suspicious lesions. HEART: r egular rate and rhythm, S1, S2 normal, no murmurs.? LUNGS: c lear to auscultation bilaterally. ABDOMEN: s oft, nontender, nondistended, bowel sounds present, normal, no organomegaly , no masses palpable. RECTAL EXAM: d eclined. MALE GENITOURINARY: d eclined. EXTREMITIES: n o clubbing, cyanosis, or edema. NEUROLOGIC: n onfocal, motor strength normal upper and lower extremities, sensory exam intact. Assessment: * Assessment: 1. C oronary atherosclerosis due to calcified coronary lesion - I25.84 (Primary) ?2. S ciatica - M54.30 3 . I libia deficiency anemia, unspecified iron deficiency anemia type - D50.9 Plan: * Treatment: 2. S ciatica I maging: MRI LUMBAR SPINE NO CONTRAST 3.?Iron deficiency anemia, unspecified iron deficiency anemia type?LAB: Complete Blood Count Auto Diff (Ordered for 06/02/2025) ?LAB: IRON PROFILE (Ordered for 06/02/2025) Notes: had upper and lower endoscopy last year restart iron/ send copy of blood work to dr pickens/ lab results faxed to Dr. Pickens office?? * Procedure Codes: G 2211 Complex e/m visit add on * Follow Up: 3 Months * * Sign off status: Completed true * Provider: Debra Nazario MD Date: 0 03/02/2025 Generated for Nadine cleaning/Mely/eTransmitting on: 1 12/20/2024 06:11 PM EST History and Physical Notes * HPI (History of Present Illness) Category Sub-Category Detail Notes Category Not es Symptom(s) patient is a 70 yo male here for visit with review of recent labs and follow up of chronic issues. Depression Screening PHQ-9 Little inte rest or pleasure in doing things: Not at all Feeling down, depressed, or hopeless: No t at all Trouble falling or staying asleep, or sl eeping too much: Not at all Feeling tired or having little energy: N ot at all Poor appetite or overeating: Not at all Feeling bad about yourself o r that you are a failure, or have let yourself or your family down: Not at all Trouble concentrating on thi ngs, such as reading the newspaper or watching television: Not at all Moving or speaking so slowly that other people could have noticed; or the opposite, being so fidgety or restless that you have been moving around a lot more than usual: Not at all Interpretation and Intervention Depression Scree susan Findings: Negative Follow-Up for Depression: : review of PH Q-9 found negative result, no follow-up needed SDOH Questions SDOH Questions In the past year have you been worried about losing housing?: No In the past year have you or any family members you live with been unable to get any of the following when it was really needed? Check all that apply:: None Fall Risk History Have you had any falls with injury i n the past year?: No Have you had two or more falls in the year?: No Communication Needs Communication Needs Does the patient have a hearing impairment: No Does the patient have a vision impairmen t?: Yes If yes, what is the vision impairment?: Glasses Does the patient have a cognition impair ment?: No Examination Category Sub-Category Detail Notes Category Not es General Examination GENERAL APPEARANCE: well dev eloped, well nourished, in no acute distress HEAD: normocephalic, atrau matic EYES: pupils equal, round, reactive to light and accommodation, sclera non-icteric EARS: normal THROAT: clear NECK/THYROID: neck supple, full ra nge of motion, no cervical lymphadenopathy, no bruits HEART: regular rate and rhy thm, S1, S2 normal, no murmurs LUNGS: clear to auscultatio n bilaterally ABDOMEN: soft, nontender, non distended, bowel sounds present, normal, no organomegaly , no masses palpable NEUROLOGIC: nonfocal, motor stre ngth normal upper and lower extremities, sensory exam intact SKIN: warm and dry, no dacia picious lesions EXTREMITIES: no clubbing, cyanosi s, or edema MALE GENITOURINARY: declined RECTAL EXAM: declined ORAL CAVITY: mucosa moist
--- OUTSIDE RECORDS SUMMARY | 2025-03-14 08:45 | XMS_ITS ---
Author Organization Major Nazario MD Address [address] [place] [phone] Care Team Providers Care Blue Prints Trimmer Name Role Phone Major Nazario Primary Care Provider Allergies No Known Allergies Reason For Referral Reason please evyan and glen t abnormal bone marrow Diagnosis 1 Abnormal MRI (R93.89 ) Referral Organization Major Nazario MD Referring Provider First Name Major Referring Provider Last Name Mansi Referring Provider Speciality Internal M edicine Referred Provider ELIESER WOODWARD Referred Provider Specialty Hematology/O ncology General Notes Saranya Rolle 0 03/14/2025 02:16:49 PM >NM bone scan pending, Saranya Rolle 03/20/2025 11:59:28 AM >referral faxed, Saranya Rolle 03/24/2025 03:14:26 PM >patient is aware of christinet, Xiomara Salcido 06/30/2025 02:45:44 PM >OFFICE NOTE RECD FROM [facility] Referral Priority Routine Referral Appointment Date 03/30/2025 REASON FOR VISIT CBACK MRI Medications Medication SIG (Take, Route, Frequency, Duration) Notes Start Date End Date Status Omeprazole 20 MG 1 capsule 30 minutes before morning meal Orally Once a day Active Ibuprofen 800 MG 1 tablet Orally Thre e times a day for 90 days Not-Taki ng Cialis 20 MG 1 tablet Orally Once a day for 30 days 09/23/2016 Not-Taking Atorvastatin Calcium 20 MG 1 tablet Orally Once a day Active Tadalafil 20 MG 1 tablet Orally Once a day for 30 day(s) 12/31/2020 Not-Taking Problems Problem Type SNOMED Code ICD Code Onset Dates Problem Status W/U Status Risk Notes Problem MRI Scan Abnormal (946150618) Abnormal MRI (R93.89) Active confirmed Vital Signs Blood pressure systolic 122 mm Hg 03/14/20 25 Blood pressure diastolic 60 mm Hg 025 Height 69.50 in 03/14/2025 Weight 141 lbs 03/14/2025 BMI 20.52 kg/m2 03/14/2025 Encounters Encounter Location Date Provider Diagnosis Major Nazario MD [address] [place] [address] [place] [phone] 03/14/2025 Major Nazario Abnormal MRI R93.89 and Abnormal bone marrow examination R89.8 Assessments Encounter Date Diagnosis (ICD Code) Assessment Notes Treatment Notes Treatment Clinical Notes Section Notes 03/14/2025 Abnormal MRI (ICD-10 - R93.89) referral to dr woodward for abnormal bone marrow/ order faxed to [facility] CS dept Total time spent on the date of the encounter is 35 minutes including both face to face time spent and time spent reviewing documentation, pertinent lab data, studies and counseling the patient. 03/14/2025 Abnormal bone marrow examination (ICD-10 - R89.8) Plan Of Treatment Treatment Notes Assessment Notes Abnormal MRI referral to dr rigo lyons for abnormal bone marrow/ order faxed to [facility] CS dept Total time spent on the date of the encounter is 35 minutes including both face to face time spent and time spent reviewing documentation, pertinent lab data, studies and counseling the patient. Pending Test Test Name Order Date NM bone scan whole body 03/14/2025 Referrals Referral Date Details 03/14/2025 03/14/2025, please e julio and treat abnormal bone marrow, ELIESER WOODWARD Next Appt Details Provider Name:Major frazier, 10/20/2025 02:00:00 PM, [address] [place] [address], [address], [place], [place], [phone], Provider Name:Major Oh ier, 02/27/2026 07:15:00 AM, [address] [facility], Suite [facility], [place], [place], [phone], Provider Name:Major Oh ier, 03/05/2026 02:30:00 PM, [address] [facility], Suite [facility], [place], [place], [phone], Progress Notes * CATHY Suhail SampsonDOB:03/1955 (70 yo M)Acc No.[id number]:03/14/2025 Patient: Suhail MCARTHUR Provider: Debra Nazario MD :1955 A ge:70 Y S ex:Male Date:03/14/2025 Address:[address] [place], [place] [phone] Subjective: * Chief Complaints: * C BACK MRI * HPI: S ymptom(s): patient is a 70 yo male here for follow up of recent MRI. * ROS: G eneral/Constitutional: Denies C hills. D enies F atigue. D enies F ever. D enies H eadache. E NT: Denies S ore throat. R espiratory: Denies C ough. D enies S hortness of breath at rest. D enies S hortness of breath with exertion. G astrointestinal: Denies D iarrhea. D enies N ausea. * Medical History: * Surgical History: * Hospitalization/Major Diagno stic Procedure: * Medications: T akingOmeprazole 20 MG Capsule Delayed Release 1 capsule 30 minutes before morning meal Orally Once a day Atorvastatin Calcium 20 MG Tablet 1 tablet Orally Once a day Taking Omeprazole 20 MG Capsule Delayed Release 1 capsule 30 minutes before morning meal Orally Once a day Taking Atorvastatin Calcium 20 MG Tablet 1 tablet Orally Once a day Not-Taking/PRNTadalafil 20 MG [...] Objective: * Vitals: H t: 69.50, Wt: 141, BMI:20.52, BP:122/60, Wt-k.96. * Examination: G eneral Examination: GENERAL APPEARANCE: a lert, well hydrated, in no distress.? HEAD: n ormocephalic. SKIN: g ood turgor. HEART: n o murmurs, rubs, gallops, regular rate and rhythm.? LUNGS: n o wheezes, rales, rhonchi, good air movement, clear to auscultation bilaterally. Assessment: * Assessment: 1. A bnormal MRI - R93.89 (Primary) 2 . A bnormal bone marrow examination - R89.8 Plan: * Treatment: * Procedure Codes: * * Sign off status: Completed true * Provider: Debra Nazario MD Date: 0 03/14/2025 Generated for Nadine cleaning/Meyl/Ulisesitting on: 1 12/20/2024 06:11 PM EST History and Physical Notes * HPI (History of Present Illness) Category Sub-Category Detail Notes Category Not es Symptom(s) patient is a 70 yo male here for follow up of recent MRI Examination Category Sub-Category Detail Notes Category Not es General Examination GENERAL APPEARANCE: alert, w ell hydrated, in no distress HEAD: normocephalic HEART: no murmurs, rubs, ga llops, regular rate and rhythm LUNGS: no wheezes, rales, r honchi, good air movement, clear to auscultation bilaterally SKIN: good turgor Consultation Request Notes Referral Date Referring Provider Referred Provider Not es 03/14/2025 Major Nazario RENUKA please ev al and treat abnormal bone marrow
--- OUTSIDE RECORDS SUMMARY | 2025-06-02 02:15 | XMS_ITS ---
Author Organization Major Nazario MD Address [address] [place] [phone] Care Team Providers Care Supervisor Hairspring Fabrication Name Role Phone Major Nazario Primary Care Provider Results Component Value Reference Range Notes Complete Blood Count Auto Di ff Reviewed date:06/15/2025 08:24:29 AM Interpretation:CBACK 06/13 Performing Lab:[facility], [address] [place] [phone] Notes/Report: White Blood Count 7.2 4.8-10.8 X10*3/uL Red Blood Count 3.94 4.60-5.80 X10*6/uL Hemoglobin 12.6 14.0-18.0 g/dl Hematocrit 35.1 42.0-52.0 % Mean Corpuscular Volume 89.1 80.0-98.0 fL Mean Corpuscular Hemoglobin 32.0 27.0-33.0 pg Mean Corpuscular HGB Conc 35.9 31.0-36.0 g/dl Red Cell Distribution Width 24.7 11.0-16.0 % Platelet Count 231 160-400 X10*3/uL Mean Platelet Volume 10.0 9.4-12.4 fL Neutrophils Percent Auto 63.6 45-73 % Imm Gran Pct Auto 0.3 0.0-0.4 % Lymphocytes Percent Auto 9.2 20-40 % Monocytes Percent Auto 25.6 2-11 % Eosinophils Percent Auto 0.6 0-4 % Basophils Percent Auto 0.7 0-2 % NRBC Pct Auto 0.0 0.0-0.2 /100WBC Neutrophils Absolute Auto 4.6 2.0-8.3 x10*3/u L Imm Gran Abs Auto 0.02 0.00-0.03 X10*3/uL Lymphocytes Absolute Auto 0.7 1.2-4.9 X10*3/u L Monocytes Absolute Auto 1.8 0.1-1.2 X10*3/uL Eosinophils Absolute Auto 0.0 0.0-0.4 X10*3/u L Basophils Absolute Auto 0.1 0.0-0.2 X10*3/uL NRBC Abs Auto 0.000 0.0-0.012 X10*3/uL White Blood Count 7.2 4.8-10.8 X10*3/uL Red Blood Count 3.94 4.60-5.80 X10*6/uL Hemoglobin 12.6 14.0-18.0 g/dl Hematocrit 35.1 42.0-52.0 % Mean Corpuscular Volume 89.1 80.0-98.0 fL Mean Corpuscular Hemoglobin 32.0 27.0-33.0 pg Mean Corpuscular HGB Conc 35.9 31.0-36.0 g/dl Red Cell Distribution Width 24.7 11.0-16.0 % Platelet Count 231 160-400 X10*3/uL Mean Platelet Volume 10.0 9.4-12.4 fL Neutrophils Percent Auto 63.6 45-73 % Imm Gran Pct Auto 0.3 0.0-0.4 % Lymphocytes Percent Auto 9.2 20-40 % Monocytes Percent Auto 25.6 2-11 % Eosinophils Percent Auto 0.6 0-4 % Basophils Percent Auto 0.7 0-2 % NRBC Pct Auto 0.0 0.0-0.2 /100WBC Neutrophils Absolute Auto 4.6 2.0-8.3 x10*3/u L Imm Gran Abs Auto 0.02 0.00-0.03 X10*3/uL Lymphocytes Absolute Auto 0.7 1.2-4.9 X10*3/u L Monocytes Absolute Auto 1.8 0.1-1.2 X10*3/uL Eosinophils Absolute Auto 0.0 0.0-0.4 X10*3/u L Basophils Absolute Auto 0.1 0.0-0.2 X10*3/uL NRBC Abs Auto 0.000 0.0-0.012 X10*3/uL CORRE CTED REPORT CORRE CTED REPORT IRON PROFILE Reviewed date:06/02/2025 10:43:12 AM Interpretation: Performing Lab:[facility], [address] [place] [phone] Notes/Report: Iron 98 45-160 mcg/dL Total Iron Binding Capacity 257 228-428 mcg/d L Percent Iron Saturation 38 15-50 % Unsaturated Iron Binding 159 REASON FOR VISIT CBC IRON Encounters Encounter Location Date Provider Diagnosis Major Nazario MD [address] [place] [address] [place] [phone] 06/02/2025 Major Nazario Iron deficiency anemia, unspecified iron deficiency anemia type D50.9 Assessments Encounter Date Diagnosis (ICD Code) Assessment Notes Treatment Notes Treatment Clinical Notes Section Notes 06/02/2025 Iron deficiency anemia, unspecified iron deficiency anemia type (ICD-10 - D50.9) Plan Of Treatment Next Appt Details Provider Name:Major frazier, 10/20/2025 02:00:00 PM, [address] [place] [address], [address], [phone], Provider Name:Major frazier, 02/27/2026 07:15:00 AM, [address] [place] [address], [address] [place], [phone], Provider Name:Major frazier, 03/05/2026 02:30:00 PM, [facility], [address], [place], [place], [phone], Progress Notes * Suhail HASSAN CamillaDOB:03/1955 (70 yo M)Acc No.[id number]:06/02/2025 Progress Note Patient: Suhail MCARTHUR Provider: Debra Nazario MD :1955 A ge:70 Y S ex:Male Date:06/02/2025 Address:[address] [place], [place] [phone] Subjective: * Chief Complaints: * 1 . CBC IRON. * Medical History: Objective: * Vitals: Assessment: * Assessment: 1. I libia deficiency anemia, unspecified iron deficiency anemia type - D50.9 (Primary) ? Plan: * Treatment: * Procedure Codes: 3 6415 VENIPUNCT, ROUTINE* * * The named appointment provid er may or may not be the originator of this progress note, and it is not deemed complete until electronically signed by the appointment provider. Sign off status: Pending * Provider: Debra Nazario MD Date: 0 06/02/2025 Generated for Nadine cleaning/Mely/Ulisesitting on: 12/20/2024 06:12 PM EST
--- OUTSIDE RECORDS SUMMARY | 2025-06-13 09:00 | XMS_ITS ---
Author Organization Major Nazario MD Address [address] [place] [phone] Care Team Providers Care Chemist Intern Name Role Phone Major Nazario Primary Care Provider [phone] Allergies No Known Allergies REASON FOR VISIT 3 month/ [facility] Medications Medication SIG (Take, Route, Frequency, Duration) Notes Start Date End Date Status Cialis 20 MG 1 tablet Orally Once a day for 30 days 09/23/2016 Not-Taking Atorvastatin Calcium 20 MG 1 tablet Orally Once a day Active Omeprazole 20 MG 1 capsule 30 minutes before morning meal Orally Once a day Active Ibuprofen 800 MG 1 tablet Orally Thre e times a day for 90 days Not-Taki ng Tadalafil 20 MG 1 tablet Orally Once a day for 30 day(s) 12/31/2020 Not-Taking Vital Signs Blood pressure systolic 122 mm Hg 06/13/20 25 Blood pressure diastolic 70 mm Hg 025 Height 69.50 in 06/13/2025 Weight 134 lbs 06/13/2025 BMI 19.5 kg/m2 06/13/2025 weight is down 7 pounds [facility] 03-14-25 Encounters Encounter Location Date Provider Diagnosis Major Nazario MD [address] [place] [address] [place] [phone] 06/13/2025 Major Nazario Iron deficiency anemia, unspecified iron deficiency anemia type D50.9 and Monocytosis D72.821 Assessments Encounter Date Diagnosis (ICD Code) Assessment Notes Treatment Notes Treatment Clinical Notes Section Notes 06/13/2025 Iron deficiency anemia, unspecified iron deficiency anemia type (ICD-10 - D50.9) will continue to monitor, pending future labs, need notes from [facility]/ will send request for notes 06/13/2025 Monocytosis (ICD-10 - D72.821) Plan Of Treatment Treatment Notes Assessment Notes Iron deficiency anemia, unsp ecified iron deficiency anemia type will continue to monitor, pending future labs, need notes from [facility]/ will send request for notes Next Appt Details Follow Up: 6 Weeks, Reason: Provider Name:Major frazier, 10/20/2025 02:00:00 PM, [address] [place] [address], [address], [phone], Provider Name:Major frazier, 02/27/2026 07:15:00 AM, [address] [place] [address], [address], [phone], Provider Name:Major frazier, 03/05/2026 02:30:00 PM, [address] [place] [address], [address], [phone], Progress Notes * Suhail HASSANDOB:03/1955 (70 yo M)Acc No.[id number]:06/13/2025 Patient: Suhail MCARTHUR Provider: Debra Nazario MD :1955 A ge:70 Y S ex:Male Date:06/13/2025 Address:[address] [place] [address] Subjective: * Chief Complaints: * 3 month/ CBACK CBC * HPI: S ymptom(s): patient is a 70 yo male here for 3 month follow up visit. * ROS: G eneral/Constitutional: Denies C hills. D enies F atigue. D enies F ever. D enies H eadache. A dmits W eight loss. E NT: Denies S ore throat. R [...] Objective: * Vitals: H t: 69.50, Wt: 134, BMI:19.5, BP:122/70, Wt-k.78. weight is down 7 pounds since 03-14-25. * P ast Orders: L ab:IRON PROFILE (Order Date - 06/02/2025) (Collection Date & Time - 06/02/2025 07:15 AM) Value Reference Range Iron 98 45-160 - mcg/dL Total Iron Binding Capacity 257 228-428 - mc g/dL Percent Iron Saturation 38 15-50 - % Unsaturated Iron Binding 159 - ug/dL * Examination: G eneral Examination: GENERAL APPEARANCE: a lert, well hydrated, in no distress.? HEAD: n ormocephalic. SKIN: g ood turgor. HEART: n o murmurs, rubs, gallops, regular rate and rhythm.? LUNGS: n o wheezes, rales, rhonchi, good air movement, clear to auscultation bilaterally. Assessment: * Assessment: 1. I libia deficiency anemia, unspecified iron deficiency anemia type - D50.9 (Primary) ? 2 . M onocytosis - D72.821 Plan: * Treatment: * Procedure Codes: * Follow Up: 6 Weeks * * Sign off status: Completed true * Provider: Debra Nazario MD Date: 0 06/13/2025 Generated for Nadine cleaning/Mely/Ulisesitting on: 1 12/20/2024 06:11 PM EST History and Physical Notes * HPI (History of Present Illness) Category Sub-Category Detail Notes Category Not es Symptom(s) patient is a 70 yo male here for 3 month follow up visit Examination Category Sub-Category Detail Notes Category Not es General Examination GENERAL APPEARANCE: alert, w ell hydrated, in no distress HEAD: normocephalic HEART: no murmurs, rubs, ga llops, regular rate and rhythm LUNGS: no wheezes, rales, r honchi, good air movement, clear to auscultation bilaterally SKIN: good turgor
--- OUTSIDE RECORDS SUMMARY | 2025-07-11 03:00 | XMS_ITS ---
Author Organization Major Nazario MD Address [address] [place] [phone] Care Team Providers Care Orientation And Mobility Specialist Name Role Phone Major Nazario Primary Care Provider [phone] Results Component Value Reference Range Notes Complete Blood Count Auto Di ff Reviewed date:07/11/2025 12:40:10 PM Interpretation: Performing Lab:[facility], [address] [place] [phone] Notes/Report: White Blood Count 5.4 4.8-10.8 X10*3/uL Red Blood Count 4.10 4.60-5.80 X10*6/uL Hemoglobin 14.1 14.0-18.0 g/dl Hematocrit 39.7 42.0-52.0 % Mean Corpuscular Volume 96.8 80.0-98.0 fL Mean Corpuscular Hemoglobin 34.4 27.0-33.0 pg Mean Corpuscular HGB Conc 35.5 31.0-36.0 g/dl Red Cell Distribution Width 18.4 11.0-16.0 % Platelet Count 278 160-400 X10*3/uL Mean Platelet Volume 10.1 9.4-12.4 fL Neutrophils Percent Auto 50.3 45-73 % Imm Gran Pct Auto 0.6 0.0-0.4 % Lymphocytes Percent Auto 26.7 20-40 % Monocytes Percent Auto 15.2 2-11 % Eosinophils Percent Auto 6.1 0-4 % Basophils Percent Auto 1.1 0-2 % NRBC Pct Auto 0.0 0.0-0.2 /100WBC Neutrophils Absolute Auto 2.7 2.0-8.3 x10*3/u L Imm Gran Abs Auto 0.03 0.00-0.03 X10*3/uL Lymphocytes Absolute Auto 1.4 1.2-4.9 X10*3/u L Monocytes Absolute Auto 0.8 0.1-1.2 X10*3/uL Eosinophils Absolute Auto 0.3 0.0-0.4 X10*3/u L Basophils Absolute Auto 0.1 0.0-0.2 X10*3/uL NRBC Abs Auto 0.000 0.0-0.012 X10*3/uL IRON PROFILE Reviewed date:07/27/2025 09:25:34 AM Interpretation:07-25-2025 Performing Lab:[facility], [address] [place] [phone] Notes/Report: Iron 205 45-160 mcg/dL Total Iron Binding Capacity 243 228-428 mcg/d L Percent Iron Saturation 84 15-50 % Unsaturated Iron Binding 38 REASON FOR VISIT CBC with diff, iron panel Encounters Encounter Location Date Provider Diagnosis Major Nazario MD [address] [place] [address] [place] [phone] 07/11/2025 Major Nazario Iron deficiency anemia, unspecified iron deficiency anemia type D50.9 Assessments Encounter Date Diagnosis (ICD Code) Assessment Notes Treatment Notes Treatment Clinical Notes Section Notes 07/11/2025 Iron deficiency anemia, unspecified iron deficiency anemia type (ICD-10 - D50.9) Plan Of Treatment Next Appt Details Provider Name:Major frazier, 10/20/2025 02:00:00 PM, [address] [place] [address], [place] [address], [place], [place], [phone], Provider Name:Major frazier, 02/27/2026 07:15:00 AM, [address] [place] [address], [address], [place], [place], [phone], Provider Name:Major Oh ier, 03/05/2026 02:30:00 PM, [address] [facility], [address], [place], [place], [phone], Progress Notes * Suhail HASSAN JDOB:03/1955 (70 yo M)Acc No.[id number]:07/11/2025 Progress Note Patient: Suhail MCARTHUR Provider: Debra Nazario MD :1955 A ge:70 Y S ex:Male Date:07/11/2025 Address:[address] [place], [place] [phone] Subjective: * Chief Complaints: * 1 . CBC with diff, iron panel. * Medical History: Objective: * Vitals: Assessment: [...] * Provider: Debra Nazario MD Date: 0 07/11/2025 Generated for Nadine cleaning/Mely/Ulisesitting on: 12/20/2024 06:12 PM EST
--- OUTSIDE RECORDS SUMMARY | 2025-07-11 03:15 | XMS_ITS ---
Author Organization Major Nazario MD Address [address] [place] [phone] Care Team Providers Care Preschool Education Director Name Role Phone Major Nazario Primary Care Provider REASON FOR VISIT PSA Encounters Encounter Location Date Provider Diagnosis Major Nazario MD [address] [facility] [address] [place] [phone] 07/11/2025 Major Nazario Plan Of Treatment Next Appt Details Provider Name:Major frazier, 10/20/2025 02:00:00 PM, [address] [place] [address], [address], [phone], Provider Name:Major frazier, 02/27/2026 07:15:00 AM, [address] [place] [address], [address], [phone], Provider Name:Major frazier, 03/05/2026 02:30:00 PM, [address] [place] [address], [address], [phone], Progress Notes * Suhail HASSANDOB:03/1955 (70 yo M)Acc No.[id number]:07/11/2025 Progress Note Patient: Suhail MCARTHUR Provider: Debra Nazario MD :1955 A ge:70 Y S ex:Male Date:07/11/2025 Address:[address] [place], [place] [phone] Subjective: * Chief Complaints: * 1 . PSA. * Medical History: Objective: * Vitals: Assessment: Plan: * Treatment: * * The named appointment provid er may or may not be the originator of this progress note, and it is not deemed complete until electronically signed by the appointment provider. Sign off status: Pending * Provider: Debra Nazario MD Date: 0 07/11/2025 Generated for Nadine cleaning/Mely/Ulisesitting on: 1 12/20/2024 06:12 PM EST
--- OUTSIDE RECORDS SUMMARY | 2025-07-25 09:00 | XMS_ITS ---
Author Organization Major Nazario MD Address [address] [place] [phone] Care Team Providers Care Special Education Resource Room Teacher Name Role Phone Major Nazario Primary Care Provider [phone] Allergies No Known Allergies REASON FOR VISIT 6 week/ must see iron Medications Medication SIG (Take, Route, Frequency, Duration) Notes Start Date End Date Status Cialis 20 MG 1 tablet Orally Once a day for 30 days 09/23/2016 Not-Taking Tadalafil 20 MG 1 tablet Orally Once a day for 30 day(s) 12/31/2020 Not-Taking Ibuprofen 800 MG 1 tablet Orally Thre e times a day for 90 days Not-Taki ng Omeprazole 20 MG 1 capsule 30 minutes before morning meal Orally Once a day Active Atorvastatin Calcium 20 MG 1 tablet Orally Once a day Active Vitamin B12 1000 MCG 1 tablet Orally Onc e a day Active Vital Signs Blood pressure systolic 116 mm Hg 07/25/20 25 Blood pressure diastolic 60 mm Hg 025 Height 69.50 in 07/25/2025 Weight 136 lbs 07/25/2025 BMI 19.79 kg/m2 07/25/2025 weight is up 2 pounds since 06-13-25 Encounters Encounter Location Date Provider Diagnosis Major Nazario MD [address] [place], [place] [phone] 07/25/2025 Major Nazario Iron deficiency E61.1 Assessments Encounter Date Diagnosis (ICD Code) Assessment Notes Treatment Notes Treatment Clinical Notes Section Notes 07/25/2025 Iron deficiency (ICD-10 - E61.1) need notes from hematology at [facility]/ will change iron to weekly/ OFFICE NOTE REQUESTED FROM HEM/ONC/ have eviewed records from the hematology that are availabe. unfortunately it seems that they send them to dr ethan cage probably because that is the first name in the drop down menu. 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 he says that 40 years ago he was told he had lupus when he had a retinal occlusion and i have gone into the paper charts and can't find any mention of that. he had been going to another doctor for some of that time. Total time spent on the date of the encounter is 35 minutes including both face to face time spent and time spent reviewing documentation, pertinent lab data, studies and counseling the patient. Plan Of Treatment Treatment Notes Assessment Notes Iron deficiency need notes from zabrina tology at [facility]/ will change iron to weekly/ OFFICE NOTE REQUESTED FROM HEM/ONC/ have eviewed records from the hematology that are availabe. unfortunately it seems that they send them to dr ethan cage probably because that is the first name in the drop down menu. 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 he says that 40 years ago he was told he had lupus when he had a retinal occlusion and i have gone into the paper charts and can't find any mention of that. he had been going to another doctor for some of that time. Total time spent on the date of the encounter is 35 minutes including both face to face time spent and time spent reviewing documentation, pertinent lab data, studies and counseling the patient. Next Appt Details Follow Up: cancel [facility], Reason: Provider Name:Major frazier, 10/20/2025 02:00:00 PM, [address], [address], [place], [place], [phone], Provider Name:Major Oh ier, 02/27/2026 07:15:00 AM, [address] [facility], [address], [place], [place], [phone], Provider Name:Major Oh ier, 03/05/2026 02:30:00 PM, [address] [facility], [address], [place], [place], [phone], Progress Notes * CATHY Suhail SampsonDOB:03/1955 (70 yo M)Acc No.[id number]:07/25/2025 Patient: Suhail MCARTHUR Provider: Debra Nazario MD :1955 A ge:70 Y S ex:Male Date:07/25/2025 Address:[address] [place], [place] [phone] Subjective: * Chief Complaints: * 6 week/ must see iron * HPI: S ymptom(s): patient is a 70 yo male here for 6 week follow up visit. * ROS: G eneral/Constitutional: [...] Hospitalization/Major Diagno stic Procedure: * Medications: T akingVitamin B12 1000 MCG Tablet 1 tablet Orally Once a day Omeprazole 20 MG Capsule Delayed Release 1 capsule 30 minutes before morning meal Orally Once a day Atorvastatin Calcium 20 MG Tablet 1 tablet Orally Once a day Taking Vitamin B12 1000 MCG Tablet 1 tablet Orally Once a day [...] Objective: * Vitals: H t: 69.50, Wt: 136, BMI:19.79, BP:116/60, Wt-k.69. weight is up 2 pounds since 06-13-25. * P ast Orders: L ab:Complete Blood Count Auto Diff (Order Date - 07/11/2025) (Collection Date & Time - 07/11/2025 08:00 AM) Value Reference Range White Blood Count 5.4 4.8-10.8 - X10*3/uL Red Blood Count 4.10 L 4.60-5.80 - X10*6/uL Hemoglobin 14.1 14.0-18.0 - g/dl Hematocrit 39.7 L 42.0-52.0 - % Mean Corpuscular Volume 96.8 80.0-98.0 - fL Mean Corpuscular Hemoglobin 34.4 H 27.0-33.0 - pg Mean Corpuscular HGB Conc 35.5 31.0-36.0 - g/ dl Red Cell Distribution Width 18.4 H 11.0-16.0 - % Platelet Count 278 160-400 - X10*3/uL Mean Platelet Volume 10.1 9.4-12.4 - fL Neutrophils Percent Auto 50.3 45-73 - % Imm Gran Pct Auto 0.6 H 0.0-0.4 - % Lymphocytes Percent Auto 26.7 20-40 - % Monocytes Percent Auto 15.2 H 2-11 - % Eosinophils Percent Auto 6.1 H 0-4 - % Basophils Percent Auto 1.1 0-2 - % NRBC Pct Auto 0.0 0.0-0.2 - /100WBC Neutrophils Absolute Auto 2.7 2.0-8.3 - x10* 3/uL Imm Gran Abs Auto 0.03 0.00-0.03 - X10*3/uL Lymphocytes Absolute Auto 1.4 1.2-4.9 - X10* 3/uL Monocytes Absolute Auto 0.8 0.1-1.2 - X10*3/ uL Eosinophils Absolute Auto 0.3 0.0-0.4 - X10* 3/uL Basophils Absolute Auto 0.1 0.0-0.2 - X10*3/ uL NRBC Abs Auto 0.000 0.0-0.012 - X10*3/uL * Examination: G eneral Examination: GENERAL APPEARANCE: w ell developed, well nourished, male.? HEAD: n ormocephalic. SKIN: g ood turgor. HEART: r egular rate and rhythm, no murmurs, rubs, gallops.? LUNGS: n o wheezes, rales, rhonchi, good air movement, clear to auscultation bilaterally. Assessment: * Assessment: 1Marysol samuel - E61.1 (Primary) Plan: * Treatment: * Procedure Codes: * Follow Up: deb ness,3 Months * * Sign off status: Completed true * Provider: Debra Nazario MD Date: 0 07/25/2025 Generated for Nadine cleaning/Mely/Reedsmitting on: 1 12/20/2024 06:11 PM EST History and Physical Notes * HPI (History of Present Illness) Category Sub-Category Detail Notes Category Not es Symptom(s) patient is a 70 yo male here for 6 week follow up visit Examination Category Sub-Category Detail Notes Category Not es General Examination GENERAL APPEARANCE: well dev eloped, well nourished, male HEAD: normocephalic HEART: regular rate and rhy thm, no murmurs, rubs, gallops LUNGS: no wheezes, rales, r honchi, good air movement, clear to auscultation bilaterally SKIN: good turgor
--- OUTSIDE RECORDS SUMMARY | 2025-10-13 02:30 | XMS_ITS ---
Author Organization Major Nazario MD Address [address] [place] [phone] Care Team Providers Care Paleobotanist Name Role Phone Major Nazario Primary Care Provider Results Component Value Reference Range Notes Liver Panel Reviewed date:10/13/2025 05:40:33 PM Interpretation: Performing Lab:[facility], [address] [place] [phone] Notes/Report: Bilirubin Total 0.5 0.0-1.0 mg/dL Bilirubin Direct 0.2 0.0-0.5 mg/dL Aspartate Amino Transferase 52 5-37 U/L Alanine Aminotransferase 23 0-40 U/L Total Protein 6.6 6.5-8.0 g/dL Albumin Level 3.8 3.5-5.0 g/dL Alkaline Phosphatase 51 39-117 U/L IRON PROFILE Reviewed date:10/13/2025 05:45:55 PM Interpretation: Performing Lab:[facility], [address] [place] [phone] Notes/Report: Iron 155 45-160 mcg/dL Total Iron Binding Capacity 232 228-428 mcg/d L Percent Iron Saturation 67 15-50 % Unsaturated Iron Binding 77 Lipid Panel with Reflex Reviewed date:10/13/2025 05:41:13 PM Interpretation: Performing Lab:[facility], [address] [place] [phone] Notes/Report: Triglycerides 80 <150 mg/dL Desirable Triglyceride: less than 150 mg/dL Borderline High Triglyceride 150-199 mg/dL High Triglyceride: 200-499 mg/dL Very High Triglyceride: greater than or equal to 5OO mg/dL Cholesterol 161 <200 mg/dL Desirable Cholesterol: less than 200 mg/dL Borderline High Cholesterol: 200-239 mg/dL High Cholesterol: greater than 239 mg/dL LDL Cholesterol Calculated 77 <100 mg/dL Desirable LDL: less than 100 mg/dL Near Optimal/Above Optimal LDL: 110-129 mg/dL Borderline High LDL: 130-159 mg/dL High LDL: 160-189 mg/dL Very High LDL: greater than or equal to 190 mg/dL HDL Cholesterol 68 >40 mg/dL Desirable HDL: greater than 40 mg/dL Note: This HDL assay may give artificially low results in patients with liver disease. REASON FOR VISIT FASTING LIPIDS/IRON PROFILE Encounters Encounter Location Date Provider Diagnosis Major Nazario MD [address] [place] [address] [place] [phone] 10/13/2025 Major Nazario Iron deficiency E61. 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 - I25.10) Plan Of Treatment Next Appt Details Provider Name:Major frazier, 10/20/2025 02:00:00 PM, [address] [place] [address], Suite [facility], [place], [place], [phone], Provider Name:Major frazier, 02/27/2026 07:15:00 AM, [address] [place] [address], Suite [facility], [place], [place], [phone], Provider Name:Major frazier, 03/05/2026 02:30:00 PM, [address] [place] [address], [address], [place], [place], [phone], Progress Notes * Suhail HASSAN JDOB:03/1955 (70 yo M)Acc No.[id number]:10/13/2025 Progress Note Patient: Suhail MCARTHUR Provider: Debra Nazario MD :1955 A ge:70 Y S ex:Male Date:10/13/2025 Address:[address] [place], [place] [phone] Subjective: * Chief Complaints: * 1 . FASTING LIPIDS/IRON PROFILE. * Medical History: Objective: * Vitals: Assessment: * Assessment: 1. I libia deficiency - E61.1 (Primary) 2 . 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 Sign off status: Pending * Provider: Debra Nazario MD Date: 12/14/2024 Generated for Nadine cleaning/Mely/Ulisesitting on: 12/20/2024 06:12 PM EST
--- OUTSIDE RECORDS SUMMARY | 2025-10-19 18:11 | XMS_ITS | Patient Health Record ---
Author Organization [facility] Address [address] [place] [address] Care Team Providers Care Warehouse Picker Name Role Phone Major Nazario MD Primary Care Provider Jhonathan Heredia Unavailable [phone] Allergies No Known Allergies Reason For Referral No Information Medications Medication SIG (Take, Route, Frequency, Duration) Notes Start Date End Date Status Iron 325 (65 Fe) MG Tablet 1 tablet Orally Three times a Week; Duration: 30 day(s) 08/02/2025 Active B-12 1000 MCG Tablet Sublingual TAKE 1 TABLET SUBLINGUALLY DAILY Sublingual; Duration: 90 Days Active Omeprazole 40 MG Capsule Delayed Release 1 Orally Every morning; Duration: 30 day(s) 08/24/2023 Not-Taking/MD N Atorvastatin Calcium 20 MG Tablet TAKE 1 TABLET BY MOUTH EVERYDAY AT BEDTIME Oral; Duration: 90 Days Active Omeprazole 20 MG Capsule Delayed Release 1 capsule Orally once every morning; Duration: 90 days Active Multivitamin Adult - Tablet Orally occasionally Active Immunizations Vaccine Route Administration Date Status Comme nts Influenza Unknown 07/21/2023 Administered Influenza Unknown 08/17/2024 Administered Influenza Unknown 07/18/2025 Administered Social History Tobacco Use: Social History [...] Marital status: 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 Section Notes: Smoker 1/2 pdd; occasional a lcohol Smoker [...] Problem Status W/U Status Risk Notes Problem Colon cancer screening (075877065) Colon cancer screening (Z12.11) Active confirmed Problem Diverticular disease of colon (253156508) Diverticulosis of large intestine without perforation or abscess without bleeding (K57.30) Active confirmed Problem Gastroesophageal reflux disease (505594444) Gastroesophageal reflux disease (K21.9) Active confirmed Problem Iron deficiency anemia (48044833) Iron deficiency anemia (D50.9) Active confirmed Problem History of polyp of colon (situation) (040866959) History of colon polyps (Z86.010) Active confirmed Problem Abnormal feces (344608592) Heme + stool (R19.5) Active confirmed Problem Iron deficiency anemia (47164572) Iron deficiency anemia, unspecified iron deficiency anemia type (D50.9) Active confirmed Problem Erosive gastritis (5436253152684896) Erosive gastritis (K29.60) Active confirmed Problem Gastroesophageal reflux disease (363924138) Gastroesophageal reflux disease, unspecified whether esophagitis present (K21.9) Active confirmed Problem History of adenomatous polyp of colon (873491710) History of adenomatous polyp of colon (Z86.0101) Active confirmed Vital Signs Temperature 98.0 degrees Fahrenheit 08/02/2025 Blood pressure diastolic 01 mm Hg 08/02/2025 Height 67.5 in 08/02/2025 Blood pressure systolic 001 mm Hg 08/02/2025 Weight 134.2 lbs 08/02/2025 BMI 20.71 kg/m2 08/02/2025 Encounters Encounter Location Date Provider Diagnosis [facility] [address] [place] [phone] 02/01/2025 Jhonathan Efren Iron deficiency anem ia, unspecified iron deficiency anemia type D50.9 and Erosive gastritis K29.60 [facility] [address] [place] [phone] 08/02/2025 Jhonathan Schwartz Iron deficiency anem ia, unspecified iron deficiency anemia type D50.9 ; Gastroesophageal reflux disease, unspecified whether esophagitis present K21.9 ; Erosive gastritis K29.60 ; Colon cancer screening Z12.11 and History of adenomatous polyp of colon Z86.0101 [facility] [address] [phone] 08/03/2025 Jhonathan Efren [facility] [address] [phone] 02/01/2025 Jhonathan Efren [facility] [address] [phone] 08/02/2025 Jhonathan Schwartz Assessments Encounter Date Diagnosis (ICD Code) Assessment Notes Treatment Notes Treatment Clinical Notes Section Notes 02/01/2025 Iron deficiency anemia, unspecified iron deficiency anemia type (ICD-10 - D50.9) 08/02/2025 Iron deficiency anemia, unspecified iron deficiency anemia type (ICD-10 - D50.9) Stay on the Iron supplements. Follow up with Dr. Shabazz and Dr. Nazario for periodic blood counts Overall, Benjamin appears well and is not having any new or worrisome GI complaints. His previous anemia seems to have corrected after the institution of iron supplements and stoppage of his NSAIDs. His laboratories from just a couple of weeks ago look very reassuring with a normal hemoglobin. As you recall he was found to have erosive gastritis which I suspect was the main cause of his anemia given the otherwise negative workup. We did review that the combination of NSAIDs, smoking, and some beer on a daily basis would be enough to create significant gastritis and some chronic blood loss on that basis. I did encourage him to eliminate smoking and alcohol from his lifestyle as well. At this point I advised him that I do not think he needs any other intervention in my part at the present time. We did review that he will be due for a follow-up screening colonoscopy in 2027 given his last colonoscopy being in 2022. I did advise him to continue to have periodic blood counts with either yourself or the Hematology Clinic and to be referred back to me if need be. If things otherwise remain well he will see me on an as needed basis Bnejamin was comfortable with this plan. Thank you again for allowing me to participate in Benjamin's care. I shall continue to keep you advised of his progress., . 08/02/2025 Gastroesophageal reflux disease, unspecified whether esophagitis present (ICD-10 - K21.9) Overall, Benjamin appears well and is not having any new or worrisome GI complaints. His previous anemia seems to have corrected after the institution of iron supplements and stoppage of his NSAIDs. His laboratories from just a couple of weeks ago look very reassuring with a normal hemoglobin. As you recall he was found to have erosive gastritis which I suspect was the main cause of his anemia given the otherwise negative workup. We did review that the combination of NSAIDs, smoking, and some beer on a daily basis would be enough to create significant gastritis and some chronic blood loss on that basis. I did encourage him to eliminate smoking and alcohol from his lifestyle as well. At this point I advised him that I do not think he needs any other intervention in my part at the present time. We did review that he will be due for a follow-up screening colonoscopy in 2027 given his last colonoscopy being in 2022. I did advise him to continue to have periodic blood counts with either yourself or the Hematology Clinic and to be referred back to me if need be. If things otherwise remain well he will see me on an as needed basis Benjamin was comfortable with this plan. Thank you again for allowing me to participate in Benjamin's care. I shall continue to keep you advised of his progress., . 08/02/2025 Erosive gastritis (ICD-10 - K29.60) Overall, Benjamin appears well and is not having any new or worrisome GI complaints. His previous anemia seems to have corrected after the institution of iron supplements and stoppage of his NSAIDs. His laboratories from just a couple of weeks ago look very reassuring with a normal hemoglobin. As you recall he was found to have erosive gastritis which I suspect was the main cause of his anemia given the otherwise negative workup. We did review that the combination of NSAIDs, smoking, and some beer on a daily basis would be enough to create significant gastritis and some chronic blood loss on that basis. I did encourage him to eliminate smoking and alcohol from his lifestyle as well. At this point I advised him that I do not think he needs any other intervention in my part at the present time. We did review that he will be due for a follow-up screening colonoscopy in 2027 given his last colonoscopy being in 2022. I did advise him to continue to have periodic blood counts with either yourself or the Hematology Clinic and to be referred back to me if need be. If things otherwise remain well he will see me on an as needed basis Benjamin was comfortable with this plan. Thank you again for allowing me to participate in Benjamin's care. I shall continue to keep you advised of his progress., . 02/01/2025 Erosive gastritis (ICD-10 - K29.60) Continue to stay off the Ibuprofen 08/02/2025 Colon cancer screening (ICD-10 - Z12.11) Repeat colonoscopy in 2027 Overall, Benjamin appears well and is not having any new or worrisome GI complaints. His previous anemia seems to have corrected after the institution of iron supplements and stoppage of his NSAIDs. His laboratories from just a couple of weeks ago look very reassuring with a normal hemoglobin. As you recall he was found to have erosive gastritis which I suspect was the main cause of his anemia given the otherwise negative workup. We did review that the combination of NSAIDs, smoking, and some beer on a daily basis would be enough to create significant gastritis and some chronic blood loss on that basis. I did encourage him to eliminate smoking and alcohol from his lifestyle as well. At this point I advised him that I do not think he needs any other intervention in my part at the present time. We did review that he will be due for a follow-up screening colonoscopy in 2027 given his last colonoscopy being in 2022. I did advise him to continue to have periodic blood counts with either yourself or the H[facility]ology Clinic and to be referred back to me if need be. If things otherwise remain well he will see me on an as needed basis Benjamin was comfortable with this plan. Thank you again for allowing me to participate in Benjamin's care. I shall continue to keep you advised of his progress., . 08/02/2025 History of adenomatous polyp of colon (ICD-10 - Z86.0101) Overall, Benjamin appears well and is not having any new or worrisome GI complaints. His previous anemia seems to have corrected after the institution of iron supplements and stoppage of his NSAIDs. His laboratories from just a couple of weeks ago look very reassuring with a normal hemoglobin. As you recall he was found to have erosive gastritis which I suspect was the main cause of his anemia given the otherwise negative workup. We did review that the combination of NSAIDs, smoking, and some beer on a daily basis would be enough to create significant gastritis and some chronic blood loss on that basis. I did encourage him to eliminate smoking and alcohol from his lifestyle as well. At this point I advised him that I do not think he needs any other intervention in my part at the present time. We did review that he will be due for a follow-up screening colonoscopy in 2027 given his last colonoscopy being in 2022. I did advise him to continue to have periodic blood counts with either yourself or the H[facility]ology Clinic and to be referred back to me if need be. If things otherwise remain well he will see me on an as needed basis Benjamin was comfortable with this plan. Thank you again for allowing me to participate in Benjamin's care. I shall continue to keep you advised of his progress., . Plan Of Treatment Pending Test Test Name Order Date IRON + IBC (FE) 02/01/2025 IRON + IBC (FE) 12/30/2023 IRON + IBC (FE) 07/27/2024 IRON + IBC (FE) 08/24/2023 CBC w DIFF 08/24/2023 CBC w DIFF 07/27/2024 CBC w DIFF 12/30/2023 CBC w DIFF 02/01/2025 CELIAC PANEL #10 07/09/2023 Ferritin 08/24/2023 Ferritin 02/01/2025 Ferritin 12/30/2023 Ferritin 07/27/2024 Vitamin B12 and Folate 07/09/2023 Future Test Test Name Order Date COLONOSCOPY 04/06/2018 UPPER GI ENDOSCOPY 07/09/2023 COLONOSCOPY 07/09/2023 Insurance Providers Payer Name Payer Address Payer Phone Subscriber Number Group Number Insured Name Patient Relationship to Insured Coverage Start Date Coverage End Date [employer] [place] [address] [place] [id number] BENJAMIN MORGAN Self - patient is the insured [facility] [address] [address] [place] [address] [phone] [id number] BENJAMIN MORGAN Self - patient is the insured Medical (General) History Medical History History ICD Code Denies [place],DM,CVA,Lung disease,renal dise ase Neg. screeening colonoscopy in [...]
--- OUTSIDE RECORDS SUMMARY | 2025-10-19 18:12 | XMS_ITS | Patient Health Record ---
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[employer] Name Role Phone Major Nazario Primary Care Provider Allergies No Known Allergies Results Component Value Reference Range Notes IRON PROFILE Reviewed date:11/28/2024 05:00:26 PM Interpretation: Performing Lab:[facility], [address] [place] [phone] Notes/Report: Iron 31 45-160 mcg/dL Total Iron Binding Capacity 333 228-428 mcg/dL Percent Iron Saturation 9 15-50 % Unsaturated Iron Binding 302 Complete Blood Count Auto Di ff Reviewed date:03/03/2025 08:02:02 AM Interpretation:03-02-2025 Performing Lab:[facility], [address] [place] [phone] Notes/Report: White Blood Count 5.1 4.8-10.8 X10*3/uL [...] NRBC Abs Auto 0.000 0.0-0.012 X10*3/uL Comprehensive [place]. Panel Fa st Reviewed date:02/24/2025 03:40:54 PM Interpretation: Performing Lab:[facility], [address] [place] [phone] Notes/Report: Sodium 137 135-145 mmol/L Potassium 4.2 [...] PROFILE Reviewed date:02/24/2025 10:28:19 AM Interpretation: Performing Lab:[address] [phone] Notes/Report: Iron 33 45-160 mcg/dL Total Iron Binding Capacity 328 228-428 mcg/dL Percent Iron Saturation 10 15-50 % Unsaturated Iron Binding 295 PSA,Total (Free>4and<10) Reviewed date:02/24/2025 03:36:44 PM Interpretation: Performing Lab:[address] [address] Notes/Report: PSA,Total (Free>4and<10) 1.83 0.00-4.00 ng/mL A [...] t Reviewed date:02/24/2025 03:43:56 PM Interpretation: Performing Lab:[address] [phone] Notes/Report: Urine, Clean Catch Color Urine Yellow Appearance Urine Clear PH 5.5 5.0-9.0 Glucose Urine UA Negative Negative mg/dL Urine Blood Negative Negative Specific [place] - Urine <= 1.005 1.005-1.025 Urine [...] Reviewed date:06/15/2025 08:24:29 AM Interpretation:PUNEET 06/13 Performing Lab:[facility], [address] [place] [phone] Notes/Report: White Blood Count 7.2 4.8-10.8 X10*3/uL [...] X10*3/uL NRBC Abs Auto 0.000 0.0-0.012 X10*3/uL JOSE GUADALUPE ECTED REPORT JOSE GUADALUPE ECTED REPORT IRON PROFILE Reviewed date:06/02/2025 10:43:12 AM Interpretation: Performing Lab:[facility], [address] [place] [phone] Notes/Report: Iron 98 45-160 mcg/dL Total Iron Binding Capacity 257 228-428 mcg/dL Percent Iron Saturation 38 15-50 % Unsaturated Iron Binding 159 Complete Blood Count Auto Di ff Reviewed date:07/11/2025 12:40:10 PM Interpretation: Performing Lab:[address] [phone] Notes/Report: White Blood Count 5.4 4.8-10.8 X10*3/uL [...] PROFILE Reviewed date:07/27/2025 09:25:34 AM Interpretation:07-25-2025 Performing Lab:[facility], [address] [place] [phone] Notes/Report: Iron 205 45-160 mcg/dL Total Iron Binding Capacity 243 228-428 mcg/dL Percent Iron Saturation 84 15-50 % Unsaturated Iron Binding 38 Liver Panel Reviewed date:10/13/2025 05:40:33 PM Interpretation: Performing Lab:[facility], [address] [place] [phone] Notes/Report: Bilirubin Total 0.5 0.0-1.0 mg/dL Bilirubin Direct 0.2 0.0-0.5 mg/dL Aspartate Amino Transferase 52 5-37 U/L Alanine Aminotransferase 23 0-40 U/L Total Protein 6.6 6.5-8.0 g/dL Albumin Level 3.8 3.5-5.0 g/dL Alkaline Phosphatase 51 39-117 U/L IRON PROFILE Reviewed date:10/13/2025 05:45:55 PM Interpretation: Performing Lab:[facility], [address] [place] [phone] Notes/Report: Iron 155 45-160 mcg/dL Total Iron Binding Capacity 232 228-428 mcg/dL Percent Iron Saturation 67 15-50 % Unsaturated Iron Binding 77 Lipid Panel with Reflex Reviewed date:10/13/2025 05:41:13 PM Interpretation: Performing Lab:[facility], [address] [place] [phone] Notes/Report: Triglycerides 80 <150 mg/dL Desirable Triglyceride: [...] low results in patients with liver disease. CT lung screening Reviewed date:11/10/2024 12:22:35 PM Interpretation: Performing Lab: Notes/Report: [address] [address] [address] Scan Report Signed Patient: Suhail Hassan MR#: [id number] : 1955 Acct:[id number] Age/Sex: 69 / M ADM Date: 11/08/24 Loc: HO.CT Attending Dr: Mee Rey PA-C Ordering Physician: Mee Rey PA-C Date of Service: 11/08/24 Procedure(s): CT lung screening Accession Number(s): [id number] cc: Major Nazario MD; Mee Rey PA-C Report Number: [id number]: Total DLP = 49.00 mGy-cm CLINICAL HISTORY: [...] OV> 11/10/24 0755 DD/ 2 TD/TT: 11/10/24752 Oracle Sql Developer: [place] [address] CT Scan Report Signed Patient: Suhail Hassan MR#: [id number] : 1955 Acct:[id number] Age/Sex: 69 / M ADM Date: 11/08/24 Loc: HO.CT Attending Dr: Mee Rey PA-C Ordering Physician: Mee Rey PA-C Date of Service: 11/08/24 Procedure(s): CT jorge l g screening Accession Number(s): [id number] cc: Major Nazario MD; Mee Rey PA-C [...] Dictated By: Carmine Bangura MD Signed By: <Electron ically signed by Weston Bangura MD in OV> 11/10/24754 DD/ 2 TD/TT: 11/10/24752 Oracle Sql Developer: MR shoulder RT wo con Reviewed date:11/11/2024 05:24:22 PM Interpretation: Performing Lab: Notes/Report: [address] [address] Magnetic Resonance Report Signed Patient: Suhail Hassan MR#: [id number] : 1955 Acct:[id number] Age/Sex: 69 / M ADM Date: 11/09/24 Loc: HO.MRI Attending Dr: Brandon Waite MD Ordering Physician: Brandon Waite MD Date of Service: 11/09/24 Procedure(s): MR shoulder RT wo con Accession Number(s): [id number] cc: Major Nazario MD; Brandon Waite MD [...] in OV> 11/10/242103 DD/ 03 TD/TT: 11/10/242103 Oracle Sql Developer: [place] [address] Magnetic Resonance Report Signed Patient: Suhail Hassan MR#: [id number] : 1955 Acct:[id number] Age/Sex: 69 / M ADM Date: 11/09/24 Loc: HO.MRI Attending Dr: Brandon Waite MD Ordering Physician: Brandon Waite MD Date of Service: 11/09/24 Procedure(s): MR guadalupe christine RT wo con Accession Number(s): [id number] cc: Major Nazario MD; Brandon Waite MD CLINICAL HISTORY: M2 5.311 - Other instability, right shoulder [facility]. No comparison. Findings: There [...] in OV> 11/10/242103 DD/ 03 TD/TT: 11/10/242103 Oracle Sql Developer: MR lumbar spine wo con Reviewed date:03/16/2025 08:01:53 AM Interpretation:PUNEET 03/14 Performing Lab: Notes/Report: [address] [address] Magnetic Resonance Report Signed Patient: Suhail Hassan MR#: [id number] : 1955 Acct:[id number] Age/Sex: 70 / M ADM Date: 03/09/25 Loc: HO.MRI Attending Dr: Major Nazario MD Ordering Physician: Major Nazario MD Date of Service: 03/09/25 Procedure(s): MR lumbar spine wo con Accession Number(s): [id number] cc: Major Nazario MD EXAMINATION: MR LUMBAR [...] 07:08 AM EDT RP Dictated By: Yadiel Brooks MD Signed By: <Electronically signed by Yadiel Esquivel MD in OV> 03/10/25 0708 DD/ 1712 TD/TT: 03/09/25 1727 Oracle Sql Developer: [place] [address] Magnetic Resonance Report Signed Patient: Suhail Hassan MR#: [id number] : 1955 Acct:[id number] Age/Sex: 70 / M ADM Date: 03/09/25 Loc: HO.MRI Attending Dr: Major Nazario MD Ordering Physician: Major Nazario MD Date of Service: 03/09/25 Procedure(s): MR lum bar spine wo con Accession Number(s): [id number] cc: Major Nazario MD EXAMINATION: MR LUMBAR [...] ral spinal canal stenosis. L2-3: Left subarticular foraminal and extraforaminal broad-based disc herniation. Facet dwight [...] t he exiting nerve roots. No prevertebral compartment hematoma, [...] 03/10/25 0708 DD/ 1712 TD/TT: 03/09/25 1727 Oracle Sql Developer: NM bone scan whole body Reviewed date:04/21/2025 04:21:41 PM Interpretation: Performing Lab: Notes/Report: [place] [address] Nuclear Medicine Report Signed Patient: Suhail Hassan MR#: [id number] : 1955 Acct:[id number] Age/Sex: 70 / M ADM Date: 04/20/25 Loc: MICHELL Attending Dr: Major Nazario MD Ordering Physician: Major Nazario MD Date of Service: 04/20/25 Procedure(s): NM bone scan whole body Accession Number(s): [id number] cc: Major Nazario MD EXAMINATION: NM BONE [...] Vadim Shields MD 04/20/2025 03:20 PM EDT Dictated By: Vadim Shields MD Signed By: <Electronically signed by Vadim Shields MD in OV> 04/20/25 1520 DD/ 1153 TD/TT: 04/20/25 1400 Oracle Sql Developer: FREEDOM [address] [address] Nuclear Medicine Report Signed Patient: Suhail Hassan MR#: [id number] : 1955 Acct:[id number] Age/Sex: 70 / M ADM Date: 04/20/25 Loc: MICHELL Attending Dr: Major Nazario MD Ordering Physician: Major Nazario MD Date of Service: 04/20/25 Procedure(s): NM bon e scan whole body Accession Number(s): [id number] cc: Major Nazario MD EXAMINATION: NM BONE [...] with blood test. Electronically geno d by: Vaidm Shields MD 04/20/2025 03:20 PM EDT Dictated By: Mr leslie Shields MD Signed By: <Electronically signed by Vadim Shields MD in OV> 04/20/25 1520 DD/ 1153 TD/TT: 04/20/25 1400 Oracle Sql Developer: F[place] SLIDE REVIEW Reviewed date:06/02/2025 11:51:57 AM Interpretation: Performing Lab:[facility], [address] [place] [phone] Notes/Report: SLIDE REVIEW VERIFIED Hold Gold Reviewed date:10/13/2025 10:17:54 AM Interpretation: Performing Lab:[facility], [address] [place] [address], [place] [address] Notes/Report: Hold Gold See Note Specimen held untested for 24 hours; Call to request Chemistry testing. Reason For Referral Reason please paul soni abnormal bone marrow Diagnosis 1 Abnormal MRI (R93.89 ) Referral Organization Major Nazario MD Referring Provider First Name Major Referring Provider Last Name Mansi Referring Provider Speciality Internal M edicine Referred Provider ELIESER JANE Referred Provider Specialty Hematology/O ncology General Notes Saranya Rolle 0 03/14/2025 02:16:49 PM >NM bone scan pending, Saranya Rolle 03/20/2025 11:59:28 AM >referral faxed, Saranya Rolle 03/24/2025 03:14:26 PM >patient is aware of appt, Xiomara Salcido 06/30/2025 02:45:44 PM >OFFICE NOTE RECD FROM [facility] Referral Priority Routine Referral Appointment Date 03/30/2025 Medications Medication SIG (Take, Route, Frequency, Duration) Notes Start Date End Date Status Cialis 20 MG 1 tablet Orally Once a day for 30 days 09/23/2016 Not-Taking Vitamin B12 1000 MCG 1 tablet Orally Onc e a day Active Tadalafil 20 MG 1 [...] Problem Status W/U Status Risk Notes Problem 773865930 Atherosclerotic heart disease of [place] coronary artery without angina pectoris (I25.10) Active confirmed Problem Sciatica (47498315) Sciatica (M54.30) Active confirmed Problem 414268572 Erectile dysfunction (N52.9) Active confirmed Problem 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) Active confirmed Problem 55978125 Coronary atherosclerosis due to calcified coronary lesion (I25.84) Active confirmed Problem 9340776 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) Active confirmed Problem 162612645 Lumbar disc dise ase (M51.9) Active confirmed Problem 19828280 Smoker (F17.200) Active confirmed Problem 433372915 Environmental allergies (Z91.09) Active confirmed Problem Iron deficiency anemia (53250389) Iron deficiency anemia (D50.9) Active confirmed Problem 80883879 Current smoker (F17.200) Active confirmed Problem Monocytosis (05825360) Monocytosis (D72.821) Active confirmed Problem 07632421 Iron deficiency anemia, unspecified iron deficiency anemia type (D50.9) Active confirmed Problem 34536055 Intertrigo (L30.4) Active confirmed Problem 838344636 Hyperplastic colonic polyp, unspecified part of colon (K63.5) Active confirmed Problem Anogenital warts (728248981) Condyloma acuminata (A63.0) Active confirmed Problem MRI Scan Abnormal (061987282) Abnormal MRI (R93.89) Active confirmed Vital Signs Blood pressure diastolic 60 mm Hg 07/25/2025 marti ght is up 2 pounds since 06-13-25 Height 69.50 in 07/25/2025 weight is up 2 pounds since 06-13-25 Blood pressure systolic 116 mm Hg 07/25/2025 weig ht is up 2 pounds since 06-13-25 Weight 136 lbs 07/25/2025 weight is up 2 pounds since 06-13-25 BMI 19.79 kg/m2 07/25/2025 weight is up 2 pounds since 06-13-25 Encounters Encounter Location Date Provider Diagnosis Major Nazario MD [address] [place] [id number] 11/28/2024 Major Nazario Iron deficiency anem ia D50.9 Major Nazario MD [address] [place] [id number] 02/24/2025 Major Nazario Iron deficiency anem ia, unspecified iron deficiency anemia type D50.9 and Atherosclerotic heart disease of [place] coronary artery without angina pectoris I25.10 Major Nazario MD [address] [place] [id number] 06/02/2025 Major Nazario Iron deficiency anem ia, unspecified iron deficiency anemia type D50.9 Major Nazario MD [address] [place] [id number] 07/11/2025 Major Nazario Iron deficiency anem ia, unspecified iron deficiency anemia type D50.9 Major Nazario MD [address] [place] [id number] 10/13/2025 Major Nazario Iron deficiency E61. 1 and Atherosclerotic heart disease of [place] coronary artery without angina pectoris I25.10 Major Nazario MD [address] [place] [id number] 03/02/2025 Major Nazario Sciatica M54.30 ; Coronary atherosclerosis due to calcified coronary lesion I25.84 and Iron deficiency anemia, unspecified iron deficiency anemia type D50.9 Major Nazario MD [address] [place] [id number] 03/14/2025 Major Nazario Abnormal MRI R93.89 and Abnormal bone marrow examination R89.8 Major Nazario MD [address] [place] [id number] 06/13/2025 Major Nazario Iron deficiency anem ia, unspecified iron deficiency anemia type D50.9 and Monocytosis D72.821 Major Nazario MD [address] [id number] 07/25/2025 Major Nazario Iron deficiency E61. [address] Naz[address] [place] [id number] 12/01/2024 Major Nazario MD [address] [id number] 12/15/2024 Major Nazario Assessments Encounter Date Diagnosis (ICD Code) Assessment Notes Treatment Notes Treatment Clinical Notes Section Notes 11/28/2024 Iron deficiency anemia (ICD-10 - D50.9) 02/24/2025 Iron deficiency anemia, unspecified iron deficiency anemia type (ICD-10 - D50.9) 06/02/2025 Iron deficiency anemia, unspecified iron deficiency anemia type (ICD-10 - D50.9) 07/11/2025 Iron deficiency anemia, unspecified iron deficiency anemia type (ICD-10 - D50.9) 10/13/2025 Iron deficiency (ICD-10 - E61.1) 10/13/2025 Atherosclerotic heart disease of [place] coronary artery without angina pectoris (ICD-10 - I25.10) 03/02/2025 Sciatica (ICD-10 - M54.30) 03/02/2025 Coronary atherosclerosis due to calcified coronary lesion (ICD-10 - I25.84) will continue current regiment, advised on diet and exercise 03/14/2025 Abnormal MRI (ICD-10 - R93.89) referral to dr jane for abnormal bone marrow/ order faxed to [facility] CS dept Total time spent on the [...] monitor, pending future labs, need notes from [facility]/ will send request for notes 07/25/2025 Iron deficiency (ICD-10 - E61.1) need notes from hematology at [facility]/ will change iron to weekly/ OFFICE NOTE REQUESTED FROM HEM/ONC/ have eviewed records from the hematology that are availabe. unfortunately it seems that they send them to dr ethan cage probably because that is the first name in the drop down menu. he relates that the deputy program manager is sending him to a biomedical engineer for some reason and i can find [...] lab data, studies and counseling the patient. 02/24/2025 Atherosclerotic heart disease of [place] coronary artery without angina pectoris (ICD-10 - I25.10) 03/02/2025 Iron deficiency anemia, unspecified iron deficiency anemia type (ICD-10 - D50.9) had upper and lower endoscopy last year restart iron/ send copy of blood work to dr pickens/ lab results faxed to Dr. Pickens office 06/13/2025 Monocytosis (ICD-10 - D72.821) Plan Of Treatment Pending Test Test Name Order Date Electrocardiogram (EKG) 12/16/2018 Electrocardiogram (EKG) 12/04/2017 MRI LUMBAR SPINE NO CONTRAST 03/02/2025 Lipid Panel 02/24/2025 NM bone scan whole body 03/14/2025 Future Test Test Name Order Date CT chest wo con 12/14/2024 Next Appt Details Provider Name:Major Oh ier, 10/20/2025 02:00:00 PM, [address] [place] [address], [address], [place], [place], [phone], Provider Name:Major Oh ier, 02/27/2026 07:15:00 AM, [address] [place] [address], [address], [place], [place], [phone], Provider Name:Major Oh ier, 03/05/2026 02:30:00 PM, [address] [place] [address], [address], [place], [place], [id number], Insurance Providers Payer Name Payer Address Payer Phone Subscriber Number Group Number Insured Name Patient Relationship to Insured Coverage Start Date Coverage End Date [employer] [address] [place] [address] [id number] Suhail Hassan Self - patient is the insured [facility] [address] [address] [place] [address] [id number] Suhail Hassan Self - patient is the insured Medical (General) History Medical History History ICD Code Abscess colonoscopy 2009 neg. repeat 10; Colonoscopy 04/23/[address] Pickens hyperplastic polyp flu vac refused 08/12/13 colonoscopy 2022 repeat in 5 years
--- OUTSIDE RECORDS SUMMARY | 2025-10-19 18:13 | XMS_ITS | Patient Health Record ---
Author Organization [facility] rosa maria Coburn Address [address] [place] [address] Care Team Providers Care Cooker Chip Name Role Phone Mansi COPE, Major Primary Care Provider Priyanka Colon Unavailable [phone] Allergies No Known Allergies Reason For Referral [...] Problem Acquired hammer toe of left foot (5992617384102 103) Other hammer toe(s) (acquired), left foot (M20.42) Active confirmed Vital Signs Blood pressure diastolic 80 mm Hg 01/24/2025 Height 5ft9in in 01/24/2025 Blood pressure systolic 120 mm Hg 01/24/2025 Weight 148 lbs 01/24/2025 BMI 21.85 kg/m2 01/24/2025 Encounters Encounter Location Date Provider Diagnosis [facility] [phone] 01/24/2025 Priyanka Smallwood Pain in left toe(s) M79.675 ; Other hammer toe(s) (acquired), left foot M20.42 and [facility] [address] [facility] [address] 01/24/2025 Priyanka Smallwood Assessments Encounter Date Diagnosis (ICD Code) Assessment Notes Treatment Notes Treatment Clinical Notes Section Notes 01/24/2025 Pain in left toe(s) (ICD-10 - M79.675) 01/24/2025 Other hammer toe(s) (acquired), left foot (ICD-10 - M20.42) 01/24/2025 [place] (ICD-10 - L84) Plan Of Treatment Pending Test Test Name Order Date X ray : Foot, left 3V 01/24/2025 Insurance Providers Payer Name Payer Address Payer Phone Subscriber Number Group Number Insured Name Patient Relationship to Insured Coverage Start Date Coverage End Date Medicare [employer] [address] [place] [address] [id number] Suhail Hassan Self - patient is the insured 2 [facility] [address] [address] [place] [address] [id number] Suhail Hassan Self - patient is the insured 2 Medical (General) History Medical History History ICD Code Back,Hip,and Knee pain
== END ==
LOC: HO.CARD 13:56
PROVIDERS: PCP Internal Medicine; Visit Provider Internal Medicine
DX: I71.21 Aneurysm of the ascending aorta, without rupture (principal)
CPT/HCPCS: 93308

== ENCOUNTER → 2025-10-19 14:01 | Outpatient (BNV) | payer MEDICARE, OTHER, SELFPAY | PROVIDERS: PCP Internal Medicine; Visit Provider Internal Medicine Cardiovascular Disease | DX: I71.21 Aneurysm of the ascending aorta, without rupture (principal) | CPT/HCPCS: 93308 ==